=== PATIENT | male | born 1965 | race Hispanic/Latino ===

== ENCOUNTER → 2018-07-14 | Outpatient (CLI) | payer OTHER, MEDICARE ==
[~2018-07-14] MED LIST: AMIL5TAB8 PO; ASPI-555 PO; CEPH500T PO; FURO40TA5 PO; INSU100I26 SQ; MECL-111 PO; METF-446 PO; RIVA20TA PO; TYL3 PO; VALS320T16 PO
== END | disposition home or self-care (01) ==
LOC: SHCH 07:42
PROVIDERS: ATTEND Internal Medicine Cardiovascular Disease
DX: I10 Essential (primary) hypertension (principal); I48.1 Persistent atrial fibrillation; R06.00 Dyspnea, unspecified
CPT/HCPCS: 93306

== ENCOUNTER → 2018-08-02 | Outpatient (CLI) | payer MEDICARE, OTHER | END | disposition home or self-care (01) | LOC: RAH 14:08 | PROVIDERS: ATTEND Family Medicine | DX: S00.93XA Contusion of unspecified part of head, initial encounter (principal); X58.XXXA Exposure to other specified factors, initial encounter; Y93.89 Activity, other specified; Y92.89 Other specified places as the place of occurrence of the external cause; Y99.8 Other external cause status | CPT/HCPCS: 70450 ==

== ENCOUNTER 2019-05-23 17:32 | Emergency (ER) | payer MEDICARE ==
[2019-05-23] MEDS ORDERED: ACETAMINOPHEN 325 MG TAB ONE (18:49)
== END 2019-05-23 18:53 | disposition home or self-care (01) ==
LOC: EDH 17:32
DX: S70.11XA Contusion of right thigh, initial encounter (principal); I10 Essential (primary) hypertension; E11.9 Type 2 diabetes mellitus without complications; I48.91 Unspecified atrial fibrillation; Z98.890 Other specified postprocedural states; Z72.0 Tobacco use; W01.198A Fall on same level from slipping, tripping and stumbling with subsequent striking against other object, initial encounter; Y93.01 Activity, walking, marching and hiking; Y92.89 Other specified places as the place of occurrence of the external cause; Y99.8 Other external cause status
CPT/HCPCS: 73552; 76882

== ENCOUNTER 2019-07-12 14:24 | Inpatient (IN) | payer OTHER, MEDICARE ==
[~2019-07-12] VITALS: Ht 182.9 cm; Wt 120.2 kg
[2019-07-12] MEDS ORDERED: KETOROLAC TROMETHAMINE 30MG/ML ONE (15:38)
[2019-07-12 15:52] LABS: EOSINOPHILS % (AUTO) 1.9 % (0.0-8.0); HEMATOCRIT 45.5 % (42-54); LYMPHOCYTES % (AUTO) 22.7 % (21.0-51.0); MEAN CORPUSCULAR HEMOGLOBIN 29.4 pg (27.0-33.0); MEAN CORPUSCULAR HGB CONC 34.8 g/dL (32.0-36.0); MEAN CORPUSCULAR VOLUME 84.6 fL (79-99); MONOCYTES % (AUTO) 6.1 % (3.0-13.0); NEUTROPHILS % (AUTO) 68.3 % (40.0-77.0); PLATELET COUNT (AUTO) 149 K/uL (130-400); RED BLOOD CELL COUNT(AUTO) 5.38 MIL/uL (4.50-6.20); RED CELL DISTRIBUTION WIDTH 13.6 % (11.0-15.5); WHITE BLOOD COUNT (AUTO) 6.6 K/uL (4.8-10.8)
[2019-07-12 16:12] LABS: CREATININE 1.3 mg/dL (0.5-1.5); INR 0.95 (0.85-1.15); PARTIAL THROMBOPLASTIN TIME 28.3 SEC (26.3-35.5); POTASSIUM 4.2 mmol/L (3.5-5.1)
[2019-07-12] MEDS ORDERED: SODIUM CHLORIDE 0.9% 1000ML 1,000 ML IV ONE (16:15)
[2019-07-12 16:17] LABS: ALBUMIN 3.3 g/dL (3.5-5.0); BILIRUBIN,TOTAL 0.4 mg/dL (0.2-1.0)
[2019-07-12] MEDS ORDERED: INSULIN HUMULIN R 100 UNIT/ML 3ML ONE (16:53)
[2019-07-12] MEDS ORDERED: LEVOFLOXACIN 500 MG/D5W 100 ML 100 ML ONE (17:15)
[2019-07-12] MEDS ORDERED: ONDANSETRON HCL 4 MG/2 ML VIAL IV PRN (18:45)
[2019-07-12] MEDS ORDERED: ACETAMINOPHEN 325 MG TAB PO PRN ×2 (18:45)
[2019-07-12] MEDS ORDERED: CEFTRIAXONE SODIUM 2 GM VIAL IVP SCH (20:00)
[2019-07-12] MEDS: INSULIN HUMULIN R 100 UNIT/ML 3ML SQ SCH (21:00)
[2019-07-12 21:25] VITALS: BP 173/90
[2019-07-12] MEDS ORDERED: SODIUM CHLORIDE 0.9% 250 ML IV ONE (22:14)
[2019-07-12] MEDS: ACETAMINOPHEN-CODEINE 300/30MG TAB PO PRN (22:21)
[2019-07-13] VITALS: BP 145/90
[2019-07-13 04:00] VITALS: BP 143/93
[2019-07-13 04:14] LABS: BASOPHILS % (AUTO) 0.8 % (0.0-5.0); EOSINOPHILS % (AUTO) 2.8 % (0.0-8.0); HEMATOCRIT 41.3 % (42-54); LYMPHOCYTES % (AUTO) 34.7 % (21.0-51.0); MEAN CORPUSCULAR HEMOGLOBIN 29.4 pg (27.0-33.0); MEAN CORPUSCULAR HGB CONC 34.7 g/dL (32.0-36.0); MEAN CORPUSCULAR VOLUME 84.8 fL (79-99); MONOCYTES % (AUTO) 7.4 % (3.0-13.0); NEUTROPHILS % (AUTO) 54.3 % (40.0-77.0); NUCLEATED RED BLOOD CELLS 0.1 % (0.0-0.19); PLATELET COUNT (AUTO) 114 K/uL (130-400); RED BLOOD CELL COUNT(AUTO) 4.88 MIL/uL (4.50-6.20); RED CELL DISTRIBUTION WIDTH 13.5 % (11.0-15.5); WHITE BLOOD COUNT (AUTO) 5.5 K/uL (4.8-10.8)
[2019-07-13 04:30] LABS: CREATININE 1.2 mg/dL (0.5-1.5)
[2019-07-13] MEDS: ACETAMINOPHEN-CODEINE 300/30MG TAB PO PRN ×4 (06:22→20:18)
[2019-07-13] MEDS: INSULIN HUMULIN R 100 UNIT/ML 3ML SQ SCH ×2 (07:30→11:30)
[2019-07-13 08:00] VITALS: BP 147/94
[2019-07-13] MEDS: FAMOTIDINE 20MG TAB 20 MG TAB PO SCH (08:55)
[2019-07-13] MEDS ORDERED: CLINDAMYCIN 900 MG/D5% WATER 50 ML IV SCH (10:30)
[2019-07-13 10:51] LABS: HEMOGLOBIN A1C 10.7 % (4.0-6.0)
[2019-07-13] MEDS ORDERED: INSU100I35 SQ ×2 (11:30)
[2019-07-13] MEDS ORDERED: INSULIN LISPRO 100 UNIT/ML 3ML SQ SCH (11:45)
[2019-07-13] MEDS ORDERED: DEXTROSE 50%-WATER 50 ML DISP.SYRIN IV PRN (11:45)
[2019-07-13] MEDS ORDERED: GLUCAGON 1MG KIT 1 MG ML IM PRN (11:45)
[2019-07-13] MEDS ORDERED: PHARMACY COMMUNICATION MISC SCH (12:00)
[2019-07-13] MEDS: INSULIN LISPRO 100 UNIT/ML 3ML SQ SCH ×4 (12:33→22:25)
[2019-07-13] MEDS: LOSARTAN 100 MG TABLET PO SCH (12:34)
[2019-07-13 12:39] VITALS: BP 164/107
--- NOTE | 2019-07-13 13:00 | NUR ---
INITIAL SPOKE TO PT, ALONE, [place], MATT, EMPLOYED, NO DME, HER FOR MASTOIDITIS, REC IVABX, PENIDNG CULTURE, MITCHP IS HOME, NO DC NEEDS ANTICIPATED Addendum: 07/13/19 at 1850 by TIANNA SANON RN CM Amended: Links added.
[2019-07-13] MEDS ORDERED: VANCOMYCIN PROTOCOL PER PHARMACY IV SCH (15:30)
[2019-07-13] MEDS ORDERED: COMPOUND IV REFRIGERATED 1 EACH IVSOLN MISC PRN (15:45)
[2019-07-13] MEDS ORDERED: VANCOMYCIN 2 GM in SODIUM CHLORIDE 0.9% 500ML 500 ML IV ONE (16:00)
[2019-07-13] MEDS: CEFTAZIDIME PENTAHYDRATE 1 GM/VIAL IVP SCH (16:15)
[2019-07-13] MEDS ORDERED: AMILORIDE HCL 5 MG TABLET PO SCH (16:30)
[2019-07-13 17:07] VITALS: BP 158/100
[2019-07-13] MEDS: FUROSEMIDE 40 MG TABLET PO SCH (17:22)
[2019-07-13 20:49] VITALS: BP 149/84
[2019-07-13] MEDS ORDERED: INSULIN GLARGINE 100 UNITS/ML 10 ML VIAL SQ SCH (21:00)
[2019-07-14] MEDS: CEFTAZIDIME PENTAHYDRATE 1 GM/VIAL IVP SCH ×4 (00:01→23:43)
[2019-07-14] MEDS: ACETAMINOPHEN-CODEINE 300/30MG TAB PO PRN ×3 (00:14→16:42)
[2019-07-14 00:51] VITALS: BP 149/85
[2019-07-14 04:51] VITALS: BP 148/93
[2019-07-14 05:49] LABS: BASOPHILS % (AUTO) 0.9 % (0.0-5.0); HEMATOCRIT 42.8 % (42-54); LYMPHOCYTES % (AUTO) 34.2 % (21.0-51.0); MEAN CORPUSCULAR HEMOGLOBIN 29.3 pg (27.0-33.0); MEAN CORPUSCULAR HGB CONC 34.8 g/dL (32.0-36.0); MEAN CORPUSCULAR VOLUME 84.2 fL (79-99); MONOCYTES % (AUTO) 7.8 % (3.0-13.0); NEUTROPHILS % (AUTO) 54.1 % (40.0-77.0); PLATELET COUNT (AUTO) 140 K/uL (130-400); RED BLOOD CELL COUNT(AUTO) 5.08 MIL/uL (4.50-6.20); RED CELL DISTRIBUTION WIDTH 13.8 % (11.0-15.5); WHITE BLOOD COUNT (AUTO) 5.4 K/uL (4.8-10.8)
[2019-07-14] MEDS: VANCOMYCIN 1.5 GM in SODIUM CHLORIDE 0.9% 250 ML IV SCH ×2 (05:52→17:09)
[2019-07-14 06:14] LABS: CARBON DIOXIDE 30 mmol/L (21-32); CHLORIDE 101 mmol/L (101-111); CREATININE 1.1 mg/dL (0.5-1.5); GLOMERULAR FILTR. RATE CALC 74 mL/min (>60); GLUCOSE,RANDOM 217 mg/dL (70-105); POTASSIUM 3.6 mmol/L (3.5-5.1); SODIUM SERUM 136 mmol/L (136-145); UREA NITROGEN, BLOOD 13 mg/dL (7-18)
[2019-07-14] MEDS: INSULIN LISPRO 100 UNIT/ML 3ML SQ SCH ×7 (06:29→22:25)
[2019-07-14 07:00] LABS: ERYTHROCYTE SEDIMENTATION RATE 19 MM/HR (0-20)
[2019-07-14 07:30] VITALS: BP 144/88
[2019-07-14] MEDS ORDERED: AMILORIDE HCL 5 MG TABLET PO SCH (09:00)
[2019-07-14] MEDS ORDERED: FUROSEMIDE 40 MG TABLET PO SCH (09:00)
[2019-07-14] MEDS: RIVAROXABAN 20 MG TABLET PO SCH (09:06)
[2019-07-14] MEDS: LOSARTAN 100 MG TABLET PO SCH (09:06)
[2019-07-14] MEDS: FUROSEMIDE 40 MG TABLET PO SCH (09:07)
[2019-07-14] MEDS: AMILORIDE HCL 5 MG TABLET PO SCH (09:07)
[2019-07-14] MEDS: FAMOTIDINE 20MG TAB 20 MG TAB PO SCH (09:08)
[2019-07-14 11:00] VITALS: BP 158/75
[2019-07-14 16:00] VITALS: BP 175/84
[2019-07-14] MEDS ORDERED: SODIUM CHLORIDE 0.9% 250 ML IV ONE (17:35)
--- NOTE | 2019-07-14 18:21 | NUR ---
dr ellison paged thru answering service regarding consult..pending call back
--- NOTE | 2019-07-14 18:35 | NUR ---
call back from katlyn gonzalez vocational technical education director for dr ellison from [facility] .md stated a this time following [facility] [place] and only will see patient if urgent to need to transport patient to [facility] . per md to continue with current antibiotic regime and if patient condition does not get better recommend to call dr ellison on tuesday again for any further workup if needed. per md for now patient will need to be on antibiotics for several days before any intervention that might be needed and maybe a follow up ct scan after treatments . also recommend to follow up with an ent doctor if needed as outpt .
[2019-07-14 20:00] VITALS: BP 148/82
[2019-07-14] MEDS: INSULIN GLARGINE 100 UNITS/ML 10 ML VIAL SQ SCH (22:25)
[2019-07-15] VITALS: BP 170/83
[2019-07-15 04:00] VITALS: BP 130/71
[2019-07-15 05:12] LABS: BASOPHILS % (AUTO) 0.9 % (0.0-5.0); EOSINOPHILS % (AUTO) 2.5 % (0.0-8.0); HEMATOCRIT 41.7 % (42-54); LYMPHOCYTES % (AUTO) 25.8 % (21.0-51.0); MEAN CORPUSCULAR HEMOGLOBIN 29.6 pg (27.0-33.0); MEAN CORPUSCULAR HGB CONC 34.8 g/dL (32.0-36.0); MEAN CORPUSCULAR VOLUME 85.1 fL (79-99); MONOCYTES % (AUTO) 8.2 % (3.0-13.0); NEUTROPHILS % (AUTO) 62.6 % (40.0-77.0); PLATELET COUNT (AUTO) 129 K/uL (130-400); RED CELL DISTRIBUTION WIDTH 13.7 % (11.0-15.5)
[2019-07-15] MEDS: ACETAMINOPHEN-CODEINE 300/30MG TAB PO PRN ×2 (05:19→12:40)
[2019-07-15 05:25] LABS: CREATININE 1.2 mg/dL (0.5-1.5)
[2019-07-15] MEDS: VANCOMYCIN 1.5 GM in SODIUM CHLORIDE 0.9% 250 ML IV SCH (06:09)
[2019-07-15] MEDS: INSULIN LISPRO 100 UNIT/ML 3ML SQ SCH ×7 (07:29→20:32)
[2019-07-15 07:30] VITALS: BP 142/86
[2019-07-15] MEDS: RIVAROXABAN 20 MG TABLET PO SCH (08:55)
[2019-07-15] MEDS: AMILORIDE HCL 5 MG TABLET PO SCH (08:56)
[2019-07-15] MEDS: FAMOTIDINE 20MG TAB 20 MG TAB PO SCH (08:56)
[2019-07-15] MEDS: FUROSEMIDE 40 MG TABLET PO SCH (08:56)
[2019-07-15] MEDS: LOSARTAN 100 MG TABLET PO SCH (08:56)
[2019-07-15] MEDS: CEFAZOLIN SODIUM 1 GM VIAL IVP SCH ×2 (09:01→17:27)
[2019-07-15 11:00] VITALS: BP 139/74
[2019-07-15] MEDS ORDERED: VANCOMYCIN 1GM+NS 250ML 250 ML IV SCH (14:00)
[2019-07-15 16:00] VITALS: BP 143/90
[2019-07-15 19:15] VITALS: BP 151/81
[2019-07-15] MEDS: INSULIN GLARGINE 100 UNITS/ML 10 ML VIAL SQ SCH (20:34)
[2019-07-16 00:18] VITALS: BP 169/97
[2019-07-16] MEDS: CEFAZOLIN SODIUM 1 GM VIAL IVP SCH ×3 (01:25→17:08)
[2019-07-16 04:20] VITALS: BP 163/85
[2019-07-16 05:55] LABS: BASOPHILS % (AUTO) 0.7 % (0.0-5.0); HEMATOCRIT 42.7 % (42-54); MEAN CORPUSCULAR HEMOGLOBIN 29.3 pg (27.0-33.0); MEAN CORPUSCULAR HGB CONC 34.5 g/dL (32.0-36.0); MEAN CORPUSCULAR VOLUME 85.1 fL (79-99); MONOCYTES % (AUTO) 7.5 % (3.0-13.0); NEUTROPHILS % (AUTO) 60.8 % (40.0-77.0); PLATELET COUNT (AUTO) 139 K/uL (130-400); RED BLOOD CELL COUNT(AUTO) 5.02 MIL/uL (4.50-6.20); RED CELL DISTRIBUTION WIDTH 13.5 % (11.0-15.5); WHITE BLOOD COUNT (AUTO) 6.1 K/uL (4.8-10.8)
[2019-07-16 06:02] LABS: CREATININE 1.1 mg/dL (0.5-1.5); POTASSIUM 3.9 mmol/L (3.5-5.1)
[2019-07-16 06:04] LABS: INR 0.98 (0.85-1.15); PROTHROMBIN TIME 10.3 SEC (9.6-11.6)
[2019-07-16] MEDS: INSULIN LISPRO 100 UNIT/ML 3ML SQ SCH ×7 (07:29→22:21)
[2019-07-16 07:49] VITALS: BP 154/64
[2019-07-16] MEDS: LOSARTAN 100 MG TABLET PO SCH (08:28)
[2019-07-16] MEDS: AMILORIDE HCL 5 MG TABLET PO SCH (08:29)
[2019-07-16] MEDS: FAMOTIDINE 20MG TAB 20 MG TAB PO SCH (08:29)
[2019-07-16] MEDS: FUROSEMIDE 40 MG TABLET PO SCH (08:30)
[2019-07-16] MEDS: RIVAROXABAN 20 MG TABLET PO SCH (08:30)
[2019-07-16 11:00] VITALS: BP 161/87
[2019-07-16] MEDS ORDERED: ALPR-409 PO (11:45)
[2019-07-16 16:00] VITALS: BP 156/85
--- NOTE | 2019-07-16 16:25 | NUR ---
CM Note: VBAIU pending approval and chair time CM met with pt discussed MD recommendations for [facility], pt agreeable RACH signed for VBAIU. PICC placed, pending MD order OK to use. Faxed script and clinicals to [facility], confirmation received. Spoke to Lina diaz/GEORGEHemanth, will wait for clinicals, aware pt pending MD order OK to use PICC. Pt pending approval and chair time at this time. CM to cont to follow up.
[2019-07-16] MEDS ORDERED: HYDROXYZINE HCL 50 MG/ML VIAL IM PRN (18:30)
[2019-07-16] MEDS ORDERED: PHARMACY COMMUNICATION MISC SCH (18:45)
[2019-07-16 19:05] VITALS: BP 151/92
[2019-07-16] MEDS ORDERED: HYDROXYZINE HCL 25 MG TABLET PO PRN (22:00)
[2019-07-16] MEDS: INSULIN GLARGINE 100 UNITS/ML 10 ML VIAL SQ SCH (22:21)
[2019-07-17 00:20] VITALS: BP 158/91
[2019-07-17] MEDS: CEFAZOLIN SODIUM 1 GM VIAL IVP SCH ×2 (01:35→09:13)
[2019-07-17] MEDS: ACETAMINOPHEN-CODEINE 300/30MG TAB PO PRN (01:40)
[2019-07-17 04:25] VITALS: BP 127/84
[2019-07-17 04:36] LABS: BASOPHILS % (AUTO) 0.7 % (0.0-5.0); EOSINOPHILS % (AUTO) 2.7 % (0.0-8.0); HEMATOCRIT 42.4 % (42-54); LYMPHOCYTES % (AUTO) 27.3 % (21.0-51.0); MEAN CORPUSCULAR HEMOGLOBIN 29.3 pg (27.0-33.0); MEAN CORPUSCULAR HGB CONC 34.3 g/dL (32.0-36.0); MEAN CORPUSCULAR VOLUME 85.4 fL (79-99); NEUTROPHILS % (AUTO) 61.3 % (40.0-77.0); PLATELET COUNT (AUTO) 131 K/uL (130-400); RED BLOOD CELL COUNT(AUTO) 4.97 MIL/uL (4.50-6.20); RED CELL DISTRIBUTION WIDTH 13.5 % (11.0-15.5)
[2019-07-17 04:53] LABS: CREATININE 1.1 mg/dL (0.5-1.5)
[2019-07-17] MEDS: INSULIN LISPRO 100 UNIT/ML 3ML SQ SCH ×4 (06:55→12:45)
[2019-07-17 08:00] VITALS: BP 144/75
[2019-07-17] MEDS ORDERED: FLU VACC QS2019-20 36MOS UP/PF 60 MCG/0.5 ML ML IM SCH (09:00)
[2019-07-17] MEDS: FAMOTIDINE 20MG TAB 20 MG TAB PO SCH (09:13)
[2019-07-17] MEDS: AMILORIDE HCL 5 MG TABLET PO SCH (09:13)
[2019-07-17] MEDS: LOSARTAN 100 MG TABLET PO SCH (09:13)
[2019-07-17] MEDS: RIVAROXABAN 20 MG TABLET PO SCH (09:13)
[2019-07-17] MEDS: FUROSEMIDE 40 MG TABLET PO SCH (09:15)
[2019-07-17] MEDS ORDERED: INSLAN SQ (10:36)
[2019-07-17] MEDS ORDERED: INSU100V SQ (10:36)
[2019-07-17] MEDS ORDERED: HYDR-3421 PO (10:36)
[2019-07-17] MEDS ORDERED: FLU VACC QS2019-20 36MOS UP/PF 60 MCG/0.5 ML ML IM ONE (11:30)
[2019-07-17 12:09] VITALS: BP 150/83
--- NOTE | 2019-07-17 13:00 | NUR ---
CM Note: VBAIU approval and acceptance Spoke to Lina diaz/ROB, pt has approval and acceptance, family able to register this morning, chair time 07/18 @ 0900. Pt updated. Primary nurse aware. CM to cont to follow up.
--- NOTE | 2019-07-17 14:56 | NUR ---
DISCHARGE INSTRUCTIONS WERE GIVEN TO THE PATIENT ALONG WITH F/U APPOINTMENT WITH AIU APPOINTMENT AND HE VERBALIZE UNDERSTANDING. PATIENT LEFT THE UNIT IN STABLE CONDITION VIA W/C WITH THE ASSISTANCE OF FLOOR FREIGHT HUSTLER.
== END 2019-07-17 14:15 | disposition home or self-care (01) | DRG 153 ==
LOC: EDH 14:24 → EDHIP 18:44 → 3AH 21:09
PROVIDERS: ADMIT Internal Medicine; ATTEND Internal Medicine
PROC: 02HV33Z Insertion of Infusion Device into Superior Vena Cava, Percutaneous Approach (ICD-10-PCS; principal; 2019-07-16)
PROC: 3E02340 Introduction of Influenza Vaccine into Muscle, Percutaneous Approach (ICD-10-PCS; 2019-07-16)
DX: H66.41 Suppurative otitis media, unspecified, right ear (principal); H70.001 Acute mastoiditis without complications, right ear; E44.0 Moderate protein-calorie malnutrition; D68.59 Other primary thrombophilia; H60.501 Unspecified acute noninfective otitis externa, right ear; H72.91 Unspecified perforation of tympanic membrane, right ear; D69.6 Thrombocytopenia, unspecified; E11.9 Type 2 diabetes mellitus without complications; I10 Essential (primary) hypertension; E66.01 Morbid (severe) obesity due to excess calories; B95.61 Methicillin susceptible Staphylococcus aureus infection as the cause of diseases classified elsewhere; I48.91 Unspecified atrial fibrillation; Z68.35 Body mass index [BMI] 35.0-35.9, adult; Z79.01 Long term (current) use of anticoagulants; Z87.891 Personal history of nicotine dependence; Z23 Encounter for immunization; Z83.3 Family history of diabetes mellitus; Z80.1 Family history of malignant neoplasm of trachea, bronchus and lung; Z80.0 Family history of malignant neoplasm of digestive organs; Z82.49 Family history of ischemic heart disease and other diseases of the circulatory system
CPT/HCPCS: 36415; 70486; 71045; 80048; 80053; 80202; 82550; 82948; 83036; 84145; 84484; 85025; 85610; 85651; 85730; 86140; 87070; 87077; 87186; 93005; C1894; G0008; G0378; J0690; J0696; J0713; J1815; J1885; J1956; J2405; J3370; J3490; J7030; J7040; Q2035

== ENCOUNTER 2019-07-18 14:53 | Emergency (ER) | payer OTHER, MEDICARE ==
[~2019-07-18 14:53] MED LIST changes: +ALPR-409 PO; -ASPI-555 PO; -CEPH500T PO; +HYDR-3421 PO; +INSLAN SQ; -INSU100I26 SQ; +INSU100V SQ; -METF-446 PO
[2019-07-18 15:28] LABS: BASOPHILS % (AUTO) 1.1 % (0.0-5.0); EOSINOPHILS % (AUTO) 2.4 % (0.0-8.0); HEMATOCRIT 45.1 % (42-54); LYMPHOCYTES % (AUTO) 20.7 % (21.0-51.0); MEAN CORPUSCULAR HEMOGLOBIN 29.2 pg (27.0-33.0); MEAN CORPUSCULAR HGB CONC 34.6 g/dL (32.0-36.0); MEAN CORPUSCULAR VOLUME 84.3 fL (79-99); MONOCYTES % (AUTO) 8.7 % (3.0-13.0); NEUTROPHILS % (AUTO) 67.1 % (40.0-77.0); PLATELET COUNT (AUTO) 151 K/uL (130-400); RED BLOOD CELL COUNT(AUTO) 5.35 MIL/uL (4.50-6.20); RED CELL DISTRIBUTION WIDTH 13.7 % (11.0-15.5); WHITE BLOOD COUNT (AUTO) 5.9 K/uL (4.8-10.8)
[2019-07-18 16:40] LABS: AMPHET/METH SCREEN,URINE NEGATIVE (NEGATIVE); BARBITURATE SCREEN, URINE NEGATIVE (NEGATIVE); BENZODIAZEPINES SCREEN,URINE NEGATIVE (NEGATIVE); CANNABINOID SCREEN,URINE NEGATIVE (NEGATIVE); COCAINE SCREEN,URINE POSITIVE (NEGATIVE); OPIATE SCREEN,URINE POSITIVE (NEGATIVE); PHENCYCLIDINE SCREEN,URINE NEGATIVE (NEGATIVE)
== END 2019-07-18 18:39 | disposition home or self-care (01) ==
LOC: EDH 14:53
DX: R07.89 Other chest pain (principal); F14.10 Cocaine abuse, uncomplicated; R14.0 Abdominal distension (gaseous); R51 Headache; I48.91 Unspecified atrial fibrillation; E11.9 Type 2 diabetes mellitus without complications; I10 Essential (primary) hypertension; Z72.0 Tobacco use
CPT/HCPCS: 36415; 71045; 80305; 84484; 85025; 93005

== ENCOUNTER 2020-04-03 17:09 | Emergency (ER) | payer OTHER, MEDICARE ==
[2020-04-03] MEDS ORDERED: ACETAMINOPHEN EXTRA STRENGTH 500 MG TABLET ONE (18:26)
[2020-04-03] MEDS ORDERED: ONDANSETRON HCL 4 MG/2 ML VIAL ONE (18:26)
[2020-04-03] MEDS ORDERED: CEFTRIAXONE SODIUM 1 GM ONE (18:43)
[2020-04-03] MEDS ORDERED: SODIUM CHLORIDE 0.9% 50 ML IV ONE (18:43)
== END 2020-04-03 20:30 | disposition home or self-care (01) ==
LOC: EDH 17:09
DX: N39.0 Urinary tract infection, site not specified (principal); R19.7 Diarrhea, unspecified; E11.9 Type 2 diabetes mellitus without complications; I10 Essential (primary) hypertension; I48.91 Unspecified atrial fibrillation; Z72.0 Tobacco use
CPT/HCPCS: 36415; 80053; 81001; 83690; 85025; 87077; 87088; 87186; 96361; 96374; 96375; 99284; J0696; J2405

== ENCOUNTER 2020-05-06 07:35 | Emergency (ER) | payer OTHER, MEDICARE ==
[~2020-05-06 07:35] MED LIST changes: -MECL-111 PO; +MECL-160 PO
[2020-05-06] MEDS ORDERED: HYDROCODONE/ACETAMINOPHEN 5/325 MG TAB ONE (09:17)
[2020-05-06] MEDS ORDERED: ONDANSETRON ODT 4 MG TAB ONE (09:18)
[2020-05-06] MEDS ORDERED: CEFTRIAXONE SODIUM 1 GM ONE (09:40)
[2020-05-06] MEDS ORDERED: INSULIN HUMULIN R 100 UNIT/ML 3ML ONE ×2 (09:42→11:36)
[2020-05-06 09:46] LABS: BASOPHILS % (AUTO) 0.9 % (0.0-5.0); EOSINOPHILS % (AUTO) 2.4 % (0.0-8.0); HEMATOCRIT 46.7 % (42-54); LYMPHOCYTES % (AUTO) 26.3 % (21.0-51.0); MEAN CORPUSCULAR HEMOGLOBIN 28.8 pg (27.0-33.0); MEAN CORPUSCULAR HGB CONC 34.9 g/dL (32.0-36.0); MEAN CORPUSCULAR VOLUME 82.5 fL (79-99); MONOCYTES % (AUTO) 6.7 % (3.0-13.0); NEUTROPHILS % (AUTO) 63.6 % (40.0-77.0); PLATELET COUNT (AUTO) 212 K/uL (130-400); RED BLOOD CELL COUNT(AUTO) 5.66 MIL/uL (4.50-6.20); RED CELL DISTRIBUTION WIDTH 13.1 % (11.0-15.5); WHITE BLOOD COUNT (AUTO) 6.7 K/uL (4.8-10.8)
[2020-05-06 10:15] LABS: ALBUMIN 3.4 g/dL (3.5-5.0); BILIRUBIN,TOTAL 0.7 mg/dL (0.2-1.0); CREATININE 1.3 mg/dL (0.5-1.5); POTASSIUM 4.2 mmol/L (3.5-5.1); TOTAL PROTEIN, SERUM 7.4 g/dL (6.0-8.3)
[2020-05-06] MEDS ORDERED: SODIUM CHLORIDE 0.9% 1000ML 1,000 ML IV ONE (10:49)
[2020-05-06] MEDS ORDERED: KETOROLAC TROMETHAMINE 30MG/ML ONE (11:35)
== END 2020-05-06 12:10 | disposition home or self-care (01) ==
LOC: EDH 07:35
DX: K02.9 Dental caries, unspecified (principal); E11.65 Type 2 diabetes mellitus with hyperglycemia; I10 Essential (primary) hypertension; E11.9 Type 2 diabetes mellitus without complications; I48.91 Unspecified atrial fibrillation; Z98.890 Other specified postprocedural states
CPT/HCPCS: 36415; 80053; 82948 ×2; 83605; 85025; 87040 ×2; 96361; 96374; 96375; 96376; 99284; J0696; J1815 ×2; J1885; J7030

== ENCOUNTER 2020-05-07 04:48 | Emergency (ER) | payer OTHER, MEDICARE ==
[2020-05-07] MEDS ORDERED: CLINDAMYCIN 900 MG/D5% WATER 50 ML IV ONE (05:39)
[2020-05-07] MEDS ORDERED: KETOROLAC TROMETHAMINE 30MG/ML ONE (05:40)
== END 2020-05-07 06:30 | disposition home or self-care (01) ==
LOC: EDH 04:48
DX: K02.9 Dental caries, unspecified (principal); K08.89 Other specified disorders of teeth and supporting structures; I10 Essential (primary) hypertension; E11.9 Type 2 diabetes mellitus without complications; I48.91 Unspecified atrial fibrillation; Z98.890 Other specified postprocedural states; Z87.891 Personal history of nicotine dependence
CPT/HCPCS: 96365; 96375; 99284; J1885; J3490

== ENCOUNTER → 2021-06-02 | Outpatient (CLI) | payer BC, MEDICARE | END | disposition home or self-care (01) | LOC: SHCH 12:37 | PROVIDERS: ATTEND Internal Medicine Cardiovascular Disease | DX: I70.213 Atherosclerosis of native arteries of extremities with intermittent claudication, bilateral legs (principal); R60.9 Edema, unspecified | CPT/HCPCS: 93925; 93970 ==

== ENCOUNTER → 2022-03-04 | Outpatient (CLI) | payer BC, MEDICARE ==
[~2022-03-04] MED LIST changes: +LIDOCAINE HCL 4% LTA SOL 4 ML VIAL TP ONE
== END | disposition home or self-care (01) ==
LOC: WHH 08:48
PROVIDERS: ATTEND Family Medicine
DX: E11.622 Type 2 diabetes mellitus with other skin ulcer (principal); L97.822 Non-pressure chronic ulcer of other part of left lower leg with fat layer exposed; L97.222 Non-pressure chronic ulcer of left calf with fat layer exposed; S81.801D Unspecified open wound, right lower leg, subsequent encounter; S91.102D Unspecified open wound of left great toe without damage to nail, subsequent encounter; E11.628 Type 2 diabetes mellitus with other skin complications; I11.0 Hypertensive heart disease with heart failure; I50.22 Chronic systolic (congestive) heart failure; E11.51 Type 2 diabetes mellitus with diabetic peripheral angiopathy without gangrene; E78.5 Hyperlipidemia, unspecified; I48.91 Unspecified atrial fibrillation; M19.90 Unspecified osteoarthritis, unspecified site; Z79.01 Long term (current) use of anticoagulants; Z79.4 Long term (current) use of insulin; Z79.899 Other long term (current) drug therapy; X58.XXXD Exposure to other specified factors, subsequent encounter
CPT/HCPCS: 11042

== ENCOUNTER → 2022-03-18 | Outpatient (CLI) | payer BC, MEDICARE | END | disposition home or self-care (01) | LOC: WHH 08:44 | PROVIDERS: ATTEND Family Medicine | DX: E11.622 Type 2 diabetes mellitus with other skin ulcer (principal); L97.822 Non-pressure chronic ulcer of other part of left lower leg with fat layer exposed; S81.801D Unspecified open wound, right lower leg, subsequent encounter; L97.222 Non-pressure chronic ulcer of left calf with fat layer exposed; S91.102D Unspecified open wound of left great toe without damage to nail, subsequent encounter; E11.51 Type 2 diabetes mellitus with diabetic peripheral angiopathy without gangrene; E11.628 Type 2 diabetes mellitus with other skin complications; I11.0 Hypertensive heart disease with heart failure; I50.22 Chronic systolic (congestive) heart failure; E78.5 Hyperlipidemia, unspecified; I48.91 Unspecified atrial fibrillation; M19.90 Unspecified osteoarthritis, unspecified site; Z79.01 Long term (current) use of anticoagulants; Z79.4 Long term (current) use of insulin; Z79.899 Other long term (current) drug therapy; X58.XXXD Exposure to other specified factors, subsequent encounter | CPT/HCPCS: 11042 ==

== ENCOUNTER → 2022-04-08 | Outpatient (CLI) | payer BC, MEDICARE ==
[~2022-04-08] MED LIST changes: +LIDOCAINE HCL 4% LTA SOL 4 ML VIAL ONE; -LIDOCAINE HCL 4% LTA SOL 4 ML VIAL TP ONE
== END | disposition home or self-care (01) ==
LOC: WHH 08:48
PROVIDERS: ATTEND Family Medicine
DX: E11.622 Type 2 diabetes mellitus with other skin ulcer (principal); L97.822 Non-pressure chronic ulcer of other part of left lower leg with fat layer exposed; L97.222 Non-pressure chronic ulcer of left calf with fat layer exposed; E11.628 Type 2 diabetes mellitus with other skin complications; E11.51 Type 2 diabetes mellitus with diabetic peripheral angiopathy without gangrene; E11.40 Type 2 diabetes mellitus with diabetic neuropathy, unspecified; I11.0 Hypertensive heart disease with heart failure; I50.22 Chronic systolic (congestive) heart failure; E78.5 Hyperlipidemia, unspecified; I48.91 Unspecified atrial fibrillation; M19.90 Unspecified osteoarthritis, unspecified site; Z79.01 Long term (current) use of anticoagulants; Z79.4 Long term (current) use of insulin; Z79.899 Other long term (current) drug therapy
CPT/HCPCS: 11042

== ENCOUNTER → 2022-04-29 | Outpatient (CLI) | payer BC, MEDICARE ==
[~2022-04-29] MED LIST changes: -LIDOCAINE HCL 4% LTA SOL 4 ML VIAL ONE; +LIDOCAINE HCL 4% LTA SOL 4 ML VIAL TP ONE
== END | disposition home or self-care (01) ==
LOC: WHH 08:55
PROVIDERS: ATTEND Family Medicine
DX: E11.622 Type 2 diabetes mellitus with other skin ulcer (principal); L97.822 Non-pressure chronic ulcer of other part of left lower leg with fat layer exposed; L97.222 Non-pressure chronic ulcer of left calf with fat layer exposed; S91.104A Unspecified open wound of right lesser toe(s) without damage to nail, initial encounter; E11.628 Type 2 diabetes mellitus with other skin complications; E11.51 Type 2 diabetes mellitus with diabetic peripheral angiopathy without gangrene; E11.40 Type 2 diabetes mellitus with diabetic neuropathy, unspecified; I11.0 Hypertensive heart disease with heart failure; I50.22 Chronic systolic (congestive) heart failure; E78.5 Hyperlipidemia, unspecified; I48.91 Unspecified atrial fibrillation; M19.90 Unspecified osteoarthritis, unspecified site; Z79.01 Long term (current) use of anticoagulants; Z79.4 Long term (current) use of insulin; Z79.899 Other long term (current) drug therapy; X58.XXXA Exposure to other specified factors, initial encounter; Y93.89 Activity, other specified; Y92.89 Other specified places as the place of occurrence of the external cause; Y99.8 Other external cause status
CPT/HCPCS: 11042; A4450

== ENCOUNTER → 2022-06-17 | Outpatient (CLI) | payer BC, MEDICARE ==
[~2022-06-17] MED LIST changes: -LIDOCAINE HCL 4% LTA SOL 4 ML VIAL TP ONE
== END | disposition home or self-care (01) ==
LOC: WHH 08:46
PROVIDERS: ATTEND Family Medicine
DX: E11.622 Type 2 diabetes mellitus with other skin ulcer (principal); L97.822 Non-pressure chronic ulcer of other part of left lower leg with fat layer exposed; L97.222 Non-pressure chronic ulcer of left calf with fat layer exposed; S61.303D Unspecified open wound of left middle finger with damage to nail, subsequent encounter; E11.628 Type 2 diabetes mellitus with other skin complications; E11.51 Type 2 diabetes mellitus with diabetic peripheral angiopathy without gangrene; E11.40 Type 2 diabetes mellitus with diabetic neuropathy, unspecified; I11.0 Hypertensive heart disease with heart failure; I50.22 Chronic systolic (congestive) heart failure; E78.5 Hyperlipidemia, unspecified; I48.91 Unspecified atrial fibrillation; M19.90 Unspecified osteoarthritis, unspecified site; Z79.01 Long term (current) use of anticoagulants; Z79.4 Long term (current) use of insulin; Z79.899 Other long term (current) drug therapy; X58.XXXD Exposure to other specified factors, subsequent encounter
CPT/HCPCS: G0463

== ENCOUNTER 2022-08-15 16:41 | Emergency (ER) | payer BC, MEDICARE ==
[~2022-08-15] VITALS: Ht 182.9 cm; Wt 110.7 kg
[2022-08-15 17:26] LABS: EOSINOPHILS % (AUTO) 1.9 % (0.0-8.0); HEMATOCRIT 45.3 % (42-54); LYMPHOCYTES % (AUTO) 25.7 % (21.0-51.0); MEAN CORPUSCULAR HEMOGLOBIN 28.2 pg (27.0-33.0); MEAN CORPUSCULAR HGB CONC 34.2 g/dL (32.0-36.0); MEAN CORPUSCULAR VOLUME 82.4 fL (79-99); MONOCYTES % (AUTO) 7.1 % (3.0-13.0); PLATELET COUNT (AUTO) 148 K/uL (130-400); RED CELL DISTRIBUTION WIDTH 12.8 % (11.0-15.5); WHITE BLOOD COUNT (AUTO) 5.8 K/uL (4.8-10.8)
[2022-08-15 17:38] LABS: POTASSIUM 3.9 mmol/L (3.5-5.1)
[2022-08-15 17:43] LABS: ALBUMIN 2.9 g/dL (3.5-5.0); TOTAL PROTEIN, SERUM 6.6 g/dL (6.0-8.3)
[2022-08-15 18:54] LABS: APPEARANCE,URINE CLEAR (CLEAR); BILIRUBIN,URINE NEGATIVE (NEGATIVE); COLOR,URINE COLORLESS (YELLOW); GLUCOSE, URINE (UA) >=1000 mg/dL (NEGATIVE); KETONES,URINE 5 mg/dL (NEGATIVE); LEUKOCYTE ESTERASE ,URINE 25 Leu/uL (NEGATIVE); NITRATE,URINE NEGATIVE (NEGATIVE); PH,URINE 5.5 (5.0-8.0); PROTEIN,URINE 50 mg/dL (NEGATIVE); UROBILINOGEN,URINE 0.2 mg/dL (0.2-1.0)
[2022-08-15 19:01] LABS: BACTERIA,URINE RARE /HPF (None Seen); SQUAMOUS EPITHELIAL CELL,UR RARE /HPF (0-2)
[2022-08-15 20:38] VITALS: BP 148/90
== END 2022-08-15 20:45 | disposition home or self-care (01) ==
LOC: EDH 16:41
DX: R42 Dizziness and giddiness (principal); Z76.5 Malingerer [conscious simulation]; H93.19 Tinnitus, unspecified ear; G89.29 Other chronic pain; M54.9 Dorsalgia, unspecified; E11.9 Type 2 diabetes mellitus without complications; E78.00 Pure hypercholesterolemia, unspecified; I10 Essential (primary) hypertension; I48.91 Unspecified atrial fibrillation; Z86.73 Personal history of transient ischemic attack (TIA), and cerebral infarction without residual deficits
CPT/HCPCS: 36415; 80053; 81001; 85025; 93005

== ENCOUNTER → 2022-08-30 | Outpatient (CLI) | payer BC, MEDICARE | END | disposition home or self-care (01) | LOC: RAH 12:45 | PROVIDERS: ATTEND Nurse Practitioner Family | DX: J32.3 Chronic sphenoidal sinusitis (principal); R53.1 Weakness | CPT/HCPCS: 70551 ==

== ENCOUNTER → 2022-09-14 | Outpatient (CLI) | payer BC, MEDICARE ==
[2022-09-14 13:07] LABS: CREATININE 1.2 mg/dL (0.5-1.5); POTASSIUM 3.9 mmol/L (3.5-5.1)
== END | disposition home or self-care (01) ==
LOC: LAB 08:08
PROVIDERS: ATTEND Internal Medicine Cardiovascular Disease
DX: I50.32 Chronic diastolic (congestive) heart failure (principal); I48.0 Paroxysmal atrial fibrillation
CPT/HCPCS: 36415; 80048; 83735; 83880

== ENCOUNTER 2023-01-04 15:23 | Emergency (ER) | payer BC, MEDICARE ==
[~2023-01-04] VITALS: Ht 182.9 cm; Wt 110.7 kg
[2023-01-04] MEDS ORDERED: 0.9%NACL 1000ML 1,000 ML IV ONE (16:00)
[2023-01-04 16:40] LABS: BASOPHILS % (AUTO) 1.3 % (0.0-5.0); EOSINOPHILS % (AUTO) 2.7 % (0.0-8.0); HEMATOCRIT 43.9 % (42-54); LYMPHOCYTES % (AUTO) 28.2 % (21.0-51.0); MEAN CORPUSCULAR HEMOGLOBIN 28.1 pg (27.0-33.0); MEAN CORPUSCULAR HGB CONC 33.9 g/dL (32.0-36.0); MEAN CORPUSCULAR VOLUME 82.8 fL (79-99); MONOCYTES % (AUTO) 6.7 % (3.0-13.0); NEUTROPHILS % (AUTO) 60.9 % (40.0-77.0); PLATELET COUNT (AUTO) 137 K/uL (130-400); RED CELL DISTRIBUTION WIDTH 13.1 % (11.0-15.5); WHITE BLOOD COUNT (AUTO) 4.8 K/uL (4.8-10.8)
[2023-01-04 16:53] LABS: HEMOGLOBIN A1C 11.1 % (4.0-6.0)
[2023-01-04 17:05] LABS: POTASSIUM 4.4 mmol/L (3.5-5.1)
[2023-01-04 17:10] LABS: APPEARANCE,URINE CLEAR (CLEAR); BILIRUBIN,URINE NEGATIVE (NEGATIVE); COLOR,URINE LIGHT-YELLOW (YELLOW); GLUCOSE, URINE (UA) >=1000 mg/dL (NEGATIVE); KETONES,URINE NEGATIVE (NEGATIVE); LEUKOCYTE ESTERASE ,URINE 500 Leu/uL (NEGATIVE); NITRATE,URINE NEGATIVE (NEGATIVE); OCCULT BLOOD,URINE SMALL (NEGATIVE); PROTEIN,URINE 70 mg/dL (NEGATIVE); UROBILINOGEN,URINE 0.2 mg/dL (0.2-1.0)
[2023-01-04 17:20] LABS: BACTERIA,URINE RARE /HPF (None Seen); MUCUS,URINE RARE LPF (None Seen); SQUAMOUS EPITHELIAL CELL,UR FEW /HPF (0-2); YEAST,URINE BUDDING FEW /HPF (None Seen)
[2023-01-04 17:23] LABS: ALBUMIN 3.1 g/dL (3.5-5.0); CREATININE 1.5 mg/dL (0.5-1.5); MAGNESIUM 1.9 mg/dL (1.80-2.40); TOTAL PROTEIN, SERUM 6.7 g/dL (6.0-8.3)
[2023-01-04] MEDS ORDERED: INSULIN HUMULIN R 100 UNIT/ML 3ML IV ONE (17:30)
[2023-01-04] MEDS ORDERED: CEFTRIAXONE 1G VIAL IVP ONE (17:30)
[2023-01-04] MEDS ORDERED: CEFU500T67 PO (17:56)
[2023-01-04] MEDS ORDERED: KETOROLAC 15MG/ML VIAL (15MG/ML) IV ONE (18:00)
[2023-01-04 18:21] VITALS: BP 152/81
== END 2023-01-04 18:24 | disposition home or self-care (01) ==
LOC: EDH 15:23
DX: N39.0 Urinary tract infection, site not specified (principal); E11.65 Type 2 diabetes mellitus with hyperglycemia; E78.00 Pure hypercholesterolemia, unspecified; I11.0 Hypertensive heart disease with heart failure; I50.9 Heart failure, unspecified; I48.91 Unspecified atrial fibrillation; Z98.890 Other specified postprocedural states
CPT/HCPCS: 99284; 96374; 96375; 96361; 83036; 83735; 84484; 80053; 85025; 87088; 82948; 82010; 81001; 36415; 93005; J1815; J7030; J0696

== ENCOUNTER 2023-01-27 12:17 | Emergency (ER) | payer BC, MEDICARE ==
[~2023-01-27] VITALS: Ht 172.7 cm; Wt 90.7 kg
[~2023-01-27 12:17] MED LIST changes: -FURO40TA5 PO; -RIVA20TA PO; -TYL3 PO
[2023-01-27] MEDS ORDERED: 0.9%NACL 1000ML 1,000 ML IV ONE (13:00)
[2023-01-27 13:31] LABS: EOSINOPHILS % (AUTO) 2.4 % (0.0-8.0); HEMATOCRIT 46.6 % (42-54); LYMPHOCYTES % (AUTO) 25.2 % (21.0-51.0); MEAN CORPUSCULAR HEMOGLOBIN 27.9 pg (27.0-33.0); MEAN CORPUSCULAR HGB CONC 33.9 g/dL (32.0-36.0); MEAN CORPUSCULAR VOLUME 82.3 fL (79-99); MONOCYTES % (AUTO) 5.9 % (3.0-13.0); NEUTROPHILS % (AUTO) 65.2 % (40.0-77.0); PLATELET COUNT (AUTO) 138 K/uL (130-400); RED BLOOD CELL COUNT(AUTO) 5.66 MIL/uL (4.50-6.20); RED CELL DISTRIBUTION WIDTH 13.2 % (11.0-15.5); WHITE BLOOD COUNT (AUTO) 6.7 K/uL (4.8-10.8)
[2023-01-27 13:50] LABS: ALBUMIN 3.2 g/dL (3.5-5.0); CREATININE 1.6 mg/dL (0.5-1.5); POTASSIUM 3.6 mmol/L (3.5-5.1); TOTAL PROTEIN, SERUM 7.1 g/dL (6.0-8.3)
[2023-01-27 16:12] LABS: APPEARANCE,URINE CLEAR (CLEAR); BILIRUBIN,URINE NEGATIVE (NEGATIVE); COLOR,URINE COLORLESS (YELLOW); GLUCOSE, URINE (UA) >=1000 mg/dL (NEGATIVE); KETONES,URINE NEGATIVE (NEGATIVE); LEUKOCYTE ESTERASE ,URINE NEGATIVE Leu/uL (NEGATIVE); NITRATE,URINE NEGATIVE (NEGATIVE); OCCULT BLOOD,URINE NEGATIVE (NEGATIVE); PROTEIN,URINE 20 mg/dL (NEGATIVE); UROBILINOGEN,URINE 0.2 mg/dL (0.2-1.0)
[2023-01-27 16:14] LABS: MUCUS,URINE RARE LPF (None Seen); RBC,URINE 0-1 /HPF (0-1); SQUAMOUS EPITHELIAL CELL,UR RARE /HPF (0-2)
[2023-01-27 18:51] VITALS: BP 144/77
== END 2023-01-27 19:14 | disposition home or self-care (01) ==
LOC: EDH 12:17
DX: R53.1 Weakness (principal); T42.4X5A Adverse effect of benzodiazepines, initial encounter; I11.0 Hypertensive heart disease with heart failure; I50.9 Heart failure, unspecified; E11.9 Type 2 diabetes mellitus without complications; Z20.822 Contact with and (suspected) exposure to COVID-19; Z79.899 Other long term (current) drug therapy; Z98.890 Other specified postprocedural states; Y92.89 Other specified places as the place of occurrence of the external cause
CPT/HCPCS: 99284; 96360; 29515; 70450; 71045; 87635; 84484; 80053; 85025; 87804 ×2; 81001; 36415; 93005; 83605 ×3; C9803; J7030

== ENCOUNTER 2023-03-07 11:49 | Emergency (ER) | payer BC, MEDICARE ==
[~2023-03-07] VITALS: Ht 182.9 cm; Wt 113.4 kg
[2023-03-07 12:27] LABS: CREATININE 1.6 mg/dL (0.5-1.5); POTASSIUM 3.9 mmol/L (3.5-5.1)
[2023-03-07 12:30] LABS: BASOPHILS % (AUTO) 0.8 % (0.0-5.0); EOSINOPHILS % (AUTO) 3.3 % (0.0-8.0); MEAN CORPUSCULAR HEMOGLOBIN 27.7 pg (27.0-33.0); MEAN CORPUSCULAR HGB CONC 33.6 g/dL (32.0-36.0); MEAN CORPUSCULAR VOLUME 82.6 fL (79-99); MONOCYTES % (AUTO) 10.4 % (3.0-13.0); NEUTROPHILS % (AUTO) 46.5 % (40.0-77.0); PLATELET COUNT (AUTO) 167 K/uL (130-400); RED BLOOD CELL COUNT(AUTO) 6.42 MIL/uL (4.50-6.20); RED CELL DISTRIBUTION WIDTH 13.9 % (11.0-15.5); WHITE BLOOD COUNT (AUTO) 3.7 K/uL (4.8-10.8)
[2023-03-07 12:31] LABS: ALBUMIN 3.8 g/dL (3.5-5.0); TOTAL PROTEIN, SERUM 8.1 g/dL (6.0-8.3)
[2023-03-07] MEDS ORDERED: IPRATROPIUM/ALBUTEROL SULFATE 3 ML SOLUTION IH ONE ×2 (12:51→15:30)
[2023-03-07] MEDS ORDERED: 0.9%NACL 1000ML 1,000 ML IV SCH (13:00)
[2023-03-07] MEDS ORDERED: SOLU-MEDROL 125MG VIAL IVP SCH (13:00)
[2023-03-07] MEDS ORDERED: BENZONATATE 100 MG CAPSULE PO SCH (13:00)
[2023-03-07] MEDS ORDERED: INSULIN HUMULIN R 100 UNIT/ML 3ML IV SCH (13:00)
[2023-03-07] MEDS ORDERED: IPRATROPIUM/ALBUTEROL SULFATE 3 ML SOLUTION IH SCH (13:00)
[2023-03-07 13:04] LABS: B-TYPE NATRIURETIC PEPTIDE 124 pg/mL (0-100)
[2023-03-07] MEDS ORDERED: PRED20TA3 PO (15:52)
[2023-03-07] MEDS ORDERED: BENZ-39 PO (15:52)
[2023-03-07 16:28] VITALS: BP 134/80
[2023-03-12] MEDS ORDERED: METR-172 PO (13:57)
[2023-03-12] MEDS ORDERED: INSU100I35 SQ ×2 (13:57)
== END 2023-03-07 16:37 | disposition home or self-care (01) ==
LOC: EDH 11:49
DX: J20.8 Acute bronchitis due to other specified organisms (principal); E86.0 Dehydration; E11.22 Type 2 diabetes mellitus with diabetic chronic kidney disease; I12.9 Hypertensive chronic kidney disease with stage 1 through stage 4 chronic kidney disease, or unspecified chronic kidney disease; N18.9 Chronic kidney disease, unspecified; Z20.822 Contact with and (suspected) exposure to COVID-19
CPT/HCPCS: 99284; 96374; 71045; 87635; 84484; 80053; 83880; 85025; 87880; 87804 ×2; 82948 ×2; 83605; 36415; 93005; 94640 ×2; J1815; C9803; J7030; J2930

== ENCOUNTER → 2023-04-11 | Outpatient (CLI) | payer BC, MEDICARE ==
[~2023-04-11] MED LIST changes: +BENZ-39 PO; -INSLAN SQ; +INSU100I35 SQ; -INSU100V SQ; +LIDOCAINE HCL 4% LTA SOL 4 ML VIAL ONE; +METR-172 PO; +PRED20TA3 PO
== END | disposition home or self-care (01) ==
LOC: WHH 08:45
PROVIDERS: ATTEND Nurse Practitioner Family
DX: E11.621 Type 2 diabetes mellitus with foot ulcer (principal); L97.422 Non-pressure chronic ulcer of left heel and midfoot with fat layer exposed; L97.522 Non-pressure chronic ulcer of other part of left foot with fat layer exposed; E11.22 Type 2 diabetes mellitus with diabetic chronic kidney disease; I13.0 Hypertensive heart and chronic kidney disease with heart failure and stage 1 through stage 4 chronic kidney disease, or unspecified chronic kidney disease; N18.4 Chronic kidney disease, stage 4 (severe); I50.40 Unspecified combined systolic (congestive) and diastolic (congestive) heart failure; E11.43 Type 2 diabetes mellitus with diabetic autonomic (poly)neuropathy; E11.51 Type 2 diabetes mellitus with diabetic peripheral angiopathy without gangrene; I48.20 Chronic atrial fibrillation, unspecified; J44.9 Chronic obstructive pulmonary disease, unspecified; E78.5 Hyperlipidemia, unspecified; M19.09 Primary osteoarthritis, other specified site; E66.09 Other obesity due to excess calories; F41.9 Anxiety disorder, unspecified; Z68.26 Body mass index [BMI] 26.0-26.9, adult; Z79.01 Long term (current) use of anticoagulants; Z79.4 Long term (current) use of insulin; Z79.899 Other long term (current) drug therapy
CPT/HCPCS: 11042; A6248; A6209; A4450

== ENCOUNTER 2023-04-18 09:05 | Outpatient (CLI) | payer BC, MEDICARE ==
[~2023-04-18 09:05] MED LIST changes: -LIDOCAINE HCL 4% LTA SOL 4 ML VIAL ONE
[2023-07-02] MEDS ORDERED: TRAM50TA4 PO (11:29)
== END 2023-04-18 16:08 | disposition home or self-care (01) ==
LOC: WHH 09:05
PROVIDERS: ATTEND Nurse Practitioner Family
DX: E11.621 Type 2 diabetes mellitus with foot ulcer (principal); L97.522 Non-pressure chronic ulcer of other part of left foot with fat layer exposed; L97.421 Non-pressure chronic ulcer of left heel and midfoot limited to breakdown of skin; E11.43 Type 2 diabetes mellitus with diabetic autonomic (poly)neuropathy; E11.65 Type 2 diabetes mellitus with hyperglycemia; E11.51 Type 2 diabetes mellitus with diabetic peripheral angiopathy without gangrene; E11.22 Type 2 diabetes mellitus with diabetic chronic kidney disease; I13.0 Hypertensive heart and chronic kidney disease with heart failure and stage 1 through stage 4 chronic kidney disease, or unspecified chronic kidney disease; N18.4 Chronic kidney disease, stage 4 (severe); I50.40 Unspecified combined systolic (congestive) and diastolic (congestive) heart failure; E78.5 Hyperlipidemia, unspecified; I48.20 Chronic atrial fibrillation, unspecified; I25.10 Atherosclerotic heart disease of native coronary artery without angina pectoris; J44.9 Chronic obstructive pulmonary disease, unspecified; M19.09 Primary osteoarthritis, other specified site; E66.09 Other obesity due to excess calories; F41.9 Anxiety disorder, unspecified; Z68.26 Body mass index [BMI] 26.0-26.9, adult; Z79.01 Long term (current) use of anticoagulants; Z79.84 Long term (current) use of oral hypoglycemic drugs; Z79.4 Long term (current) use of insulin; Z79.899 Other long term (current) drug therapy
CPT/HCPCS: 99214

== ENCOUNTER 2023-04-22 10:44 | Emergency (ER) | payer BC, MEDICARE ==
[~2023-04-22] VITALS: Ht 182.9 cm; Wt 112.5 kg
[2023-04-22 11:54] LABS: BASOPHILS % (AUTO) 1.3 % (0.0-5.0); EOSINOPHILS % (AUTO) 2.7 % (0.0-8.0); HEMATOCRIT 48.1 % (42-54); LYMPHOCYTES % (AUTO) 24.2 % (21.0-51.0); MEAN CORPUSCULAR HGB CONC 33.1 g/dL (32.0-36.0); MEAN CORPUSCULAR VOLUME 84.8 fL (79-99); MONOCYTES % (AUTO) 7.1 % (3.0-13.0); NEUTROPHILS % (AUTO) 64.5 % (40.0-77.0); PLATELET COUNT (AUTO) 154 K/uL (130-400); RED BLOOD CELL COUNT(AUTO) 5.67 MIL/uL (4.50-6.20); RED CELL DISTRIBUTION WIDTH 14.3 % (11.0-15.5); WHITE BLOOD COUNT (AUTO) 4.8 K/uL (4.8-10.8)
[2023-04-22] MEDS ORDERED: LORAZEPAM 2 MG/ML 1 ML VIAL IVP ONE (12:00)
[2023-04-22 12:08] LABS: CREATININE 1.1 mg/dL (0.5-1.5); POTASSIUM 4.1 mmol/L (3.5-5.1)
[2023-04-22 12:13] LABS: ALBUMIN 3.1 g/dL (3.5-5.0); TOTAL PROTEIN, SERUM 6.4 g/dL (6.0-8.3)
[2023-04-22 12:57] LABS: INR 0.93 (0.85-1.15); PROTHROMBIN TIME 10.6 SEC (9.6-11.6)
[2023-04-22 12:59] LABS: PARTIAL THROMBOPLASTIN TIME 26.7 SEC (26.3-35.5)
[2023-04-22 13:09] LABS: APPEARANCE,URINE CLEAR (CLEAR); BILIRUBIN,URINE NEGATIVE (NEGATIVE); COLOR,URINE LIGHT-YELLOW (YELLOW); GLUCOSE, URINE (UA) >=1000 mg/dL (NEGATIVE); KETONES,URINE NEGATIVE (NEGATIVE); LEUKOCYTE ESTERASE ,URINE 75 Leu/uL (NEGATIVE); NITRATE,URINE NEGATIVE (NEGATIVE); OCCULT BLOOD,URINE SMALL (NEGATIVE); PROTEIN,URINE 300 mg/dL (NEGATIVE); UROBILINOGEN,URINE 0.2 mg/dL (0.2-1.0)
[2023-04-22 13:12] LABS: BACTERIA,URINE RARE /HPF (None Seen); MUCUS,URINE RARE LPF (None Seen); SQUAMOUS EPITHELIAL CELL,UR FEW /HPF (0-2); YEAST,URINE BUDDING RARE /HPF (None Seen)
[2023-04-22] MEDS ORDERED: IOHEXOL-350 75 ML VIAL IV ONE (14:41)
[2023-04-22] MEDS ORDERED: HYDRALAZINE 20MG/ML VIAL IV ONE (16:30)
[2023-04-22] MEDS ORDERED: HYDROXYZINE 25 MG TABLET PO ONE (18:00)
[2023-04-22] MEDS ORDERED: NIFEDIPINE ER 30 MG TAB PO SCH (18:30)
[2023-04-22 18:41] VITALS: BP 175/81
== END 2023-04-22 18:54 | disposition home or self-care (01) ==
LOC: EDH 10:44
DX: I10 Essential (primary) hypertension (principal); E11.9 Type 2 diabetes mellitus without complications; I48.91 Unspecified atrial fibrillation; Z79.899 Other long term (current) drug therapy; Z98.890 Other specified postprocedural states
CPT/HCPCS: 99285; 70496; 96374; 96375; 84484; 80053; 85025; 85610; 85730; 87088; 81001; 36415; 70498; 93005; 70450; J0360; J2060; Q9967

== ENCOUNTER 2023-06-10 13:48 | Emergency (ER) | payer BC, MEDICARE, OTHER ==
[~2023-06-10] VITALS: Ht 182.9 cm; Wt 112.5 kg
[2023-06-10 13:49] VITALS: BP 170/99; PULSE 61; RESP 18; O2SAT 100
[2023-06-10 14:28] LABS: HEMATOCRIT 50.2 % (42-54); MEAN CORPUSCULAR HEMOGLOBIN 27.7 pg (27.0-33.0); MEAN CORPUSCULAR HGB CONC 32.7 g/dL (32.0-36.0); MEAN CORPUSCULAR VOLUME 84.9 fL (79-99); RED BLOOD CELL COUNT(AUTO) 5.91 MIL/uL (4.50-6.20); RED CELL DISTRIBUTION WIDTH 13.9 % (11.0-15.5); WHITE BLOOD COUNT (AUTO) 6.3 K/uL (4.8-10.8)
[2023-06-10 15:06] LABS: CREATININE 1.2 mg/dL (0.5-1.5); POTASSIUM 4.5 mmol/L (3.5-5.1)
[2023-06-10 15:13] LABS: ALBUMIN 3.3 g/dL (3.5-5.0); BILIRUBIN,TOTAL 0.4 mg/dL (0.2-1.0)
[2023-06-10] MEDS ORDERED: HYDROCODONE/ACETAMINOPHEN 10/325 MG TAB PO ONE (15:30)
== END 2023-06-10 19:32 | disposition home or self-care (01) ==
LOC: EDH 13:48
DX: R07.89 Other chest pain (principal); S60.212A Contusion of left wrist, initial encounter; W18.39XA Other fall on same level, initial encounter; Y93.89 Activity, other specified; Y92.89 Other specified places as the place of occurrence of the external cause; Y99.8 Other external cause status; I10 Essential (primary) hypertension; E11.9 Type 2 diabetes mellitus without complications; I48.91 Unspecified atrial fibrillation; Z79.899 Other long term (current) drug therapy; Z98.890 Other specified postprocedural states
CPT/HCPCS: 36415; 71045; 73070; 73110; 80053; 84484; 85027; 93005

== ENCOUNTER 2023-07-13 10:32 | Emergency (ER) | payer BC, MEDICARE ==
[~2023-07-13] VITALS: Ht 182.9 cm; Wt 113.4 kg
[~2023-07-13 10:32] MED LIST changes: -MECL-160 PO; +MECL-302 PO; +TRAM50TA4 PO
[2023-07-13 11:07] VITALS: BP 115/65; PULSE 72; RESP 16; O2SAT 99
[2023-07-13 11:30] LABS: BASOPHILS # (AUTO) 0.05 K/uL (0.00-0.20); EOSINOPHILS # (AUTO) 0.08 K/uL (0.00-0.70); EOSINOPHILS % (AUTO) 1.5 % (0.0-8.0); HEMATOCRIT 45.3 % (42-54); IMMATURE GRANULOCYTE ABSOLUTE 0.01 K/uL (0-1); LYMPHOCYTES # (AUTO) 1.4 K/uL (1.0-4.8); LYMPHOCYTES % (AUTO) 25.7 % (21.0-51.0); MEAN CORPUSCULAR HEMOGLOBIN 27.8 pg (27.0-33.0); MEAN CORPUSCULAR HGB CONC 33.8 g/dL (32.0-36.0); MEAN CORPUSCULAR VOLUME 82.4 fL (79-99); MONOCYTES # (AUTO) 0.4 K/uL (0.1-1.0); MONOCYTES % (AUTO) 6.8 % (3.0-13.0); NEUTROPHILS # (AUTO) 3.4 K/uL (1.8-7.7); NEUTROPHILS % (AUTO) 64.8 % (40.0-77.0); PLATELET COUNT (AUTO) 171 K/uL (130-400); RED CELL DISTRIBUTION WIDTH 13.6 % (11.0-15.5); WHITE BLOOD COUNT (AUTO) 5.3 K/uL (4.8-10.8)
[2023-07-13 11:38] LABS: CREATININE 1.4 mg/dL (0.5-1.5); POTASSIUM 3.6 mmol/L (3.5-5.1)
[2023-07-13 11:44] LABS: ALBUMIN 3.3 g/dL (3.5-5.0); BILIRUBIN,TOTAL 0.5 mg/dL (0.2-1.0); TOTAL PROTEIN, SERUM 7.2 g/dL (6.0-8.3)
[2023-07-13 12:34] LABS: APPEARANCE,URINE CLOUDY (CLEAR); BILIRUBIN,URINE NEGATIVE (NEGATIVE); COLOR,URINE LIGHT-YELLOW (YELLOW); GLUCOSE, URINE (UA) >=1000 mg/dL (NEGATIVE); KETONES,URINE NEGATIVE (NEGATIVE); LEUKOCYTE ESTERASE ,URINE NEGATIVE Leu/uL (NEGATIVE); NITRATE,URINE NEGATIVE (NEGATIVE); PROTEIN,URINE 70 mg/dL (NEGATIVE); UROBILINOGEN,URINE 0.2 mg/dL (0.2-1.0)
[2023-07-13 12:36] LABS: ADD UA MICROSCOPIC YES
[2023-07-13 12:42] LABS: BACTERIA,URINE RARE /HPF (None Seen); MUCUS,URINE RARE LPF (None Seen); SQUAMOUS EPITHELIAL CELL,UR RARE /HPF (0-2)
[2023-07-13] MEDS ORDERED: MECLIZINE HCL 25 MG TABLET PO ONE (13:00)
[2023-07-13] MEDS ORDERED: MECL-302 PO (13:02)
[2023-07-13] MEDS ORDERED: LIDOP TP (13:21)
== END 2023-07-13 13:22 | disposition home or self-care (01) ==
LOC: EDH 10:32
DX: R42 Dizziness and giddiness (principal); M54.42 Lumbago with sciatica, left side; I10 Essential (primary) hypertension; E11.9 Type 2 diabetes mellitus without complications; I48.91 Unspecified atrial fibrillation; Z96.22 Myringotomy tube(s) status
CPT/HCPCS: 36415; 71045; 80053; 81001; 85025; 87798; 93005; 93971

== ENCOUNTER 2023-07-21 11:49 | Emergency (ER) | payer BC, MEDICARE ==
[~2023-07-21] VITALS: Ht 180.3 cm; Wt 90.7 kg
[~2023-07-21 11:49] MED LIST changes: +LIDOP TP
[2023-07-21 12:32] LABS: BASOPHILS # (AUTO) 0.03 K/uL (0.00-0.20); BASOPHILS % (AUTO) 0.7 % (0.0-5.0); EOSINOPHILS # (AUTO) 0.13 K/uL (0.00-0.70); EOSINOPHILS % (AUTO) 2.9 % (0.0-8.0); HEMATOCRIT 43.1 % (42-54); IMMATURE GRANULOCYTE ABSOLUTE 0.01 K/uL (0-1); LYMPHOCYTES % (AUTO) 21.3 % (21.0-51.0); MEAN CORPUSCULAR HEMOGLOBIN 27.5 pg (27.0-33.0); MEAN CORPUSCULAR HGB CONC 32.9 g/dL (32.0-36.0); MEAN CORPUSCULAR VOLUME 83.4 fL (79-99); MONOCYTES # (AUTO) 0.4 K/uL (0.1-1.0); MONOCYTES % (AUTO) 8.5 % (3.0-13.0); NEUTROPHILS % (AUTO) 66.4 % (40.0-77.0); PLATELET COUNT (AUTO) 145 K/uL (130-400); RED BLOOD CELL COUNT(AUTO) 5.17 MIL/uL (4.50-6.20); RED CELL DISTRIBUTION WIDTH 13.6 % (11.0-15.5); WHITE BLOOD COUNT (AUTO) 4.5 K/uL (4.8-10.8)
[2023-07-21 12:41] LABS: CREATININE 1.3 mg/dL (0.5-1.5)
[2023-07-21 12:55] LABS: ALBUMIN 3.1 g/dL (3.5-5.0); BILIRUBIN,TOTAL 0.4 mg/dL (0.2-1.0); TOTAL PROTEIN, SERUM 6.9 g/dL (6.0-8.3)
[2023-07-21] MEDS ORDERED: ONDANSETRON 4MG INJ IVP ONE (14:30)
[2023-07-21] MEDS ORDERED: MORPHINE 4 MG SYG IVP ONE (14:30)
[2023-07-21 15:55] VITALS: BP 174/86; PULSE 65; RESP 14; O2SAT 100
[2023-07-21] MEDS ORDERED: CLOT15CR23 TP (16:03)
== END 2023-07-21 16:17 | disposition home or self-care (01) ==
LOC: EDH 11:49
DX: G89.29 Other chronic pain (principal); M54.50 Low back pain, unspecified; R07.89 Other chest pain; B35.3 Tinea pedis; I10 Essential (primary) hypertension; E11.9 Type 2 diabetes mellitus without complications; E78.00 Pure hypercholesterolemia, unspecified; I48.91 Unspecified atrial fibrillation; Z79.899 Other long term (current) drug therapy; Z95.0 Presence of cardiac pacemaker; Z98.890 Other specified postprocedural states
CPT/HCPCS: 99284; 96374; 71045; 96375; 84484 ×2; 80053; 83880; 85025; 36415; 93005 ×2; J2405; J2270

== ENCOUNTER 2023-07-23 19:53 | Emergency (ER) | payer BC, MEDICARE ==
[~2023-07-23] VITALS: Ht 182.9 cm; Wt 114.3 kg
[~2023-07-23 19:53] MED LIST changes: +CLOT15CR23 TP
[2023-07-23] MEDS ORDERED: HYDROXYZINE 25 MG TABLET ONE (20:12)
[2023-07-23] MEDS ORDERED: HYDROXYZINE 25 MG TABLET PO ONE (20:30)
[2023-07-23 20:57] LABS: MEAN CORPUSCULAR HEMOGLOBIN 27.8 pg (27.0-33.0); MEAN CORPUSCULAR HGB CONC 32.9 g/dL (32.0-36.0); MEAN CORPUSCULAR VOLUME 84.4 fL (79-99); RED BLOOD CELL COUNT(AUTO) 4.86 MIL/uL (4.50-6.20); RED CELL DISTRIBUTION WIDTH 13.8 % (11.0-15.5); WHITE BLOOD COUNT (AUTO) 4.4 K/uL (4.8-10.8)
[2023-07-23 21:18] LABS: CREATININE 1.5 mg/dL (0.5-1.5)
[2023-07-23 22:15] VITALS: BP 160/90; PULSE 73; RESP 18; O2SAT 98
[2023-07-23] MEDS ORDERED: CALCIUM CARB 500MG CHEW TAB PO SCH (23:00)
== END 2023-07-23 22:54 | disposition home or self-care (01) ==
LOC: EDH 19:53
DX: F41.9 Anxiety disorder, unspecified (principal); E83.51 Hypocalcemia; E11.9 Type 2 diabetes mellitus without complications; G47.30 Sleep apnea, unspecified; I48.91 Unspecified atrial fibrillation; Z79.899 Other long term (current) drug therapy; Z98.890 Other specified postprocedural states
CPT/HCPCS: 36415; 70450; 71045; 72125; 72170; 73502; 80048; 82550; 84484; 85027; 93005

== ENCOUNTER 2023-08-18 14:57 | Emergency (ER) | payer BC, MEDICARE ==
[~2023-08-18] VITALS: Ht 167.6 cm; Wt 104.3 kg
[2023-08-18 15:44] LABS: BASOPHILS # (AUTO) 0.04 K/uL (0.00-0.20); BASOPHILS % (AUTO) 0.6 % (0.0-5.0); EOSINOPHILS # (AUTO) 0.05 K/uL (0.00-0.70); EOSINOPHILS % (AUTO) 0.8 % (0.0-8.0); HEMATOCRIT 44.7 % (42-54); IMMATURE GRANULOCYTE ABSOLUTE 0.02 K/uL (0-1); LYMPHOCYTES # (AUTO) 0.8 K/uL (1.0-4.8); LYMPHOCYTES % (AUTO) 12.4 % (21.0-51.0); MEAN CORPUSCULAR HEMOGLOBIN 27.2 pg (27.0-33.0); MEAN CORPUSCULAR HGB CONC 32.7 g/dL (32.0-36.0); MEAN CORPUSCULAR VOLUME 83.2 fL (79-99); MONOCYTES # (AUTO) 0.6 K/uL (0.1-1.0); MONOCYTES % (AUTO) 9.2 % (3.0-13.0); NEUTROPHILS # (AUTO) 4.7 K/uL (1.8-7.7); NEUTROPHILS % (AUTO) 76.7 % (40.0-77.0); PLATELET COUNT (AUTO) 140 K/uL (130-400); RED BLOOD CELL COUNT(AUTO) 5.37 MIL/uL (4.50-6.20); RED CELL DISTRIBUTION WIDTH 14.1 % (11.0-15.5); WHITE BLOOD COUNT (AUTO) 6.2 K/uL (4.8-10.8)
[2023-08-18 15:50] LABS: CREATININE 0.9 mg/dL (0.5-1.5); POTASSIUM 3.7 mmol/L (3.5-5.1)
[2023-08-18 16:14] LABS: ADD UA MICROSCOPIC YES; APPEARANCE,URINE CLEAR (CLEAR); BILIRUBIN,URINE NEGATIVE (NEGATIVE); COLOR,URINE LIGHT-YELLOW (YELLOW); GLUCOSE, URINE (UA) >=1000 mg/dL (NEGATIVE); KETONES,URINE NEGATIVE (NEGATIVE); LEUKOCYTE ESTERASE ,URINE 25 Leu/uL (NEGATIVE); NITRATE,URINE NEGATIVE (NEGATIVE); OCCULT BLOOD,URINE SMALL (NEGATIVE); PH,URINE 5.5 (5.0-8.0); PROTEIN,URINE 200 mg/dL (NEGATIVE); UROBILINOGEN,URINE 0.2 mg/dL (0.2-1.0)
[2023-08-18 16:15] LABS: BACTERIA,URINE FEW /HPF (None Seen); MUCUS,URINE RARE LPF (None Seen); SQUAMOUS EPITHELIAL CELL,UR FEW /HPF (0-2)
[2023-08-18 17:18] LABS: THYROID STIMULATING HORMONE 2.68 uIU/mL (0.36-3.74)
[2023-08-18 17:43] VITALS: BP 169/91; PULSE 70; RESP 16; O2SAT 95
[2023-08-18] MEDS ORDERED: CEPH500B PO (17:58)
== END 2023-08-18 18:48 | disposition home or self-care (01) ==
LOC: EDH 14:57
DX: N39.0 Urinary tract infection, site not specified (principal); E11.9 Type 2 diabetes mellitus without complications; I10 Essential (primary) hypertension; I48.91 Unspecified atrial fibrillation; Z79.899 Other long term (current) drug therapy
CPT/HCPCS: 36415; 80048; 81001; 82550; 82948; 83605; 83735; 84443; 85025

== ENCOUNTER → 2023-09-22 | Outpatient (CLI) | payer BC, MEDICARE ==
[~2023-09-22] MED LIST changes: +ACET-2079 PO; +ALPR0.5T8 PO; +AMLO-258 PO; +APIX5TAB PO; +ASPI-1197 PO; +CEPH500B PO; +CLOP-31 PO; +EMPA25TA PO; +LIDOCAINE HCL 4% LTA SOL 4 ML VIAL TP ONE; +PANT40TA PO; +TORS100T16 PO
== END | disposition home or self-care (01) ==
LOC: WHH 08:22
PROVIDERS: ATTEND Nurse Practitioner Family
DX: E11.621 Type 2 diabetes mellitus with foot ulcer (principal); L97.522 Non-pressure chronic ulcer of other part of left foot with fat layer exposed; L97.512 Non-pressure chronic ulcer of other part of right foot with fat layer exposed; I11.0 Hypertensive heart disease with heart failure; I50.32 Chronic diastolic (congestive) heart failure; E11.43 Type 2 diabetes mellitus with diabetic autonomic (poly)neuropathy; I48.20 Chronic atrial fibrillation, unspecified; G89.29 Other chronic pain; E03.9 Hypothyroidism, unspecified; G47.39 Other sleep apnea; E78.5 Hyperlipidemia, unspecified; M19.90 Unspecified osteoarthritis, unspecified site; F41.9 Anxiety disorder, unspecified; Z95.0 Presence of cardiac pacemaker; Z79.899 Other long term (current) drug therapy
CPT/HCPCS: 11042; 87070; 87077 ×6; 87186 ×6; A6248; A6196; A4450

== ENCOUNTER → 2023-10-04 | Outpatient (CLI) | payer BC, MEDICARE ==
[~2023-10-04] MED LIST changes: -BENZ-39 PO; -CEPH500B PO; -CLOT15CR23 TP; -HYDR-3421 PO; -LIDOP TP; -METR-172 PO; -PRED20TA3 PO; +SILVER NITRATE APPLICATOR 1 SWAB TP ONE
== END | disposition home or self-care (01) ==
LOC: WHH 08:31
PROVIDERS: ATTEND Nurse Practitioner Family
DX: E11.621 Type 2 diabetes mellitus with foot ulcer (principal); L97.512 Non-pressure chronic ulcer of other part of right foot with fat layer exposed; L97.522 Non-pressure chronic ulcer of other part of left foot with fat layer exposed; L97.422 Non-pressure chronic ulcer of left heel and midfoot with fat layer exposed; I11.0 Hypertensive heart disease with heart failure; I50.32 Chronic diastolic (congestive) heart failure; E11.43 Type 2 diabetes mellitus with diabetic autonomic (poly)neuropathy; I48.20 Chronic atrial fibrillation, unspecified; G89.29 Other chronic pain; E03.9 Hypothyroidism, unspecified; G47.39 Other sleep apnea; E78.5 Hyperlipidemia, unspecified; M19.90 Unspecified osteoarthritis, unspecified site; F41.9 Anxiety disorder, unspecified; Z95.0 Presence of cardiac pacemaker; Z79.899 Other long term (current) drug therapy
CPT/HCPCS: 11042; A6022

== ENCOUNTER → 2023-10-11 | Outpatient (CLI) | payer BC, MEDICARE ==
[~2023-10-11] MED LIST changes: -SILVER NITRATE APPLICATOR 1 SWAB TP ONE
== END | disposition home or self-care (01) ==
LOC: WHH 10:02
PROVIDERS: ATTEND Nurse Practitioner Family
DX: E11.621 Type 2 diabetes mellitus with foot ulcer (principal); L97.522 Non-pressure chronic ulcer of other part of left foot with fat layer exposed; L97.512 Non-pressure chronic ulcer of other part of right foot with fat layer exposed; I11.0 Hypertensive heart disease with heart failure; I50.32 Chronic diastolic (congestive) heart failure; E11.43 Type 2 diabetes mellitus with diabetic autonomic (poly)neuropathy; I48.20 Chronic atrial fibrillation, unspecified; G89.29 Other chronic pain; E03.9 Hypothyroidism, unspecified; G47.39 Other sleep apnea; E78.5 Hyperlipidemia, unspecified; M19.90 Unspecified osteoarthritis, unspecified site; F41.9 Anxiety disorder, unspecified; Z95.0 Presence of cardiac pacemaker; Z79.899 Other long term (current) drug therapy
CPT/HCPCS: 11042; A6250; A6022

== ENCOUNTER → 2023-10-18 | Outpatient (CLI) | payer BC, MEDICARE ==
[~2023-10-18] MED LIST changes: -LIDOCAINE HCL 4% LTA SOL 4 ML VIAL TP ONE
== END | disposition home or self-care (01) ==
LOC: LAB 08:36
PROVIDERS: ATTEND Internal Medicine Cardiovascular Disease
DX: I50.42 Chronic combined systolic (congestive) and diastolic (congestive) heart failure (principal)
CPT/HCPCS: 36415; 83880

== ENCOUNTER → 2023-10-18 | Outpatient (CLI) | payer BC, MEDICARE ==
[~2023-10-18] MED LIST changes: +LIDOCAINE HCL 4% LTA SOL 4 ML VIAL TP ONE; +SILVER NITRATE APPLICATOR 1 SWAB TP ONE
== END | disposition home or self-care (01) ==
LOC: WHH 09:27
PROVIDERS: ATTEND Nurse Practitioner Family
DX: E11.621 Type 2 diabetes mellitus with foot ulcer (principal); L97.512 Non-pressure chronic ulcer of other part of right foot with fat layer exposed; L97.422 Non-pressure chronic ulcer of left heel and midfoot with fat layer exposed; L97.522 Non-pressure chronic ulcer of other part of left foot with fat layer exposed; I11.0 Hypertensive heart disease with heart failure; I50.32 Chronic diastolic (congestive) heart failure; E11.43 Type 2 diabetes mellitus with diabetic autonomic (poly)neuropathy; I48.20 Chronic atrial fibrillation, unspecified; G89.29 Other chronic pain; E03.9 Hypothyroidism, unspecified; G47.39 Other sleep apnea; E78.5 Hyperlipidemia, unspecified; M19.90 Unspecified osteoarthritis, unspecified site; F41.9 Anxiety disorder, unspecified; Z95.0 Presence of cardiac pacemaker; Z79.899 Other long term (current) drug therapy
CPT/HCPCS: 11042; A6022; A4450

== ENCOUNTER → 2023-10-24 | Outpatient (CLI) | payer BC, MEDICARE ==
[~2023-10-24] MED LIST changes: -SILVER NITRATE APPLICATOR 1 SWAB TP ONE
== END | disposition home or self-care (01) ==
LOC: WHH 09:53
PROVIDERS: ATTEND Nurse Practitioner Family
DX: E11.621 Type 2 diabetes mellitus with foot ulcer (principal); L97.512 Non-pressure chronic ulcer of other part of right foot with fat layer exposed; L97.422 Non-pressure chronic ulcer of left heel and midfoot with fat layer exposed; L97.522 Non-pressure chronic ulcer of other part of left foot with fat layer exposed; I11.0 Hypertensive heart disease with heart failure; I50.32 Chronic diastolic (congestive) heart failure; E11.43 Type 2 diabetes mellitus with diabetic autonomic (poly)neuropathy; I48.20 Chronic atrial fibrillation, unspecified; G89.29 Other chronic pain; E03.9 Hypothyroidism, unspecified; G47.39 Other sleep apnea; E78.5 Hyperlipidemia, unspecified; M19.90 Unspecified osteoarthritis, unspecified site; M48.062 Spinal stenosis, lumbar region with neurogenic claudication; I49.5 Sick sinus syndrome; M47.898 Other spondylosis, sacral and sacrococcygeal region; F41.9 Anxiety disorder, unspecified; Z95.0 Presence of cardiac pacemaker; Z79.899 Other long term (current) drug therapy; Z79.01 Long term (current) use of anticoagulants; Z79.02 Long term (current) use of antithrombotics/antiplatelets; Z95.1 Presence of aortocoronary bypass graft
CPT/HCPCS: 11042; A6022

== ENCOUNTER 2023-10-31 14:13 | Emergency (ER) | payer BC, MEDICARE ==
[~2023-10-31] VITALS: Ht 182.9 cm; Wt 113.4 kg
[~2023-10-31 14:13] MED LIST changes: -LIDOCAINE HCL 4% LTA SOL 4 ML VIAL TP ONE
[2023-10-31] MEDS ORDERED: HYDROCODONE/ACETAMINOPHEN 5/325 MG TAB PO ONE (15:30)
[2023-10-31 16:31] VITALS: BP 149/90; PULSE 73; RESP 18; O2SAT 98
== END 2023-10-31 17:00 | disposition home or self-care (01) ==
LOC: EDH 14:13
DX: S30.0XXA Contusion of lower back and pelvis, initial encounter (principal); M47.898 Other spondylosis, sacral and sacrococcygeal region; E11.9 Type 2 diabetes mellitus without complications; I10 Essential (primary) hypertension; I48.91 Unspecified atrial fibrillation; Z79.01 Long term (current) use of anticoagulants; Z79.02 Long term (current) use of antithrombotics/antiplatelets; Z79.82 Long term (current) use of aspirin; Z79.84 Long term (current) use of oral hypoglycemic drugs; Z79.899 Other long term (current) drug therapy; W01.0XXA Fall on same level from slipping, tripping and stumbling without subsequent striking against object, initial encounter; Y93.89 Activity, other specified; Y92.89 Other specified places as the place of occurrence of the external cause; Y99.8 Other external cause status
CPT/HCPCS: 72220

== ENCOUNTER 2023-10-31 17:01 | Emergency (ER) | payer BC, MEDICARE ==
[2023-10-31 17:45] LABS: HEMATOCRIT 46.9 % (42-54); MEAN CORPUSCULAR HEMOGLOBIN 26.9 pg (27.0-33.0); MEAN CORPUSCULAR HGB CONC 33.3 g/dL (32.0-36.0); MEAN CORPUSCULAR VOLUME 80.9 fL (79-99); RED BLOOD CELL COUNT(AUTO) 5.8 MIL/uL (4.50-6.20); RED CELL DISTRIBUTION WIDTH 14.1 % (11.0-15.5)
[2023-10-31 18:07] LABS: CREATININE 1.2 mg/dL (0.5-1.5); POTASSIUM 3.2 mmol/L (3.5-5.1)
[2023-10-31 18:12] LABS: ALBUMIN 3.5 g/dL (3.5-5.0); BILIRUBIN,TOTAL 0.5 mg/dL (0.2-1.0); TOTAL PROTEIN, SERUM 7.8 g/dL (6.0-8.3)
[2023-10-31 18:54] VITALS: BP 163/90; PULSE 66; RESP 18; O2SAT 98
[2023-10-31] MEDS ORDERED: CYCLOBENZAPRINE HCL 10 MG TABLET PO ONE (19:00)
== END 2023-10-31 19:46 | disposition home or self-care (01) ==
LOC: EDH 17:01
DX: R07.89 Other chest pain (principal); I48.91 Unspecified atrial fibrillation; E11.9 Type 2 diabetes mellitus without complications; I10 Essential (primary) hypertension; Z79.01 Long term (current) use of anticoagulants; Z79.02 Long term (current) use of antithrombotics/antiplatelets; Z79.82 Long term (current) use of aspirin; Z79.84 Long term (current) use of oral hypoglycemic drugs; Z79.899 Other long term (current) drug therapy; Z95.0 Presence of cardiac pacemaker; Z95.1 Presence of aortocoronary bypass graft
CPT/HCPCS: 36415; 71045; 80053; 83735; 83880; 84484; 85027; 93005

== ENCOUNTER → 2023-10-31 | Outpatient (CLI) | payer BC, MEDICARE | END | disposition home or self-care (01) | LOC: WHH 09:34 | PROVIDERS: ATTEND Nurse Practitioner Family | DX: E11.621 Type 2 diabetes mellitus with foot ulcer (principal); L97.512 Non-pressure chronic ulcer of other part of right foot with fat layer exposed; L97.422 Non-pressure chronic ulcer of left heel and midfoot with fat layer exposed; L97.522 Non-pressure chronic ulcer of other part of left foot with fat layer exposed; I11.0 Hypertensive heart disease with heart failure; I50.42 Chronic combined systolic (congestive) and diastolic (congestive) heart failure; E11.43 Type 2 diabetes mellitus with diabetic autonomic (poly)neuropathy; I48.20 Chronic atrial fibrillation, unspecified; G89.29 Other chronic pain; E03.9 Hypothyroidism, unspecified; G47.39 Other sleep apnea; E78.5 Hyperlipidemia, unspecified; E11.51 Type 2 diabetes mellitus with diabetic peripheral angiopathy without gangrene; M48.062 Spinal stenosis, lumbar region with neurogenic claudication; I49.5 Sick sinus syndrome; I48.0 Paroxysmal atrial fibrillation; M19.90 Unspecified osteoarthritis, unspecified site; F41.9 Anxiety disorder, unspecified; E66.9 Obesity, unspecified; Z68.33 Body mass index [BMI] 33.0-33.9, adult; Z95.0 Presence of cardiac pacemaker; Z79.899 Other long term (current) drug therapy; Z79.01 Long term (current) use of anticoagulants; Z79.82 Long term (current) use of aspirin; Z86.73 Personal history of transient ischemic attack (TIA), and cerebral infarction without residual deficits | CPT/HCPCS: 11042; A6022 ==

== ENCOUNTER → 2023-11-07 | Outpatient (CLI) | payer BC, MEDICARE ==
[~2023-11-07] MED LIST changes: +LIDOCAINE HCL 4% LTA SOL 4 ML VIAL TP ONE
== END | disposition home or self-care (01) ==
LOC: WHH 09:25
PROVIDERS: ATTEND Nurse Practitioner Family
DX: E11.621 Type 2 diabetes mellitus with foot ulcer (principal); L97.512 Non-pressure chronic ulcer of other part of right foot with fat layer exposed; L97.422 Non-pressure chronic ulcer of left heel and midfoot with fat layer exposed; L97.522 Non-pressure chronic ulcer of other part of left foot with fat layer exposed; I11.0 Hypertensive heart disease with heart failure; I50.42 Chronic combined systolic (congestive) and diastolic (congestive) heart failure; E11.43 Type 2 diabetes mellitus with diabetic autonomic (poly)neuropathy; I48.20 Chronic atrial fibrillation, unspecified; G89.29 Other chronic pain; E03.9 Hypothyroidism, unspecified; G47.39 Other sleep apnea; E78.5 Hyperlipidemia, unspecified; E11.51 Type 2 diabetes mellitus with diabetic peripheral angiopathy without gangrene; M48.062 Spinal stenosis, lumbar region with neurogenic claudication; I49.5 Sick sinus syndrome; M19.90 Unspecified osteoarthritis, unspecified site; F41.9 Anxiety disorder, unspecified; E66.9 Obesity, unspecified; Z68.33 Body mass index [BMI] 33.0-33.9, adult; Z95.0 Presence of cardiac pacemaker; Z79.01 Long term (current) use of anticoagulants; Z79.82 Long term (current) use of aspirin; Z86.73 Personal history of transient ischemic attack (TIA), and cerebral infarction without residual deficits; Z79.899 Other long term (current) drug therapy
CPT/HCPCS: 11042; A6022

== ENCOUNTER → 2023-11-14 | Outpatient (CLI) | payer BC, MEDICARE ==
[~2023-11-14] MED LIST changes: +CILO100T3 PO; +FOLI0.8T22 PO; +LEVO25CA4 PO; +SILVER NITRATE APPLICATOR 1 SWAB TP ONE
== END | disposition home or self-care (01) ==
LOC: WHH 09:24
PROVIDERS: ATTEND Nurse Practitioner Family
DX: E11.621 Type 2 diabetes mellitus with foot ulcer (principal); L97.422 Non-pressure chronic ulcer of left heel and midfoot with fat layer exposed; L97.512 Non-pressure chronic ulcer of other part of right foot with fat layer exposed; L97.522 Non-pressure chronic ulcer of other part of left foot with fat layer exposed; S81.811A Laceration without foreign body, right lower leg, initial encounter; I48.20 Chronic atrial fibrillation, unspecified; E11.43 Type 2 diabetes mellitus with diabetic autonomic (poly)neuropathy; E11.51 Type 2 diabetes mellitus with diabetic peripheral angiopathy without gangrene; I11.0 Hypertensive heart disease with heart failure; I50.42 Chronic combined systolic (congestive) and diastolic (congestive) heart failure; G89.29 Other chronic pain; L84 Corns and callosities; E78.5 Hyperlipidemia, unspecified; I49.5 Sick sinus syndrome; M48.062 Spinal stenosis, lumbar region with neurogenic claudication; M19.90 Unspecified osteoarthritis, unspecified site; M47.898 Other spondylosis, sacral and sacrococcygeal region; G47.39 Other sleep apnea; E03.9 Hypothyroidism, unspecified; F41.9 Anxiety disorder, unspecified; E66.9 Obesity, unspecified; Z68.33 Body mass index [BMI] 33.0-33.9, adult; Z79.01 Long term (current) use of anticoagulants; Z79.82 Long term (current) use of aspirin; Z86.73 Personal history of transient ischemic attack (TIA), and cerebral infarction without residual deficits; Z95.0 Presence of cardiac pacemaker; X58.XXXA Exposure to other specified factors, initial encounter; Y93.89 Activity, other specified; Y92.89 Other specified places as the place of occurrence of the external cause; Y99.8 Other external cause status
CPT/HCPCS: 11042; 17250; A6197

== ENCOUNTER → 2023-11-21 | Outpatient (CLI) | payer BC, MEDICARE ==
[~2023-11-21] MED LIST changes: -CILO100T3 PO; -FOLI0.8T22 PO; -LEVO25CA4 PO; -SILVER NITRATE APPLICATOR 1 SWAB TP ONE
== END | disposition home or self-care (01) ==
LOC: WHH 08:32
PROVIDERS: ATTEND Nurse Practitioner Family
DX: E11.621 Type 2 diabetes mellitus with foot ulcer (principal); L97.522 Non-pressure chronic ulcer of other part of left foot with fat layer exposed; L97.512 Non-pressure chronic ulcer of other part of right foot with fat layer exposed; I48.20 Chronic atrial fibrillation, unspecified; G89.29 Other chronic pain; E11.43 Type 2 diabetes mellitus with diabetic autonomic (poly)neuropathy; E78.5 Hyperlipidemia, unspecified; E03.9 Hypothyroidism, unspecified; M19.90 Unspecified osteoarthritis, unspecified site; I11.0 Hypertensive heart disease with heart failure; I50.42 Chronic combined systolic (congestive) and diastolic (congestive) heart failure; L84 Corns and callosities; I49.5 Sick sinus syndrome; M48.062 Spinal stenosis, lumbar region with neurogenic claudication; M47.898 Other spondylosis, sacral and sacrococcygeal region; G47.39 Other sleep apnea; E66.9 Obesity, unspecified; F41.9 Anxiety disorder, unspecified; Z68.33 Body mass index [BMI] 33.0-33.9, adult; Z79.01 Long term (current) use of anticoagulants; Z95.0 Presence of cardiac pacemaker; Z79.82 Long term (current) use of aspirin; Z86.73 Personal history of transient ischemic attack (TIA), and cerebral infarction without residual deficits; Z79.899 Other long term (current) drug therapy; Y83.8 Other surgical procedures as the cause of abnormal reaction of the patient, or of later complication, without mention of misadventure at the time of the procedure
CPT/HCPCS: 11042; A6197; A4450

== ENCOUNTER 2023-11-25 13:26 | Emergency (ER) | payer BC, MEDICARE ==
[~2023-11-25] VITALS: Ht 182.9 cm; Wt 108.9 kg
[~2023-11-25 13:26] MED LIST changes: -LIDOCAINE HCL 4% LTA SOL 4 ML VIAL TP ONE
[2023-11-25 13:45] VITALS: BP 132/81; PULSE 82; RESP 16; O2SAT 97
[2023-11-25 14:15] LABS: BASOPHILS # (AUTO) 0.05 K/uL (0.00-0.20); BASOPHILS % (AUTO) 0.9 % (0.0-5.0); EOSINOPHILS # (AUTO) 0.17 K/uL (0.00-0.70); EOSINOPHILS % (AUTO) 3.1 % (0.0-8.0); HEMATOCRIT 42.8 % (42-54); IMMATURE GRANULOCYTE ABSOLUTE 0.01 K/uL (0-1); LYMPHOCYTES # (AUTO) 1.5 K/uL (1.0-4.8); MEAN CORPUSCULAR HEMOGLOBIN 27.1 pg (27.0-33.0); MEAN CORPUSCULAR HGB CONC 33.6 g/dL (32.0-36.0); MEAN CORPUSCULAR VOLUME 80.5 fL (79-99); MONOCYTES # (AUTO) 0.5 K/uL (0.1-1.0); NEUTROPHILS # (AUTO) 3.4 K/uL (1.8-7.7); NEUTROPHILS % (AUTO) 60.8 % (40.0-77.0); PLATELET COUNT (AUTO) 166 K/uL (130-400); RED BLOOD CELL COUNT(AUTO) 5.32 MIL/uL (4.50-6.20); RED CELL DISTRIBUTION WIDTH 14.8 % (11.0-15.5); WHITE BLOOD COUNT (AUTO) 5.6 K/uL (4.8-10.8)
[2023-11-25 14:22] LABS: CREATININE 1.7 mg/dL (0.5-1.5); POTASSIUM 3.6 mmol/L (3.5-5.1)
[2023-11-25 14:27] LABS: ALBUMIN 3.3 g/dL (3.5-5.0); BILIRUBIN,TOTAL 0.4 mg/dL (0.2-1.0); TOTAL PROTEIN, SERUM 7.2 g/dL (6.0-8.3)
[2023-11-28] MEDS ORDERED: IOHEXOL 350 MG/ML 100ML INFUS..BTL IV ONE (10:54)
== END 2023-11-25 15:31 | disposition left against medical advice (07) ==
LOC: EDH 13:26
DX: M79.89 Other specified soft tissue disorders (principal); Z53.21 Procedure and treatment not carried out due to patient leaving prior to being seen by health care provider
CPT/HCPCS: 36415; 80053; 85025

== ENCOUNTER → 2023-11-29 | Outpatient (CLI) | payer BC, MEDICARE ==
[~2023-11-29] MED LIST changes: +LIDOCAINE HCL 4% LTA SOL 4 ML VIAL TP ONE; +SILVER NITRATE APPLICATOR 1 SWAB TP ONE
== END | disposition home or self-care (01) ==
LOC: WHH 09:36
PROVIDERS: ATTEND Nurse Practitioner Family
DX: E11.621 Type 2 diabetes mellitus with foot ulcer (principal); L97.522 Non-pressure chronic ulcer of other part of left foot with fat layer exposed; L97.512 Non-pressure chronic ulcer of other part of right foot with fat layer exposed; I48.20 Chronic atrial fibrillation, unspecified; G89.29 Other chronic pain; E11.43 Type 2 diabetes mellitus with diabetic autonomic (poly)neuropathy; E78.5 Hyperlipidemia, unspecified; E03.9 Hypothyroidism, unspecified; M19.90 Unspecified osteoarthritis, unspecified site; I11.0 Hypertensive heart disease with heart failure; I50.42 Chronic combined systolic (congestive) and diastolic (congestive) heart failure; L84 Corns and callosities; I49.5 Sick sinus syndrome; M48.062 Spinal stenosis, lumbar region with neurogenic claudication; M47.898 Other spondylosis, sacral and sacrococcygeal region; G47.39 Other sleep apnea; E66.9 Obesity, unspecified; F41.9 Anxiety disorder, unspecified; Z68.33 Body mass index [BMI] 33.0-33.9, adult; Z95.0 Presence of cardiac pacemaker; Z86.73 Personal history of transient ischemic attack (TIA), and cerebral infarction without residual deficits; Z79.01 Long term (current) use of anticoagulants; Z79.82 Long term (current) use of aspirin; Z79.899 Other long term (current) drug therapy; Y83.8 Other surgical procedures as the cause of abnormal reaction of the patient, or of later complication, without mention of misadventure at the time of the procedure
CPT/HCPCS: 11042; A6196; A6197

== ENCOUNTER → 2023-12-12 | Outpatient (CLI) | payer BC, MEDICARE ==
[~2023-12-12] MED LIST changes: -LIDOCAINE HCL 4% LTA SOL 4 ML VIAL TP ONE; -SILVER NITRATE APPLICATOR 1 SWAB TP ONE
[2023-12-12 12:46] LABS: CREATININE 1.3 mg/dL (0.5-1.5); POTASSIUM 4.1 mmol/L (3.5-5.1)
== END | disposition home or self-care (01) ==
LOC: LAB 08:16
PROVIDERS: ATTEND Internal Medicine Cardiovascular Disease
DX: R06.09 Other forms of dyspnea (principal); R07.89 Other chest pain
CPT/HCPCS: 36415; 80048; 83880

== ENCOUNTER → 2023-12-12 | Outpatient (CLI) | payer BC, MEDICARE ==
[~2023-12-12] MED LIST changes: +LIDOCAINE HCL 4% LTA SOL 4 ML VIAL TP ONE; +MECL-160 PO; -MECL-302 PO
== END | disposition home or self-care (01) ==
LOC: WHH 08:45
PROVIDERS: ATTEND Nurse Practitioner Family
DX: E11.621 Type 2 diabetes mellitus with foot ulcer (principal); I70.245 Atherosclerosis of native arteries of left leg with ulceration of other part of foot; L97.522 Non-pressure chronic ulcer of other part of left foot with fat layer exposed; I70.235 Atherosclerosis of native arteries of right leg with ulceration of other part of foot; L97.512 Non-pressure chronic ulcer of other part of right foot with fat layer exposed; I70.234 Atherosclerosis of native arteries of right leg with ulceration of heel and midfoot; L97.412 Non-pressure chronic ulcer of right heel and midfoot with fat layer exposed; I70.244 Atherosclerosis of native arteries of left leg with ulceration of heel and midfoot; L97.422 Non-pressure chronic ulcer of left heel and midfoot with fat layer exposed; I48.20 Chronic atrial fibrillation, unspecified; G89.29 Other chronic pain; E11.51 Type 2 diabetes mellitus with diabetic peripheral angiopathy without gangrene; E11.43 Type 2 diabetes mellitus with diabetic autonomic (poly)neuropathy; I11.0 Hypertensive heart disease with heart failure; I50.42 Chronic combined systolic (congestive) and diastolic (congestive) heart failure; I25.2 Old myocardial infarction; E78.00 Pure hypercholesterolemia, unspecified; I48.0 Paroxysmal atrial fibrillation; I25.10 Atherosclerotic heart disease of native coronary artery without angina pectoris; E03.9 Hypothyroidism, unspecified; M19.90 Unspecified osteoarthritis, unspecified site; J44.9 Chronic obstructive pulmonary disease, unspecified; L84 Corns and callosities; I49.5 Sick sinus syndrome; M48.062 Spinal stenosis, lumbar region with neurogenic claudication; M47.898 Other spondylosis, sacral and sacrococcygeal region; G47.39 Other sleep apnea; E66.9 Obesity, unspecified; F41.9 Anxiety disorder, unspecified; Z68.33 Body mass index [BMI] 33.0-33.9, adult; Z79.01 Long term (current) use of anticoagulants; Z95.0 Presence of cardiac pacemaker; Z79.82 Long term (current) use of aspirin; Z86.73 Personal history of transient ischemic attack (TIA), and cerebral infarction without residual deficits; Z79.899 Other long term (current) drug therapy; Z95.1 Presence of aortocoronary bypass graft
CPT/HCPCS: 11042; A6196

== ENCOUNTER → 2023-12-19 | Outpatient (CLI) | payer BC, MEDICARE | END | disposition home or self-care (01) | LOC: WHH 09:50 | PROVIDERS: ATTEND Nurse Practitioner Family | DX: E11.621 Type 2 diabetes mellitus with foot ulcer (principal); I70.245 Atherosclerosis of native arteries of left leg with ulceration of other part of foot; L97.522 Non-pressure chronic ulcer of other part of left foot with fat layer exposed; I70.235 Atherosclerosis of native arteries of right leg with ulceration of other part of foot; L97.512 Non-pressure chronic ulcer of other part of right foot with fat layer exposed; I70.234 Atherosclerosis of native arteries of right leg with ulceration of heel and midfoot; L97.412 Non-pressure chronic ulcer of right heel and midfoot with fat layer exposed; I70.244 Atherosclerosis of native arteries of left leg with ulceration of heel and midfoot; L97.422 Non-pressure chronic ulcer of left heel and midfoot with fat layer exposed; I48.20 Chronic atrial fibrillation, unspecified; G89.29 Other chronic pain; E11.51 Type 2 diabetes mellitus with diabetic peripheral angiopathy without gangrene; E11.43 Type 2 diabetes mellitus with diabetic autonomic (poly)neuropathy; I11.0 Hypertensive heart disease with heart failure; I50.42 Chronic combined systolic (congestive) and diastolic (congestive) heart failure; I25.2 Old myocardial infarction; E78.00 Pure hypercholesterolemia, unspecified; I48.0 Paroxysmal atrial fibrillation; I25.10 Atherosclerotic heart disease of native coronary artery without angina pectoris; E03.9 Hypothyroidism, unspecified; M19.90 Unspecified osteoarthritis, unspecified site; J44.9 Chronic obstructive pulmonary disease, unspecified; L84 Corns and callosities; I49.5 Sick sinus syndrome; M48.062 Spinal stenosis, lumbar region with neurogenic claudication; M47.898 Other spondylosis, sacral and sacrococcygeal region; G47.39 Other sleep apnea; E66.9 Obesity, unspecified; F41.9 Anxiety disorder, unspecified; Z68.33 Body mass index [BMI] 33.0-33.9, adult; Z79.01 Long term (current) use of anticoagulants; Z95.0 Presence of cardiac pacemaker; Z79.82 Long term (current) use of aspirin; Z95.1 Presence of aortocoronary bypass graft; Z86.73 Personal history of transient ischemic attack (TIA), and cerebral infarction without residual deficits; Z79.899 Other long term (current) drug therapy | CPT/HCPCS: 11042; 87070 ×2; 87077 ×3; 87186 ×3; A6248; A6197; A6022; A4450 ==

== ENCOUNTER → 2023-12-26 | Outpatient (CLI) | payer BC, MEDICARE ==
[~2023-12-26] MED LIST changes: +CILO100T3 PO; +FAMO20TA8 PO; +FOLI0.8T22 PO; +LEVO25CA4 PO; -MECL-160 PO; +MECL-302 PO; +SILVER NITRATE APPLICATOR 1 SWAB TP ONE; +TIRZ2.5P SQ
== END | disposition home or self-care (01) ==
LOC: WHH 09:48
PROVIDERS: ATTEND Nurse Practitioner Family
DX: E11.621 Type 2 diabetes mellitus with foot ulcer (principal); L97.522 Non-pressure chronic ulcer of other part of left foot with fat layer exposed; L97.512 Non-pressure chronic ulcer of other part of right foot with fat layer exposed; E11.51 Type 2 diabetes mellitus with diabetic peripheral angiopathy without gangrene; E11.43 Type 2 diabetes mellitus with diabetic autonomic (poly)neuropathy; I11.0 Hypertensive heart disease with heart failure; I50.42 Chronic combined systolic (congestive) and diastolic (congestive) heart failure; J44.9 Chronic obstructive pulmonary disease, unspecified; I48.20 Chronic atrial fibrillation, unspecified; G89.29 Other chronic pain; I25.2 Old myocardial infarction; E78.00 Pure hypercholesterolemia, unspecified; I48.0 Paroxysmal atrial fibrillation; I25.10 Atherosclerotic heart disease of native coronary artery without angina pectoris; E03.9 Hypothyroidism, unspecified; L84 Corns and callosities; I49.5 Sick sinus syndrome; G47.39 Other sleep apnea; E66.9 Obesity, unspecified; M48.062 Spinal stenosis, lumbar region with neurogenic claudication; M47.898 Other spondylosis, sacral and sacrococcygeal region; M19.90 Unspecified osteoarthritis, unspecified site; F41.9 Anxiety disorder, unspecified; Z68.33 Body mass index [BMI] 33.0-33.9, adult; Z79.82 Long term (current) use of aspirin; Z79.01 Long term (current) use of anticoagulants; Z95.0 Presence of cardiac pacemaker; Z95.1 Presence of aortocoronary bypass graft; Z86.73 Personal history of transient ischemic attack (TIA), and cerebral infarction without residual deficits; Z79.899 Other long term (current) drug therapy
CPT/HCPCS: 11042; A6196

== ENCOUNTER → 2024-01-02 | Outpatient (CLI) | payer BC, MEDICARE ==
[~2024-01-02] MED LIST changes: -CILO100T3 PO; -FAMO20TA8 PO; -FOLI0.8T22 PO; -LEVO25CA4 PO; -LIDOCAINE HCL 4% LTA SOL 4 ML VIAL TP ONE; -SILVER NITRATE APPLICATOR 1 SWAB TP ONE; -TIRZ2.5P SQ
== END | disposition home or self-care (01) ==
LOC: WHH 09:39
PROVIDERS: ATTEND Nurse Practitioner Family
DX: E11.621 Type 2 diabetes mellitus with foot ulcer (principal); L97.522 Non-pressure chronic ulcer of other part of left foot with fat layer exposed; L97.512 Non-pressure chronic ulcer of other part of right foot with fat layer exposed; E11.51 Type 2 diabetes mellitus with diabetic peripheral angiopathy without gangrene; E11.43 Type 2 diabetes mellitus with diabetic autonomic (poly)neuropathy; I11.0 Hypertensive heart disease with heart failure; I50.42 Chronic combined systolic (congestive) and diastolic (congestive) heart failure; J44.9 Chronic obstructive pulmonary disease, unspecified; I48.20 Chronic atrial fibrillation, unspecified; G89.29 Other chronic pain; I25.2 Old myocardial infarction; E78.00 Pure hypercholesterolemia, unspecified; I48.0 Paroxysmal atrial fibrillation; I25.10 Atherosclerotic heart disease of native coronary artery without angina pectoris; E03.9 Hypothyroidism, unspecified; L84 Corns and callosities; I49.5 Sick sinus syndrome; G47.39 Other sleep apnea; E66.9 Obesity, unspecified; M48.062 Spinal stenosis, lumbar region with neurogenic claudication; M47.898 Other spondylosis, sacral and sacrococcygeal region; M19.90 Unspecified osteoarthritis, unspecified site; F41.9 Anxiety disorder, unspecified; Z68.33 Body mass index [BMI] 33.0-33.9, adult; Z79.82 Long term (current) use of aspirin; Z79.01 Long term (current) use of anticoagulants; Z95.0 Presence of cardiac pacemaker; Z95.1 Presence of aortocoronary bypass graft; Z86.73 Personal history of transient ischemic attack (TIA), and cerebral infarction without residual deficits; Z79.899 Other long term (current) drug therapy
CPT/HCPCS: 15275; A6197; Q4133; A6207

== ENCOUNTER → 2024-01-05 | Emergency (ER) | payer BC, MEDICARE ==
[~2024-01-05] VITALS: Ht 182.9 cm; Wt 113.4 kg
[~2024-01-05] MED LIST changes: +MECL-160 PO; -MECL-302 PO
[2024-01-05 14:38] VITALS: BP 147/85; PULSE 74; RESP 18
[2024-01-05 15:38] LABS: BASOPHILS # (AUTO) 0.04 K/uL (0.00-0.20); BASOPHILS % (AUTO) 0.8 % (0.0-5.0); EOSINOPHILS # (AUTO) 0.17 K/uL (0.00-0.70); EOSINOPHILS % (AUTO) 3.5 % (0.0-8.0); HEMATOCRIT 39.6 % (42-54); IMMATURE GRANULOCYTE ABSOLUTE 0.01 K/uL (0-1); LYMPHOCYTES # (AUTO) 1.4 K/uL (1.0-4.8); LYMPHOCYTES % (AUTO) 28.7 % (21.0-51.0); MEAN CORPUSCULAR HEMOGLOBIN 27.2 pg (27.0-33.0); MEAN CORPUSCULAR HGB CONC 33.1 g/dL (32.0-36.0); MEAN CORPUSCULAR VOLUME 82.2 fL (79-99); MONOCYTES # (AUTO) 0.4 K/uL (0.1-1.0); MONOCYTES % (AUTO) 7.7 % (3.0-13.0); NEUTROPHILS # (AUTO) 2.8 K/uL (1.8-7.7); NEUTROPHILS % (AUTO) 59.1 % (40.0-77.0); PLATELET COUNT (AUTO) 158 K/uL (130-400); RED BLOOD CELL COUNT(AUTO) 4.82 MIL/uL (4.50-6.20); RED CELL DISTRIBUTION WIDTH 14.5 % (11.0-15.5); WHITE BLOOD COUNT (AUTO) 4.8 K/uL (4.8-10.8)
[2024-01-05 15:50] LABS: CREATININE 1.2 mg/dL (0.5-1.3); POTASSIUM 3.4 mmol/L (3.5-5.1)
[2024-01-05 15:59] LABS: ALBUMIN 3.3 g/dL (3.5-5.0); BILIRUBIN,TOTAL 0.6 mg/dL (0.2-1.0); MAGNESIUM 2.2 mg/dL (1.80-2.40); TOTAL PROTEIN, SERUM 7.2 g/dL (6.0-8.3)
[2024-01-05 16:18] LABS: B-TYPE NATRIURETIC PEPTIDE 175 pg/mL (0-100)
== END ==
LOC: EDH 14:24
DX: R07.89 Other chest pain (principal); Z53.21 Procedure and treatment not carried out due to patient leaving prior to being seen by health care provider
CPT/HCPCS: 36415; 71045; 80053; 83735; 83880; 84484; 85025; 93005

== ENCOUNTER → 2024-01-09 | Outpatient (CLI) | payer BC, MEDICARE ==
[~2024-01-09] MED LIST changes: +LIDOCAINE HCL 4% LTA SOL 4 ML VIAL TP ONE
== END | disposition home or self-care (01) ==
LOC: WHH 10:13
PROVIDERS: ATTEND Nurse Practitioner Family
DX: E11.621 Type 2 diabetes mellitus with foot ulcer (principal); L97.522 Non-pressure chronic ulcer of other part of left foot with fat layer exposed; L97.512 Non-pressure chronic ulcer of other part of right foot with fat layer exposed; E11.51 Type 2 diabetes mellitus with diabetic peripheral angiopathy without gangrene; E11.43 Type 2 diabetes mellitus with diabetic autonomic (poly)neuropathy; I11.0 Hypertensive heart disease with heart failure; I50.42 Chronic combined systolic (congestive) and diastolic (congestive) heart failure; J44.9 Chronic obstructive pulmonary disease, unspecified; I48.20 Chronic atrial fibrillation, unspecified; G89.29 Other chronic pain; I25.2 Old myocardial infarction; E78.00 Pure hypercholesterolemia, unspecified; L84 Corns and callosities; I48.0 Paroxysmal atrial fibrillation; I25.10 Atherosclerotic heart disease of native coronary artery without angina pectoris; E03.9 Hypothyroidism, unspecified; I49.5 Sick sinus syndrome; G47.39 Other sleep apnea; E66.9 Obesity, unspecified; M48.062 Spinal stenosis, lumbar region with neurogenic claudication; M47.898 Other spondylosis, sacral and sacrococcygeal region; M19.90 Unspecified osteoarthritis, unspecified site; F41.9 Anxiety disorder, unspecified; Z68.33 Body mass index [BMI] 33.0-33.9, adult; Z79.82 Long term (current) use of aspirin; Z79.01 Long term (current) use of anticoagulants; Z95.0 Presence of cardiac pacemaker; Z95.1 Presence of aortocoronary bypass graft; Z86.73 Personal history of transient ischemic attack (TIA), and cerebral infarction without residual deficits; Z79.899 Other long term (current) drug therapy
CPT/HCPCS: 15275; A6196; Q4133

== ENCOUNTER → 2024-01-16 | Outpatient (CLI) | payer BC, MEDICARE ==
[~2024-01-16] MED LIST changes: -MECL-160 PO; +MECL-302 PO
== END | disposition home or self-care (01) ==
LOC: WHH 09:32
PROVIDERS: ATTEND Nurse Practitioner Family
DX: E11.621 Type 2 diabetes mellitus with foot ulcer (principal); L97.522 Non-pressure chronic ulcer of other part of left foot with fat layer exposed; L97.512 Non-pressure chronic ulcer of other part of right foot with fat layer exposed; E11.51 Type 2 diabetes mellitus with diabetic peripheral angiopathy without gangrene; E11.43 Type 2 diabetes mellitus with diabetic autonomic (poly)neuropathy; I11.0 Hypertensive heart disease with heart failure; I50.42 Chronic combined systolic (congestive) and diastolic (congestive) heart failure; J44.9 Chronic obstructive pulmonary disease, unspecified; I48.20 Chronic atrial fibrillation, unspecified; G89.29 Other chronic pain; I25.2 Old myocardial infarction; E78.00 Pure hypercholesterolemia, unspecified; L84 Corns and callosities; I48.0 Paroxysmal atrial fibrillation; I25.10 Atherosclerotic heart disease of native coronary artery without angina pectoris; E03.9 Hypothyroidism, unspecified; I49.5 Sick sinus syndrome; G47.39 Other sleep apnea; E66.9 Obesity, unspecified; M48.062 Spinal stenosis, lumbar region with neurogenic claudication; M47.898 Other spondylosis, sacral and sacrococcygeal region; M19.90 Unspecified osteoarthritis, unspecified site; F41.9 Anxiety disorder, unspecified; Z68.33 Body mass index [BMI] 33.0-33.9, adult; Z79.82 Long term (current) use of aspirin; Z79.01 Long term (current) use of anticoagulants; Z95.0 Presence of cardiac pacemaker; Z95.1 Presence of aortocoronary bypass graft; Z86.73 Personal history of transient ischemic attack (TIA), and cerebral infarction without residual deficits; Z79.899 Other long term (current) drug therapy
CPT/HCPCS: 11042; 87070; 87077; 87186; A6207; A4450

== ENCOUNTER → 2024-01-23 | Outpatient (CLI) | payer BC, MEDICARE ==
[~2024-01-23] MED LIST changes: -LIDOCAINE HCL 4% LTA SOL 4 ML VIAL TP ONE; +MECL-160 PO; -MECL-302 PO
== END | disposition home or self-care (01) ==
LOC: WHH 09:37
PROVIDERS: ATTEND Nurse Practitioner Family
DX: E11.621 Type 2 diabetes mellitus with foot ulcer (principal); L97.522 Non-pressure chronic ulcer of other part of left foot with fat layer exposed; L97.512 Non-pressure chronic ulcer of other part of right foot with fat layer exposed; E11.51 Type 2 diabetes mellitus with diabetic peripheral angiopathy without gangrene; E11.43 Type 2 diabetes mellitus with diabetic autonomic (poly)neuropathy; I11.0 Hypertensive heart disease with heart failure; I50.42 Chronic combined systolic (congestive) and diastolic (congestive) heart failure; J44.9 Chronic obstructive pulmonary disease, unspecified; I48.20 Chronic atrial fibrillation, unspecified; G89.29 Other chronic pain; I25.2 Old myocardial infarction; E78.00 Pure hypercholesterolemia, unspecified; L84 Corns and callosities; I48.0 Paroxysmal atrial fibrillation; I25.10 Atherosclerotic heart disease of native coronary artery without angina pectoris; E03.9 Hypothyroidism, unspecified; I49.5 Sick sinus syndrome; G47.39 Other sleep apnea; E66.9 Obesity, unspecified; M48.062 Spinal stenosis, lumbar region with neurogenic claudication; M47.898 Other spondylosis, sacral and sacrococcygeal region; M19.90 Unspecified osteoarthritis, unspecified site; F41.9 Anxiety disorder, unspecified; Z68.33 Body mass index [BMI] 33.0-33.9, adult; Z79.82 Long term (current) use of aspirin; Z79.01 Long term (current) use of anticoagulants; Z95.0 Presence of cardiac pacemaker; Z95.1 Presence of aortocoronary bypass graft; Z86.73 Personal history of transient ischemic attack (TIA), and cerebral infarction without residual deficits; Z79.899 Other long term (current) drug therapy
CPT/HCPCS: 99214; A6207

== ENCOUNTER → 2024-01-30 | Outpatient (CLI) | payer BC, MEDICARE ==
[~2024-01-30] MED LIST changes: +LIDOCAINE HCL 4% LTA SOL 4 ML VIAL TP ONE; -MECL-160 PO; +MECL-302 PO
== END | disposition home or self-care (01) ==
LOC: WHH 09:33
PROVIDERS: ATTEND Nurse Practitioner Family
DX: E11.621 Type 2 diabetes mellitus with foot ulcer (principal); L97.522 Non-pressure chronic ulcer of other part of left foot with fat layer exposed; L97.512 Non-pressure chronic ulcer of other part of right foot with fat layer exposed; E11.51 Type 2 diabetes mellitus with diabetic peripheral angiopathy without gangrene; E11.43 Type 2 diabetes mellitus with diabetic autonomic (poly)neuropathy; I11.0 Hypertensive heart disease with heart failure; I50.42 Chronic combined systolic (congestive) and diastolic (congestive) heart failure; J44.9 Chronic obstructive pulmonary disease, unspecified; I48.20 Chronic atrial fibrillation, unspecified; G89.29 Other chronic pain; I25.2 Old myocardial infarction; E78.00 Pure hypercholesterolemia, unspecified; L84 Corns and callosities; I48.0 Paroxysmal atrial fibrillation; I25.10 Atherosclerotic heart disease of native coronary artery without angina pectoris; E03.9 Hypothyroidism, unspecified; I49.5 Sick sinus syndrome; G47.39 Other sleep apnea; E66.9 Obesity, unspecified; M48.062 Spinal stenosis, lumbar region with neurogenic claudication; M47.898 Other spondylosis, sacral and sacrococcygeal region; M19.90 Unspecified osteoarthritis, unspecified site; F41.9 Anxiety disorder, unspecified; Z68.33 Body mass index [BMI] 33.0-33.9, adult; Z79.82 Long term (current) use of aspirin; Z79.01 Long term (current) use of anticoagulants; Z95.0 Presence of cardiac pacemaker; Z95.1 Presence of aortocoronary bypass graft; Z86.73 Personal history of transient ischemic attack (TIA), and cerebral infarction without residual deficits; Z79.899 Other long term (current) drug therapy
CPT/HCPCS: 11042; A6207

== ENCOUNTER → 2024-02-06 | Outpatient (CLI) | payer BC, MEDICARE ==
[~2024-02-06] MED LIST changes: +CILO100T3 PO; +FOLI0.8T22 PO; +LEVO25CA4 PO; -LIDOCAINE HCL 4% LTA SOL 4 ML VIAL TP ONE
== END | disposition home or self-care (01) ==
LOC: WHH 09:25
PROVIDERS: ATTEND Nurse Practitioner Family
DX: E11.621 Type 2 diabetes mellitus with foot ulcer (principal); I70.245 Atherosclerosis of native arteries of left leg with ulceration of other part of foot; L97.522 Non-pressure chronic ulcer of other part of left foot with fat layer exposed; E11.51 Type 2 diabetes mellitus with diabetic peripheral angiopathy without gangrene; E11.43 Type 2 diabetes mellitus with diabetic autonomic (poly)neuropathy; E11.22 Type 2 diabetes mellitus with diabetic chronic kidney disease; I13.0 Hypertensive heart and chronic kidney disease with heart failure and stage 1 through stage 4 chronic kidney disease, or unspecified chronic kidney disease; N18.30 Chronic kidney disease, stage 3 unspecified; I50.42 Chronic combined systolic (congestive) and diastolic (congestive) heart failure; J44.9 Chronic obstructive pulmonary disease, unspecified; I48.20 Chronic atrial fibrillation, unspecified; G89.29 Other chronic pain; I25.2 Old myocardial infarction; E78.00 Pure hypercholesterolemia, unspecified; G47.33 Obstructive sleep apnea (adult) (pediatric); L84 Corns and callosities; I48.0 Paroxysmal atrial fibrillation; I25.10 Atherosclerotic heart disease of native coronary artery without angina pectoris; E03.9 Hypothyroidism, unspecified; I49.5 Sick sinus syndrome; E66.9 Obesity, unspecified; M48.062 Spinal stenosis, lumbar region with neurogenic claudication; M47.898 Other spondylosis, sacral and sacrococcygeal region; M19.90 Unspecified osteoarthritis, unspecified site; F41.9 Anxiety disorder, unspecified; Z68.33 Body mass index [BMI] 33.0-33.9, adult; Z79.82 Long term (current) use of aspirin; Z79.01 Long term (current) use of anticoagulants; Z95.0 Presence of cardiac pacemaker; Z95.1 Presence of aortocoronary bypass graft; Z86.73 Personal history of transient ischemic attack (TIA), and cerebral infarction without residual deficits; Z79.899 Other long term (current) drug therapy
CPT/HCPCS: 99214; A6207

== ENCOUNTER 2024-02-20 10:47 | Emergency (ER) | payer BC, MEDICARE ==
[~2024-02-20] VITALS: Ht 182.9 cm; Wt 112.5 kg
[~2024-02-20 10:47] MED LIST changes: -ACET-2079 PO; -ALPR-409 PO; -AMIL5TAB8 PO; +FAMO20TA8 PO; -MECL-302 PO; -PANT40TA PO; +TIRZ2.5P SQ
[2024-02-20 12:12] LABS: BASOPHILS # (AUTO) 0.06 K/uL (0.00-0.20); BASOPHILS % (AUTO) 0.9 % (0.0-5.0); EOSINOPHILS # (AUTO) 0.14 K/uL (0.00-0.70); HEMATOCRIT 42.2 % (42-54); IMMATURE GRANULOCYTE ABSOLUTE 0.01 K/uL (0-1); LYMPHOCYTES # (AUTO) 1.1 K/uL (1.0-4.8); LYMPHOCYTES % (AUTO) 16.5 % (21.0-51.0); MEAN CORPUSCULAR HEMOGLOBIN 27.9 pg (27.0-33.0); MEAN CORPUSCULAR HGB CONC 34.4 g/dL (32.0-36.0); MEAN CORPUSCULAR VOLUME 81.2 fL (79-99); MONOCYTES # (AUTO) 0.6 K/uL (0.1-1.0); MONOCYTES % (AUTO) 9.1 % (3.0-13.0); NEUTROPHILS # (AUTO) 4.9 K/uL (1.8-7.7); NEUTROPHILS % (AUTO) 71.4 % (40.0-77.0); PLATELET COUNT (AUTO) 164 K/uL (130-400); RED CELL DISTRIBUTION WIDTH 13.7 % (11.0-15.5); WHITE BLOOD COUNT (AUTO) 6.9 K/uL (4.8-10.8)
[2024-02-20 12:22] LABS: CREATININE 1.7 mg/dL (0.5-1.3); POTASSIUM 3.7 mmol/L (3.5-5.1)
[2024-02-20 12:31] LABS: INR 0.96 (0.85-1.15); PROTHROMBIN TIME 11.4 SEC (9.6-11.6)
[2024-02-20 13:58] VITALS: BP 107/66; PULSE 80; RESP 18; O2SAT 97
== END 2024-02-20 14:11 | disposition home or self-care (01) ==
LOC: EDH 10:47
DX: E86.0 Dehydration (principal); F41.9 Anxiety disorder, unspecified; M19.90 Unspecified osteoarthritis, unspecified site; I48.91 Unspecified atrial fibrillation; I11.0 Hypertensive heart disease with heart failure; I50.9 Heart failure, unspecified; E11.9 Type 2 diabetes mellitus without complications
CPT/HCPCS: 36415; 71045; 80048; 82550; 84484; 85025; 85610

== ENCOUNTER → 2024-02-28 | Outpatient (CLI) | payer BC, MEDICARE ==
[~2024-02-28] MED LIST changes: +CEFTRIAXONE 1G VIAL IM ONE; +LIDOCAINE HCL 4% LTA SOL 4 ML VIAL TP ONE
== END | disposition home or self-care (01) ==
LOC: WHH 08:12
PROVIDERS: ATTEND Nurse Practitioner Family
DX: E11.621 Type 2 diabetes mellitus with foot ulcer (principal); L97.522 Non-pressure chronic ulcer of other part of left foot with fat layer exposed; I70.245 Atherosclerosis of native arteries of left leg with ulceration of other part of foot; E11.51 Type 2 diabetes mellitus with diabetic peripheral angiopathy without gangrene; E11.43 Type 2 diabetes mellitus with diabetic autonomic (poly)neuropathy; E11.22 Type 2 diabetes mellitus with diabetic chronic kidney disease; I13.0 Hypertensive heart and chronic kidney disease with heart failure and stage 1 through stage 4 chronic kidney disease, or unspecified chronic kidney disease; N18.30 Chronic kidney disease, stage 3 unspecified; I50.42 Chronic combined systolic (congestive) and diastolic (congestive) heart failure; J44.9 Chronic obstructive pulmonary disease, unspecified; I48.20 Chronic atrial fibrillation, unspecified; G89.29 Other chronic pain; I25.2 Old myocardial infarction; E78.00 Pure hypercholesterolemia, unspecified; G47.33 Obstructive sleep apnea (adult) (pediatric); L84 Corns and callosities; I48.0 Paroxysmal atrial fibrillation; I25.10 Atherosclerotic heart disease of native coronary artery without angina pectoris; E03.9 Hypothyroidism, unspecified; I49.5 Sick sinus syndrome; E66.9 Obesity, unspecified; M48.062 Spinal stenosis, lumbar region with neurogenic claudication; M47.898 Other spondylosis, sacral and sacrococcygeal region; M19.90 Unspecified osteoarthritis, unspecified site; F41.9 Anxiety disorder, unspecified; Z68.33 Body mass index [BMI] 33.0-33.9, adult; Z79.82 Long term (current) use of aspirin; Z79.01 Long term (current) use of anticoagulants; Z95.0 Presence of cardiac pacemaker; Z95.1 Presence of aortocoronary bypass graft; Z86.73 Personal history of transient ischemic attack (TIA), and cerebral infarction without residual deficits; Z79.899 Other long term (current) drug therapy
CPT/HCPCS: 11042; 87070 ×2; 87077 ×3; 87186 ×3; 96372; J0696; A6207; A4450

== ENCOUNTER → 2024-03-05 | Outpatient (CLI) | payer BC, MEDICARE ==
[~2024-03-05] MED LIST changes: -CEFTRIAXONE 1G VIAL IM ONE
== END | disposition home or self-care (01) ==
LOC: WHH 09:36
PROVIDERS: ATTEND Nurse Practitioner Family
DX: E11.621 Type 2 diabetes mellitus with foot ulcer (principal); L97.522 Non-pressure chronic ulcer of other part of left foot with fat layer exposed; E11.51 Type 2 diabetes mellitus with diabetic peripheral angiopathy without gangrene; E11.43 Type 2 diabetes mellitus with diabetic autonomic (poly)neuropathy; E11.22 Type 2 diabetes mellitus with diabetic chronic kidney disease; I13.0 Hypertensive heart and chronic kidney disease with heart failure and stage 1 through stage 4 chronic kidney disease, or unspecified chronic kidney disease; N18.30 Chronic kidney disease, stage 3 unspecified; I50.42 Chronic combined systolic (congestive) and diastolic (congestive) heart failure; J44.9 Chronic obstructive pulmonary disease, unspecified; I48.20 Chronic atrial fibrillation, unspecified; G89.29 Other chronic pain; I25.2 Old myocardial infarction; E78.00 Pure hypercholesterolemia, unspecified; G47.33 Obstructive sleep apnea (adult) (pediatric); L84 Corns and callosities; I48.0 Paroxysmal atrial fibrillation; I25.10 Atherosclerotic heart disease of native coronary artery without angina pectoris; E03.9 Hypothyroidism, unspecified; I49.5 Sick sinus syndrome; E66.9 Obesity, unspecified; M48.062 Spinal stenosis, lumbar region with neurogenic claudication; M47.898 Other spondylosis, sacral and sacrococcygeal region; M19.90 Unspecified osteoarthritis, unspecified site; F41.9 Anxiety disorder, unspecified; Z68.33 Body mass index [BMI] 33.0-33.9, adult; Z79.82 Long term (current) use of aspirin; Z79.01 Long term (current) use of anticoagulants; Z95.0 Presence of cardiac pacemaker; Z95.1 Presence of aortocoronary bypass graft; Z86.73 Personal history of transient ischemic attack (TIA), and cerebral infarction without residual deficits; Z79.899 Other long term (current) drug therapy
CPT/HCPCS: 11042; A6207

== ENCOUNTER → 2024-03-06 | Outpatient (CLI) | payer BC, MEDICARE ==
[~2024-03-06] MED LIST changes: -LIDOCAINE HCL 4% LTA SOL 4 ML VIAL TP ONE
[2024-03-06 12:19] LABS: BASOPHILS # (AUTO) 0.06 K/uL (0.00-0.20); BASOPHILS % (AUTO) 1.1 % (0.0-5.0); EOSINOPHILS # (AUTO) 0.21 K/uL (0.00-0.70); HEMATOCRIT 46.6 % (42-54); IMMATURE GRANULOCYTE ABSOLUTE 0.02 K/uL (0-1); LYMPHOCYTES # (AUTO) 1.2 K/uL (1.0-4.8); LYMPHOCYTES % (AUTO) 22.4 % (21.0-51.0); MEAN CORPUSCULAR HEMOGLOBIN 26.9 pg (27.0-33.0); MEAN CORPUSCULAR HGB CONC 32.8 g/dL (32.0-36.0); MONOCYTES # (AUTO) 0.4 K/uL (0.1-1.0); MONOCYTES % (AUTO) 6.6 % (3.0-13.0); NEUTROPHILS # (AUTO) 3.5 K/uL (1.8-7.7); NEUTROPHILS % (AUTO) 65.5 % (40.0-77.0); PLATELET COUNT (AUTO) 252 K/uL (130-400); RED BLOOD CELL COUNT(AUTO) 5.68 MIL/uL (4.50-6.20); RED CELL DISTRIBUTION WIDTH 14.1 % (11.0-15.5); WHITE BLOOD COUNT (AUTO) 5.3 K/uL (4.8-10.8)
[2024-03-06 12:32] LABS: INR <= 0.93 (0.85-1.15); PROTHROMBIN TIME 10.3 SEC (9.6-11.6)
[2024-03-06 12:34] LABS: PARTIAL THROMBOPLASTIN TIME 28.2 SEC (26.3-35.5)
[2024-03-06 12:37] LABS: ALBUMIN 3.8 g/dL (3.5-5.0); BILIRUBIN,TOTAL 0.5 mg/dL (0.2-1.0); CREATININE 1.4 mg/dL (0.5-1.3); POTASSIUM 4.6 mmol/L (3.5-5.1)
== END | disposition home or self-care (01) ==
LOC: LAB 08:39
PROVIDERS: ATTEND Internal Medicine Cardiovascular Disease
DX: I87.2 Venous insufficiency (chronic) (peripheral) (principal); R60.9 Edema, unspecified
CPT/HCPCS: 36415; 80053; 85025; 85610; 85730

== ENCOUNTER → 2024-03-13 | Outpatient (CLI) | payer BC, MEDICARE ==
[~2024-03-13] MED LIST changes: +LIDOCAINE HCL 4% LTA SOL 4 ML VIAL TP ONE
== END | disposition home or self-care (01) ==
LOC: WHH 10:43
PROVIDERS: ATTEND Nurse Practitioner Family
DX: E11.621 Type 2 diabetes mellitus with foot ulcer (principal); L97.522 Non-pressure chronic ulcer of other part of left foot with fat layer exposed; E11.51 Type 2 diabetes mellitus with diabetic peripheral angiopathy without gangrene; E11.43 Type 2 diabetes mellitus with diabetic autonomic (poly)neuropathy; E11.22 Type 2 diabetes mellitus with diabetic chronic kidney disease; I13.0 Hypertensive heart and chronic kidney disease with heart failure and stage 1 through stage 4 chronic kidney disease, or unspecified chronic kidney disease; N18.30 Chronic kidney disease, stage 3 unspecified; I50.42 Chronic combined systolic (congestive) and diastolic (congestive) heart failure; J44.9 Chronic obstructive pulmonary disease, unspecified; I48.20 Chronic atrial fibrillation, unspecified; G89.29 Other chronic pain; I25.2 Old myocardial infarction; E78.00 Pure hypercholesterolemia, unspecified; G47.33 Obstructive sleep apnea (adult) (pediatric); L84 Corns and callosities; I48.0 Paroxysmal atrial fibrillation; I25.10 Atherosclerotic heart disease of native coronary artery without angina pectoris; E03.9 Hypothyroidism, unspecified; I49.5 Sick sinus syndrome; E66.9 Obesity, unspecified; M48.062 Spinal stenosis, lumbar region with neurogenic claudication; M47.898 Other spondylosis, sacral and sacrococcygeal region; M19.90 Unspecified osteoarthritis, unspecified site; F41.9 Anxiety disorder, unspecified; Z68.33 Body mass index [BMI] 33.0-33.9, adult; Z79.82 Long term (current) use of aspirin; Z79.01 Long term (current) use of anticoagulants; Z95.0 Presence of cardiac pacemaker; Z95.1 Presence of aortocoronary bypass graft; Z86.73 Personal history of transient ischemic attack (TIA), and cerebral infarction without residual deficits; Z79.899 Other long term (current) drug therapy
CPT/HCPCS: 11042; A6207

== ENCOUNTER 2024-03-28 07:54 | Inpatient (IN) | payer BC, MEDICARE ==
[~2024-03-28] VITALS: Ht 180.3 cm; Wt 82.4 kg
[~2024-03-28 07:54] MED LIST changes: -LIDOCAINE HCL 4% LTA SOL 4 ML VIAL TP ONE
[2024-03-28 09:58] LABS: BASOPHILS # (AUTO) 0.03 K/uL (0.00-0.20); BASOPHILS % (AUTO) 0.3 % (0.0-5.0); EOSINOPHILS # (AUTO) 0.06 K/uL (0.00-0.70); EOSINOPHILS % (AUTO) 0.6 % (0.0-8.0); HEMATOCRIT 40.8 % (42-54); IMMATURE GRANULOCYTE ABSOLUTE 0.04 K/uL (0-1); LYMPHOCYTES # (AUTO) 1.3 K/uL (1.0-4.8); LYMPHOCYTES % (AUTO) 12.3 % (21.0-51.0); MEAN CORPUSCULAR HEMOGLOBIN 27.1 pg (27.0-33.0); MEAN CORPUSCULAR HGB CONC 34.3 g/dL (32.0-36.0); MEAN CORPUSCULAR VOLUME 78.9 fL (79-99); MONOCYTES # (AUTO) 0.8 K/uL (0.1-1.0); MONOCYTES % (AUTO) 8.3 % (3.0-13.0); NEUTROPHILS # (AUTO) 7.9 K/uL (1.8-7.7); NEUTROPHILS % (AUTO) 78.1 % (40.0-77.0); PLATELET COUNT (AUTO) 173 K/uL (130-400); RED BLOOD CELL COUNT(AUTO) 5.17 MIL/uL (4.50-6.20); WHITE BLOOD COUNT (AUTO) 10.2 K/uL (4.8-10.8)
[2024-03-28 10:05] LABS: CREATININE 1.4 mg/dL (0.5-1.3); POTASSIUM 3.8 mmol/L (3.5-5.1)
[2024-03-28] MEDS: TRAMADOL HCL 50 MG TABLET PO ONE (10:08)
[2024-03-28] MEDS: ONDANSETRON 4MG INJ IVP ONE (10:08)
[2024-03-28] MEDS: HYDROMORPHONE 0.5 MG SYG (0.5MG/0.5ML) IM ONE (10:10)
[2024-03-28] MEDS ORDERED: VANCOMYCIN KIT 1 GM/250 ML IV.KIT IV ONE (11:00)
[2024-03-28 11:07] LABS: APPEARANCE,URINE CLEAR (CLEAR); BACTERIA,URINE RARE /HPF (None Seen); BILIRUBIN,URINE NEGATIVE (NEGATIVE); COLOR,URINE YELLOW (YELLOW); GLUCOSE, URINE (UA) >=1000 mg/dL (NEGATIVE); KETONES,URINE 5 mg/dL (NEGATIVE); LEUKOCYTE ESTERASE ,URINE NEGATIVE Leu/uL (NEGATIVE); MUCUS,URINE RARE LPF (None Seen); NITRATE,URINE NEGATIVE (NEGATIVE); OCCULT BLOOD,URINE SMALL (NEGATIVE); PH,URINE 5.5 (5.0-8.0); PROTEIN,URINE 100 mg/dL (NEGATIVE); SQUAMOUS EPITHELIAL CELL,UR RARE /HPF (0-2); UROBILINOGEN,URINE 0.2 mg/dL (0.2-1.0)
[2024-03-28] MEDS ORDERED: VANCOMYCIN PROTOCOL PER PHARMACY IV SCH (11:30)
[2024-03-28 11:54] LABS: HEMOGLOBIN A1C 7.7 % (4.0-6.0)
[2024-03-28] MEDS: 0.9%NACL 1000ML 1,000 ML IV SCH (11:58)
[2024-03-28] MEDS: ZOSYN 3.375GM +NS 50ML IV STA (11:58)
[2024-03-28] MEDS ORDERED: VANCOMYCIN PROTOCOL PER PHARMACY IV ONE (12:00)
[2024-03-28 12:02] LABS: THYROID STIMULATING HORMONE 1.8 uIU/mL (0.36-3.74)
[2024-03-28] MEDS: VANCOMYCIN 2GM/500 ML BAG 500 ML IV ONE (12:08)
[2024-03-28 12:17] LABS: INR <= 0.93 (0.85-1.15)
[2024-03-28 12:19] LABS: PARTIAL THROMBOPLASTIN TIME 34.8 SEC (26.3-35.5)
[2024-03-28] MEDS ORDERED: EMPA25TA PO (12:26)
[2024-03-28 13:43] LABS: CREATININE,URINE RANDOM 100.32 mg/dL (30-135)
[2024-03-28] MEDS: METRONIDAZOLE 500MG/100ML BAG 100 ML IVPB SCH (14:24)
[2024-03-28] MEDS: MORPHINE 2 MG SYG IVP PRN (15:32)
[2024-03-28 17:09] LABS: BASOPHILS # (AUTO) 0.03 K/uL (0.00-0.20); BASOPHILS % (AUTO) 0.3 % (0.0-5.0); EOSINOPHILS # (AUTO) 0.07 K/uL (0.00-0.70); EOSINOPHILS % (AUTO) 0.8 % (0.0-8.0); IMMATURE GRANULOCYTE ABSOLUTE 0.04 K/uL (0-1); LYMPHOCYTES # (AUTO) 0.7 K/uL (1.0-4.8); LYMPHOCYTES % (AUTO) 7.5 % (21.0-51.0); MEAN CORPUSCULAR HEMOGLOBIN 26.8 pg (27.0-33.0); MEAN CORPUSCULAR HGB CONC 34.2 g/dL (32.0-36.0); MEAN CORPUSCULAR VOLUME 78.4 fL (79-99); MONOCYTES # (AUTO) 0.8 K/uL (0.1-1.0); MONOCYTES % (AUTO) 8.8 % (3.0-13.0); NEUTROPHILS # (AUTO) 7.1 K/uL (1.8-7.7); NEUTROPHILS % (AUTO) 82.1 % (40.0-77.0); PLATELET COUNT (AUTO) 174 K/uL (130-400); RED BLOOD CELL COUNT(AUTO) 4.85 MIL/uL (4.50-6.20); WHITE BLOOD COUNT (AUTO) 8.7 K/uL (4.8-10.8)
[2024-03-28 17:30] VITALS: BP 129/74; PULSE 83; RESP 18; O2SAT 98
[2024-03-28] MEDS: CEFEPIME HCL 1 GM VIAL IVPB SCH (17:45)
[2024-03-28] MEDS ORDERED: HEPARIN 5,000 UNIT VIAL IV PRN (18:00)
[2024-03-28] MEDS ORDERED: INSULIN HUMULIN R 100 UNIT/ML 3ML SQ SCH (18:00)
[2024-03-28] MEDS: HEPARIN 25,000 UNITS/250ML D5W 250 ML IV SCH (18:52)
[2024-03-28 20:00] VITALS: BP 132/72; PULSE 85; RESP 20
[2024-03-28] MEDS: ACETAMINOPHEN 500 MG TABLET PO PRN (20:47)
[2024-03-28 21:00] VITALS: O2SAT 97
[2024-03-28] MEDS: INSULIN HUMULIN R 100 UNIT/ML 3ML SQ SCH (22:21)
[2024-03-29] VITALS (30 sets, daily range): BP systolic 114–155; BP diastolic 64–91; PULSE 67–86; RESP 15–20; O2SAT 97
[2024-03-29 01:15] LABS: BASOPHILS # (AUTO) 0.05 K/uL (0.00-0.20); BASOPHILS % (AUTO) 0.6 % (0.0-5.0); EOSINOPHILS % (AUTO) 1.2 % (0.0-8.0); HEMATOCRIT 34.4 % (42-54); IMMATURE GRANULOCYTE ABSOLUTE 0.03 K/uL (0-1); LYMPHOCYTES # (AUTO) 0.8 K/uL (1.0-4.8); MEAN CORPUSCULAR HEMOGLOBIN 27.3 pg (27.0-33.0); MEAN CORPUSCULAR VOLUME 80.2 fL (79-99); MONOCYTES # (AUTO) 0.5 K/uL (0.1-1.0); MONOCYTES % (AUTO) 6.6 % (3.0-13.0); NEUTROPHILS # (AUTO) 6.6 K/uL (1.8-7.7); NEUTROPHILS % (AUTO) 81.2 % (40.0-77.0); PLATELET COUNT (AUTO) 152 K/uL (130-400); RED BLOOD CELL COUNT(AUTO) 4.29 MIL/uL (4.50-6.20); RED CELL DISTRIBUTION WIDTH 14.1 % (11.0-15.5); WHITE BLOOD COUNT (AUTO) 8.2 K/uL (4.8-10.8)
[2024-03-29 01:31] LABS: INR 0.98 (0.85-1.15); PROTHROMBIN TIME 11.6 SEC (9.6-11.6)
[2024-03-29 01:32] LABS: PARTIAL THROMBOPLASTIN TIME 75.6 SEC (26.3-35.5)
[2024-03-29 07:25] LABS: CREATININE 1.6 mg/dL (0.5-1.3); POTASSIUM 3.8 mmol/L (3.5-5.1)
[2024-03-29] MEDS: 0.9%NACL 1000ML 1,000 ML IV ONE (10:40)
[2024-03-29] MEDS ORDERED: FENTANYL CITRATE PF 50 MCG/1 ML 2ML VIAL ONE ×2 (11:37→12:42)
[2024-03-29] MEDS ORDERED: ONDANSETRON 4MG INJ ONE (11:37)
[2024-03-29] MEDS ORDERED: MIDAZOLAM HCL 1 MG/ML 2ML VIAL ONE (11:37)
[2024-03-29] MEDS ORDERED: PROPOFOL 10 MG/ML 20ML VIAL IV ONE (11:39)
[2024-03-29] MEDS ORDERED: ROCURONIUM BROMIDE 10MG/1ML 5ML VL ONE (11:41)
[2024-03-29] MEDS ORDERED: SUCCINYLCHOLINE CHLORIDE 20 MG/ML 10 ML VIAL ONE (11:41)
[2024-03-29] MEDS ORDERED: GLYCOPYRROLATE 0.2 MG/ML 5 ML VIAL ONE (12:41)
[2024-03-29] MEDS ORDERED: NEOSTIGMINE METHYLSULFATE 1MG/ML IV ONE (12:42)
[2024-03-29] MEDS ORDERED: MEPERIDINE-PF 25 MG/ML SYG ONE (12:49)
[2024-03-29] MEDS: ACETAMINOPHEN 1,000 MG/100 ML VIAL IV ONE (13:12)
[2024-03-29] MEDS: MEPERIDINE-PF 25 MG/ML SYG ONE ×2 (13:12→13:31)
[2024-03-29] MEDS: TORSEMIDE 20 MG TAB PO SCH (15:22)
[2024-03-29] MEDS: AMLODIPINE 5 MG TAB PO SCH (15:32)
[2024-03-29] MEDS: LOSARTAN 100 MG TABLET PO SCH (15:32)
[2024-03-29] MEDS: CLOPIDOGREL 75MG TAB PO SCH (15:32)
[2024-03-29] MEDS: VANCOMYCIN 2GM/500 ML BAG 500 ML IV SCH (15:42)
[2024-03-29 16:37] LABS: INR 0.99 (0.85-1.15); PROTHROMBIN TIME 11.7 SEC (9.6-11.6)
[2024-03-29] MEDS: METRONIDAZOLE 500MG/100ML BAG 100 ML IVPB SCH (20:14)
[2024-03-30] VITALS (7 sets, daily range): BP systolic 121–152; BP diastolic 66–85; PULSE 67–79; RESP 17–20; O2SAT 97–98
[2024-03-30 00:43] LABS: INR 0.95 (0.85-1.15); PROTHROMBIN TIME 11.3 SEC (9.6-11.6)
[2024-03-30 00:44] LABS: PARTIAL THROMBOPLASTIN TIME 58.7 SEC (26.3-35.5)
[2024-03-30 06:34] LABS: BASOPHILS # (AUTO) 0.02 K/uL (0.00-0.20); BASOPHILS % (AUTO) 0.3 % (0.0-5.0); EOSINOPHILS # (AUTO) 0.16 K/uL (0.00-0.70); EOSINOPHILS % (AUTO) 2.7 % (0.0-8.0); HEMATOCRIT 33.8 % (42-54); IMMATURE GRANULOCYTE ABSOLUTE 0.02 K/uL (0-1); LYMPHOCYTES # (AUTO) 0.8 K/uL (1.0-4.8); LYMPHOCYTES % (AUTO) 13.9 % (21.0-51.0); MEAN CORPUSCULAR HEMOGLOBIN 26.7 pg (27.0-33.0); MEAN CORPUSCULAR HGB CONC 32.8 g/dL (32.0-36.0); MEAN CORPUSCULAR VOLUME 81.4 fL (79-99); MONOCYTES # (AUTO) 0.4 K/uL (0.1-1.0); MONOCYTES % (AUTO) 7.3 % (3.0-13.0); NEUTROPHILS # (AUTO) 4.4 K/uL (1.8-7.7); NEUTROPHILS % (AUTO) 75.5 % (40.0-77.0); PLATELET COUNT (AUTO) 166 K/uL (130-400); RED BLOOD CELL COUNT(AUTO) 4.15 MIL/uL (4.50-6.20); RED CELL DISTRIBUTION WIDTH 14.2 % (11.0-15.5); WHITE BLOOD COUNT (AUTO) 5.9 K/uL (4.8-10.8)
[2024-03-30 06:50] LABS: ALBUMIN 2.4 g/dL (3.5-5.0); BILIRUBIN,TOTAL 0.6 mg/dL (0.2-1.0); CREATININE 1.4 mg/dL (0.5-1.3); POTASSIUM 3.5 mmol/L (3.5-5.1); TOTAL PROTEIN, SERUM 6.4 g/dL (6.0-8.3)
[2024-03-30] MEDS: TRAMADOL HCL 50 MG TABLET PO PRN (09:37)
[2024-03-30] MEDS ORDERED: VANCOMYCIN 1G/250ML KIT 250 ML IV SCH (14:00)
[2024-03-30] MEDS: VANCOMYCIN 2GM/500 ML BAG 500 ML IV SCH (16:33)
[2024-03-30] MEDS: CEFEPIME HCL 1 GM VIAL IVPB SCH (20:28)
[2024-03-30] MEDS: APIXABAN 5 MG TABLET PO SCH (21:27)
[2024-03-31] VITALS (7 sets, daily range): BP systolic 125–144; BP diastolic 73–87; PULSE 63–73; RESP 17–20; O2SAT 99–100
[2024-03-31 05:35] LABS: ALBUMIN 2.6 g/dL (3.5-5.0); BILIRUBIN,TOTAL 0.4 mg/dL (0.2-1.0); CREATININE 1.2 mg/dL (0.5-1.3); POTASSIUM 3.2 mmol/L (3.5-5.1); TOTAL PROTEIN, SERUM 6.7 g/dL (6.0-8.3)
[2024-03-31] MEDS ORDERED: POTASSIUM CHLORIDE 20MEQ/100ML 100 ML IV PRN ×2 (09:00→09:30)
[2024-03-31] MEDS ORDERED: POTASSIUM CHLORIDE 10% ELIXIR 20 MEQ/15 ML UDCUP PO PRN (09:30)
[2024-03-31 13:23] LABS: ALBUMIN 2.6 g/dL (3.5-5.0); BILIRUBIN,TOTAL 0.5 mg/dL (0.2-1.0); POTASSIUM 3.6 mmol/L (3.5-5.1); TOTAL PROTEIN, SERUM 6.9 g/dL (6.0-8.3)
[2024-03-31] MEDS: ALPRAZOLAM 0.5 MG TABLET PO PRN (14:15)
[2024-04-01] VITALS (9 sets, daily range): BP systolic 143–160; BP diastolic 79–93; PULSE 68–76; RESP 14–20; O2SAT 99
[2024-04-01 05:35] LABS: BASOPHILS # (AUTO) 0.05 K/uL (0.00-0.20); BASOPHILS % (AUTO) 1.1 % (0.0-5.0); EOSINOPHILS % (AUTO) 4.2 % (0.0-8.0); HEMATOCRIT 38.3 % (42-54); IMMATURE GRANULOCYTE ABSOLUTE 0.02 K/uL (0-1); LYMPHOCYTES # (AUTO) 1.1 K/uL (1.0-4.8); LYMPHOCYTES % (AUTO) 22.5 % (21.0-51.0); MEAN CORPUSCULAR HEMOGLOBIN 27.2 pg (27.0-33.0); MEAN CORPUSCULAR HGB CONC 33.2 g/dL (32.0-36.0); MONOCYTES # (AUTO) 0.4 K/uL (0.1-1.0); NEUTROPHILS % (AUTO) 62.8 % (40.0-77.0); PLATELET COUNT (AUTO) 191 K/uL (130-400); RED BLOOD CELL COUNT(AUTO) 4.67 MIL/uL (4.50-6.20); RED CELL DISTRIBUTION WIDTH 14.2 % (11.0-15.5); WHITE BLOOD COUNT (AUTO) 4.8 K/uL (4.8-10.8)
[2024-04-01 06:13] LABS: ALBUMIN 2.7 g/dL (3.5-5.0); BILIRUBIN,TOTAL 0.4 mg/dL (0.2-1.0); MAGNESIUM 1.4 mg/dL (1.80-2.40); POTASSIUM 3.2 mmol/L (3.5-5.1); TOTAL PROTEIN, SERUM 6.9 g/dL (6.0-8.3)
[2024-04-01] MEDS ORDERED: MAGNESIUM 4GM PREMIX 100ML IV SCH (09:00)
[2024-04-01] MEDS: KCL 20 MEQ ERTAB PO PRN (09:40)
[2024-04-01] MEDS: MAGNESIUM 2GM PREMIX 50ML 50 ML IV PRN (09:45)
[2024-04-01] MEDS: KCL 20 MEQ ERTAB PO ONE ×2 (12:16→20:28)
[2024-04-02 03:00] VITALS: BP 141/82; PULSE 69; RESP 14
[2024-04-02 04:05] LABS: BASOPHILS # (AUTO) 0.06 K/uL (0.00-0.20); BASOPHILS % (AUTO) 1.2 % (0.0-5.0); EOSINOPHILS # (AUTO) 0.18 K/uL (0.00-0.70); EOSINOPHILS % (AUTO) 3.7 % (0.0-8.0); HEMATOCRIT 36.2 % (42-54); IMMATURE GRANULOCYTE ABSOLUTE 0.02 K/uL (0-1); LYMPHOCYTES # (AUTO) 1.4 K/uL (1.0-4.8); LYMPHOCYTES % (AUTO) 27.8 % (21.0-51.0); MEAN CORPUSCULAR HEMOGLOBIN 26.7 pg (27.0-33.0); MEAN CORPUSCULAR HGB CONC 33.1 g/dL (32.0-36.0); MEAN CORPUSCULAR VOLUME 80.6 fL (79-99); MONOCYTES # (AUTO) 0.4 K/uL (0.1-1.0); NEUTROPHILS # (AUTO) 2.9 K/uL (1.8-7.7); NEUTROPHILS % (AUTO) 58.9 % (40.0-77.0); PLATELET COUNT (AUTO) 216 K/uL (130-400); RED BLOOD CELL COUNT(AUTO) 4.49 MIL/uL (4.50-6.20); WHITE BLOOD COUNT (AUTO) 4.9 K/uL (4.8-10.8)
[2024-04-02 04:25] LABS: ALBUMIN 2.6 g/dL (3.5-5.0); BILIRUBIN,TOTAL 0.5 mg/dL (0.2-1.0); MAGNESIUM 1.5 mg/dL (1.80-2.40); POTASSIUM 3.4 mmol/L (3.5-5.1); TOTAL PROTEIN, SERUM 6.8 g/dL (6.0-8.3)
[2024-04-02 07:59] VITALS: BP 146/82; PULSE 72; RESP 20
[2024-04-02 08:00] VITALS: O2SAT 98
[2024-04-02] MEDS: KCL 20 MEQ ERTAB PO ONE (10:45)
[2024-04-02 11:15] VITALS: BP 147/80; PULSE 68; RESP 20
[2024-04-02] MEDS ORDERED: KCL 20 MEQ ERTAB PO ONE (21:00)
== END 2024-04-02 18:25 | DRG 602 ==
LOC: EDH 07:54 → EDHIP 11:06 → 3AH 17:06
PROVIDERS: ADMIT Internal Medicine; ATTEND Internal Medicine
PROC: 0W9M0ZZ Drainage of Male Perineum, Open Approach (ICD-10-PCS; principal; 2024-03-29 11:59)
DX: L02.215 Cutaneous abscess of perineum (principal); J18.9 Pneumonia, unspecified organism; E87.1 Hypo-osmolality and hyponatremia; E87.20 Acidosis, unspecified; N17.9 Acute kidney failure, unspecified; I50.32 Chronic diastolic (congestive) heart failure; I13.0 Hypertensive heart and chronic kidney disease with heart failure and stage 1 through stage 4 chronic kidney disease, or unspecified chronic kidney disease; N45.4 Abscess of epididymis or testis; E66.01 Morbid (severe) obesity due to excess calories; E11.621 Type 2 diabetes mellitus with foot ulcer; L97.509 Non-pressure chronic ulcer of other part of unspecified foot with unspecified severity; E78.00 Pure hypercholesterolemia, unspecified; I25.10 Atherosclerotic heart disease of native coronary artery without angina pectoris; F41.9 Anxiety disorder, unspecified; R16.0 Hepatomegaly, not elsewhere classified; N18.9 Chronic kidney disease, unspecified; Z79.01 Long term (current) use of anticoagulants; Z79.02 Long term (current) use of antithrombotics/antiplatelets; Z80.0 Family history of malignant neoplasm of digestive organs; Z82.49 Family history of ischemic heart disease and other diseases of the circulatory system; Z83.3 Family history of diabetes mellitus; Z86.73 Personal history of transient ischemic attack (TIA), and cerebral infarction without residual deficits; Z95.0 Presence of cardiac pacemaker; Z95.1 Presence of aortocoronary bypass graft; Z68.25 Body mass index [BMI] 25.0-25.9, adult
CPT/HCPCS: 36415; 71045; 76870; 80048; 80053; 80202; 81001; 82570; 82948; 83036; 83605; 83735; 83880; 84145; 84300; 84443; 85025; 85610; 85730; 86140; 87070; 87076; 87205; 87491; 87591; 93005; 96372; 96375; 99291; A6266; G0378; J0330; J0692; J1170; J1644; J1815; J2175; J2250; J2270; J2405; J2543; J2704; J2710; J3010; J3475; J3490; J7030; A4216; A4222; A4223; A4649; J3370

== ENCOUNTER → 2024-04-10 | Outpatient (CLI) | payer BC, MEDICARE ==
[~2024-04-10] MED LIST changes: -ALPR0.5T8 PO; -AMLO-258 PO; -APIX5TAB PO; -ASPI-1197 PO; -FAMO20TA8 PO; +LIDOCAINE HCL 4% LTA SOL 4 ML VIAL TP ONE; -TIRZ2.5P SQ; -TORS100T16 PO; -TRAM50TA4 PO; -VALS320T16 PO
== END | disposition home or self-care (01) ==
LOC: WHH 11:13
PROVIDERS: ATTEND Nurse Practitioner Family
DX: E11.621 Type 2 diabetes mellitus with foot ulcer (principal); L97.522 Non-pressure chronic ulcer of other part of left foot with fat layer exposed; E11.51 Type 2 diabetes mellitus with diabetic peripheral angiopathy without gangrene; E11.43 Type 2 diabetes mellitus with diabetic autonomic (poly)neuropathy; E11.22 Type 2 diabetes mellitus with diabetic chronic kidney disease; I13.0 Hypertensive heart and chronic kidney disease with heart failure and stage 1 through stage 4 chronic kidney disease, or unspecified chronic kidney disease; N18.30 Chronic kidney disease, stage 3 unspecified; I50.42 Chronic combined systolic (congestive) and diastolic (congestive) heart failure; J44.9 Chronic obstructive pulmonary disease, unspecified; I48.20 Chronic atrial fibrillation, unspecified; G89.29 Other chronic pain; I25.2 Old myocardial infarction; E78.00 Pure hypercholesterolemia, unspecified; N49.2 Inflammatory disorders of scrotum; G47.33 Obstructive sleep apnea (adult) (pediatric); L84 Corns and callosities; I48.0 Paroxysmal atrial fibrillation; I25.10 Atherosclerotic heart disease of native coronary artery without angina pectoris; E03.9 Hypothyroidism, unspecified; I49.5 Sick sinus syndrome; E66.9 Obesity, unspecified; M48.062 Spinal stenosis, lumbar region with neurogenic claudication; M47.898 Other spondylosis, sacral and sacrococcygeal region; M19.90 Unspecified osteoarthritis, unspecified site; F41.9 Anxiety disorder, unspecified; Z68.33 Body mass index [BMI] 33.0-33.9, adult; Z79.82 Long term (current) use of aspirin; Z79.01 Long term (current) use of anticoagulants; Z95.0 Presence of cardiac pacemaker; Z95.1 Presence of aortocoronary bypass graft; Z95.818 Presence of other cardiac implants and grafts; Z86.73 Personal history of transient ischemic attack (TIA), and cerebral infarction without residual deficits; Z79.899 Other long term (current) drug therapy
CPT/HCPCS: 99214; A6022

== ENCOUNTER → 2024-04-17 | Outpatient (CLI) | payer BC, MEDICARE ==
[~2024-04-17] MED LIST changes: -LIDOCAINE HCL 4% LTA SOL 4 ML VIAL TP ONE
== END | disposition home or self-care (01) ==
LOC: WHH 10:40
PROVIDERS: ATTEND Nurse Practitioner Family
DX: E11.621 Type 2 diabetes mellitus with foot ulcer (principal); L97.522 Non-pressure chronic ulcer of other part of left foot with fat layer exposed; S31.30XD Unspecified open wound of scrotum and testes, subsequent encounter; E11.51 Type 2 diabetes mellitus with diabetic peripheral angiopathy without gangrene; E11.43 Type 2 diabetes mellitus with diabetic autonomic (poly)neuropathy; E11.22 Type 2 diabetes mellitus with diabetic chronic kidney disease; I13.0 Hypertensive heart and chronic kidney disease with heart failure and stage 1 through stage 4 chronic kidney disease, or unspecified chronic kidney disease; N18.30 Chronic kidney disease, stage 3 unspecified; I50.42 Chronic combined systolic (congestive) and diastolic (congestive) heart failure; J44.9 Chronic obstructive pulmonary disease, unspecified; I48.20 Chronic atrial fibrillation, unspecified; G89.29 Other chronic pain; I25.2 Old myocardial infarction; E78.00 Pure hypercholesterolemia, unspecified; N49.2 Inflammatory disorders of scrotum; G47.33 Obstructive sleep apnea (adult) (pediatric); L84 Corns and callosities; I48.0 Paroxysmal atrial fibrillation; I25.10 Atherosclerotic heart disease of native coronary artery without angina pectoris; E03.9 Hypothyroidism, unspecified; I49.5 Sick sinus syndrome; E66.9 Obesity, unspecified; M48.062 Spinal stenosis, lumbar region with neurogenic claudication; M47.898 Other spondylosis, sacral and sacrococcygeal region; M19.90 Unspecified osteoarthritis, unspecified site; F41.9 Anxiety disorder, unspecified; Z68.33 Body mass index [BMI] 33.0-33.9, adult; Z79.82 Long term (current) use of aspirin; Z79.01 Long term (current) use of anticoagulants; Z95.0 Presence of cardiac pacemaker; Z95.1 Presence of aortocoronary bypass graft; Z95.818 Presence of other cardiac implants and grafts; Z86.73 Personal history of transient ischemic attack (TIA), and cerebral infarction without residual deficits; Z79.899 Other long term (current) drug therapy; X58.XXXD Exposure to other specified factors, subsequent encounter
CPT/HCPCS: 99214; A4450

== ENCOUNTER → 2024-04-20 | Outpatient (CLI) | payer BC, MEDICARE | END | disposition home or self-care (01) | LOC: SHCH 11:57 | PROVIDERS: ATTEND Internal Medicine Cardiovascular Disease | DX: I87.1 Compression of vein (principal) | CPT/HCPCS: 93970 ==

== ENCOUNTER → 2024-04-24 | Outpatient (CLI) | payer BC, MEDICARE | END | disposition home or self-care (01) | LOC: WHH 09:23 | PROVIDERS: ATTEND Nurse Practitioner Family | DX: S31.30XD Unspecified open wound of scrotum and testes, subsequent encounter (principal); N49.2 Inflammatory disorders of scrotum; E11.621 Type 2 diabetes mellitus with foot ulcer; L97.522 Non-pressure chronic ulcer of other part of left foot with fat layer exposed; E11.51 Type 2 diabetes mellitus with diabetic peripheral angiopathy without gangrene; E11.43 Type 2 diabetes mellitus with diabetic autonomic (poly)neuropathy; E11.22 Type 2 diabetes mellitus with diabetic chronic kidney disease; I13.0 Hypertensive heart and chronic kidney disease with heart failure and stage 1 through stage 4 chronic kidney disease, or unspecified chronic kidney disease; N18.30 Chronic kidney disease, stage 3 unspecified; I50.42 Chronic combined systolic (congestive) and diastolic (congestive) heart failure; J44.9 Chronic obstructive pulmonary disease, unspecified; I48.0 Paroxysmal atrial fibrillation; I25.10 Atherosclerotic heart disease of native coronary artery without angina pectoris; E03.9 Hypothyroidism, unspecified; E78.5 Hyperlipidemia, unspecified; G47.30 Sleep apnea, unspecified; I49.5 Sick sinus syndrome; G89.4 Chronic pain syndrome; E66.9 Obesity, unspecified; M48.062 Spinal stenosis, lumbar region with neurogenic claudication; M47.898 Other spondylosis, sacral and sacrococcygeal region; M19.90 Unspecified osteoarthritis, unspecified site; F41.9 Anxiety disorder, unspecified; Z68.33 Body mass index [BMI] 33.0-33.9, adult; Z79.82 Long term (current) use of aspirin; Z79.01 Long term (current) use of anticoagulants; Z95.0 Presence of cardiac pacemaker; Z95.1 Presence of aortocoronary bypass graft; Z95.818 Presence of other cardiac implants and grafts; Z86.73 Personal history of transient ischemic attack (TIA), and cerebral infarction without residual deficits; Z79.899 Other long term (current) drug therapy; X58.XXXD Exposure to other specified factors, subsequent encounter | CPT/HCPCS: 99214 ==

== ENCOUNTER → 2024-05-01 | Outpatient (CLI) | payer BC, MEDICARE | END | disposition home or self-care (01) | LOC: WHH 08:27 | PROVIDERS: ATTEND Nurse Practitioner Family | DX: S31.30XD Unspecified open wound of scrotum and testes, subsequent encounter (principal); N49.2 Inflammatory disorders of scrotum; E11.621 Type 2 diabetes mellitus with foot ulcer; L97.522 Non-pressure chronic ulcer of other part of left foot with fat layer exposed; E11.51 Type 2 diabetes mellitus with diabetic peripheral angiopathy without gangrene; E11.43 Type 2 diabetes mellitus with diabetic autonomic (poly)neuropathy; E11.22 Type 2 diabetes mellitus with diabetic chronic kidney disease; I13.0 Hypertensive heart and chronic kidney disease with heart failure and stage 1 through stage 4 chronic kidney disease, or unspecified chronic kidney disease; N18.30 Chronic kidney disease, stage 3 unspecified; I50.42 Chronic combined systolic (congestive) and diastolic (congestive) heart failure; J44.9 Chronic obstructive pulmonary disease, unspecified; I48.0 Paroxysmal atrial fibrillation; I25.10 Atherosclerotic heart disease of native coronary artery without angina pectoris; E03.9 Hypothyroidism, unspecified; E78.5 Hyperlipidemia, unspecified; G47.30 Sleep apnea, unspecified; I49.5 Sick sinus syndrome; G89.4 Chronic pain syndrome; E66.9 Obesity, unspecified; M48.062 Spinal stenosis, lumbar region with neurogenic claudication; M47.898 Other spondylosis, sacral and sacrococcygeal region; M19.90 Unspecified osteoarthritis, unspecified site; F41.9 Anxiety disorder, unspecified; Z68.33 Body mass index [BMI] 33.0-33.9, adult; Z86.73 Personal history of transient ischemic attack (TIA), and cerebral infarction without residual deficits; Z79.82 Long term (current) use of aspirin; Z79.01 Long term (current) use of anticoagulants; Z95.0 Presence of cardiac pacemaker; Z95.1 Presence of aortocoronary bypass graft; Z95.818 Presence of other cardiac implants and grafts; Z79.899 Other long term (current) drug therapy; X58.XXXD Exposure to other specified factors, subsequent encounter | CPT/HCPCS: 99214 ==

== ENCOUNTER → 2024-05-22 | Outpatient (CLI) | payer BC, MEDICARE | END | disposition home or self-care (01) | LOC: WHH 07:56 | PROVIDERS: ATTEND Family Medicine | DX: S31.30XA Unspecified open wound of scrotum and testes, initial encounter (principal); L84 Corns and callosities; E11.22 Type 2 diabetes mellitus with diabetic chronic kidney disease; I13.0 Hypertensive heart and chronic kidney disease with heart failure and stage 1 through stage 4 chronic kidney disease, or unspecified chronic kidney disease; N18.30 Chronic kidney disease, stage 3 unspecified; I50.9 Heart failure, unspecified; E11.40 Type 2 diabetes mellitus with diabetic neuropathy, unspecified; E78.5 Hyperlipidemia, unspecified; I48.91 Unspecified atrial fibrillation; E03.9 Hypothyroidism, unspecified; G47.30 Sleep apnea, unspecified; E11.51 Type 2 diabetes mellitus with diabetic peripheral angiopathy without gangrene; M19.90 Unspecified osteoarthritis, unspecified site; Z95.0 Presence of cardiac pacemaker; Z79.82 Long term (current) use of aspirin; Z79.01 Long term (current) use of anticoagulants; Z79.899 Other long term (current) drug therapy; X58.XXXA Exposure to other specified factors, initial encounter; Y93.89 Activity, other specified; Y92.89 Other specified places as the place of occurrence of the external cause; Y99.8 Other external cause status | CPT/HCPCS: 99215; A6248; A4450 ==

== ENCOUNTER → 2024-05-29 | Outpatient (CLI) | payer BC, MEDICARE | END | disposition home or self-care (01) | LOC: WHH 09:33 | PROVIDERS: ATTEND Family Medicine | DX: S31.30XD Unspecified open wound of scrotum and testes, subsequent encounter (principal); L84 Corns and callosities; E11.22 Type 2 diabetes mellitus with diabetic chronic kidney disease; I13.0 Hypertensive heart and chronic kidney disease with heart failure and stage 1 through stage 4 chronic kidney disease, or unspecified chronic kidney disease; N18.30 Chronic kidney disease, stage 3 unspecified; I50.9 Heart failure, unspecified; E11.51 Type 2 diabetes mellitus with diabetic peripheral angiopathy without gangrene; E11.40 Type 2 diabetes mellitus with diabetic neuropathy, unspecified; E78.5 Hyperlipidemia, unspecified; I48.91 Unspecified atrial fibrillation; E03.9 Hypothyroidism, unspecified; I25.2 Old myocardial infarction; G89.4 Chronic pain syndrome; G47.30 Sleep apnea, unspecified; M19.90 Unspecified osteoarthritis, unspecified site; M48.061 Spinal stenosis, lumbar region without neurogenic claudication; F41.9 Anxiety disorder, unspecified; Z95.0 Presence of cardiac pacemaker; Z79.82 Long term (current) use of aspirin; Z79.01 Long term (current) use of anticoagulants; Z79.899 Other long term (current) drug therapy; Z86.73 Personal history of transient ischemic attack (TIA), and cerebral infarction without residual deficits; X58.XXXD Exposure to other specified factors, subsequent encounter | CPT/HCPCS: 99214 ==

== ENCOUNTER 2024-06-13 11:16 | Emergency (ER) | payer BC, MEDICARE ==
[~2024-06-13] VITALS: Ht 182.9 cm; Wt 116.6 kg
[2024-06-13 11:54] LABS: HEMATOCRIT 35.5 % (42-54); MEAN CORPUSCULAR HEMOGLOBIN 27.7 pg (27.0-33.0); MEAN CORPUSCULAR HGB CONC 33.5 g/dL (32.0-36.0); MEAN CORPUSCULAR VOLUME 82.8 fL (79-99); PLATELET COUNT (AUTO) 173 K/uL (130-400); RED BLOOD CELL COUNT(AUTO) 4.29 MIL/uL (4.50-6.20); RED CELL DISTRIBUTION WIDTH 15.1 % (11.0-15.5); WHITE BLOOD COUNT (AUTO) 4.4 K/uL (4.8-10.8)
[2024-06-13 12:01] LABS: BASOPHILS # (AUTO) 0.03 K/uL (0.00-0.20); BASOPHILS % (AUTO) 0.7 % (0.0-5.0); EOSINOPHILS # (AUTO) 0.09 K/uL (0.00-0.70); EOSINOPHILS % (AUTO) 2.1 % (0.0-8.0); IMMATURE GRANULOCYTE ABSOLUTE 0.01 K/uL (0-1); LYMPHOCYTES # (AUTO) 0.9 K/uL (1.0-4.8); LYMPHOCYTES % (AUTO) 21.3 % (21.0-51.0); MONOCYTES # (AUTO) 0.2 K/uL (0.1-1.0); NEUTROPHILS # (AUTO) 3.1 K/uL (1.8-7.7); NEUTROPHILS % (AUTO) 70.7 % (40.0-77.0)
[2024-06-13 12:03] LABS: CREATININE 1.2 mg/dL (0.5-1.3); POTASSIUM 3.7 mmol/L (3.5-5.1)
[2024-06-13 12:36] LABS: ADD UA MICROSCOPIC YES; APPEARANCE,URINE CLEAR (CLEAR); BILIRUBIN,URINE NEGATIVE (NEGATIVE); COLOR,URINE COLORLESS (YELLOW); GLUCOSE, URINE (UA) >=1000 mg/dL (NEGATIVE); KETONES,URINE NEGATIVE (NEGATIVE); LEUKOCYTE ESTERASE ,URINE NEGATIVE Leu/uL (NEGATIVE); MUCUS,URINE RARE LPF (None Seen); NITRATE,URINE NEGATIVE (NEGATIVE); OCCULT BLOOD,URINE NEGATIVE (NEGATIVE); PROTEIN,URINE NEGATIVE (NEGATIVE); RBC,URINE 0-1 /HPF (0-1); SQUAMOUS EPITHELIAL CELL,UR RARE /HPF (0-2); UROBILINOGEN,URINE 0.2 mg/dL (0.2-1.0)
[2024-06-13 12:37] LABS: SARS-CoV-2, RNA, NAAT NEGATIVE SARS CoV-2 (NEGATIVE)
[2024-06-13 12:42] LABS: INFLUENZA TYPE A Negative For Type A (NEGATIVE); INFLUENZA TYPE B Negative For Type B (NEGATIVE)
[2024-06-13 14:27] VITALS: BP 141/69; PULSE 74; RESP 18; O2SAT 99
== END 2024-06-13 14:31 | disposition home or self-care (01) ==
LOC: EDH 11:16
DX: R42 Dizziness and giddiness (principal); E11.9 Type 2 diabetes mellitus without complications; E78.00 Pure hypercholesterolemia, unspecified; I10 Essential (primary) hypertension; Z20.822 Contact with and (suspected) exposure to COVID-19; Z79.84 Long term (current) use of oral hypoglycemic drugs; Z79.02 Long term (current) use of antithrombotics/antiplatelets; Z85.05 Personal history of malignant neoplasm of liver; Z86.73 Personal history of transient ischemic attack (TIA), and cerebral infarction without residual deficits; Z95.810 Presence of automatic (implantable) cardiac defibrillator; Z98.890 Other specified postprocedural states
CPT/HCPCS: 36415; 80048; 81001; 85025; 87635; 87804; 93005

== ENCOUNTER 2024-06-15 00:54 | Emergency (ER) | payer BC, MEDICARE ==
[~2024-06-15] VITALS: Ht 182.9 cm; Wt 115.7 kg
[2024-06-15 01:27] LABS: BASOPHILS # (AUTO) 0.03 K/uL (0.00-0.20); BASOPHILS % (AUTO) 1.1 % (0.0-5.0); EOSINOPHILS # (AUTO) 0.07 K/uL (0.00-0.70); EOSINOPHILS % (AUTO) 2.5 % (0.0-8.0); HEMATOCRIT 35.4 % (42-54); IMMATURE GRANULOCYTE ABSOLUTE 0.01 K/uL (0-1); LYMPHOCYTES # (AUTO) 0.6 K/uL (1.0-4.8); LYMPHOCYTES % (AUTO) 21.6 % (21.0-51.0); MEAN CORPUSCULAR HEMOGLOBIN 28.1 pg (27.0-33.0); MEAN CORPUSCULAR HGB CONC 34.2 g/dL (32.0-36.0); MEAN CORPUSCULAR VOLUME 82.3 fL (79-99); MONOCYTES % (AUTO) 1.1 % (3.0-13.0); NEUTROPHILS # (AUTO) 2.1 K/uL (1.8-7.7); NEUTROPHILS % (AUTO) 73.3 % (40.0-77.0); PLATELET COUNT (AUTO) 196 K/uL (130-400); RED CELL DISTRIBUTION WIDTH 14.7 % (11.0-15.5); WHITE BLOOD COUNT (AUTO) 2.8 K/uL (4.8-10.8)
[2024-06-15] MEDS: ASPIRIN 81MG CHEW TAB PO ONE (01:28)
[2024-06-15] MEDS: LACTATED RINGERS 1000ML 1,000 ML IV ONE (01:28)
[2024-06-15] MEDS: ONDANSETRON 4MG INJ IVP ONE (01:28)
[2024-06-15] MEDS: MORPHINE 4 MG SYG IVP ONE (01:29)
[2024-06-15 01:44] LABS: CREATININE 1.3 mg/dL (0.5-1.3); POTASSIUM 4.6 mmol/L (3.5-5.1)
[2024-06-15 01:50] LABS: MAGNESIUM 2.1 mg/dL (1.80-2.40)
[2024-06-15 02:27] LABS: APPEARANCE,URINE CLEAR (CLEAR); BILIRUBIN,URINE NEGATIVE (NEGATIVE); COLOR,URINE LIGHT-YELLOW (YELLOW); GLUCOSE, URINE (UA) >=1000 mg/dL (NEGATIVE); KETONES,URINE NEGATIVE (NEGATIVE); LEUKOCYTE ESTERASE ,URINE NEGATIVE Leu/uL (NEGATIVE); NITRATE,URINE NEGATIVE (NEGATIVE); OCCULT BLOOD,URINE SMALL (NEGATIVE); PH,URINE 5.5 (5.0-8.0); PROTEIN,URINE 100 mg/dL (NEGATIVE); UROBILINOGEN,URINE 0.2 mg/dL (0.2-1.0)
[2024-06-15 02:31] VITALS: BP 143/80; PULSE 78; RESP 20; O2SAT 99
[2024-06-15 02:50] LABS: ADD UA MICROSCOPIC YES
[2024-06-15 02:53] LABS: BACTERIA,URINE None Seen /HPF (None Seen); SQUAMOUS EPITHELIAL CELL,UR Rare /HPF (0-2)
[2024-06-15] MEDS ORDERED: FUROSEMIDE 40MG VIAL IV ONE (03:00)
[2024-06-15 03:02] LABS: EOSINOPHILS % (MANUAL) 3 % (1-6); LYMPHOCYTES % (MANUAL) 26 % (22-44); MONOCYTES % (MANUAL) 1 % (2-9); SEGMENTED NEUTROPHILS % 70 % (40-70); TOTAL CELLS COUNTED 100
[2024-06-15 03:03] LABS: MAN.DIFF COMMENT-IMPRESSION MANUAL DIFFERENTIAL; PLATELET MORPHOLOGY COMMENT ADEQUATE; WBC MORPHOLOGY NORMAL
== END 2024-06-15 02:55 | disposition home or self-care (01) ==
LOC: EDH 00:54
DX: R07.89 Other chest pain (principal); E03.9 Hypothyroidism, unspecified; E11.9 Type 2 diabetes mellitus without complications; E66.01 Morbid (severe) obesity due to excess calories; E78.5 Hyperlipidemia, unspecified; I10 Essential (primary) hypertension; I48.91 Unspecified atrial fibrillation; Z79.84 Long term (current) use of oral hypoglycemic drugs; Z79.899 Other long term (current) drug therapy; Z85.05 Personal history of malignant neoplasm of liver; Z86.73 Personal history of transient ischemic attack (TIA), and cerebral infarction without residual deficits; Z98.890 Other specified postprocedural states
CPT/HCPCS: 99284; 96374; 71045; 96375; 82550; 83735; 84484 ×2; 80048; 85025; 81001; 36415; J7120; J2405; J2270

== ENCOUNTER 2024-06-18 09:38 | Emergency (ER) | payer BC, MEDICARE ==
[~2024-06-18] VITALS: Ht 182.9 cm; Wt 117.5 kg
[2024-06-18 10:03] LABS: BASOPHILS # (AUTO) 0.04 K/uL (0.00-0.20); BASOPHILS % (AUTO) 1.5 % (0.0-5.0); EOSINOPHILS # (AUTO) 0.02 K/uL (0.00-0.70); EOSINOPHILS % (AUTO) 0.8 % (0.0-8.0); HEMATOCRIT 38.5 % (42-54); IMMATURE GRANULOCYTE ABSOLUTE 0.03 K/uL (0-1); LYMPHOCYTES # (AUTO) 1.2 K/uL (1.0-4.8); LYMPHOCYTES % (AUTO) 43.2 % (21.0-51.0); MEAN CORPUSCULAR HEMOGLOBIN 27.3 pg (27.0-33.0); MEAN CORPUSCULAR VOLUME 80.4 fL (79-99); MONOCYTES # (AUTO) 0.2 K/uL (0.1-1.0); NEUTROPHILS # (AUTO) 1.3 K/uL (1.8-7.7); NEUTROPHILS % (AUTO) 47.4 % (40.0-77.0); PLATELET COUNT (AUTO) 234 K/uL (130-400); RED BLOOD CELL COUNT(AUTO) 4.79 MIL/uL (4.50-6.20); RED CELL DISTRIBUTION WIDTH 14.2 % (11.0-15.5); WHITE BLOOD COUNT (AUTO) 2.7 K/uL (4.8-10.8)
[2024-06-18 10:09] LABS: CREATININE 1.4 mg/dL (0.5-1.3); POTASSIUM 3.8 mmol/L (3.5-5.1)
[2024-06-18 10:14] LABS: MAGNESIUM 1.6 mg/dL (1.80-2.40)
[2024-06-18 10:16] LABS: INR 0.98 (0.85-1.15); PROTHROMBIN TIME 10.6 SEC (9.6-11.6)
[2024-06-18 10:16] LABS: APPEARANCE,URINE CLEAR (CLEAR); BILIRUBIN,URINE NEGATIVE (NEGATIVE); COLOR,URINE COLORLESS (YELLOW); GLUCOSE, URINE (UA) >=1000 mg/dL (NEGATIVE); KETONES,URINE NEGATIVE (NEGATIVE); LEUKOCYTE ESTERASE ,URINE 25 Leu/uL (NEGATIVE); NITRATE,URINE NEGATIVE (NEGATIVE); PH,URINE 5.5 (5.0-8.0); PROTEIN,URINE 30 mg/dL (NEGATIVE); UROBILINOGEN,URINE 0.2 mg/dL (0.2-1.0)
[2024-06-18 10:17] LABS: PARTIAL THROMBOPLASTIN TIME 26.4 SEC (26.3-35.5)
[2024-06-18 10:22] LABS: ADD UA MICROSCOPIC YES
[2024-06-18 10:24] LABS: B-TYPE NATRIURETIC PEPTIDE 131 pg/mL (0-100)
[2024-06-18] MEDS: LACTATED RINGERS 1000ML 1,000 ML IV ONE (10:24)
[2024-06-18] MEDS: LORazepam 2 MG/ML 1 ML VIAL IVP ONE (10:24)
[2024-06-18 10:33] LABS: SQUAMOUS EPITHELIAL CELL,UR RARE /HPF (0-2); WBC,URINE 0-1 /HPF (0-1)
[2024-06-18 10:42] VITALS: BP 127/62; PULSE 77; RESP 17; TEMP 98.6; O2SAT 98
[2024-06-18 11:20] LABS: LYMPHOCYTES % (MANUAL) 45 % (22-44); MAN.DIFF COMMENT-IMPRESSION MANUAL DIFFERENTIAL; PLATELET MORPHOLOGY COMMENT ADEQUATE; REACTIVE LYMPHOCYTES 1 % (0-0); SEGMENTED NEUTROPHILS % 54 % (40-70); TOTAL CELLS COUNTED 100
== END 2024-06-18 11:10 | disposition home or self-care (01) ==
LOC: EDH 09:38
DX: N39.0 Urinary tract infection, site not specified (principal); F41.9 Anxiety disorder, unspecified; I10 Essential (primary) hypertension; I48.91 Unspecified atrial fibrillation; Z79.899 Other long term (current) drug therapy; Z79.4 Long term (current) use of insulin; Z79.84 Long term (current) use of oral hypoglycemic drugs; Z79.02 Long term (current) use of antithrombotics/antiplatelets; Z86.73 Personal history of transient ischemic attack (TIA), and cerebral infarction without residual deficits; Z98.890 Other specified postprocedural states
CPT/HCPCS: 99284; 96374; 71045; 82550; 83735; 84484; 80048; 83880; 85025; 85610; 85730; 81001; 36415; 93005; J7120; J2060

== ENCOUNTER 2024-07-11 09:03 | Emergency (ER) | payer BC, MEDICARE ==
[~2024-07-11] VITALS: Ht 182.9 cm; Wt 121.6 kg
[2024-07-11] MEDS: cefTRIAXone 1G VIAL IM ONE (10:07)
[2024-07-11 10:22] VITALS: BP 130/82; PULSE 82; RESP 17; TEMP 98.1; O2SAT 98
== END 2024-07-11 10:23 | disposition home or self-care (01) ==
LOC: EDH 09:03
DX: Z48.00 Encounter for change or removal of nonsurgical wound dressing (principal); E11.9 Type 2 diabetes mellitus without complications; I10 Essential (primary) hypertension; Z79.84 Long term (current) use of oral hypoglycemic drugs; Z79.899 Other long term (current) drug therapy; Z85.05 Personal history of malignant neoplasm of liver; Z95.810 Presence of automatic (implantable) cardiac defibrillator; Z98.890 Other specified postprocedural states
CPT/HCPCS: 99284; 96372; J0696

== ENCOUNTER → 2024-07-19 | Outpatient (CLI) | payer BC, MEDICARE ==
[~2024-07-19] MED LIST changes: +AUD NEB; +AZIT250T9 PO; +DOXY100C5 PO; +METH4TAB3 PO; +NEBU-305 MC
== END | disposition home or self-care (01) ==
LOC: WHH 08:45
PROVIDERS: ATTEND Family Medicine
DX: E11.621 Type 2 diabetes mellitus with foot ulcer (principal); L97.522 Non-pressure chronic ulcer of other part of left foot with fat layer exposed; E11.51 Type 2 diabetes mellitus with diabetic peripheral angiopathy without gangrene; E11.40 Type 2 diabetes mellitus with diabetic neuropathy, unspecified; I11.0 Hypertensive heart disease with heart failure; I50.22 Chronic systolic (congestive) heart failure; E78.5 Hyperlipidemia, unspecified; E03.9 Hypothyroidism, unspecified; I48.91 Unspecified atrial fibrillation; G47.30 Sleep apnea, unspecified; G89.4 Chronic pain syndrome; M19.90 Unspecified osteoarthritis, unspecified site; F41.9 Anxiety disorder, unspecified; Z79.899 Other long term (current) drug therapy
CPT/HCPCS: 11042; 87070; 87086; 87186

== ENCOUNTER 2024-07-20 08:44 | Emergency (ER) | payer BC, MEDICARE ==
[~2024-07-20] VITALS: Ht 182.9 cm; Wt 121.6 kg
[2024-07-20 08:57] LABS: BASOPHILS # (AUTO) 0.04 K/uL (0.00-0.20); BASOPHILS % (AUTO) 1.4 % (0.0-5.0); EOSINOPHILS # (AUTO) 0.06 K/uL (0.00-0.70); EOSINOPHILS % (AUTO) 2.2 % (0.0-8.0); HEMATOCRIT 37.6 % (42-54); IMMATURE GRANULOCYTE ABSOLUTE 0.07 K/uL (0-1); LYMPHOCYTES # (AUTO) 1.1 K/uL (1.0-4.8); MEAN CORPUSCULAR HGB CONC 34.3 g/dL (32.0-36.0); MEAN CORPUSCULAR VOLUME 81.6 fL (79-99); MONOCYTES # (AUTO) 0.4 K/uL (0.1-1.0); MONOCYTES % (AUTO) 13.3 % (3.0-13.0); NEUTROPHILS # (AUTO) 1.2 K/uL (1.8-7.7); NEUTROPHILS % (AUTO) 42.6 % (40.0-77.0); PLATELET COUNT (AUTO) 151 K/uL (130-400); RED BLOOD CELL COUNT(AUTO) 4.61 MIL/uL (4.50-6.20); RED CELL DISTRIBUTION WIDTH 15.8 % (11.0-15.5); WHITE BLOOD COUNT (AUTO) 2.8 K/uL (4.8-10.8)
[2024-07-20 09:07] LABS: CREATININE 1.2 mg/dL (0.5-1.3); POTASSIUM 3.9 mmol/L (3.5-5.1)
[2024-07-20] MEDS: LIDOCAINE HCL 2% VISCOUS 15 ML UDCUP PO ONE (09:23)
[2024-07-20] MEDS: 0.9%NACL 1000ML 1,000 ML IV ONE (09:23)
[2024-07-20] MEDS: MAG/ALUM/SIMETH 30 ML UDCUP PO ONE (09:23)
[2024-07-20] MEDS: DICYCLOMINE HCL 10 MG/5 ML ML PO ONE (09:23)
[2024-07-20 09:56] LABS: BAND NEUTROPHILS % (MANUAL) 1 % (0-2); EOSINOPHILS % (MANUAL) 1 % (1-6); LYMPHOCYTES % (MANUAL) 46 % (22-44); MAN.DIFF COMMENT-IMPRESSION MANUAL DIFFERENTIAL; MONOCYTES % (MANUAL) 13 % (2-9); PLATELET MORPHOLOGY COMMENT ADEQUATE; SEGMENTED NEUTROPHILS % 39 % (40-70); TOTAL CELLS COUNTED 100
[2024-07-20 09:57] LABS: B-TYPE NATRIURETIC PEPTIDE 239 pg/mL (0-100)
[2024-07-20 10:06] LABS: ALBUMIN 3.5 g/dL (3.5-5.0); BILIRUBIN,TOTAL 0.5 mg/dL (0.2-1.0); TOTAL PROTEIN, SERUM 7.5 g/dL (6.0-8.3)
[2024-07-20] MEDS: cloNIDine HCL 0.1 MG TABLET PO SCH (10:10)
[2024-07-20 10:35] LABS: APPEARANCE,URINE CLEAR (CLEAR); BILIRUBIN,URINE NEGATIVE (NEGATIVE); COLOR,URINE LIGHT-YELLOW (YELLOW); GLUCOSE, URINE (UA) >=1000 mg/dL (NEGATIVE); KETONES,URINE NEGATIVE (NEGATIVE); LEUKOCYTE ESTERASE ,URINE NEGATIVE Leu/uL (NEGATIVE); NITRATE,URINE NEGATIVE (NEGATIVE); OCCULT BLOOD,URINE SMALL (NEGATIVE); PH,URINE 5.5 (5.0-8.0); PROTEIN,URINE 100 mg/dL (NEGATIVE); UROBILINOGEN,URINE 0.2 mg/dL (0.2-1.0)
[2024-07-20 10:48] LABS: ADD UA MICROSCOPIC YES
[2024-07-20 10:59] LABS: MUCUS,URINE RARE LPF (None Seen); SQUAMOUS EPITHELIAL CELL,UR RARE /HPF (0-2); WBC,URINE 0-1 /HPF (0-1)
[2024-07-20] MEDS: acetaMINOPHEN 500 MG TABLET PO ONE (11:00)
[2024-07-20 12:19] VITALS: TEMP 98.8
[2024-07-20 12:26] VITALS: BP 143/86; PULSE 74; RESP 18; TEMP 98.8; O2SAT 96
[2024-07-20] MEDS ORDERED: cloNIDine HCL 0.1 MG TABLET PO SCH (21:00)
== END 2024-07-20 12:47 | disposition home or self-care (01) ==
LOC: EDH 08:44
DX: K80.10 Calculus of gallbladder with chronic cholecystitis without obstruction (principal); I10 Essential (primary) hypertension; E03.9 Hypothyroidism, unspecified; E11.9 Type 2 diabetes mellitus without complications; I48.91 Unspecified atrial fibrillation; Z79.02 Long term (current) use of antithrombotics/antiplatelets; Z79.84 Long term (current) use of oral hypoglycemic drugs; Z79.890 Hormone replacement therapy; Z95.810 Presence of automatic (implantable) cardiac defibrillator
CPT/HCPCS: 99284; 96360; 76705; 96361; 71045; 82550; 84484; 80053; 83880; 83690; 85025; 81001; 36415; 93005; J7030

== ENCOUNTER → 2024-07-20 | Outpatient (CLI) | payer BC, MEDICARE ==
[~2024-07-20] MED LIST changes: -AUD NEB; -AZIT250T9 PO; -DOXY100C5 PO; -METH4TAB3 PO; -NEBU-305 MC
== END | disposition home or self-care (01) ==
LOC: RAH 15:00
PROVIDERS: ATTEND Family Medicine
DX: E11.621 Type 2 diabetes mellitus with foot ulcer (principal)
CPT/HCPCS: 78315; A9503

== ENCOUNTER → 2024-07-24 | Outpatient (CLI) | payer BC, MEDICARE | END | disposition home or self-care (01) | LOC: WHH 09:46 | PROVIDERS: ATTEND Family Medicine | DX: E11.621 Type 2 diabetes mellitus with foot ulcer (principal); L97.521 Non-pressure chronic ulcer of other part of left foot limited to breakdown of skin; L84 Corns and callosities; E11.22 Type 2 diabetes mellitus with diabetic chronic kidney disease; I13.0 Hypertensive heart and chronic kidney disease with heart failure and stage 1 through stage 4 chronic kidney disease, or unspecified chronic kidney disease; N18.30 Chronic kidney disease, stage 3 unspecified; I50.9 Heart failure, unspecified; E11.51 Type 2 diabetes mellitus with diabetic peripheral angiopathy without gangrene; E11.40 Type 2 diabetes mellitus with diabetic neuropathy, unspecified; E78.5 Hyperlipidemia, unspecified; I48.91 Unspecified atrial fibrillation; E03.9 Hypothyroidism, unspecified; I25.2 Old myocardial infarction; G89.4 Chronic pain syndrome; G47.30 Sleep apnea, unspecified; M19.90 Unspecified osteoarthritis, unspecified site; M48.061 Spinal stenosis, lumbar region without neurogenic claudication; F41.9 Anxiety disorder, unspecified; Z95.0 Presence of cardiac pacemaker; Z79.82 Long term (current) use of aspirin; Z79.01 Long term (current) use of anticoagulants; Z79.899 Other long term (current) drug therapy; Z86.73 Personal history of transient ischemic attack (TIA), and cerebral infarction without residual deficits | CPT/HCPCS: 93922 ==

== ENCOUNTER → 2024-07-31 | Outpatient (CLI) | payer BC, MEDICARE ==
[~2024-07-31] MED LIST changes: +AUD NEB; +AZIT250T9 PO; +DOXY100C5 PO; +LIDOCAINE HCL 4% LTA SOL 4 ML VIAL TP ONE; +METH4TAB3 PO; +NEBU-305 MC
== END | disposition home or self-care (01) ==
LOC: WHH 08:01
PROVIDERS: ATTEND Family Medicine
DX: E11.621 Type 2 diabetes mellitus with foot ulcer (principal); L97.522 Non-pressure chronic ulcer of other part of left foot with fat layer exposed; E11.51 Type 2 diabetes mellitus with diabetic peripheral angiopathy without gangrene; E11.40 Type 2 diabetes mellitus with diabetic neuropathy, unspecified; I11.0 Hypertensive heart disease with heart failure; I50.22 Chronic systolic (congestive) heart failure; E78.5 Hyperlipidemia, unspecified; E03.9 Hypothyroidism, unspecified; I48.91 Unspecified atrial fibrillation; G47.30 Sleep apnea, unspecified; G89.4 Chronic pain syndrome; M19.90 Unspecified osteoarthritis, unspecified site; F41.9 Anxiety disorder, unspecified; Z95.0 Presence of cardiac pacemaker; Z79.899 Other long term (current) drug therapy
CPT/HCPCS: 11042; A4450

== ENCOUNTER → 2024-08-06 | Outpatient (CLI) | payer BC, MEDICARE ==
[~2024-08-06] MED LIST changes: -AUD NEB; -AZIT250T9 PO; -DOXY100C5 PO; -METH4TAB3 PO; -NEBU-305 MC
== END | disposition home or self-care (01) ==
LOC: WHH 08:49
PROVIDERS: ATTEND Family Medicine
DX: E11.621 Type 2 diabetes mellitus with foot ulcer (principal); L97.522 Non-pressure chronic ulcer of other part of left foot with fat layer exposed; E11.51 Type 2 diabetes mellitus with diabetic peripheral angiopathy without gangrene; E11.40 Type 2 diabetes mellitus with diabetic neuropathy, unspecified; I11.0 Hypertensive heart disease with heart failure; I50.22 Chronic systolic (congestive) heart failure; E78.5 Hyperlipidemia, unspecified; E03.9 Hypothyroidism, unspecified; I48.91 Unspecified atrial fibrillation; G47.30 Sleep apnea, unspecified; G89.4 Chronic pain syndrome; M19.90 Unspecified osteoarthritis, unspecified site; F41.9 Anxiety disorder, unspecified; Z95.0 Presence of cardiac pacemaker; Z79.899 Other long term (current) drug therapy
CPT/HCPCS: 99214

== ENCOUNTER → 2024-08-13 | Outpatient (CLI) | payer BC, MEDICARE ==
[~2024-08-13] MED LIST changes: -LIDOCAINE HCL 4% LTA SOL 4 ML VIAL TP ONE
== END | disposition home or self-care (01) ==
LOC: WHH 08:07
PROVIDERS: ATTEND Family Medicine
DX: E11.621 Type 2 diabetes mellitus with foot ulcer (principal); L97.525 Non-pressure chronic ulcer of other part of left foot with muscle involvement without evidence of necrosis; E11.51 Type 2 diabetes mellitus with diabetic peripheral angiopathy without gangrene; E11.40 Type 2 diabetes mellitus with diabetic neuropathy, unspecified; I11.0 Hypertensive heart disease with heart failure; I50.22 Chronic systolic (congestive) heart failure; E78.5 Hyperlipidemia, unspecified; E03.9 Hypothyroidism, unspecified; I48.91 Unspecified atrial fibrillation; G47.30 Sleep apnea, unspecified; G89.4 Chronic pain syndrome; M19.90 Unspecified osteoarthritis, unspecified site; F41.9 Anxiety disorder, unspecified; Z95.0 Presence of cardiac pacemaker; Z79.82 Long term (current) use of aspirin; Z79.01 Long term (current) use of anticoagulants; Z79.84 Long term (current) use of oral hypoglycemic drugs; Z79.899 Other long term (current) drug therapy
CPT/HCPCS: 99214

== ENCOUNTER → 2024-08-27 | Outpatient (CLI) | payer BC, MEDICARE | END | disposition home or self-care (01) | LOC: WHH 08:06 | PROVIDERS: ATTEND Family Medicine | DX: E11.621 Type 2 diabetes mellitus with foot ulcer (principal); L97.525 Non-pressure chronic ulcer of other part of left foot with muscle involvement without evidence of necrosis; E11.51 Type 2 diabetes mellitus with diabetic peripheral angiopathy without gangrene; E11.40 Type 2 diabetes mellitus with diabetic neuropathy, unspecified; I11.0 Hypertensive heart disease with heart failure; I50.22 Chronic systolic (congestive) heart failure; E78.5 Hyperlipidemia, unspecified; E03.9 Hypothyroidism, unspecified; I48.91 Unspecified atrial fibrillation; G47.30 Sleep apnea, unspecified; G89.4 Chronic pain syndrome; M19.90 Unspecified osteoarthritis, unspecified site; F41.9 Anxiety disorder, unspecified; Z95.0 Presence of cardiac pacemaker; Z79.82 Long term (current) use of aspirin; Z79.01 Long term (current) use of anticoagulants; Z79.84 Long term (current) use of oral hypoglycemic drugs; Z79.899 Other long term (current) drug therapy | CPT/HCPCS: 99214; A4450 ==

== ENCOUNTER → 2024-09-03 | Outpatient (CLI) | payer BC, MEDICARE ==
[~2024-09-03] MED LIST changes: +LIDOCAINE HCL 4% LTA SOL 4 ML VIAL TP ONE
== END | disposition home or self-care (01) ==
LOC: WHH 08:03
PROVIDERS: ATTEND Family Medicine
DX: E11.621 Type 2 diabetes mellitus with foot ulcer (principal); L97.525 Non-pressure chronic ulcer of other part of left foot with muscle involvement without evidence of necrosis; E11.51 Type 2 diabetes mellitus with diabetic peripheral angiopathy without gangrene; E11.40 Type 2 diabetes mellitus with diabetic neuropathy, unspecified; I11.0 Hypertensive heart disease with heart failure; I50.22 Chronic systolic (congestive) heart failure; E78.5 Hyperlipidemia, unspecified; E03.9 Hypothyroidism, unspecified; I48.91 Unspecified atrial fibrillation; G47.30 Sleep apnea, unspecified; G89.4 Chronic pain syndrome; M19.90 Unspecified osteoarthritis, unspecified site; F41.9 Anxiety disorder, unspecified; Z95.0 Presence of cardiac pacemaker; Z79.82 Long term (current) use of aspirin; Z79.01 Long term (current) use of anticoagulants; Z79.84 Long term (current) use of oral hypoglycemic drugs; Z79.899 Other long term (current) drug therapy
CPT/HCPCS: 99214

== ENCOUNTER → 2024-09-18 | Outpatient (CLI) | payer BC, MEDICARE ==
[~2024-09-18] MED LIST changes: +AZIT250T9 PO; -LIDOCAINE HCL 4% LTA SOL 4 ML VIAL TP ONE
--- NOTE | 2024-09-22 10:29 | HMCSR ---
APPROVED REPORT EXAM: Two-dimensional and M-mode echocardiogram with Doppler and color Doppler. INDICATION ICD: I50.33 Acute or chronic diastolic CHF Atrial Fibrillation 2D Dimensions RVDd5.3 cmLVEF(%)59.6 (>50%)LVED Vol(simp.)166.0 mL IVSd1.0 (0.7-1.1cm)FS(%)32 %LVES Vol(simp.)80.0 mL LVDd6.0 (3.8-5.6cm)Ao Root(2D)3.6 (2.0-3.7cm)LVEF(%, simp.)52 % PWd1.0 (0.7-1.1cm)LVOT diam2.6 (1.8-2.4cm)LA ESV INDEX (BP)47.19 mL/m2 LVDs4.0 (2.5-4.0cm)IVC diam2.8 cm Aortic Valve AoV Vmax1.3 m/Marian Peak GR6.7 mmHgLVOT Vmax0.7 m/s AoV VTI0.2 mAo Mean GR4.1 mmHgLVOT VTI0.15 m LUIS ANTONIO (VMAX)3.5 cm2AVA (VTI) 3.5 cm2 Mitral Valve MV E Vmax96.3 cm/sDECEL Rgph660 ms P 1/2 T71 ms MVA (PHT)3.1 cm2 Pulmonary Valve PV Vmax1.1 m/sPV VTI0.20 mPV Mean GR2 mmHg PV Peak GR4.5 mmHg Tricuspid Valve TR Vmax2.8 m/sRAP (EST) 8 ijUzWEIQ06.0 mmHg TR Peak GR31.0 mmHg Left Ventricle The left ventricle is mildly dilated. Mild global hypokinesia There is normal left ventricular wall t hickness. LVEF is 40-45%. The LV diastolic function was unable to be assessed due to atrial arrhythmi a. Right Ventricle The right ventricle is severely dilated. The right ventricular systolic function is normal. Atria The left atrium is moderately to severely dilated. The right atrium is moderately dilated. Aortic Valve Aortic valve is trileaflet. Aortic valve leaflets are sclerotic but open well. No aortic regurgitatio n is present. There is no aortic valvular stenosis. Mitral Valve Mitral valve leaflets are mildly sclerotic but open well. Mitral regurgitation is trace. There is no mitral valve stenosis. Tricuspid Valve The tricuspid valve leaflets appear normal. There is mild to moderate tricuspid regurgitation. Right ventricular systolic pressure is estimated at 30-40 mmHg. Pulmonic Valve The pulmonic valve leaflets are thin and pliable; valve motion is normal. Great Vessels The aortic root is normal in size. IVC is dilated and collapses >50% with inspiration. Pericardium No pericardial effusion. Conclusion LVEF is 40-45%. The left atrium is moderately to severely dilated.
== END | disposition home or self-care (01) ==
LOC: SHCH 13:05
PROVIDERS: ATTEND Internal Medicine Cardiovascular Disease
DX: I08.3 Combined rheumatic disorders of mitral, aortic and tricuspid valves (principal); I48.91 Unspecified atrial fibrillation; I11.0 Hypertensive heart disease with heart failure; I50.33 Acute on chronic diastolic (congestive) heart failure
CPT/HCPCS: 93306

== ENCOUNTER → 2024-09-24 | Outpatient (CLI) | payer BC, MEDICARE ==
[~2024-09-24] MED LIST changes: +AUD NEB; +DOXY100C5 PO; +LIDOCAINE HCL 4% LTA SOL 4 ML VIAL TP ONE; +METH4TAB3 PO; +NEBU-305 MC
== END | disposition home or self-care (01) ==
LOC: WHH 08:20
PROVIDERS: ATTEND Family Medicine
DX: E11.621 Type 2 diabetes mellitus with foot ulcer (principal); L97.525 Non-pressure chronic ulcer of other part of left foot with muscle involvement without evidence of necrosis; E11.51 Type 2 diabetes mellitus with diabetic peripheral angiopathy without gangrene; E11.40 Type 2 diabetes mellitus with diabetic neuropathy, unspecified; I11.0 Hypertensive heart disease with heart failure; I50.22 Chronic systolic (congestive) heart failure; E78.5 Hyperlipidemia, unspecified; E03.9 Hypothyroidism, unspecified; I48.91 Unspecified atrial fibrillation; G47.30 Sleep apnea, unspecified; G89.4 Chronic pain syndrome; M19.90 Unspecified osteoarthritis, unspecified site; F41.9 Anxiety disorder, unspecified; Z95.0 Presence of cardiac pacemaker; Z79.82 Long term (current) use of aspirin; Z79.01 Long term (current) use of anticoagulants; Z79.84 Long term (current) use of oral hypoglycemic drugs; Z79.899 Other long term (current) drug therapy
CPT/HCPCS: 99214; A4450

== ENCOUNTER 2024-09-28 07:02 | Emergency (ER) | payer BC, MEDICARE ==
[~2024-09-28] VITALS: Ht 182.9 cm; Wt 121.6 kg
[~2024-09-28 07:02] MED LIST changes: -AUD NEB; -DOXY100C5 PO; -LIDOCAINE HCL 4% LTA SOL 4 ML VIAL TP ONE; -METH4TAB3 PO; -NEBU-305 MC
--- NOTE | 2024-09-28 07:25 | ERN ---
General Chief Complaint: Shortness of Breath Stated Complaint: SOB Time Seen by MD: 07:13 History of Present Illness Initial Comments 59-year-old male who presents for cough congestion and pleuritic type chest pain for a week. Patient reports that for about seven days patient has had a dry aching cough, and he reports some chest tightness with coughing. Pain is pleuritic. He denies fever. He denies swelling. He was evaluated here, diagnosed with a pneumonia. He completed a course of Z-Shaan and he has been taking albuterol treatments at home. He reports that he continues with the cough and the pain is unbearable. He reports that he is unable to walk from his car to his work without becoming very dyspneic. He denies any sputum production. Medical history: Diabetes, hypertension, atrial fibrillation anticoagulated on Eliquis, KEN, liver cancer on chemotherapy with a right chest wall port, PVD with stents placed, spinal stenosis PCP: Jordi Oncologist: Jay [facility] Maid in: [place] Allergies: Coded Allergies: No Known Drug Allergies (Verified Allergy, Unknown, 03/28/24) Home Meds Active Scripts Azithromycin (Azithromycin) 250 Mg Tablet, 250 MG PO AD for cough for 5 Days, #6 TAB Prov:KACY WHITESIDE MD 09/19/24 Clopidogrel Bisulfate (Plavix) 75 Mg Tablet, 75 MG PO DAILY, #30 TAB 0 Refills Prov:[facility] 09/30/23 Reported Medications Empagliflozin (Jardiance) 25 Mg Tablet, 25 MG PO DAILY, TAB 03/28/24 Cilostazol (Cilostazol) 100 Mg Tablet, 100 MG PO BID, TAB 02/07/24 Levothyroxine Sodium (Levothyroxine) 25 Mcg Capsule, 25 MCG PO DAILY, CAP 02/07/24 Insulin NPH Hum/Reg Insulin Hm (Novolin 70-30 Flexpen) 100 Unit/Ml (70-30) Insuln.pen, 30 UNIT SQ AM, SYRINGE 02/07/24 Folic Acid/Vitamin B Comp W-C (Carrie-Yani Tablet) 0.8 Mg Tablet, 0.8 MG PO DAILY, TAB 02/07/24 Past Medical History Past Medical History: A-Fib, Diabetes-Type II, High Cholesterol, Pneumonia Medical History Other: LIVER CA Past Surgical History: Pacer/AICD Surgical History Other: RIGHT KNEE, LEFT LEG STENTS Family History Family History: CAD, DM, HTN Social History Social History: Lives with family ROS Dictation CONSTITUTIONAL: No chills, no fever, no weakness, no diaphoresis, no malaise. HEAD/FACE: No signs of trauma. EENT: No eye pain, no blurred vision, no tearing, no double vision, no ear pain, no ear discharge, no nose pain, no nasal congestion, no throat pain, no throat swelling, no mouth pain. RESPIRATORY: Cough and dyspnea CARDIOVASCULAR: Pleuritic chest pain GASTROINTESTINAL/ABDOMINAL: No abdominal pain, no constipation, no diarrhea, no nausea, no vomiting. GENITOURINARY: No abnormal discharge, no dysuria, no frequent urination, no hematuria. No complaints of pain in the genitals. MUSCULOSKELETAL: No back pain, no gout, no joint pain, no joint swelling, no muscle pain, no muscle stiffness, no neck pain. INTEGUMENTARY: No change in color, no change in hair/nails, no dryness, no lesion, no lumps, no rash. NEUROLOGICAL/PSYCH: No anxiety, not depressed, no emotional problem, no headache, no numbness, no pre-existing deficit, no history of seizures, no tremors, no weakness. HEMATOLOGIC/LYMPHATIC: Not anemic, no history of blood clots, no apparent b leeding, no bruising, glands not swollen. All Systems Negative, Except as Noted. Physical Exam Physical Exam Dictation VITAL SIGNS: Reviewed. GENERAL APPEARANCE: Alert, oriented x3, no acute distress, obese. HEAD AND FACE: Non-traumatic. EYES: PERRL, pink conjunctivas, eyelid no trauma, anterior chamber clear. EARS: Pinnas intact and no signs of trauma or erythema. Ear canals clear and no discharge. TMs no erythema. NOSE: No discharge, no bleeding. OROPHARYNX: Mouth normal, teeth no caries, tongue pink. Pharynx clear, no erythema. Tonsils no exudates, no abscesses noted. Mucous membrane moist. NECK: Supple, non-tender, no thyromegaly, no masses, no JVD, no bruits. BREAST: Deferred. CHEST: No tenderness, no crepitus, no paradoxical movement, no retractions. LUNGS: Clear, well-ventilated, symmetric, no rales, no wheezing, no rhonchi, no stridor, good breath sounds bilaterally. HEART: Regular rate, regular rhythm, no murmur, no gallops. VASCULAR: No peripheral edema. ABDOMEN: Soft, positive bowel sounds, nondistended, no guarding, nontender, no rebound, no masses no hepatomegaly, no splenomegaly, no Brice's sign, no hernias. RECTAL: Deferred. GENITAL: Deferred. NEUROLOGICAL: Normal speech, gross motor function intact, gross sensory function intact. MUSCULOSKELETAL: Neck nontender, full range of motion, back nontender, full ra nge of motion. EXTREMITIES: Nontender, full range of motion. SKIN: Color pink, dry, no turgor, no rash, no lacerations, no abrasions, no contusions. LYMPHATICS: Deferred. Results Laboratory and Microbiology Lab and Micro Result Laboratory Tests Test 09/28/24 07:24 09/28/24 07:53 White Blood Count 1.5 K/uL (4.8-10.8) L Red Blood Count 3.95 MIL/uL (4.50-6.20) L Hemoglobin 11.3 g/dL (14.0-18.0) L Hematocrit 35.1 % (42-54) L Mean Corpuscular Volume 88.9 fL (79-99) Mean Corpuscular Hemoglobin 28.6 pg (27.0-33.0) Mean Corpuscular Hemoglobin Concent 32.2 g/dL (32.0-36.0) Red Cell Distribution Width 16.6 % (11.0-15.5) H Platelet Count 118 K/uL (130-400) L Mean Platelet Volume 9.8 fL (7.5-10.5) Immature Granulocyte % (Auto) 3.3 % (0-1) H Neutrophils (%) (Auto) 35.1 % (40.0-77.0) L Lymphocytes (%) (Auto) 41.1 % (21.0-51.0) Monocytes (%) (Auto) 18.5 % (3.0-13.0) H Eosinophils (%) (Auto) 0.7 % (0.0-8.0) Basophils (%) (Auto) 1.3 % (0.0-5.0) Neutrophils # (Auto) 0.5 K/uL (1.8-7.7) L Lymphocytes # (Auto) 0.6 K/uL (1.0-4.8) L Monocytes # (Auto) 0.3 K/uL (0.1-1.0) Eosinophils # (Auto) 0.01 K/uL (0.00-0.70) Basophils # (Auto) 0.02 K/uL (0.00-0.20) Absolute Immature Granulocyte (auto 0.05 K/uL (0-1) Nucleated Red Blood Cells 3.3 % (0.0-0.19) H White Cell Morphology Comment See comments Sodium Level 144 mmol/L (136-145) Potassium Level 3.9 mmol/L (3.5-5.1) Chloride Level 105 mmol/L (101-111) Carbon Dioxide Level 33 mmol/L (21-32) H Blood Urea Nitrogen 14 mg/dL (7-18) Creatinine 1.1 mg/dL (0.5-1.3) Glomerular Filtration Rate Calc 77 mL/min (>90) Random Glucose 218 mg/dL (70-105) H Total Calcium 8.6 mg/dL (8.5-10.1) Total Creatine Kinase 197 U/L (21-232) Troponin I High Sensitivity 22.2 ng/L (4-75) B-Type Natriuretic Peptide 215 pg/mL (0-100) H Procalcitonin 0.15 ng/mL (0.05-0.5) Influenza Type A Antigen Negative For Type A Influenza Type B Antigen Negative For Type B SARS-CoV-2 Antigen (Rapid) PRESUMPTIVE NEGATIVE MDM CC: Cough chest discomfort Historian: Patient Comorbidities: Diabetes, hypertension, AFib, KEN, liver cancer on chemotherapy, PVD, spinal stenosis Limitations by social determinants of health: None Differential diagnosis: Bronchitis, PE, pneumonia, other. Labs ( independently ordered and independently interpreted by me): Leukopenia WBCs 1.5. Hemoglobin 11.3. Otherwise stable CBC. Chemistry shows normal metabolic panel, normal CK, normal troponin BNP is 215 and the procalcitonin is normal. Flu a and SARS are negative. Imaging: Chest x-ray per my independent interpretation shows no cardiomegaly no pleural infiltrates no pleural effusions and no abnormalities. Patient was very high-risk for pulmonary embolism based on the presentation. We will get a CTA of the chest. The CT scan of the chest (Per my independent interpretation) shows no acute abnormalities. There is a small right pleural effusion otherwise no acute abnormalities. Lung banerjee are otherwise clear. No signs of PE. patient received a dose of IV steroids, albuterol and ipratropium, 1 L normal saline, and Toradol. REASON: dyspnea, cough, hx CA ORDERING PHYSICIAN: BRITNEY TREVINO DO PROCEDURE: CHES PE - CT CHEST PE PROTOCOL WWO CONT CT CHEST PE PROTOCOL WWO CONT REASON: dyspnea, cough, hx CA TECHNIQUE: Thin axial images through the chest were obtained during bolus intravenous administration of 100 ml of Omnipaque 350. Sagittal and coronal reconstruction images were performed. FINDINGS: Lungs are clear. There are no focal masses or infiltrates. There is a small right pleural effusion. Contrast outlines normal appearing central pulmonary arteries. There is no CT evidence of PE or aortic aneurysm. There is no aortic dissection. Hilar and mediastinal structures appear normal. Chest wall appears normal. There is cholelithiasis without evidence of acute cholecystitis, the upper abdominal structures appear otherwise normal. IMPRESSION: 1. Negative PE protocol CT chest, no evidence of pulmonary embolism or aortic dissection. 2. Cholelithiasis without evidence of acute cholecystitis. ED Course Orders Procedure Category Date Status Time Cardiac Panel LAB 09/28/24 Complete 07:14 Cbc With Differential LAB 09/28/24 In Process 07:14 Basic Metabolic Panel LAB 09/28/24 Complete 07:14 B-Type Natriuretic LAB 09/28/24 In Process Peptide 07:14 Procalcitonin LAB 09/28/24 Complete 07:14 Chest 1vw RAD 09/28/24 Resulted 07:14 Covid19 (Sars Antigen LAB 09/28/24 Complete Rapid) 07:14 Influenza Type A & B, LAB 09/28/24 Complete Rapid 07:14 Ct Chest Pe Protocol CT 09/28/24 Resulted Wwo Cont 07:20 Ketorolac PHA 09/28/24 Complete Tromethamine 15mg/Ml 07:30 0.9%Nacl 1000ml (Ns PHA 09/28/24 Complete 1000ml) 07:30 Ipratropium/Albuterol PHA 09/28/24 Complete Neb (Duoneb) 07:30 Methylprednisolone PHA 09/28/24 Complete Succ 40mg (Solu-Medro 07:30 Iohexol (Omnipaque) PHA 09/28/24 Complete 07:56 Current Medications Medications (Trade) Dose Ordered Sig/Efrem Route PRN Reason Start Time Stop Time Status Last Admin Dose Admin Albuterol (DUOneb) 1 UDVIAL ONCE ONCE IH 09/28/24 07:30 09/28/24 07:31 DC 09/28/24 07:52 Iohexol (Omnipaque) 35,000 mg STK-MED ONCE IV 09/28/24 07:56 09/28/24 07:56 DC Ketorolac Tromethamine (toRADol) 15 mg ONCE ONCE IV 09/28/24 07:30 09/28/24 07:31 DC 09/28/24 07:46 Methylprednisolone Sodium Succinate (Solu-medROL 40MG) 40 mg ONCE ONCE IVP 09/28/24 07:30 09/28/24 07:31 DC 09/28/24 07:45 Sodium Chloride 1,000 ml @ 0 mls/hr ONCE ONCE IV 09/28/24 07:30 09/28/24 07:31 DC 09/28/24 07:45 Vital Signs Date Time Temp Pulse Resp B/P (MAP) Pulse Ox O2 Delivery O2 Flow Rate FiO2 09/28/24 07:52 78 19 09/28/24 07:26 97.7 78 18 166/91 98 Room Air* 0 21 09/28/24 07:05 97.7 75 20 196/104 100 Room Air DX & DISP Disposition: Discharge Departure Impression: Primary Impression: Acute bronchitis Condition: Stable Scripts Doxycycline Hyclate (Doxycycline Hyclate) 100 Mg Capsule 1 CAP PO BID for 7 Days, #14 CAP 0 Refills Prov: BRITNEY TREVINO DO 09/28/24 Methylprednisolone (Medrol) 4 Mg Tab.ds.pk 1 TAB PO AD for 6 Days, #21 TAB 0 Refills 6 on day 1 then reduce by one tablet daily until gone Prov: BRITNEY TREVINO DO 09/28/24 Albuterol Sulfate (Albuterol Sulfate) 2.5 Mg/0.5 Ml Vial.neb 1 VIAL NEB Q4H for shortness of breath for 10 Days, #30 ML 0 Refills Prov: BRITNEY TREVINO DO 09/28/24 Nebulizer (Nebulizer) 1 Each Each EACH MC, #1 Prov: BRITNEY TREVINO DO 09/28/24 Additional Instructions: Your symptoms are consistent with bronchitis. Your lab work (CBC, BMP, procalcitonin, troponin, CK) show low white blood cells consistent with chemotherapy, but it was otherwise unremarkable. Your vital signs have been stable here in the ER. Your oxygen level is normal. Your chest x-ray is clear. The CT scan of your chest with contrast shows no abnormalities to your lungs and no signs of blood clots. There was a very small amount of liquid in the right chest. This is likely unrelated to her symptoms. You received IV Solu-Medrol, Toradol, and a nebulizer treatment here in the ER. I recommend that you take albuterol (either by nebulizer or inhaler) every 4 hours for the next 48-72 hours. I have given you a prescription for a nebulizer with albuterol packets. I have also prescribed a Solu-Medrol Dosepak. These are anti-inflammatory steroids. Take as prescribed. I have prescribed doxycycline, which is an antibiotic. Take twice per day for the next seven days. You can also take [id number] cough and congestion and cold medications. Drink plenty of liquids. An electrolyte solution such as Gatorade as good choice. I recommend that you rest for the next few days to let your body heal. Please return to the emergency department if you have any concerning symptoms. Referrals: LEONARDA SMILEY (PCP) BRITNEY TREVINO DO Sep 28, 2024 07:25
[2024-09-28 07:37] LABS: BASOPHILS # (AUTO) 0.02 K/uL (0.00-0.20); BASOPHILS % (AUTO) 1.3 % (0.0-5.0); EOSINOPHILS # (AUTO) 0.01 K/uL (0.00-0.70); EOSINOPHILS % (AUTO) 0.7 % (0.0-8.0); HEMATOCRIT 35.1 % (42-54); IMMATURE GRANULOCYTE ABSOLUTE 0.05 K/uL (0-1); LYMPHOCYTES # (AUTO) 0.6 K/uL (1.0-4.8); LYMPHOCYTES % (AUTO) 41.1 % (21.0-51.0); MEAN CORPUSCULAR HEMOGLOBIN 28.6 pg (27.0-33.0); MEAN CORPUSCULAR HGB CONC 32.2 g/dL (32.0-36.0); MEAN CORPUSCULAR VOLUME 88.9 fL (79-99); MONOCYTES # (AUTO) 0.3 K/uL (0.1-1.0); MONOCYTES % (AUTO) 18.5 % (3.0-13.0); NEUTROPHILS # (AUTO) 0.5 K/uL (1.8-7.7); NEUTROPHILS % (AUTO) 35.1 % (40.0-77.0); NUCLEATED RED BLOOD CELLS 3.3 % (0.0-0.19); PLATELET COUNT (AUTO) 118 K/uL (130-400); RED BLOOD CELL COUNT(AUTO) 3.95 MIL/uL (4.50-6.20); RED CELL DISTRIBUTION WIDTH 16.6 % (11.0-15.5); WHITE BLOOD COUNT (AUTO) 1.5 K/uL (4.8-10.8)
[2024-09-28] MEDS: 0.9%NACL 1000ML 1,000 ML IV ONE (07:45)
[2024-09-28] MEDS: Solu-medROL 40MG VIAL IVP ONE (07:45)
[2024-09-28] MEDS: ketOROlac 15MG/ML VIAL (15MG/ML) IV ONE (07:46)
[2024-09-28 07:52] VITALS: PULSE 78; RESP 19
[2024-09-28] MEDS: IpraTROPium/alBUTERol SULFATE 3 ML SOLUTION IH ONE (07:52)
[2024-09-28] MEDS ORDERED: IOHEXOL 350 MG/ML 100ML INFUS..BTL IV ONE (07:56)
[2024-09-28 08:01] LABS: CREATININE 1.1 mg/dL (0.5-1.3); POTASSIUM 3.9 mmol/L (3.5-5.1)
[2024-09-28 08:13] LABS: B-TYPE NATRIURETIC PEPTIDE 215 pg/mL (0-100)
[2024-09-28 08:26] LABS: COVID19 (SARS ANTIGEN RAPID) PRESUMPTIVE NEGATIVE (NEGATIVE); INFLUENZA TYPE A Negative For Type A (NEGATIVE); INFLUENZA TYPE B Negative For Type B (NEGATIVE)
--- NOTE | 2024-09-28 08:42 | HMCIMG ---
CT CHEST PE PROTOCOL O CONT REASON: dyspnea, cough, hx CA TECHNIQUE: Thin axial images through the chest were obtained during bolus intravenous administration of 100 ml of Omnipaque 350. Sagittal and coronal reconstruction images were performed. FINDINGS: Lungs are clear. There are no focal masses or infiltrates. There is a small right pleural effusion. Contrast outlines normal appearing central pulmonary arteries. There is no CT evidence of PE or aortic aneurysm. There is no aortic dissection. Hilar and mediastinal structures appear normal. Chest wall appears normal. There is cholelithiasis without evidence of acute cholecystitis, the upper abdominal structures appear otherwise normal. IMPRESSION: 1. Negative PE protocol CT chest, no evidence of pulmonary embolism or aortic dissection. 2. Cholelithiasis without evidence of acute cholecystitis. CT was performed with one or more following dose reduction techniques: automated exposure control, adjustment of the mA and kv according to patient's size, or use of a iterative reconstruction technique.
--- NOTE | 2024-09-28 09:59 | HMCIMG ---
CHEST 1VW REASON: pneumonia COMPARISON: 09/19/2024 FINDINGS: Heart size is normal. There are perihilar and lower lobe infiltrates which could be pneumonia or edema, edema favored. There is a pacemaker present. There is a right-sided chest port. IMPRESSION: 1. Bibasilar infiltrates which could be edema or
[2024-09-28] MEDS ORDERED: METH4TAB3 PO (10:12)
[2024-09-28] MEDS ORDERED: AUD NEB (10:12)
[2024-09-28] MEDS ORDERED: DOXY100C5 PO (10:12)
[2024-09-28] MEDS ORDERED: NEBU-305 MC (10:12)
[2024-09-28 10:34] VITALS: BP 143/76; PULSE 74; RESP 19; TEMP 97.7; O2SAT 98
== END 2024-09-28 10:46 | disposition home or self-care (01) ==
LOC: EDH 07:02
DX: J20.9 Acute bronchitis, unspecified (principal); E11.9 Type 2 diabetes mellitus without complications; E78.00 Pure hypercholesterolemia, unspecified; I10 Essential (primary) hypertension; I48.91 Unspecified atrial fibrillation; Z20.822 Contact with and (suspected) exposure to COVID-19; Z79.01 Long term (current) use of anticoagulants; Z79.02 Long term (current) use of antithrombotics/antiplatelets; Z79.84 Long term (current) use of oral hypoglycemic drugs; Z79.890 Hormone replacement therapy; Z85.05 Personal history of malignant neoplasm of liver; Z95.810 Presence of automatic (implantable) cardiac defibrillator; Z95.820 Peripheral vascular angioplasty status with implants and grafts; Z98.890 Other specified postprocedural states
CPT/HCPCS: 99284; 96374; 71270; 96361; 71045; 96375; 87426; 82550; 84484; 80048; 83880; 85025; 87804 ×2; 36415; 94640; 84145; J7030; J2919; J1885; Q9967

== ENCOUNTER → 2024-10-08 | Outpatient (CLI) | payer BC, MEDICARE ==
[~2024-10-08] MED LIST changes: +AUD NEB; +DOXY100C5 PO; +LIDOCAINE HCL 4% LTA SOL 4 ML VIAL TP ONE; +METH4TAB3 PO; +NEBU-305 MC
== END | disposition home or self-care (01) ==
LOC: WHH 08:17
PROVIDERS: ATTEND Family Medicine
DX: E11.621 Type 2 diabetes mellitus with foot ulcer (principal); L97.525 Non-pressure chronic ulcer of other part of left foot with muscle involvement without evidence of necrosis; E11.51 Type 2 diabetes mellitus with diabetic peripheral angiopathy without gangrene; E11.40 Type 2 diabetes mellitus with diabetic neuropathy, unspecified; I11.0 Hypertensive heart disease with heart failure; I50.22 Chronic systolic (congestive) heart failure; E78.5 Hyperlipidemia, unspecified; E03.9 Hypothyroidism, unspecified; I48.91 Unspecified atrial fibrillation; G47.30 Sleep apnea, unspecified; G89.4 Chronic pain syndrome; M19.90 Unspecified osteoarthritis, unspecified site; F41.9 Anxiety disorder, unspecified; Z95.0 Presence of cardiac pacemaker; Z79.82 Long term (current) use of aspirin; Z79.01 Long term (current) use of anticoagulants; Z79.84 Long term (current) use of oral hypoglycemic drugs; Z79.899 Other long term (current) drug therapy
CPT/HCPCS: 11055

== ENCOUNTER → 2024-10-15 | Outpatient (CLI) | payer BC, MEDICARE | END | disposition home or self-care (01) | LOC: WHH 08:20 | PROVIDERS: ATTEND Family Medicine | DX: E11.621 Type 2 diabetes mellitus with foot ulcer (principal); L97.525 Non-pressure chronic ulcer of other part of left foot with muscle involvement without evidence of necrosis; S80.822A Blister (nonthermal), left lower leg, initial encounter; S81.802A Unspecified open wound, left lower leg, initial encounter; E11.51 Type 2 diabetes mellitus with diabetic peripheral angiopathy without gangrene; E11.40 Type 2 diabetes mellitus with diabetic neuropathy, unspecified; I11.0 Hypertensive heart disease with heart failure; I50.22 Chronic systolic (congestive) heart failure; E78.5 Hyperlipidemia, unspecified; E03.9 Hypothyroidism, unspecified; I48.91 Unspecified atrial fibrillation; G47.30 Sleep apnea, unspecified; G89.4 Chronic pain syndrome; M19.90 Unspecified osteoarthritis, unspecified site; F41.9 Anxiety disorder, unspecified; Z95.0 Presence of cardiac pacemaker; Z79.82 Long term (current) use of aspirin; Z79.01 Long term (current) use of anticoagulants; Z79.84 Long term (current) use of oral hypoglycemic drugs; Z79.899 Other long term (current) drug therapy; X58.XXXA Exposure to other specified factors, initial encounter; Y93.89 Activity, other specified; Y92.89 Other specified places as the place of occurrence of the external cause; Y99.8 Other external cause status | CPT/HCPCS: 99214 ==

== ENCOUNTER 2024-10-22 07:43 | Emergency (ER) | payer BC, MEDICARE ==
[~2024-10-22] VITALS: Ht 182.9 cm; Wt 121.6 kg
[~2024-10-22 07:43] MED LIST changes: -LIDOCAINE HCL 4% LTA SOL 4 ML VIAL TP ONE
[2024-10-22 07:44] VITALS: BP 153/89; TEMP 97.8
[2024-10-22 08:24] LABS: BASOPHILS # (AUTO) 0.03 K/uL (0.00-0.20); BASOPHILS % (AUTO) 0.9 % (0.0-5.0); EOSINOPHILS % (AUTO) 2.9 % (0.0-8.0); HEMATOCRIT 35.3 % (42-54); IMMATURE GRANULOCYTE ABSOLUTE 0.02 K/uL (0-1); LYMPHOCYTES # (AUTO) 0.6 K/uL (1.0-4.8); LYMPHOCYTES % (AUTO) 17.7 % (21.0-51.0); MEAN CORPUSCULAR HEMOGLOBIN 29.2 pg (27.0-33.0); MEAN CORPUSCULAR HGB CONC 32.3 g/dL (32.0-36.0); MEAN CORPUSCULAR VOLUME 90.3 fL (79-99); MONOCYTES # (AUTO) 0.6 K/uL (0.1-1.0); MONOCYTES % (AUTO) 16.8 % (3.0-13.0); NEUTROPHILS # (AUTO) 2.1 K/uL (1.8-7.7); NEUTROPHILS % (AUTO) 61.1 % (40.0-77.0); PLATELET COUNT (AUTO) 141 K/uL (130-400); RED BLOOD CELL COUNT(AUTO) 3.91 MIL/uL (4.50-6.20); RED CELL DISTRIBUTION WIDTH 17.2 % (11.0-15.5); WHITE BLOOD COUNT (AUTO) 3.4 K/uL (4.8-10.8)
--- NOTE | 2024-10-22 08:38 | HMCIMG ---
CHEST 1VW HISTORY: Shortness of breath COMPARISON: None FINDINGS: A frontal projection of the chest was obtained. Mild bilateral pulmonary infiltrates are seen may be related to mild pulmonary vascular congestion with possible superimposed pneumonitis. The heart is borderline enlarged. All the lines and tubes are again seen in place. No evidence of aortic calcification is seen. IMPRESSION: 1. Mild bilateral pulmonary infiltrates are seen may be related to mild pulmonary vascular congestion with possible superimposed pneumonitis.
[2024-10-22 08:40] LABS: B-TYPE NATRIURETIC PEPTIDE 214 pg/mL (0-100)
[2024-10-22 08:48] LABS: ALBUMIN 2.8 g/dL (3.5-5.0); BILIRUBIN,DIRECT 0.1 mg/dL (0.0-0.3); BILIRUBIN,TOTAL 0.5 mg/dL (0.2-1.0); CREATININE 1.1 mg/dL (0.5-1.3); POTASSIUM 3.4 mmol/L (3.5-5.1); TOTAL PROTEIN, SERUM 6.4 g/dL (6.0-8.3)
[2024-10-22 08:58] LABS: INFLUENZA TYPE A Negative For Type A (NEGATIVE); INFLUENZA TYPE B Negative For Type B (NEGATIVE)
[2024-10-22 08:59] LABS: COVID19 (SARS ANTIGEN RAPID) PRESUMPTIVE NEGATIVE (NEGATIVE)
[2024-10-22] MEDS: Solu-medROL 125MG VIAL IVP ONE (09:13)
--- NOTE | 2024-10-22 09:14 | EKG ---
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
[2024-10-22] MEDS: IpraTROPium/alBUTERol SULFATE 3 ML SOLUTION IH ONE (09:19)
[2024-10-22 09:22] VITALS: PULSE 97; RESP 20
--- NOTE | 2024-10-22 10:17 | ERN ---
ED Note History of Present Illness Stated Complaint: SOB, CHEST PRESSURE Chief Complaint: Shortness of Breath Time Seen by MD: 07:46 Dictation: 59-year-old male with a history of pacemaker presents to the ED for evaluation of shortness a breath onset last night. Patient reports cough, nasal congestion, chest pressure, but denies any other associated symptoms at this time. Allergies: Coded Allergies: No Known Drug Allergies (Verified Allergy, Unknown, 03/28/24) Home Meds Active Scripts Albuterol Sulfate (Ventolin Hfa/Proventil Hfa/Proair Hfa) 90 Mcg Puff, 2 PUFF IH Q4HPRN PRN for wheezing for 10 Days, #18 GM 0 Refills Prov:KACY WHITESIDE MD 10/22/24 Azithromycin (Azithromycin) 250 Mg Tablet, 250 MG PO AD for cough for 5 Days, #6 TAB Prov:KACY WHITESIDE MD 10/22/24 Doxycycline Hyclate (Doxycycline Hyclate) 100 Mg Capsule, 1 CAP PO BID for 7 Days, #14 CAP 0 Refills Prov:BRITNEY TREVINO DO 09/28/24 Methylprednisolone (Medrol) 4 Mg Tab.ds.pk, 1 TAB PO AD for 6 Days, #21 TAB 0 Refills 6 on day 1 then reduce by one tablet daily until gone Prov:BRITNEY TREVINO DO 09/28/24 Albuterol Sulfate (Albuterol Sulfate) 2.5 Mg/0.5 Ml Vial.neb, 1 VIAL NEB Q4H for shortness of breath for 10 Days, #30 ML 0 Refills Prov:BRITNEY TREVINO DO 09/28/24 Nebulizer (Nebulizer) 1 Each Each, EACH , #1 Prov:BRITNEY TREVINO DO 09/28/24 Azithromycin (Azithromycin) 250 Mg Tablet, 250 MG PO AD for cough for 5 Days, #6 TAB Prov:KACY WHITESIDE MD 09/19/24 Clopidogrel Bisulfate (Plavix) 75 Mg Tablet, 75 MG PO DAILY, #30 TAB 0 Refills Prov:ANAHY JOSEPHTUCKER 09/30/23 Reported Medications Empagliflozin (Jardiance) 25 Mg Tablet, 25 MG PO DAILY, TAB 03/28/24 Cilostazol (Cilostazol) 100 Mg Tablet, 100 MG PO BID, TAB 02/07/24 Levothyroxine Sodium (Levothyroxine) 25 Mcg Capsule, 25 MCG PO DAILY, CAP 02/07/24 Insulin NPH Hum/Reg Insulin Hm (Novolin 70-30 Flexpen) 100 Unit/Ml (70-30) Insuln.pen, 30 UNIT SQ AM, SYRINGE 02/07/24 Folic Acid/Vitamin B Comp W-C (Carrie-Yani Tablet) 0.8 Mg Tablet, 0.8 MG PO DAILY, TAB 02/07/24 Past Medical History Past Medical History: A-Fib, Diabetes-Type II, High Cholesterol, Pneumonia Additional Past Medical Hx: LIVER CA Surgical History: Pacer/AICD Surgical History Other: RIGHT KNEE, LEFT LEG STENTS Family History: CAD, DM, HTN Social History: Lives with family Review of System Dictation Constitutional: Negative for fever,chills, and weight loss Eyes: Negative for injury, pain,redness, and discharge ENT: Positive for nasal congestion Negative for injury,pain or swelling Cardiovascular: Negative for chest pain, palpitations, and edema Respiratory: Positive for cough, shortness of breath,Negative for wheezing, Abdomen/GI: Negative for abdominal pain, nausea, vomiting, diarrhea, and constipation Back: Negative for injury and pain : Negative for injury, bleeding and discharge MS/Extremity: Negative for injury and deformity Skin: Negative for rash, and discoloration Neuro: Negative for headache, weakness, numbness, tingling, and seizure Psych: Negative for suicide ideation, homicidal ideation, and hallucinations Initial Vital Sign VS Vital Signs Date Time Temp Pulse Resp B/P (MAP) Pulse Ox O2 Delivery O2 Flow Rate FiO2 10/22/24 07:44 97.9 71 16 153/89 99 Room Air 0 Physical Exam Dictation General: awake, alert, NAD Head/Face: Normocephalic, atraumatic Eyes: PERRL, EOMI, vision at baseline ENT: oral cavity clear, TMs clear, no signs of infection Neck: Trachea midline, supple, no nuchal rigidity Cardiovascular: RRR, normal S1/S2, No MRGs, no JVD Respiratory: CTAB, no respiratory distress, No rales or wheezes Abdomen: Soft, non-tender, non-distended, normal bowel sounds, no guarding or rebound. Skin: Warm, dry, normal turgor, no rash MS/Extremity: Pulses equal, no cyanosis, neurovascular intact, FROM Neuro: COAx4, GCS 15, strength 5/5, CN 2-12 intact, normal cerebellar exam, normal gait, Psych: Normal behavior, mood, and affect normal Results (Laboratory/Radiology) Laboratory/Radiology Laboratory Tests Test 10/22/24 08:00 White Blood Count 3.4 K/uL (4.8-10.8) L Red Blood Count 3.91 MIL/uL (4.50-6.20) L Hemoglobin 11.4 g/dL (14.0-18.0) L Hematocrit 35.3 % (42-54) L Mean Corpuscular Volume 90.3 fL (79-99) Mean Corpuscular Hemoglobin 29.2 pg (27.0-33.0) Mean Corpuscular Hemoglobin Concent 32.3 g/dL (32.0-36.0) Red Cell Distribution Width 17.2 % (11.0-15.5) H Platelet Count 141 K/uL (130-400) Mean Platelet Volume 11.3 fL (7.5-10.5) H Immature Granulocyte % (Auto) 0.6 % (0-1) Neutrophils (%) (Auto) 61.1 % (40.0-77.0) Lymphocytes (%) (Auto) 17.7 % (21.0-51.0) L Monocytes (%) (Auto) 16.8 % (3.0-13.0) H Eosinophils (%) (Auto) 2.9 % (0.0-8.0) Basophils (%) (Auto) 0.9 % (0.0-5.0) Neutrophils # (Auto) 2.1 K/uL (1.8-7.7) Lymphocytes # (Auto) 0.6 K/uL (1.0-4.8) L Monocytes # (Auto) 0.6 K/uL (0.1-1.0) Eosinophils # (Auto) 0.10 K/uL (0.00-0.70) Basophils # (Auto) 0.03 K/uL (0.00-0.20) Absolute Immature Granulocyte (auto 0.02 K/uL (0-1) Nucleated Red Blood Cells 0.0 % (0.0-0.19) White Cell Morphology Comment See comments Sodium Level 143 mmol/L (136-145) Potassium Level 3.4 mmol/L (3.5-5.1) L Chloride Level 105 mmol/L (101-111) Carbon Dioxide Level 32 mmol/L (21-32) Blood Urea Nitrogen 16 mg/dL (7-18) Creatinine 1.1 mg/dL (0.5-1.3) Glomerular Filtration Rate Calc 77 mL/min (>90) Random Glucose 197 mg/dL (70-105) H Total Calcium 8.2 mg/dL (8.5-10.1) L Total Bilirubin 0.5 mg/dL (0.2-1.0) Direct Bilirubin 0.1 mg/dL (0.0-0.3) Aspartate Amino Transf (AST/SGOT) 37 U/L (10-37) Alanine Aminotransferase (ALT/SGPT) 28 U/L (12-78) Alkaline Phosphatase 102 U/L (50-136) Total Creatine Kinase 258 U/L (21-232) #H Troponin I High Sensitivity 31 ng/L (4-75) B-Type Natriuretic Peptide 214 pg/mL (0-100) H Total Protein 6.4 g/dL (6.0-8.3) Albumin 2.8 g/dL (3.5-5.0) L Influenza Type A Antigen Negative For Type A Influenza Type B Antigen Negative For Type B SARS-CoV-2 Antigen (Rapid) PRESUMPTIVE NEGATIVE Labs Reviewed?: Yes X-RAY Comment: REASON: sob ORDERING PHYSICIAN: KACY WHITESIDE MD PROCEDURE: CXR1VW - CHEST 1VW CHEST 1VW HISTORY: Shortness of breath COMPARISON: None FINDINGS: A frontal projection of the chest was obtained. Mild bilateral pulmonary infiltrates are seen may be related to mild pulmonary vascular congestion with possible superimposed pneumonitis. The heart is borderline enlarged. All the lines and tubes are again seen in place. No evidence of aortic calcification is seen. IMPRESSION: 1. Mild bilateral pulmonary infiltrates are seen may be related to mild pulmonary vascular congestion with possible superimposed pneumonitis. DICTATED BY: VERNON SNIDER MD DATE: 10/22/24 0833 ED Course ED Course Orders Procedure Category Date Status Time 12 Lead Ekg Tracing- EKG 10/22/24 Complete Technical 07:46 Hepatic Function Panel LAB 10/22/24 Complete 07:46 Creatine Kinase, Total LAB 10/22/24 Complete 07:46 Cbc With Differential LAB 10/22/24 Complete 07:46 Basic Metabolic Panel LAB 10/22/24 Complete 07:46 B-Type Natriuretic LAB 10/22/24 Complete Peptide 07:46 Troponin I High LAB 10/22/24 Complete Sensitivity 07:46 Chest 1vw RAD 10/22/24 Resulted 07:46 Influenza Type A & B, LAB 10/22/24 Complete Rapid 07:46 Covid19 (Sars Antigen LAB 10/22/24 Complete Rapid) 07:46 Ipratropium/Albuterol PHA 10/22/24 Complete Neb (Duoneb) 08:30 Methylprednisolone PHA 10/22/24 Complete Succ 125mg (Solu-Medr 08:30 Current Medications Medications (Trade) Dose Ordered Sig/Efrem Route PRN Reason Start Time Stop Time Status Last Admin Dose Admin Albuterol (DUOneb) 1 udvial ONCE ONCE IH 10/22/24 08:30 10/22/24 08:31 DC 10/22/24 09:19 Methylprednisolone Sodium Succinate (Solu-medROL 125MG) 60 mg ONCE ONCE IVP 10/22/24 08:30 10/22/24 08:31 DC 10/22/24 09:13 Vital Signs Date Time Temp Pulse Resp B/P (MAP) Pulse Ox O2 Delivery O2 Flow Rate FiO2 10/22/24 09:22 97 20 10/22/24 07:44 97.9 71 16 153/89 99 Room Air 0 Medical Decision Making MDM MDM: Differential diagnosis: Acute bronchitis, viral syndrome Rationale: Tests considered and ordered secondary to shared decision making include: labs, ECG and radiology Previous outside records reviewed: Old ER visits. Risk of complication and/or morbidity or mortality of patient management: None Medications-Per medication reconciliation Need for hospitalization: Patient does meet criteria for hospitalization. Need for emergency major/minor surgery: No Patient's prior external medical records from other ER visits were reviewed by me as indicated. Prior testing and results from previous visits were reviewed. Prior tests were taken into account with medical decision making and resource utilization, independent historian/historians were used to obtain complete medical history. I independently interpreted the test that were performed, results were reviewed by me and considered findings on radiology if ordered. Medical management and examination interpretation discussions were had by me with other qualified healthcare professionals as indicated for the patient's care. DX & DISP Disposition: Discharge Departure Impression: Primary Impression: Acute bronchitis Condition: Stable Scripts Albuterol Sulfate (Ventolin Hfa/Proventil Hfa/Proair Hfa) 90 Mcg Puff 2 PUFF IH Q4HPRN PRN for wheezing for 10 Days, #18 GM 0 Refills Prov: KACY WHITESIDE MD 10/22/24 Azithromycin (Azithromycin) 250 Mg Tablet 250 MG PO AD for cough for 5 Days, #6 TAB Prov: KACY WHITESIDE MD 10/22/24 Referrals: LEONARDA SMILEY (PCP) KACY WHITESIDE MD Oct 22, 2024 10:17
[2024-10-22] MEDS ORDERED: ALBUHFA IH (10:38)
== END 2024-10-22 11:40 | disposition home or self-care (01) ==
LOC: EDH 07:43
DX: J20.9 Acute bronchitis, unspecified (principal); I48.91 Unspecified atrial fibrillation; E11.9 Type 2 diabetes mellitus without complications; E78.00 Pure hypercholesterolemia, unspecified; I48.92 Unspecified atrial flutter; Z79.02 Long term (current) use of antithrombotics/antiplatelets; Z79.84 Long term (current) use of oral hypoglycemic drugs; Z79.890 Hormone replacement therapy; Z95.810 Presence of automatic (implantable) cardiac defibrillator; Z20.822 Contact with and (suspected) exposure to COVID-19
CPT/HCPCS: 99284; 96374; 71045; 87426; 82550; 80076; 84484; 80048; 83880; 85025; 87804 ×2; 36415; 93005; 94640; J2919

== ENCOUNTER → 2024-10-25 | Outpatient (CLI) | payer BC, MEDICARE ==
[~2024-10-25] MED LIST changes: +ALBUHFA IH; +LIDOCAINE HCL 4% LTA SOL 4 ML VIAL TP ONE
== END | disposition home or self-care (01) ==
LOC: WHH 08:03
PROVIDERS: ATTEND Family Medicine
DX: E11.621 Type 2 diabetes mellitus with foot ulcer (principal); L97.525 Non-pressure chronic ulcer of other part of left foot with muscle involvement without evidence of necrosis; S81.802D Unspecified open wound, left lower leg, subsequent encounter; E11.51 Type 2 diabetes mellitus with diabetic peripheral angiopathy without gangrene; E11.40 Type 2 diabetes mellitus with diabetic neuropathy, unspecified; I11.0 Hypertensive heart disease with heart failure; I50.22 Chronic systolic (congestive) heart failure; E78.5 Hyperlipidemia, unspecified; E03.9 Hypothyroidism, unspecified; I48.91 Unspecified atrial fibrillation; G47.30 Sleep apnea, unspecified; G89.4 Chronic pain syndrome; M19.90 Unspecified osteoarthritis, unspecified site; F41.9 Anxiety disorder, unspecified; Z95.0 Presence of cardiac pacemaker; Z79.82 Long term (current) use of aspirin; Z79.01 Long term (current) use of anticoagulants; Z79.84 Long term (current) use of oral hypoglycemic drugs; Z79.899 Other long term (current) drug therapy; X58.XXXD Exposure to other specified factors, subsequent encounter
CPT/HCPCS: 99214; A4450

== ENCOUNTER → 2024-10-29 | Outpatient (CLI) | payer BC, MEDICARE | END | disposition home or self-care (01) | LOC: WHH 08:23 | PROVIDERS: ATTEND Family Medicine | DX: E11.621 Type 2 diabetes mellitus with foot ulcer (principal); L97.525 Non-pressure chronic ulcer of other part of left foot with muscle involvement without evidence of necrosis; L84 Corns and callosities; S81.802D Unspecified open wound, left lower leg, subsequent encounter; E11.51 Type 2 diabetes mellitus with diabetic peripheral angiopathy without gangrene; E11.40 Type 2 diabetes mellitus with diabetic neuropathy, unspecified; I11.0 Hypertensive heart disease with heart failure; I50.22 Chronic systolic (congestive) heart failure; E78.5 Hyperlipidemia, unspecified; E03.9 Hypothyroidism, unspecified; I48.91 Unspecified atrial fibrillation; G47.30 Sleep apnea, unspecified; G89.4 Chronic pain syndrome; M19.90 Unspecified osteoarthritis, unspecified site; F41.9 Anxiety disorder, unspecified; Z95.0 Presence of cardiac pacemaker; Z79.82 Long term (current) use of aspirin; Z79.01 Long term (current) use of anticoagulants; Z79.84 Long term (current) use of oral hypoglycemic drugs; Z79.899 Other long term (current) drug therapy; X58.XXXD Exposure to other specified factors, subsequent encounter | CPT/HCPCS: 11055; A6248 ==

== ENCOUNTER → 2024-11-05 | Outpatient (CLI) | payer BC, MEDICARE | END | disposition home or self-care (01) | LOC: WHH 08:15 | PROVIDERS: ATTEND Family Medicine | DX: E11.621 Type 2 diabetes mellitus with foot ulcer (principal); L97.525 Non-pressure chronic ulcer of other part of left foot with muscle involvement without evidence of necrosis; L84 Corns and callosities; S81.802D Unspecified open wound, left lower leg, subsequent encounter; E11.51 Type 2 diabetes mellitus with diabetic peripheral angiopathy without gangrene; E11.40 Type 2 diabetes mellitus with diabetic neuropathy, unspecified; I11.0 Hypertensive heart disease with heart failure; I50.22 Chronic systolic (congestive) heart failure; E78.5 Hyperlipidemia, unspecified; E03.9 Hypothyroidism, unspecified; I48.91 Unspecified atrial fibrillation; G47.30 Sleep apnea, unspecified; G89.4 Chronic pain syndrome; M19.90 Unspecified osteoarthritis, unspecified site; F41.9 Anxiety disorder, unspecified; Z95.0 Presence of cardiac pacemaker; Z79.82 Long term (current) use of aspirin; Z79.01 Long term (current) use of anticoagulants; Z79.84 Long term (current) use of oral hypoglycemic drugs; Z79.899 Other long term (current) drug therapy; X58.XXXD Exposure to other specified factors, subsequent encounter | CPT/HCPCS: 99214 ==

== ENCOUNTER → 2024-11-05 | Outpatient (CLI) | payer BC, MEDICARE ==
[~2024-11-05] MED LIST changes: -LIDOCAINE HCL 4% LTA SOL 4 ML VIAL TP ONE
[2024-11-05 17:02] LABS: ALBUMIN 2.9 g/dL (3.5-5.0); BILIRUBIN,TOTAL 0.4 mg/dL (0.2-1.0); CREATININE 1.1 mg/dL (0.5-1.3); POTASSIUM 4.2 mmol/L (3.5-5.1); TOTAL PROTEIN, SERUM 6.7 g/dL (6.0-8.3)
== END | disposition home or self-care (01) ==
LOC: LAB 12:03
PROVIDERS: ATTEND Internal Medicine Cardiovascular Disease
DX: E11.59 Type 2 diabetes mellitus with other circulatory complications (principal); I11.0 Hypertensive heart disease with heart failure; I50.33 Acute on chronic diastolic (congestive) heart failure
CPT/HCPCS: 36415; 80053; 83880

== ENCOUNTER → 2024-11-26 | Outpatient (CLI) | payer BC, MEDICARE ==
[2024-11-26 13:18] LABS: CREATININE 1.2 mg/dL (0.5-1.3); POTASSIUM 4.4 mmol/L (3.5-5.1)
== END | disposition home or self-care (01) ==
LOC: LAB 10:08
PROVIDERS: ATTEND Internal Medicine Cardiovascular Disease
DX: I50.22 Chronic systolic (congestive) heart failure (principal)
CPT/HCPCS: 36415; 80048; 83880

== ENCOUNTER → 2024-11-26 | Outpatient (CLI) | payer BC, MEDICARE ==
[~2024-11-26] MED LIST changes: +LIDOCAINE HCL 4% LTA SOL 4 ML VIAL TP ONE
== END | disposition home or self-care (01) ==
LOC: WHH 08:17
PROVIDERS: ATTEND Family Medicine
DX: E11.621 Type 2 diabetes mellitus with foot ulcer (principal); L97.525 Non-pressure chronic ulcer of other part of left foot with muscle involvement without evidence of necrosis; L84 Corns and callosities; S81.802D Unspecified open wound, left lower leg, subsequent encounter; E11.51 Type 2 diabetes mellitus with diabetic peripheral angiopathy without gangrene; E11.40 Type 2 diabetes mellitus with diabetic neuropathy, unspecified; I11.0 Hypertensive heart disease with heart failure; I50.22 Chronic systolic (congestive) heart failure; E78.5 Hyperlipidemia, unspecified; E03.9 Hypothyroidism, unspecified; I48.91 Unspecified atrial fibrillation; G47.30 Sleep apnea, unspecified; G89.4 Chronic pain syndrome; M19.90 Unspecified osteoarthritis, unspecified site; F41.9 Anxiety disorder, unspecified; Z95.0 Presence of cardiac pacemaker; Z79.82 Long term (current) use of aspirin; Z79.01 Long term (current) use of anticoagulants; Z79.84 Long term (current) use of oral hypoglycemic drugs; Z79.899 Other long term (current) drug therapy; X58.XXXD Exposure to other specified factors, subsequent encounter
CPT/HCPCS: 80048; 83880; 36415; 99214; A4450

== ENCOUNTER 2024-11-29 16:00 | Emergency (ER) | payer BC, MEDICARE ==
[~2024-11-29] VITALS: Ht 182.9 cm; Wt 122.5 kg
[~2024-11-29 16:00] MED LIST changes: -LIDOCAINE HCL 4% LTA SOL 4 ML VIAL TP ONE
[2024-11-29 16:04] VITALS: TEMP 98.1
[2024-11-29 16:25] LABS: BASOPHILS # (AUTO) 0.05 K/uL (0.00-0.20); HEMATOCRIT 44.7 % (42-54); IMMATURE GRANULOCYTE ABSOLUTE 0.02 K/uL (0-1); LYMPHOCYTES % (AUTO) 20.5 % (21.0-51.0); MEAN CORPUSCULAR HEMOGLOBIN 28.9 pg (27.0-33.0); MEAN CORPUSCULAR HGB CONC 32.4 g/dL (32.0-36.0); MONOCYTES # (AUTO) 0.7 K/uL (0.1-1.0); MONOCYTES % (AUTO) 14.6 % (3.0-13.0); NEUTROPHILS % (AUTO) 61.5 % (40.0-77.0); PLATELET COUNT (AUTO) 113 K/uL (130-400); RED BLOOD CELL COUNT(AUTO) 5.02 MIL/uL (4.50-6.20); RED CELL DISTRIBUTION WIDTH 15.8 % (11.0-15.5); WHITE BLOOD COUNT (AUTO) 4.9 K/uL (4.8-10.8)
[2024-11-29 16:34] LABS: CREATININE 1.4 mg/dL (0.5-1.3); POTASSIUM 4.2 mmol/L (3.5-5.1)
[2024-11-29 16:46] LABS: CREATINE KINASE, TOTAL 228 U/L (21-232)
[2024-11-29 16:47] LABS: B-TYPE NATRIURETIC PEPTIDE 151 pg/mL (0-100)
[2024-11-29] MEDS: ASPIRIN 81MG CHEW TAB PO STA (16:54)
[2024-11-29] MEDS: NITROGLYCERIN 0.4 MG SL TAB SL PRN (16:55)
[2024-11-29] MEDS: 0.9%NACL 1000ML 1,000 ML IV STA (17:25)
[2024-11-29] MEDS: PANTOPrazole 40 MG/VIAL IVP STA (17:27)
--- NOTE | 2024-11-29 18:19 | ERN ---
ED Note History of Present Illness Stated Complaint: CHEST TIGHTEN, PALPITATIONS, LEFT HAND NUMB, DIZZY Chief Complaint: Chest Pain Time Seen by MD: 16:04 Time Seen by Midlevel: 16:10 Dictation: 59-year-old male coming in complaining of intermittent low blood pressure, palpitations. Patient states they stopped his losartan and started him on Entresto, carvedilol, and spironolactone three weeks ago. Denies any shortness a breath, chest pain or chest discomfort. Allergies: Coded Allergies: No Known Drug Allergies (Verified Allergy, Unknown, 03/28/24) Home Meds Active Scripts Albuterol Sulfate (Ventolin Hfa/Proventil Hfa/Proair Hfa) 90 Mcg Puff, 2 PUFF IH Q4HPRN PRN for wheezing for 10 Days, #18 GM 0 Refills Prov:KACY WHITESIDE MD 10/22/24 Azithromycin (Azithromycin) 250 Mg Tablet, 250 MG PO AD for cough for 5 Days, #6 TAB Prov:KACY WHITESIDE MD 10/22/24 Doxycycline Hyclate (Doxycycline Hyclate) 100 Mg Capsule, 1 CAP PO BID for 7 Days, #14 CAP 0 Refills Prov:BRITNEY TREVINO DO 09/28/24 Methylprednisolone (Medrol) 4 Mg Tab.ds.pk, 1 TAB PO AD for 6 Days, #21 TAB 0 Refills 6 on day 1 then reduce by one tablet daily until gone Prov:BRITNEY TREVINO DO 09/28/24 Albuterol Sulfate (Albuterol Sulfate) 2.5 Mg/0.5 Ml Vial.neb, 1 VIAL NEB Q4H for shortness of breath for 10 Days, #30 ML 0 Refills Prov:BRITNEY TREVINO DO 09/28/24 Nebulizer (Nebulizer) 1 Each Each, EACH MC, #1 Prov:BRITNEY TREVINO DO 09/28/24 Azithromycin (Azithromycin) 250 Mg Tablet, 250 MG PO AD for cough for 5 Days, #6 TAB Prov:KACY WHITESIDE MD 09/19/24 Clopidogrel Bisulfate (Plavix) 75 Mg Tablet, 75 MG PO DAILY, #30 TAB 0 Refills Prov:ANAHY JOSEPH AGPCTUCKER 09/30/23 Reported Medications Empagliflozin (Jardiance) 25 Mg Tablet, 25 MG PO DAILY, TAB 03/28/24 Cilostazol (Cilostazol) 100 Mg Tablet, 100 MG PO BID, TAB 02/07/24 Levothyroxine Sodium (Levothyroxine) 25 Mcg Capsule, 25 MCG PO DAILY, CAP 02/07/24 Insulin NPH Hum/Reg Insulin Hm (Novolin 70-30 Flexpen) 100 Unit/Ml (70-30) Insuln.pen, 30 UNIT SQ AM, SYRINGE 02/07/24 Folic Acid/Vitamin B Comp W-C (Carrie-Yani Tablet) 0.8 Mg Tablet, 0.8 MG PO DAILY, TAB 02/07/24 Past Medical History Past Medical History: Diabetes-Type II, Heart Disease, Hypertension Additional Past Medical Hx: LIVER CANCER Surgical History: Pacer/AICD Surgical History Other: RIGHT KNEE, STENTS TO LEFT LEG AND LEFT HIP Family History: CAD, DM, HTN Social History: Lives with family Review of System Dictation Constitutional: Negative for fever,chills, and weight loss Eyes: Negative for injury, pain,redness, and discharge ENT: Negative for injury,pain or swelling Cardiovascular: Negative for chest pain, positive for palpitations Respiratory: Negative for shortness of breath, cough, and wheezing, Abdomen/GI: Negative for abdominal pain, nausea, vomiting, diarrhea, and constipation Back: Negative for injury and pain : Negative for injury, bleeding and discharge MS/Extremity: Negative for injury and deformity Skin: Negative for rash, and discoloration Neuro: Negative for headache, weakness, numbness, tingling, and seizure Psych: Negative for suicide ideation, homicidal ideation, and hallucinations Review of Systems: was completed Initial Vital Sign VS Vital Signs Date Time Temp Pulse Resp B/P (MAP) Pulse Ox O2 Delivery O2 Flow Rate FiO2 11/29/24 16:04 98.1 77 18 169/102 97 Room Air Physical Exam Dictation General: awake, alert, NAD Head/Face: Normocephalic, atraumatic Eyes: PERRL, EOMI, vision at baseline ENT: oral cavity clear, TMs clear, no signs of infection Neck: Trachea midline, supple, no nuchal rigidity Cardiovascular: RRR, normal S1/S2, No MRGs, no JVD no lower extremity edema Respiratory: CTAB, no respiratory distress, No rales or wheezes Abdomen: Soft, non-tender, non-distended, normal bowel sounds, no guarding or rebound. Skin: Warm, dry, normal turgor, no rash MS/Extremity: Pulses equal, no cyanosis, neurovascular intact, FROM Neuro: COAx4, GCS 15, strength 5/5, CN 2-12 intact, normal cerebellar exam, normal gait, Psych: Normal behavior, mood, and affect normal Results (Laboratory/Radiology) Laboratory/Radiology Laboratory Tests Test 11/29/24 16:18 11/29/24 17:14 White Blood Count 4.9 K/uL (4.8-10.8) Red Blood Count 5.02 MIL/uL (4.50-6.20) Hemoglobin 14.5 g/dL (14.0-18.0) Hematocrit 44.7 % (42-54) Mean Corpuscular Volume 89.0 fL (79-99) Mean Corpuscular Hemoglobin 28.9 pg (27.0-33.0) Mean Corpuscular Hemoglobin Concent 32.4 g/dL (32.0-36.0) Red Cell Distribution Width 15.8 % (11.0-15.5) H Platelet Count 113 K/uL (130-400) L Mean Platelet Volume 11.9 fL (7.5-10.5) H Immature Granulocyte % (Auto) 0.4 % (0-1) Neutrophils (%) (Auto) 61.5 % (40.0-77.0) Lymphocytes (%) (Auto) 20.5 % (21.0-51.0) L Monocytes (%) (Auto) 14.6 % (3.0-13.0) H Eosinophils (%) (Auto) 2.0 % (0.0-8.0) Basophils (%) (Auto) 1.0 % (0.0-5.0) Neutrophils # (Auto) 3.0 K/uL (1.8-7.7) Lymphocytes # (Auto) 1.0 K/uL (1.0-4.8) Monocytes # (Auto) 0.7 K/uL (0.1-1.0) Eosinophils # (Auto) 0.10 K/uL (0.00-0.70) Basophils # (Auto) 0.05 K/uL (0.00-0.20) Absolute Immature Granulocyte (auto 0.02 K/uL (0-1) Nucleated Red Blood Cells 0.0 % (0.0-0.19) Sodium Level 138 mmol/L (136-145) Potassium Level 4.2 mmol/L (3.5-5.1) Chloride Level 101 mmol/L (101-111) Carbon Dioxide Level 32 mmol/L (21-32) Blood Urea Nitrogen 31 mg/dL (7-18) H Creatinine 1.4 mg/dL (0.5-1.3) H Glomerular Filtration Rate Calc 58 mL/min (>90) Random Glucose 176 mg/dL (70-105) H Total Calcium 8.1 mg/dL (8.5-10.1) L Total Creatine Kinase 228 U/L (21-232) Troponin I High Sensitivity 21 ng/L (4-75) 19 ng/L (4-75) B-Type Natriuretic Peptide 151 pg/mL (0-100) H Labs Reviewed?: Yes EKG Comment: Date:11/29/24 Time:1557 Ventricular rate:80 NH interval: QRS duration:240 QT/QTc:432/498 EKG interpretation: A fib/flutter and ventricular paced rhythm Reviewed by ED Attending no STEMI interpreted by ER MD ED Course ED Course Orders Procedure Category Date Status Time Initiate Chest Pain ALECIA 11/29/24 In Process Procotol 16:02 12 Lead Ekg Tracing- EKG 11/29/24 Logged Technical 16:02 Cardiac Panel LAB 11/29/24 Complete 16:02 Cbc With Differential LAB 11/29/24 Complete 16:11 Basic Metabolic Panel LAB 11/29/24 Complete 16:11 B-Type Natriuretic LAB 11/29/24 Complete Peptide 16:11 Aspirin 81mg Chew Tab PHA 11/29/24 Complete (Aspirin 81mg Chew 16:11 Nitroglycerin 0.4mg PHA 11/29/24 In Process Sl Tab (Nitrostat) 16:30 Chest 1vw RAD 11/29/24 Taken 16:44 Troponin I High LAB 11/29/24 Complete Sensitivity 17:06 0.9%Nacl 1000ml (Ns PHA 11/29/24 In Process 1000ml) 17:08 Pantoprazole 40mg Inj PHA 11/29/24 Complete (Protonix 40mg Inj 17:08 Current Medications Medications (Trade) Dose Ordered Sig/Efrem Route PRN Reason Start Time Stop Time Status Last Admin Dose Admin Aspirin (Aspirin 81mg Chew Tab) 324 mg ONCE STAT PO 11/29/24 16:11 11/29/24 16:13 DC 11/29/24 16:54 Nitroglycerin (Nitrostat) 0.4 mg AD PRN SL CHEST PAIN 11/29/24 16:30 12/29/24 16:29 11/29/24 16:55 Pantoprazole Sodium (PROTonix 40MG INJ) 40 mg ONCE STAT IVP 11/29/24 17:08 11/29/24 17:12 DC 11/29/24 17:27 Sodium Chloride 1,000 ml @ 500 mls/hr Q2H STAT IV 11/29/24 17:08 11/29/24 19:07 11/29/24 17:25 Vital Signs Date Time Temp Pulse Resp B/P (MAP) Pulse Ox O2 Delivery O2 Flow Rate FiO2 11/29/24 16:04 98.1 77 18 169/102 97 Room Air HEART Score Response (Comments) Value History: Low suspicion (0) 0 EKG: Normal 0 Age: 45-65yrs (+1) 1 Risk Factors: 3+ risk factors (+2) 2 Initial Troponin: Normal limit (0) 0 Total 3 Medical Decision Making MDM MDM: 59-year-old male coming in complaining of intermittent low blood pressure, palpitations. Patient states they stopped his losartan and started him on Entresto, carvedilol, and spironolactone three weeks ago. Denies any shortness a breath, chest pain or chest discomfort. Blood work is unremarkable. Troponin is negative x2. EKGs shows AFib/flutter, no ST elevations. Heart score three, low risk. Patient states after fluids patient states he feels better. 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 Discussed with the he would like to be admitted or go follow up outpatient patient states he would rather follow up outpatient tomorrow. Discussed on red flag symptoms and when to return to the emergency room. Patient verbalized understanding, answered all questions. Differential diagnosis: ACS, dehydration, medication reaction, anxiety Rationale: Tests considered and ordered secondary to shared decision making include: Previous outside records reviewed: Old ER visits. Risk of complication and/or morbidity or mortality of patient management: None Medications-Per medication reconciliation Need for hospitalization: Patient does not meet criteria for hospitalization. Need for emergency major/minor surgery: No There are no social concerns with this patient. Prescription drug management Prescriptions will include symptomatic care Patient's prior external medical records from other ER visits were reviewed by me as indicated. Prior testing and results from previous visits were reviewed. Prior tests were taken into account with medical decision making and resource utilization, independent historian/historians were used to obtain complete medical history. I independently interpreted the test that were performed, results were reviewed by me and considered findings on radiology if ordered. Medical management and examination interpretation discussions were had by me with other qualified healthcare professionals as indicated for the patient's care. DX & DISP Disposition: Discharge Departure Impression: Primary Impression: Anxiety Additional Impression: Medication side effect Condition: Stable Additional Instructions: Keep your appointment with the ammunition specialist tomorrow morning. Return to the emergency room if you start with any chest pain, nausea and vomiting or any worsening symptoms. Referrals: LEONARDA SMILEY (PCP) Time of Disposition: 18:19 I have reviewed the case, and I agree with, Diagnosis and Plan JIHAN MONTANA NP Nov 29, 2024 18:19
[2024-11-29 18:23] VITALS: BP 130/87; PULSE 64; RESP 20; O2SAT 98
--- NOTE | 2024-11-29 18:28 | HMCIMG ---
PORTABLE CHEST RADIOGRAPH INDICATION: palpitations COMPARISON: 10/22/2024 FINDINGS: Left sided dual chamber pacer and continuous leads remain in customary position. Stable right-sided Port-A-Cath. Heart size is normal. The pulmonary vascularity and kavin appear normal. No abnormal pulmonary parenchymal opacity or consolidation identified. No significant pleural effusion noted. No pneumothorax detected. IMPRESSION: No radiographic evidence for any acute cardiopulmonary process.
--- NOTE | 2024-11-30 06:09 | EKG ---
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
== END 2024-11-29 18:31 | disposition home or self-care (01) ==
LOC: EDH 16:00
DX: F41.9 Anxiety disorder, unspecified (principal); T50.905A Adverse effect of unspecified drugs, medicaments and biological substances, initial encounter; Y92.89 Other specified places as the place of occurrence of the external cause; E11.9 Type 2 diabetes mellitus without complications; I11.9 Hypertensive heart disease without heart failure; Z79.02 Long term (current) use of antithrombotics/antiplatelets; Z79.84 Long term (current) use of oral hypoglycemic drugs; Z79.890 Hormone replacement therapy; Z95.810 Presence of automatic (implantable) cardiac defibrillator
CPT/HCPCS: 99284; 96374; 71045; 96361; 82550; 84484 ×2; 80048; 83880; 85025; 36415; 93005; J7030; J2470

== ENCOUNTER → 2024-12-03 | Outpatient (CLI) | payer BC, MEDICARE ==
[~2024-12-03] MED LIST changes: +LIDOCAINE HCL 4% LTA SOL 4 ML VIAL TP ONE
== END | disposition home or self-care (01) ==
LOC: WHH 07:54
PROVIDERS: ATTEND Family Medicine
DX: E11.621 Type 2 diabetes mellitus with foot ulcer (principal); L97.525 Non-pressure chronic ulcer of other part of left foot with muscle involvement without evidence of necrosis; L84 Corns and callosities; S81.802D Unspecified open wound, left lower leg, subsequent encounter; E11.51 Type 2 diabetes mellitus with diabetic peripheral angiopathy without gangrene; E11.40 Type 2 diabetes mellitus with diabetic neuropathy, unspecified; I11.0 Hypertensive heart disease with heart failure; I50.22 Chronic systolic (congestive) heart failure; E78.5 Hyperlipidemia, unspecified; E03.9 Hypothyroidism, unspecified; I48.91 Unspecified atrial fibrillation; G47.30 Sleep apnea, unspecified; G89.4 Chronic pain syndrome; M19.90 Unspecified osteoarthritis, unspecified site; F41.9 Anxiety disorder, unspecified; Z95.0 Presence of cardiac pacemaker; Z79.82 Long term (current) use of aspirin; Z79.01 Long term (current) use of anticoagulants; Z79.84 Long term (current) use of oral hypoglycemic drugs; Z79.899 Other long term (current) drug therapy; X58.XXXD Exposure to other specified factors, subsequent encounter
CPT/HCPCS: 99214

== ENCOUNTER → 2024-12-10 | Outpatient (CLI) | payer BC, MEDICARE | END | disposition home or self-care (01) | LOC: WHH 08:02 | PROVIDERS: ATTEND Family Medicine | DX: E11.621 Type 2 diabetes mellitus with foot ulcer (principal); L97.525 Non-pressure chronic ulcer of other part of left foot with muscle involvement without evidence of necrosis; L84 Corns and callosities; S81.802D Unspecified open wound, left lower leg, subsequent encounter; E11.51 Type 2 diabetes mellitus with diabetic peripheral angiopathy without gangrene; E11.40 Type 2 diabetes mellitus with diabetic neuropathy, unspecified; I11.0 Hypertensive heart disease with heart failure; I50.22 Chronic systolic (congestive) heart failure; E78.5 Hyperlipidemia, unspecified; E03.9 Hypothyroidism, unspecified; I48.91 Unspecified atrial fibrillation; G47.30 Sleep apnea, unspecified; G89.4 Chronic pain syndrome; M19.90 Unspecified osteoarthritis, unspecified site; F41.9 Anxiety disorder, unspecified; Z95.0 Presence of cardiac pacemaker; Z79.82 Long term (current) use of aspirin; Z79.01 Long term (current) use of anticoagulants; Z79.84 Long term (current) use of oral hypoglycemic drugs; Z79.899 Other long term (current) drug therapy; X58.XXXD Exposure to other specified factors, subsequent encounter | CPT/HCPCS: 11042 ==

== ENCOUNTER → 2024-12-12 | Outpatient (CLI) | payer BC, MEDICARE ==
[~2024-12-12] MED LIST changes: -LIDOCAINE HCL 4% LTA SOL 4 ML VIAL TP ONE
[2024-12-12 12:43] LABS: CREATININE 1.5 mg/dL (0.5-1.3); POTASSIUM 4.7 mmol/L (3.5-5.1)
== END | disposition home or self-care (01) ==
LOC: LAB 08:42
PROVIDERS: ATTEND Internal Medicine Cardiovascular Disease
DX: I11.0 Hypertensive heart disease with heart failure (principal); I50.22 Chronic systolic (congestive) heart failure
CPT/HCPCS: 36415; 80048; 83880

== ENCOUNTER → 2024-12-13 | Outpatient (CLI) | payer BC, MEDICARE | END | disposition home or self-care (01) | LOC: WHH 09:15 | PROVIDERS: ATTEND Family Medicine | DX: E11.621 Type 2 diabetes mellitus with foot ulcer (principal); L97.525 Non-pressure chronic ulcer of other part of left foot with muscle involvement without evidence of necrosis; L84 Corns and callosities; S81.802D Unspecified open wound, left lower leg, subsequent encounter; E11.51 Type 2 diabetes mellitus with diabetic peripheral angiopathy without gangrene; E11.40 Type 2 diabetes mellitus with diabetic neuropathy, unspecified; I11.0 Hypertensive heart disease with heart failure; I50.22 Chronic systolic (congestive) heart failure; E78.5 Hyperlipidemia, unspecified; E03.9 Hypothyroidism, unspecified; I48.91 Unspecified atrial fibrillation; G47.30 Sleep apnea, unspecified; G89.4 Chronic pain syndrome; M19.90 Unspecified osteoarthritis, unspecified site; F41.9 Anxiety disorder, unspecified; Z95.0 Presence of cardiac pacemaker; Z79.82 Long term (current) use of aspirin; Z79.01 Long term (current) use of anticoagulants; Z79.84 Long term (current) use of oral hypoglycemic drugs; Z79.899 Other long term (current) drug therapy; X58.XXXD Exposure to other specified factors, subsequent encounter | CPT/HCPCS: 99214 ==

== ENCOUNTER → 2024-12-18 | Outpatient (CLI) | payer BC, MEDICARE ==
--- NOTE | 2024-12-18 15:28 | HMCIMG ---
ULTRASOUND OF THE TESTICLES ULTRASOUND ABD VASCULAR LIMITED INDICATION: Scrotal pain COMPARISON: None FINDINGS: The right testicle measures 3.7 x 1.9 x 2.6 cm. It is normal in echogenicity without mass. No hydrocele or varicocele demonstrated. Right epididymal head measures 0.7 cm. 0.4 cm simple right epididymal head cyst. The left testicle measures 3.6 x 2.1 x 2.5 cm. It is normal in echogenicity without mass. No hydrocele or varicocele demonstrated. Left epididymal head measures 0.7 cm. 0.7 cm extratesticular round lesion with peripheral calcification suggesting normal variant testicular appendix. Color-flow was not applied to this area. Color Doppler flow is normal throughout the both testicles. Spectral Doppler analysis demonstrates a normal waveform pattern in regards to both testicles. 3.4 x 0.9 x 4.6 cm nonvascular complex fluid collection demonstrated along the perineum at area of interest. IMPRESSION: 1. 3.4 x 0.9 x 4.6 cm perineal abscess. 2. Additional minor findings and pertinent negatives as reported.
== END | disposition home or self-care (01) ==
LOC: RAH 14:25
PROVIDERS: ATTEND Family Medicine
DX: S31.30XD Unspecified open wound of scrotum and testes, subsequent encounter (principal); L02.215 Cutaneous abscess of perineum; X58.XXXD Exposure to other specified factors, subsequent encounter
CPT/HCPCS: 76870

== ENCOUNTER → 2024-12-24 | Outpatient (CLI) | payer BC, MEDICARE | END | disposition home or self-care (01) | LOC: WHH 08:29 | PROVIDERS: ATTEND Family Medicine | DX: E11.621 Type 2 diabetes mellitus with foot ulcer (principal); L97.525 Non-pressure chronic ulcer of other part of left foot with muscle involvement without evidence of necrosis; L84 Corns and callosities; S81.802D Unspecified open wound, left lower leg, subsequent encounter; E11.51 Type 2 diabetes mellitus with diabetic peripheral angiopathy without gangrene; E11.40 Type 2 diabetes mellitus with diabetic neuropathy, unspecified; I11.0 Hypertensive heart disease with heart failure; I50.22 Chronic systolic (congestive) heart failure; E78.5 Hyperlipidemia, unspecified; E03.9 Hypothyroidism, unspecified; I48.91 Unspecified atrial fibrillation; G47.30 Sleep apnea, unspecified; G89.4 Chronic pain syndrome; M19.90 Unspecified osteoarthritis, unspecified site; F41.9 Anxiety disorder, unspecified; Z95.0 Presence of cardiac pacemaker; Z79.82 Long term (current) use of aspirin; Z79.01 Long term (current) use of anticoagulants; Z79.84 Long term (current) use of oral hypoglycemic drugs; Z79.899 Other long term (current) drug therapy; X58.XXXD Exposure to other specified factors, subsequent encounter | CPT/HCPCS: 99214 ==

== ENCOUNTER → 2024-12-25 | Outpatient (CLI) | payer BC, MEDICARE ==
[2024-12-25 09:30] LABS: BILIRUBIN,TOTAL 0.6 mg/dL (0.2-1.0); CREATININE 1.1 mg/dL (0.5-1.3); POTASSIUM 4.5 mmol/L (3.5-5.1)
== END | disposition home or self-care (01) ==
LOC: LAB 08:43
PROVIDERS: ATTEND Family Medicine
DX: L02.215 Cutaneous abscess of perineum (principal)
CPT/HCPCS: 36415; 80053

== ENCOUNTER → 2025-01-01 | Outpatient (CLI) | payer BC, MEDICARE ==
[~2025-01-01] MED LIST changes: +LIDOCAINE HCL 4% LTA SOL 4 ML VIAL TP ONE
== END | disposition home or self-care (01) ==
LOC: WHH 08:01
PROVIDERS: ATTEND Family Medicine
DX: E11.621 Type 2 diabetes mellitus with foot ulcer (principal); L97.525 Non-pressure chronic ulcer of other part of left foot with muscle involvement without evidence of necrosis; S31.30XA Unspecified open wound of scrotum and testes, initial encounter; N49.2 Inflammatory disorders of scrotum; E11.51 Type 2 diabetes mellitus with diabetic peripheral angiopathy without gangrene; E11.40 Type 2 diabetes mellitus with diabetic neuropathy, unspecified; I11.0 Hypertensive heart disease with heart failure; I50.22 Chronic systolic (congestive) heart failure; L84 Corns and callosities; E03.9 Hypothyroidism, unspecified; I48.91 Unspecified atrial fibrillation; G47.30 Sleep apnea, unspecified; E78.5 Hyperlipidemia, unspecified; G89.4 Chronic pain syndrome; M19.90 Unspecified osteoarthritis, unspecified site; F41.9 Anxiety disorder, unspecified; Z79.899 Other long term (current) drug therapy; X58.XXXA Exposure to other specified factors, initial encounter; Y93.89 Activity, other specified; Y99.8 Other external cause status; Y92.89 Other specified places as the place of occurrence of the external cause
CPT/HCPCS: 11042; 82948; 11055; A4450

== ENCOUNTER → 2025-01-08 | Outpatient (CLI) | payer BC, MEDICARE ==
[~2025-01-08] MED LIST changes: +GENTAmicin 15 GM CREAM TP ONE; -LIDOCAINE HCL 4% LTA SOL 4 ML VIAL TP ONE
== END | disposition home or self-care (01) ==
LOC: WHH 08:11
PROVIDERS: ATTEND Family Medicine
DX: E11.621 Type 2 diabetes mellitus with foot ulcer (principal); L97.525 Non-pressure chronic ulcer of other part of left foot with muscle involvement without evidence of necrosis; N49.2 Inflammatory disorders of scrotum; S31.30XD Unspecified open wound of scrotum and testes, subsequent encounter; S81.811A Laceration without foreign body, right lower leg, initial encounter; L84 Corns and callosities; E11.51 Type 2 diabetes mellitus with diabetic peripheral angiopathy without gangrene; E11.40 Type 2 diabetes mellitus with diabetic neuropathy, unspecified; I11.0 Hypertensive heart disease with heart failure; I50.22 Chronic systolic (congestive) heart failure; E03.9 Hypothyroidism, unspecified; I48.91 Unspecified atrial fibrillation; G47.30 Sleep apnea, unspecified; E78.5 Hyperlipidemia, unspecified; G89.4 Chronic pain syndrome; M19.90 Unspecified osteoarthritis, unspecified site; F41.9 Anxiety disorder, unspecified; Z79.899 Other long term (current) drug therapy; X58.XXXD Exposure to other specified factors, subsequent encounter; X58.XXXA Exposure to other specified factors, initial encounter; Y93.89 Activity, other specified; Y92.89 Other specified places as the place of occurrence of the external cause; Y99.8 Other external cause status
CPT/HCPCS: 99214; A4450

== ENCOUNTER → 2025-01-22 | Outpatient (CLI) | payer BC, MEDICARE ==
[~2025-01-22] MED LIST changes: -LEVO25CA4 PO; +LEVO25CA5 PO
== END | disposition home or self-care (01) ==
LOC: WHH 07:37
PROVIDERS: ATTEND Family Medicine
DX: E11.621 Type 2 diabetes mellitus with foot ulcer (principal); L97.525 Non-pressure chronic ulcer of other part of left foot with muscle involvement without evidence of necrosis; N49.2 Inflammatory disorders of scrotum; S31.30XD Unspecified open wound of scrotum and testes, subsequent encounter; S81.811D Laceration without foreign body, right lower leg, subsequent encounter; L84 Corns and callosities; E11.51 Type 2 diabetes mellitus with diabetic peripheral angiopathy without gangrene; E11.40 Type 2 diabetes mellitus with diabetic neuropathy, unspecified; I11.0 Hypertensive heart disease with heart failure; I50.22 Chronic systolic (congestive) heart failure; E03.9 Hypothyroidism, unspecified; I48.91 Unspecified atrial fibrillation; G47.30 Sleep apnea, unspecified; E78.5 Hyperlipidemia, unspecified; G89.4 Chronic pain syndrome; M19.90 Unspecified osteoarthritis, unspecified site; F41.9 Anxiety disorder, unspecified; Z79.899 Other long term (current) drug therapy; X58.XXXD Exposure to other specified factors, subsequent encounter
CPT/HCPCS: 11042; A6250; A4450

== ENCOUNTER → 2025-02-05 | Outpatient (CLI) | payer BC, MEDICARE ==
[~2025-02-05] MED LIST changes: -ALBUHFA IH; +ALPR0.5T8 PO; +APIX5TAB PO; +ASPI-1197 PO; -AUD NEB; -AZIT250T9 PO; +BACL5TAB PO; +CARV3.12 PO; -CLOP-31 PO; +CLOP75TA32 PO; -DOXY100C5 PO; +FLUC200T96 PO; -FOLI0.8T22 PO; +GABA300C PO; -GENTAmicin 15 GM CREAM TP ONE; +INS7030 SQ; -INSU100I35 SQ; -LEVO25CA5 PO; +LEVO25TA54 PO; -METH4TAB3 PO; -NEBU-305 MC; +PRED20TA3 PO; +SACU1TAB7 PO; +SPIR25TA6 PO; +TORS10TA18 PO; +TRAM50TA4 PO
== END | disposition home or self-care (01) ==
LOC: WHH 08:01
PROVIDERS: ATTEND Family Medicine
DX: E11.621 Type 2 diabetes mellitus with foot ulcer (principal); L97.525 Non-pressure chronic ulcer of other part of left foot with muscle involvement without evidence of necrosis; N49.2 Inflammatory disorders of scrotum; S31.30XD Unspecified open wound of scrotum and testes, subsequent encounter; L84 Corns and callosities; E11.51 Type 2 diabetes mellitus with diabetic peripheral angiopathy without gangrene; E11.40 Type 2 diabetes mellitus with diabetic neuropathy, unspecified; E11.22 Type 2 diabetes mellitus with diabetic chronic kidney disease; I13.0 Hypertensive heart and chronic kidney disease with heart failure and stage 1 through stage 4 chronic kidney disease, or unspecified chronic kidney disease; I50.22 Chronic systolic (congestive) heart failure; N18.9 Chronic kidney disease, unspecified; E03.9 Hypothyroidism, unspecified; I48.91 Unspecified atrial fibrillation; G47.30 Sleep apnea, unspecified; E78.5 Hyperlipidemia, unspecified; G89.4 Chronic pain syndrome; M19.90 Unspecified osteoarthritis, unspecified site; F41.9 Anxiety disorder, unspecified; Z79.899 Other long term (current) drug therapy; Z85.05 Personal history of malignant neoplasm of liver; X58.XXXD Exposure to other specified factors, subsequent encounter
CPT/HCPCS: 99214; A4248

== ENCOUNTER → 2025-02-11 | Outpatient (CLI) | payer BC, MEDICARE ==
[~2025-02-11] MED LIST changes: +KETO10 PO
== END | disposition home or self-care (01) ==
LOC: WHH 08:14
PROVIDERS: ATTEND Family Medicine
DX: E11.621 Type 2 diabetes mellitus with foot ulcer (principal); L97.525 Non-pressure chronic ulcer of other part of left foot with muscle involvement without evidence of necrosis; S31.30XD Unspecified open wound of scrotum and testes, subsequent encounter; L84 Corns and callosities; E11.51 Type 2 diabetes mellitus with diabetic peripheral angiopathy without gangrene; E11.40 Type 2 diabetes mellitus with diabetic neuropathy, unspecified; E11.22 Type 2 diabetes mellitus with diabetic chronic kidney disease; I13.0 Hypertensive heart and chronic kidney disease with heart failure and stage 1 through stage 4 chronic kidney disease, or unspecified chronic kidney disease; I50.22 Chronic systolic (congestive) heart failure; N18.9 Chronic kidney disease, unspecified; E03.9 Hypothyroidism, unspecified; I48.91 Unspecified atrial fibrillation; G47.30 Sleep apnea, unspecified; E78.5 Hyperlipidemia, unspecified; G89.4 Chronic pain syndrome; M19.90 Unspecified osteoarthritis, unspecified site; F41.9 Anxiety disorder, unspecified; Z79.899 Other long term (current) drug therapy; Z85.05 Personal history of malignant neoplasm of liver; X58.XXXD Exposure to other specified factors, subsequent encounter
CPT/HCPCS: 87070; 87086 ×3; 87186 ×3; 99214; A6010

== ENCOUNTER 2025-02-14 21:36 | Emergency (ER) | payer BC, MEDICARE ==
[~2025-02-14] VITALS: Ht 182.9 cm; Wt 117.9 kg
[~2025-02-14 21:36] MED LIST changes: -KETO10 PO
[2025-02-14] MEDS ORDERED: IOHEXOL 350 MG/ML 100ML INFUS..BTL IV ONE (21:52)
--- NOTE | 2025-02-14 21:52 | NUR ---
PATIENT TAKEN TO CT AT THIS TIME
[2025-02-14 21:55] LABS: BASOPHILS # (AUTO) 0.03 K/uL (0.00-0.20); BASOPHILS % (AUTO) 0.5 % (0.0-5.0); EOSINOPHILS # (AUTO) 0.06 K/uL (0.00-0.70); HEMATOCRIT 47.1 % (42-54); IMMATURE GRANULOCYTE ABSOLUTE 0.03 K/uL (0-1); LYMPHOCYTES # (AUTO) 0.8 K/uL (1.0-4.8); LYMPHOCYTES % (AUTO) 13.1 % (21.0-51.0); MEAN CORPUSCULAR HEMOGLOBIN 28.5 pg (27.0-33.0); MEAN CORPUSCULAR HGB CONC 32.7 g/dL (32.0-36.0); MEAN CORPUSCULAR VOLUME 87.2 fL (79-99); MONOCYTES # (AUTO) 0.4 K/uL (0.1-1.0); MONOCYTES % (AUTO) 7.5 % (3.0-13.0); NEUTROPHILS # (AUTO) 4.6 K/uL (1.8-7.7); NEUTROPHILS % (AUTO) 77.4 % (40.0-77.0); PLATELET COUNT (AUTO) 109 K/uL (130-400); RED CELL DISTRIBUTION WIDTH 14.2 % (11.0-15.5); WHITE BLOOD COUNT (AUTO) 5.9 K/uL (4.8-10.8)
[2025-02-14 22:02] LABS: CREATININE 1.5 mg/dL (0.5-1.3); POTASSIUM 4.9 mmol/L (3.5-5.1)
--- NOTE | 2025-02-14 22:16 | NUR ---
PATIENT BACK FROM CT
--- NOTE | 2025-02-14 22:28 | NUR ---
DR BURCH AT BEDSIDE AT THIS TIME
--- NOTE | 2025-02-14 22:30 | HMCIMG ---
CT HEAD/BRAIN W/O CONTRAST HISTORY: Status post fall COMPARISON: None TECHNIQUE: Multiple sequential axial images of the head were obtained from the base of the skull through vertex. Patient was not given contrast through intravenous route. FINDINGS: The ventricles and extraventricular CSF spaces are dilated consistent with cerebral atrophy. Nonspecific white matter changes seen. There is no midline shift, mass effect or herniation. No acute intracranial bleed is seen. Visualized portion of the paranasal sinuses are grossly within normal limits. IMPRESSION: 1. No acute intracranial bleed is seen. 2. Atrophy with white matter changes. CT was performed with one or more following dose reduction techniques: automated exposure control, adjustment of the mA and kv according to patient's size, or use of a iterative reconstruction technique.
--- NOTE | 2025-02-14 22:31 | HMCIMG ---
CT CERVICAL SPINE W/O CONTRAST HISTORY: No additional history given. COMPARISON: None TECHNIQUE: Multiple sequential axial images of the cervical spine were obtained including post processing sagittal and coronal reconstruction images. Patient was not given contrast through intravenous route. FINDINGS: There is straightening of normal lordotic cervical curvature which may be related to muscle spasm or positioning. There is no loss of vertebral height. Evaluation for disc and cord pathology is limited with CT study. Erosive changes are seen of the odontoid process. This space narrowings are present at C5-6 and C6-7 levels. IMPRESSION: 1. No fracture is seen. DJD. CT was performed with one or more following dose reduction techniques: automated exposure control, adjustment of the mA and kv according to patient's size, or use of a iterative reconstruction technique.
--- NOTE | 2025-02-14 22:34 | HMCIMG ---
CT CHEST/ABD/PELV W/CONRAST HISTORY: Trauma COMPARISON: None TECHNIQUE: Multiple sequential axial images of the chest were obtained from the thoracic inlet through upper abdomen. Patient was given 100 cc of Omnipaque through intravenous route. FINDINGS: There is no evidence of pulmonary nodule or parenchymal disease. No pleural effusion or pericardial effusion is seen. There is no evidence of pneumothorax. There are normal size mediastinal and hilar lymph nodes. The heart is not enlarged. Degenerative changes of the thoracolumbar spine are present. There is no evidence of adrenal nodule. IMPRESSION: 1. No evidence of pulmonary nodule or effusion is seen. CT CHEST/ABD/PELV W/CONRAST HISTORY: Trauma COMPARISON: None TECHNIQUE: Multiple sequential axial images of the abdomen and pelvis were obtained from the dome of the diaphragm through symphysis pubis. Patient was not given contrast through intravenous route. Oral contrast was not given. FINDINGS: There is a liver lesion in the medial segment of the left hepatic lobe measuring 3.9 x 5 cm related to cavernous hemangioma. Follow-up examination is recommended. There are cirrhotic changes+. Spleen is unremarkable measuring 14 cm. Spleen, adrenal glands and pancreas are unremarkable. There is no evidence of hydronephrosis bilaterally. No evidence of renal stone is seen. Fecal material is seen in the colon. There are normal size retroperitoneal and mesenteric lymph nodes. No ascites is seen. Atherosclerotic changes are present. Vascular calcifications are seen. Pelvic sidewalls are symmetric bilaterally. Bladder is well distended without wall thickening. IMPRESSION: 1. Possible hepatomegaly hemangioma. CT was performed with one or more following dose reduction techniques: automated exposure control, adjustment of the mA and kv according to patient's size, or use of a iterative reconstruction technique.
--- NOTE | 2025-02-14 22:39 | ERN ---
General Chief Complaint: Trauma Activation Stated Complaint: SYNCOPE, FALL Time Seen by MD: 21:40 Source: patient History of Present Illness Initial Comments Patient is a 59-year-old male with a history of liver cancer atrial fibrillation hypertension diabetes. He said he has had vertigo, with the room spinning, for the last two weeks. Today patient had a ground level fall with loss of consciousness. He does not know what happened. He attributes it to his vertigo. In addition the patient is on Eliquis for his atrial fibrillation and was brought in as a level two trauma. He comes in complaining of left knee pain left shoulder pain left flank pain and right wrist pain. He is alert and oriented x4. Allergies: Coded Allergies: No Known Drug Allergies (Verified Allergy, Unknown, 03/28/24) Home Meds Active Scripts Fluconazole (Fluconazole) 200 Mg Tablet, 1 TAB PO DAILY for 10 Days, #10 TAB 0 Refills Prov:JENNIFER NUNEZ MD 02/02/25 Prednisone (Prednisone) 20 Mg Tablet, 40 MG PO DAILY for 7 Days, #14 TAB Prov:JENNIFER NUNEZ MD 02/02/25 Reported Medications Aspirin (Aspirin) 81 Mg Tab.chew, 1 TAB PO DAILY for 30 Days, #30 TAB 0 Refills 01/30/25 Tramadol Hcl (Tramadol HCl) 50 Mg Tablet, 1 TAB PO Q6HPRN PRN for PAIN LEVEL 5 TO 10 01/30/25 Hum Insulin NPH/Reg Insulin Hm (Humulin 70/30) 100 Unit/Ml (70-30) Inj, 50 UNITS SQ DAILYDINNER, ML 01/30/25 Hum Insulin NPH/Reg Insulin Hm (Humulin 70/30) 100 Unit/Ml (70-30) Inj, 40 UNITS SQ AM 01/30/25 Alprazolam (Alprazolam) 0.5 Mg Tablet, 1 TAB PO BID PRN for ANXIETY/AGITATION 01/30/25 Empagliflozin (Jardiance) 25 Mg Tablet, 1 TAB PO DAILY 01/30/25 Torsemide (Torsemide) 10 Mg Tablet, 1 TAB PO DAILY 01/30/25 Clopidogrel Bisulfate (Clopidogrel) 75 Mg Tablet, 1 TAB PO DAILY 01/30/25 Gabapentin (Neurontin) 300 Mg Capsule, 1 CAP PO TID 01/30/25 Baclofen (Baclofen) 5 Mg Tablet, 1 TAB PO TID 01/30/25 Cilostazol (Cilostazol) 100 Mg Tablet, 1 TAB PO BID 01/30/25 Apixaban (Eliquis) 5 Mg Tablet, 1 TAB PO BID 01/30/25 Carvedilol (Carvedilol) 3.125 Mg Tablet, 1 TAB PO BID 01/30/25 Sacubitril/Valsartan (Entresto 49 mg-51 mg Tablet) 49 Mg-51 Mg Tablet, 1 TAB PO BID 01/30/25 Spironolactone (Spironolactone) 25 Mg Tablet, 1 TAB PO DAILY 01/30/25 Levothyroxine Sodium (Levothyroxine Sodium) 25 Mcg Tablet, 1 TAB PO DAILY 01/30/25 Past Medical History Past Medical History: A-Fib, Cancer, Diabetes-Type II, Heart Disease, Hypertension, Hypothyroid Medical History Other: LIVER CANCER, patient has a drug reaction to his chemotherapy. Past Surgical History: Pacer/AICD Surgical History Other: RIGHT KNEE, STENTS TO LEFT LEG AND LEFT HIP Family History Family History: CAD, DM, HTN Social History Social History: Lives with family Constitutional: (-) chills, (-) diaphoresis, (-) fever, (-) malaise, (-) weakness, (-) other documentation EENTM: (-) eye pain, (-) blurred vision, (-) tearing, (-) double vision, (-) ear pain, (-) ear discharge, (-) nose pain, (-) nose congestion, (-) throat pain, (-) Throat swelling, (-) mouth pain, (-) tooth pain, (-) mouth swelling, (-) other documentation Respiratory: (-) cough, (-) orthopnea, (-) short of breath, (-) stridor, (-) wheezing, (-) other documentation Cardiovascular: (-) chest pain, (-) edema, (-) palpitations, (-) syncope, (-) dyspnea on exertion, (-) other documentation Gastrointestinal/Abdominal: (-) nausea, (-) vomiting, (-) diarrhea, (-) abdominal pain, (-) abdominal distention, (-) constipation, (-) rectal bleeding, (-) dark stool/melena, (-) other documentation Musculoskeletal: (+) Neck pain, (+) Flank Pain Neuro: (+) syncope, (+) dizziness Physical Exam General Appearance: (+) mild distress Orientation: (+) alert, (+) oriented x 3 Head/Face Trauma: No Eye: bilateral eye normal inspection, bilateral eye PERRL, bilateral eye EOMI Ear, Nose, Throat: (+) hearing grossly normal, (+) normal ENT inspection, (+) moist mucous membraine, (+) normal pharynx Neck: (+) normal inspection, (+) supple, (+) full range of motion, (+) no JVD, (+) non-tender Respiratory: (+) lungs clear, (+) well ventilated Respiratory Comment Patient does have left sided chest wall tenderness. Heart: (+) no gallop, (+) irregular Vascular: (+) no edema Gastrointestinal: (+) soft, (+) non-tender, (+) bowel sound present Extremities Comment Patient's all four extremities show healing lesions from a rash from his chemotherapy. There was nice pink fernando dermis no signs of infection no open draining wounds. Results Laboratory and Microbiology Lab and Micro Result Laboratory Tests Test 02/14/25 21:46 White Blood Count 5.9 K/uL (4.8-10.8) Red Blood Count 5.40 MIL/uL (4.50-6.20) Hemoglobin 15.4 g/dL (14.0-18.0) Hematocrit 47.1 % (42-54) Mean Corpuscular Volume 87.2 fL (79-99) Mean Corpuscular Hemoglobin 28.5 pg (27.0-33.0) Mean Corpuscular Hemoglobin Concent 32.7 g/dL (32.0-36.0) Red Cell Distribution Width 14.2 % (11.0-15.5) Platelet Count 109 K/uL (130-400) L Mean Platelet Volume 10.2 fL (7.5-10.5) Immature Granulocyte % (Auto) 0.5 % (0-1) Neutrophils (%) (Auto) 77.4 % (40.0-77.0) H Lymphocytes (%) (Auto) 13.1 % (21.0-51.0) L Monocytes (%) (Auto) 7.5 % (3.0-13.0) Eosinophils (%) (Auto) 1.0 % (0.0-8.0) Basophils (%) (Auto) 0.5 % (0.0-5.0) Neutrophils # (Auto) 4.6 K/uL (1.8-7.7) Lymphocytes # (Auto) 0.8 K/uL (1.0-4.8) L Monocytes # (Auto) 0.4 K/uL (0.1-1.0) Eosinophils # (Auto) 0.06 K/uL (0.00-0.70) Basophils # (Auto) 0.03 K/uL (0.00-0.20) Absolute Immature Granulocyte (auto 0.03 K/uL (0-1) Nucleated Red Blood Cells 0.0 % (0.0-0.19) Sodium Level 137 mmol/L (136-145) Potassium Level 4.9 mmol/L (3.5-5.1) Chloride Level 103 mmol/L (101-111) Carbon Dioxide Level 28 mmol/L (21-32) Blood Urea Nitrogen 31 mg/dL (7-18) H Creatinine 1.5 mg/dL (0.5-1.3) H Glomerular Filtration Rate Calc 53 mL/min (>90) Random Glucose 260 mg/dL (70-105) H Total Calcium 8.3 mg/dL (8.5-10.1) L Labs Reviewed?: Yes MDM We have ordered full set of labs on the patient and also done a CT scan of his head neck chest abdomen pelvis and then plain films of his left knee left shoulder. I will need to order plain films of his right wrist. CT scan of the patient's head neck chest abdomen and pelvis are all negative. Chemistry panel shows a creatinine of 1.5 and an elevated glucose greater than 200. Patient has had creatinines high like this before and they have resolved. I will give the patient a L of fluid. I will also give the patient 10 units of regular insulin. Patient's CBC is normal. Plain films of patient's right wrist left knee left shoulder are all negative for fractures as well. ED Course Orders Procedure Category Date Status Time Cbc With Differential LAB 02/14/25 Complete 21:49 Basic Metabolic Panel LAB 02/14/25 Complete 21:49 Ct Head/Brain W/O CT 02/14/25 Resulted Contrast 21:49 Ct Cervical Spine W/O CT 02/14/25 Resulted Contrast 21:49 Iohexol (Omnipaque) PHA 02/14/25 Complete 21:52 Ct Chest/Abd/Pelv CT 02/14/25 Resulted W/Conrast 21:49 12 Lead Ekg Tracing- EKG 02/14/25 Logged Technical 22:26 Cyclobenzaprine Hcl PHA 02/14/25 Complete (Cyclobenzaprine Hcl 23:00 Ketorolac PHA 02/14/25 Complete Tromethamine 30mg/Ml 23:00 Lactated Ringers PHA 02/14/25 Complete 1000ml (Lactated 22:40 Bedside Glucose CPOE 02/14/25 Transmitted Fingerstick 22:40 Wrist Comp 3+Vws Rt RAD 02/14/25 Taken 22:40 Knee 3vws Lt RAD 02/14/25 Taken 23:11 Shoulder Comp 2+Vws Lt RAD 02/14/25 Taken 23:11 Insulin Regular, PHA 02/14/25 Complete Human 3ml (Humulin R 23:30 Current Medications Medications (Trade) Dose Ordered Sig/Efrem Route PRN Reason Start Time Stop Time Status Last Admin Dose Admin Cyclobenzaprine HCl (Cyclobenzaprine HCl) 10 mg ONCE ONCE PO 02/14/25 23:00 02/14/25 23:01 DC 02/14/25 23:54 Insulin Human Regular (humuLIN R 100 UNIT/ML 3ML) 10 unit ONCE ONCE SQ 02/14/25 23:30 02/14/25 23:31 DC Iohexol (Omnipaque) 35,000 mg STK-MED ONCE IV 02/14/25 21:52 02/14/25 21:52 DC Ketorolac Tromethamine (toRADol) 30 mg ONCE ONCE IVP 02/14/25 23:00 02/14/25 23:01 DC 02/14/25 23:54 Lactated Ringer's (Lactated Ringers 1000ml) 1,000 ml BOLUS STAT IV 02/14/25 22:40 02/14/25 22:44 DC 02/14/25 23:55 Vital Signs Date Time Temp Pulse Resp B/P (MAP) Pulse Ox O2 Delivery O2 Flow Rate FiO2 02/14/25 21:38 98.2 78 20 177/109 98 Room Air Procedure Dictation Patient's C-spine films were negative. Patient has no central midline tenderness. I removed the C-collar. Patient could flex extend and rotate his neck left and right with no pain and no new numbness or tingling in his hands fingers feet or toes. I DC the C-collar. DX & DISP Disposition: Discharge Departure Impression: Primary Impression: Fall Condition: Stable Scripts Ketorolac Tromethamine (Toradol) 10 Mg Tab 1 TAB PO Q6HPRN PRN for pain for 5 Days, #20 TAB 0 Refills Prov: HERSON BURCH MD 02/15/25 Additional Instructions: You will experience increased muscular and skeletal pain over the next few days. These are best treated with ibuprofen and Tylenol. Referrals: LEONARDA SMILEY (PCP) HERSON BURCH MD February 14, 2025 22:38
[2025-02-14] MEDS: CYCLOBENZAPRINE HCL 10 MG TABLET PO ONE (23:54)
[2025-02-14] MEDS: ketOROlac 30MG VIAL (30MG/ML) IVP ONE (23:54)
[2025-02-14] MEDS: LACTATED RINGERS 1000ML IV STA (23:55)
[2025-02-15] MEDS ORDERED: KETO10 PO (00:47)
[2025-02-15] MEDS: INSULIN humuLIN R 100 UNIT/ML 3ML SQ ONE (01:28)
[2025-02-15 01:40] VITALS: BP 135/74; PULSE 64; RESP 16; TEMP 98.3; O2SAT 97
--- NOTE | 2025-02-15 01:46 | NUR ---
REFER TO MICHAEL KATHEET
--- NOTE | 2025-02-15 07:54 | EKG ---
[facility] Test Date: 2025-02-14 Test Time: 22:29:58 Pat Name: CHEMO WILHELM Department: ED Room: Gender: M Last Chalker: [id number] : 1965 Requested By: HERSON BURCH Order Number: [id number] Reading MD: Merritt Walton Measurements Intervals [place] Rate: 71 P: 0 VA: 0 QRS: 241 QRSD: 130 T: 43 QT: 465 QTc: 507 Interpretive Statements Afib/flutter and ventricular-paced rhythm Compared to ECG 01/30/2025 17:02:05 No significant changes Electronically Signed On 02-15-2025 15:51:59 CDT by Merritt Walton Please click the below link to view image of tracing.
--- NOTE | 2025-02-15 09:35 | HMCIMG ---
KNEE 3VWS LT HISTORY: Status post fall COMPARISON: None TECHNIQUE: 3 images of left knee were obtained. FINDINGS: There is no acute displaced fracture or dislocation. Degenerative changes are seen. IMPRESSION: 1. Findings as described above.
--- NOTE | 2025-02-15 09:35 | HMCIMG ---
SHOULDER COMP 2+VWS LT HISTORY: Status post fall COMPARISON: None TECHNIQUE: 2 images of left shoulder were obtained. 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 There is no acute displaced fracture or dislocation. Degenerative changes are seen. IMPRESSION: 1. Findings as described above.
--- NOTE | 2025-02-15 09:36 | HMCIMG ---
WRIST COMP 3+VWS RT HISTORY: Trauma COMPARISON: None TECHNIQUE: 3 images of right wrist were obtained. FINDINGS: There is no acute displaced fracture or dislocation. Degenerative changes are seen. IMPRESSION: 1. Findings as described above.
== END 2025-02-15 01:40 | disposition home or self-care (01) ==
LOC: EDH 21:36
DX: M25.562 Pain in left knee (principal); M25.531 Pain in right wrist; M25.512 Pain in left shoulder; R42 Dizziness and giddiness; R07.89 Other chest pain; E03.9 Hypothyroidism, unspecified; E11.9 Type 2 diabetes mellitus without complications; I11.9 Hypertensive heart disease without heart failure; Z79.01 Long term (current) use of anticoagulants; Z79.02 Long term (current) use of antithrombotics/antiplatelets; Z79.52 Long term (current) use of systemic steroids; Z79.82 Long term (current) use of aspirin; Z79.84 Long term (current) use of oral hypoglycemic drugs; Z79.890 Hormone replacement therapy; Z79.899 Other long term (current) drug therapy; Z95.810 Presence of automatic (implantable) cardiac defibrillator; W18.39XA Other fall on same level, initial encounter; Y93.89 Activity, other specified; Y92.89 Other specified places as the place of occurrence of the external cause; Y99.8 Other external cause status
CPT/HCPCS: 99285; 70450; 96374; 96361; 80048; 85025; 82948; 36415; 73562; 73030; 73110; 72125; 71260; 74177; 93005; J1885; J7120; Q9967

== ENCOUNTER → 2025-02-19 | Outpatient (CLI) | payer BC, MEDICARE ==
[~2025-02-19] MED LIST changes: +AZIT250T9 PO; +KETO10 PO; +METH4TAB15 PO; +OXYC-30 PO; +TRAZ-185 PO
== END | disposition home or self-care (01) ==
LOC: WHH 07:51
PROVIDERS: ATTEND Family Medicine
DX: E11.621 Type 2 diabetes mellitus with foot ulcer (principal); L97.525 Non-pressure chronic ulcer of other part of left foot with muscle involvement without evidence of necrosis; L84 Corns and callosities; E11.51 Type 2 diabetes mellitus with diabetic peripheral angiopathy without gangrene; E11.40 Type 2 diabetes mellitus with diabetic neuropathy, unspecified; E11.22 Type 2 diabetes mellitus with diabetic chronic kidney disease; I13.0 Hypertensive heart and chronic kidney disease with heart failure and stage 1 through stage 4 chronic kidney disease, or unspecified chronic kidney disease; I50.22 Chronic systolic (congestive) heart failure; N18.9 Chronic kidney disease, unspecified; E03.9 Hypothyroidism, unspecified; I48.91 Unspecified atrial fibrillation; G47.30 Sleep apnea, unspecified; E78.5 Hyperlipidemia, unspecified; G89.4 Chronic pain syndrome; M19.90 Unspecified osteoarthritis, unspecified site; F41.9 Anxiety disorder, unspecified; Z79.899 Other long term (current) drug therapy; Z85.05 Personal history of malignant neoplasm of liver
CPT/HCPCS: 99214; A4450

== ENCOUNTER 2025-02-22 19:28 | Emergency (ER) | payer BC, MEDICARE ==
[~2025-02-22] VITALS: Ht 182.9 cm; Wt 117.9 kg
[~2025-02-22 19:28] MED LIST changes: -AZIT250T9 PO; -METH4TAB15 PO; -OXYC-30 PO; -TRAZ-185 PO
--- NOTE | 2025-02-22 19:41 | EKG ---
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
[2025-02-22 19:43] LABS: BASOPHILS # (AUTO) 0.01 K/uL (0.00-0.20); BASOPHILS % (AUTO) 0.3 % (0.0-5.0); EOSINOPHILS # (AUTO) 0.01 K/uL (0.00-0.70); EOSINOPHILS % (AUTO) 0.3 % (0.0-8.0); HEMATOCRIT 43.3 % (42-54); IMMATURE GRANULOCYTE ABSOLUTE 0.01 K/uL (0-1); LYMPHOCYTES # (AUTO) 0.4 K/uL (1.0-4.8); LYMPHOCYTES % (AUTO) 10.6 % (21.0-51.0); MEAN CORPUSCULAR HEMOGLOBIN 28.8 pg (27.0-33.0); MEAN CORPUSCULAR HGB CONC 33.5 g/dL (32.0-36.0); MEAN CORPUSCULAR VOLUME 85.9 fL (79-99); MONOCYTES # (AUTO) 0.2 K/uL (0.1-1.0); NEUTROPHILS % (AUTO) 83.5 % (40.0-77.0); NUCLEATED RED BLOOD CELLS 0.6 % (0.0-0.19); PLATELET COUNT (AUTO) 73 K/uL (130-400); RED BLOOD CELL COUNT(AUTO) 5.04 MIL/uL (4.50-6.20); RED CELL DISTRIBUTION WIDTH 13.6 % (11.0-15.5); WHITE BLOOD COUNT (AUTO) 3.6 K/uL (4.8-10.8)
[2025-02-22] MEDS: acetaMINOPHEN 325 MG TAB ONE (19:44)
[2025-02-22] MEDS: acetaMINOPHEN 325 MG TAB PO ONE (19:45)
[2025-02-22 19:59] LABS: CREATININE 1.2 mg/dL (0.5-1.3); POTASSIUM 4.5 mmol/L (3.5-5.1)
[2025-02-22] MEDS: ketOROlac 15MG/ML VIAL (15MG/ML) IV ONE (20:00)
[2025-02-22 20:06] LABS: APPEARANCE,URINE CLEAR (CLEAR); BILIRUBIN,URINE NEGATIVE (NEGATIVE); COLOR,URINE LIGHT-YELLOW (YELLOW); GLUCOSE, URINE (UA) >=1000 mg/dL (NEGATIVE); KETONES,URINE NEGATIVE (NEGATIVE); LEUKOCYTE ESTERASE ,URINE NEGATIVE Leu/uL (NEGATIVE); NITRATE,URINE NEGATIVE (NEGATIVE); OCCULT BLOOD,URINE SMALL (NEGATIVE); PH,URINE 5.5 (5.0-8.0); PROTEIN,URINE 30 mg/dL (NEGATIVE); UROBILINOGEN,URINE 0.2 mg/dL (0.2-1.0)
[2025-02-22 20:07] LABS: B-TYPE NATRIURETIC PEPTIDE 212 pg/mL (0-100)
[2025-02-22 20:09] LABS: BACTERIA,URINE RARE /HPF (None Seen); MUCUS,URINE RARE LPF (None Seen); SQUAMOUS EPITHELIAL CELL,UR RARE /HPF (0-2); YEAST,URINE BUDDING FEW /HPF (None Seen)
[2025-02-22 20:13] LABS: RAPID GROUP A STREP negative (NEGATIVE)
[2025-02-22 20:20] LABS: COVID19 (SARS ANTIGEN RAPID) PRESUMPTIVE NEGATIVE (NEGATIVE); INFLUENZA TYPE A Negative For Type A (NEGATIVE); INFLUENZA TYPE B Negative For Type B (NEGATIVE)
--- NOTE | 2025-02-22 21:08 | HMCIMG ---
INDICATION: chest pain TECHNIQUE: CHEST 1VW COMPARISON: 02/14/2025 FINDINGS AND IMPRESSION: Prominent bilateral interstitial markings which may represent bronchitis or vascular congestion in the proper clinical setting. Right chest port and left-sided pacemaker are noted. Cardiac silhouette is within normal limits. Mild degenerative changes of the spine. The visualized upper abdomen appears unremarkable.
[2025-02-22 21:49] VITALS: BP 145/62; TEMP 99.5; O2SAT 98
[2025-02-22 21:57] VITALS: PULSE 86; RESP 20
[2025-02-22] MEDS: IpraTROPium/alBUTERol SULFATE 3 ML SOLUTION IH ONE (21:57)
--- NOTE | 2025-02-22 22:09 | ERN ---
General Chief Complaint: Chest Pain Stated Complaint: FEVER, BACK PAIN, CHEST DISCOMFORT Time Seen by MD: 19:30 Time Seen by Midlevel: 19:30 Source: patient, EMS History of Present Illness Initial Comments 59-year-old male who presents to the emergency department by EMS due to chest pain. Patient reports mid chest pressure, cough and high blood pressure onset 1600. Per EMS patient had a fever. He also states to be having hip pain since his fall one week ago, patient was previously evaluated in the ED after his fall. Patient denies any abdominal pain, nausea, vomiting, headache, difficulty breathing or further associated symptoms. He was administered 324 mg of aspirin and nitroglycerin by EMS, verbalized pain has now resolved. PMHx liver cancer, DM, HTN, sleep apnea. Patient receives chemo treatment weekly. Allergies: Coded Allergies: No Known Drug Allergies (Verified Allergy, Unknown, 03/28/24) Home Meds Active Scripts Azithromycin (Azithromycin) 250 Mg Tablet, 1 TAB PO AD for 5 Days, #6 TAB 0 Refills 2 the first day followed by 1 for days 2-5 Prov:SHAI DAUGHERTY 02/22/25 Methylprednisolone (Methylprednisolone) 4 Mg Tab.ds.pk, 0 PO AD, #21 TAB 0 Refi lls take 6 Pills Day 1, 5 Pills Day 2, 4 Pills Day 3, 3 Pills Day 4, 2 Pills Day 5 and 1 pill Day 6 Prov:SHAI DAUGHERTY 02/22/25 Ketorolac Tromethamine (Toradol) 10 Mg Tab, 1 TAB PO Q6HPRN PRN for pain for 5 Days, #20 TAB 0 Refills Prov:HERSON BURCH MD 02/15/25 Fluconazole (Fluconazole) 200 Mg Tablet, 1 TAB PO DAILY for 10 Days, #10 TAB 0 Refills Prov:JENNIFER NUNEZ MD 02/02/25 Prednisone (Prednisone) 20 Mg Tablet, 40 MG PO DAILY for 7 Days, #14 TAB Prov:JENNIFER NUNEZ MD 02/02/25 Reported Medications Aspirin (Aspirin) 81 Mg Tab.chew, 1 TAB PO DAILY for 30 Days, #30 TAB 0 Refills 01/30/25 Tramadol Hcl (Tramadol HCl) 50 Mg Tablet, 1 TAB PO Q6HPRN PRN for PAIN LEVEL 5 TO 10 01/30/25 Hum Insulin NPH/Reg Insulin Hm (Humulin 70/30) 100 Unit/Ml (70-30) Inj, 50 UNITS SQ DAILYDINNER, ML 01/30/25 Hum Insulin NPH/Reg Insulin Hm (Humulin 70/30) 100 Unit/Ml (70-30) Inj, 40 UNITS SQ AM 01/30/25 Alprazolam (Alprazolam) 0.5 Mg Tablet, 1 TAB PO BID PRN for ANXIETY/AGITATION 01/30/25 Empagliflozin (Jardiance) 25 Mg Tablet, 1 TAB PO DAILY 01/30/25 Torsemide (Torsemide) 10 Mg Tablet, 1 TAB PO DAILY 01/30/25 Clopidogrel Bisulfate (Clopidogrel) 75 Mg Tablet, 1 TAB PO DAILY 01/30/25 Gabapentin (Neurontin) 300 Mg Capsule, 1 CAP PO TID 01/30/25 Baclofen (Baclofen) 5 Mg Tablet, 1 TAB PO TID 01/30/25 Cilostazol (Cilostazol) 100 Mg Tablet, 1 TAB PO BID 01/30/25 Apixaban (Eliquis) 5 Mg Tablet, 1 TAB PO BID 01/30/25 Carvedilol (Carvedilol) 3.125 Mg Tablet, 1 TAB PO BID 01/30/25 Sacubitril/Valsartan (Entresto 49 mg-51 mg Tablet) 49 Mg-51 Mg Tablet, 1 TAB PO BID 01/30/25 Spironolactone (Spironolactone) 25 Mg Tablet, 1 TAB PO DAILY 01/30/25 Levothyroxine Sodium (Levothyroxine Sodium) 25 Mcg Tablet, 1 TAB PO DAILY 01/30/25 Past Medical History Past Medical History: Cancer, Diabetes-Type II, Heart Disease, Hypertension, Other Medical History Other: SLEEP APNEA Past Surgical History: Unknown Surgical History Other: RIGHT KNEE, STENTS TO LEFT LEG AND LEFT HIP Family History Family History: CAD, DM, HTN Social History Social History: Lives with family ROS Dictation Constitutional: Positive fever Negative for chills, and weight loss Eyes: Negative for injury, pain,redness, and discharge ENT: Negative for injury,pain or swelling Cardiovascular: Positive chest pain Negative for palpitations, and edema Respiratory: Positive cough Negative for shortness of breath, and wheezing, Abdomen/GI: Negative for abdominal pain, nausea, vomiting, diarrhea, and const ipation Back: Negative for injury and pain : Negative for painful urination, bleeding or discharge MS/Extremity: Positive hip pain Negative for injury and deformity Skin: Negative for rash, and discoloration Neuro: Negative for headache, weakness, numbness, tingling, and seizure Psych: Negative for suicide ideation, homicidal ideation, and hallucinations Physical Exam Physical Exam Dictation General: awake, alert, no acute distress Head/Face: Normocephalic, atraumatic Eyes: PERRL, EOMI, normal conjunctiva ENT: oral cavity clear, oral mucosa moist Neck: Supple, normal range of motion Cardiovascular: RRR, normal S1/S2 Respiratory: CTAB, no respiratory distress, no rales or wheezes Abdomen: Soft, non-tender, non-distended, normal bowel sounds, no guarding or rebound. Skin: Warm, dry, normal turgor, no rash MS/Extremity: Pulses equal, no cyanosis, neurovascular intact, FROM Neuro: COAx4, GCS 15, strength 5/5, CN 2-12 intact, normal cerebellar exam, normal gait, Psych: Normal behavior, mood, and affect normal Results Laboratory and Microbiology Lab and Micro Result Laboratory Tests Test 02/22/25 19:37 02/22/25 19:40 02/22/25 19:55 02/22/25 20:42 White Blood Count 3.6 K/uL (4.8-10.8) L Red Blood Count 5.04 MIL/uL (4.50-6.20) Hemoglobin 14.5 g/dL (14.0-18.0) Hematocrit 43.3 % (42-54) Mean Corpuscular Volume 85.9 fL (79-99) Mean Corpuscular Hemoglobin 28.8 pg (27.0-33.0) Mean Corpuscular Hemoglobin Concent 33.5 g/dL (32.0-36.0) Red Cell Distribution Width 13.6 % (11.0-15.5) Platelet Count 73 K/uL (130-400) L Mean Platelet Volume 9.1 fL (7.5-10.5) Immature Granulocyte % (Auto) 0.3 % (0-1) Neutrophils (%) (Auto) 83.5 % (40.0-77.0) H Lymphocytes (%) (Auto) 10.6 % (21.0-51.0) L Monocytes (%) (Auto) 5.0 % (3.0-13.0) Eosinophils (%) (Auto) 0.3 % (0.0-8.0) Basophils (%) (Auto) 0.3 % (0.0-5.0) Neutrophils # (Auto) 3.0 K/uL (1.8-7.7) Lymphocytes # (Auto) 0.4 K/uL (1.0-4.8) L Monocytes # (Auto) 0.2 K/uL (0.1-1.0) Eosinophils # (Auto) 0.01 K/uL (0.00-0.70) Basophils # (Auto) 0.01 K/uL (0.00-0.20) Absolute Immature Granulocyte (auto 0.01 K/uL (0-1) Nucleated Red Blood Cells 0.6 % (0.0-0.19) H Sodium Level 137 mmol/L (136-145) Potassium Level 4.5 mmol/L (3.5-5.1) Chloride Level 102 mmol/L (101-111) Carbon Dioxide Level 31 mmol/L (21-32) Blood Urea Nitrogen 22 mg/dL (7-18) H Creatinine 1.2 mg/dL (0.5-1.3) Glomerular Filtration Rate Calc 70 mL/min (>90) Random Glucose 213 mg/dL (70-105) H Lactic Acid Level 1.3 mmol/L (0.8-2.5) Total Calcium 8.4 mg/dL (8.5-10.1) L Troponin I High Sensitivity 12 ng/L (4-75) 14 ng/L (4-75) B-Type Natriuretic Peptide 212 pg/mL (0-100) H Influenza Type A Antigen Negative For Type A Influenza Type B Antigen Negative For Type B SARS-CoV-2 Antigen (Rapid) PRESUMPTIVE NEGATIVE Group A Streptococcus Rapid negative (NEGATIVE) Urine Color LIGHT-YELLOW (YELLOW) Urine Appearance CLEAR (CLEAR) Urine pH 5.5 (5.0-8.0) Urine Specific [place] 1.022 (1.001-1.031) Urine Protein 30 mg/dL (NEGATIVE) H Urine Glucose (UA) >=1000 mg/dL (NEGATIVE) H Urine Ketones NEGATIVE mg/dL (NEGATIVE) Urine Occult Blood SMALL (NEGATIVE) H Urine Nitrate NEGATIVE (NEGATIVE) Urine Bilirubin NEGATIVE mg/dL (NEGATIVE) Urine Urobilinogen 0.2 mg/dL (0.2-1.0) Urine Leukocyte Esterase NEGATIVE Criss/uL Urine RBC 2-5 /HPF (0-1) H Urine WBC 2-5 /HPF (0-1) H Urine Squamous Epithelial Cells RARE /HPF (0-2) Urine Bacteria RARE /HPF (None Seen) Urine Yeast FEW /HPF (None Seen) Labs Reviewed?: Yes EKG/XRAY/US/CT/MRI EKG Comment Date: 02/22/2025 Time: 1937 Rate: 74 EKG interpretation: AFib/flutter and ventricular paced rhythm, rate controlled, no STEMI Reviewed by ED Attending X-RAY Comment REASON: chest pain ORDERING PHYSICIAN: SHAI DAUGHERTY PROCEDURE: CXR1VW - CHEST 1VW INDICATION: chest pain TECHNIQUE: CHEST 1VW COMPARISON: 02/14/2025 FINDINGS AND IMPRESSION: Prominent bilateral interstitial markings which may represent bronchitis or vascular congestion in the proper clinical setting. Right chest port and left-sided pacemaker are noted. Cardiac silhouette is within normal limits. Mild degenerative changes of the spine. The visualized upper abdomen appears unremarkable. DICTATED BY: CANDELARIA SHI MD DATE: 02/22/252103 MDM MDM: Differential diagnosis: Viral illness, SARs, influenza, [place], arrhythmia, ACS Rationale:59-year-old male who presents to the emergency department by EMS due to chest pain. Patient reports mid chest pressure, cough and high blood pressure onset 1600. Per EMS patient had a fever. He also states to be having hip pain since his fall one week ago, patient was previously evaluated in the ED after his fall. Patient denies any abdominal pain, nausea, vomiting, headache, difficulty breathing or further associated symptoms. He was administered 324 mg of aspirin and nitroglycerin by EMS, verbalized pain has now resolved. PMHx liver cancer, DM, HTN, sleep apnea. Patient receives chemo treatment weekly. Labs obtained indicate leukopenia 3.6, BNP 212, UA negative for urinary tract infection, influenza, SARs, strep negative. Chest x-ray obtained indicating prominent bilateral interstitial markings representing bronchitis, right chest port, and pacemaker, mild degenerative changes of the spine. Patient was administered DuoNeb treatment, ketorolac in the ED. On re-examination patient is in no acute distress, denies any shortness of breath, or chest pain. Patient's vitals within normal limits. Patient was educated on findings and diagnosis. Advised to follow up with PCP. Return to the emergency department if any worsening symptoms. Patient verbalized understanding. Patient stable for discharge. There are no social concerns with this patient. I independently interpreted the test that were performed, results were reviewed by me and considered findings on radiology if ordered. Medical management and examination interpretation discussions were had by me with other qualified healthcare professionals as indicated for the patient's care. ED Course Orders Procedure Category Date Status Time Cbc With Differential LAB 02/22/25 Complete 19:30 Basic Metabolic Panel LAB 02/22/25 Complete 19:30 Urinalysis LAB 02/22/25 Complete W/Microscopic 19:30 Troponin I High LAB 02/22/25 Complete Sensitivity 19:30 12 Lead Ekg Tracing- EKG 02/22/25 Complete Technical 19:30 B-Type Natriuretic LAB 02/22/25 Complete Peptide 19:30 Chest 1vw RAD 02/22/25 Resulted 19:30 Covid19 (Sars Antigen LAB 02/22/25 Complete Rapid) 19:37 Influenza Type A & B, LAB 02/22/25 Complete Rapid 19:37 Rapid (Group A Strep) LAB 02/22/25 Complete 19:37 Lactic Acid LAB 02/22/25 Complete 19:37 Acetaminophen 325 Tab PHA 02/22/25 Complete (Tylenol 325mg Tab 20:00 Acetaminophen 325 Tab PHA 02/22/25 Complete (Tylenol 325mg Tab 19:41 Ketorolac PHA 02/22/25 Complete Tromethamine 15mg/Ml 20:00 Troponin I High LAB 02/22/25 Complete Sensitivity 20:34 Hip Bilat 3-4vw RAD 02/22/25 Taken 21:27 Ipratropium/Albuterol PHA 02/22/25 Complete Neb (Duoneb) 21:30 Current Medications Medications (Trade) Dose Ordered Sig/Efrem Route PRN Reason Start Time Stop Time Status Last Admin Dose Admin Acetaminophen (TYLenol 325MG TAB) 325 mg STK-MED ONCE .ROUTE 02/22/25 19:41 02/22/25 19:42 DC Acetaminophen (TYLenol 325MG TAB) 650 mg ONCE ONCE PO 02/22/25 20:00 02/22/25 20:01 DC Albuterol (DUOneb) 1 udvial ONCE ONCE IH 02/22/25 21:30 02/22/25 21:31 DC 02/22/25 21:57 Ketorolac Tromethamine (toRADol) 15 mg ONCE ONCE IV 02/22/25 20:00 02/22/25 20:01 DC 02/22/25 20:00 Vital Signs Date Time Temp Pulse Resp B/P (MAP) Pulse Ox O2 Delivery O2 Flow Rate FiO2 02/22/25 21:57 86 20 02/22/25 21:49 99.5 82 18 145/62 98 Room Air* 0 21 02/22/25 19:48 100.0 78 18 143/62 98 Room Air* 0 21 02/22/25 19:30 100.8 73 18 169/81 95 Room Air 0 DX & DISP Disposition: Discharge Departure Impression: Primary Impression: Acute bronchitis Condition: Stable Scripts Azithromycin (Azithromycin) 250 Mg Tablet 1 TAB PO AD for 5 Days, #6 TAB 0 Refills 2 the first day followed by 1 for days 2-5 Prov: SHAI DAUGHERTY 02/22/25 Methylprednisolone (Methylprednisolone) 4 Mg Tab.ds.pk 0 PO AD, #21 TAB 0 Refills take 6 Pills Day 1, 5 Pills Day 2, 4 Pills Day 3, 3 Pills Day 4, 2 Pills Day 5 and 1 pill Day 6 Prov: SHAI DAUGHERTY 02/22/25 Additional Instructions: Discharge home. Rest. Follow up with primary care DrRadha in 24 hours. Return to the ER for any acute changes or worsening symptoms. If any medications were prescribed take as directed. Okay to continue home medications unless otherwise discussed during your visit in the emergency room today. Patient was also advised to follow-up with primary care physician in 1 to 2 days for continued monitoring. Referrals: LEONARDA SMILEY (PCP) I performed the substantive portion of the visit. I have reviewed and personal ly made and approve the management plan that is documented in the notes by myself or the HO[facility]. I acknowledge full responsibility for the patient's management plan. SHAI DAUGHERTY February 22, 2025 22:09
[2025-02-22] MEDS ORDERED: AZIT250T9 PO (22:32)
[2025-02-22] MEDS ORDERED: METH4TAB15 PO (22:32)
--- NOTE | 2025-02-23 09:39 | HMCIMG ---
Exam Type: HIP BILAT 3-4VW Clinical Information: pain Comparison: None Findings: The bone examination is unremarkable. No fractures or dislocations are seen. No radiopaque foreign bodies are noted. Left iliac vascular stent seen. IMPRESSION: Normal bone examination.
== END 2025-02-22 22:39 ==
LOC: EDH 19:28
DX: J20.9 Acute bronchitis, unspecified (principal); E11.9 Type 2 diabetes mellitus without complications; I10 Essential (primary) hypertension; Z79.01 Long term (current) use of anticoagulants; Z79.02 Long term (current) use of antithrombotics/antiplatelets; Z79.52 Long term (current) use of systemic steroids; Z79.82 Long term (current) use of aspirin; Z79.84 Long term (current) use of oral hypoglycemic drugs; Z79.890 Hormone replacement therapy; Z79.899 Other long term (current) drug therapy; Z85.05 Personal history of malignant neoplasm of liver; Z95.0 Presence of cardiac pacemaker; Z20.822 Contact with and (suspected) exposure to COVID-19
CPT/HCPCS: 99284; 96374; 71045; 87426; 84484 ×2; 80048; 83880; 85025; 87880; 87804 ×2; 83605; 81001; 36415; 73522; 93005; 94640; J1885

== ENCOUNTER 2025-02-26 00:09 | Observation (INO) | payer BC, MEDICARE ==
[~2025-02-26] VITALS: Ht 182.9 cm; Wt 118.4 kg
[~2025-02-26 00:09] MED LIST changes: +AZIT250T9 PO; +METH4TAB15 PO
[2025-02-26 01:16] LABS: BASOPHILS # (AUTO) 0.02 K/uL (0.00-0.20); BASOPHILS % (AUTO) 0.3 % (0.0-5.0); HEMATOCRIT 35.4 % (42-54); IMMATURE GRANULOCYTE ABSOLUTE 0.04 K/uL (0-1); LYMPHOCYTES # (AUTO) 0.2 K/uL (1.0-4.8); LYMPHOCYTES % (AUTO) 3.3 % (21.0-51.0); MEAN CORPUSCULAR HEMOGLOBIN 28.5 pg (27.0-33.0); MEAN CORPUSCULAR HGB CONC 33.6 g/dL (32.0-36.0); MEAN CORPUSCULAR VOLUME 84.7 fL (79-99); MONOCYTES % (AUTO) 0.3 % (3.0-13.0); NEUTROPHILS # (AUTO) 6.4 K/uL (1.8-7.7); NEUTROPHILS % (AUTO) 95.5 % (40.0-77.0); PLATELET COUNT (AUTO) 90 K/uL (130-400); RED BLOOD CELL COUNT(AUTO) 4.18 MIL/uL (4.50-6.20); RED CELL DISTRIBUTION WIDTH 13.7 % (11.0-15.5); WHITE BLOOD COUNT (AUTO) 6.7 K/uL (4.8-10.8)
[2025-02-26 01:31] LABS: ALANINE AMINOTRANSFERASE 41 U/L (12-78); ALBUMIN 2.6 g/dL (3.5-5.0); ALCOHOL, BLOOD < 3 mg/dL (0-10); AMMONIA 11 umol/L (11-32); ASPARTATE AMINOTRANSFERASE 29 U/L (10-37); BILIRUBIN,TOTAL 0.6 mg/dL (0.2-1.0); CARBON DIOXIDE 23 mmol/L (21-32); CHLORIDE 104 mmol/L (101-111); CREATINE KINASE, TOTAL 39 U/L (21-232); CREATININE 1.4 mg/dL (0.5-1.3); GLOMERULAR FILTR. RATE CALC 58 mL/min (>90); POTASSIUM 4.7 mmol/L (3.5-5.1); SODIUM SERUM 135 mmol/L (136-145); TOTAL PROTEIN, SERUM 6.3 g/dL (6.0-8.3); UREA NITROGEN, BLOOD 43 mg/dL (7-18)
--- NOTE | 2025-02-26 01:54 | ERN ---
ED Note History of Present Illness Stated Complaint: C/O PAIN TO LEG,KNEES, LEFT ELBOW, CHEST WALL PAIN Chief Complaint: Mechanical Fall Time Seen by MD: 00:26 Dictation: This is a 59-year-old male who presented to the emergency room with a history of fall and pain to the knees elbows and basically states everything hurts. He was recently seen on 02/22. And in review of records he is in the emergency room at least 3-4 times in a month. He has been undergoing chemotherapy for liver cancer. He stated that he has had severe chronic back pain as well as cancer- related pain and he has only been given tramadol which he says does not do anything. Works daily and even on days after getting chemotherapy usually goes back to work. Stated that he lives in pain everyday and he was extremely uncomfortable during my evaluation due to pain mostly on the left side of the body no loss of consciousness. His support system at home is very limited. 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 His son who is 19 years old helps him. He also stated that he has been feeling discouraged due to the side effects of chemotherapy, full-time job and responsibilities at home and living in constant pain he denied being suicidal or feeling hopeless. In addition he reported that he has been having difficulty with oral ulcerations and he is unable to swallow or eat. Temperature 98.2� pulse 69 respirations 20 blood pressure 141/84 with a pulse oximetry of 95% on room air. BMI 35 His chronic medical problems include diabetes mellitus, hypertension, obstructive sleep apnea, morbid obesity, liver cancer on chemotherapy. Scheduled to go to [facility] in May for a month of re-evaluation and new chemotherapy. Patient is also on Eliquis for atrial fibrillation Allergies: Coded Allergies: No Known Drug Allergies (Verified Allergy, Unknown, 03/28/24) Home Meds Active Scripts Trazodone HCl (Trazodone HCl) 50 Mg Tablet, 1 TAB PO HS for 30 Days, #30 TAB 0 Refills Prov:REJI IRENE MD 02/26/25 Oxycodone HCl/Acetaminophen (Endocet 7.5-325 mg Tablet) 7.5 Mg-325 Mg Tablet, 1 TAB PO TIDP PRN for severe pain for 5 Days, #15 TAB 0 Refills Prov:REJI IRENE MD 02/26/25 Azithromycin (Azithromycin) 250 Mg Tablet, 1 TAB PO AD for 5 Days, #6 TAB 0 Refills 2 the first day followed by 1 for days 2-5 Prov:SHAI DAUGHERTY 02/22/25 Methylprednisolone (Methylprednisolone) 4 Mg Tab.ds.pk, 0 PO AD, #21 TAB 0 Refills take 6 Pills Day 1, 5 Pills Day 2, 4 Pills Day 3, 3 Pills Day 4, 2 Pills Day 5 and 1 pill Day 6 Prov:SHAI DAUGHERTY 02/22/25 Ketorolac Tromethamine (Toradol) 10 Mg Tab, 1 TAB PO Q6HPRN PRN for pain for 5 Days, #20 TAB 0 Refills Prov:HERSON BURCH MD 02/15/25 Fluconazole (Fluconazole) 200 Mg Tablet, 1 TAB PO DAILY for 10 Days, #10 TAB 0 Refills Prov:JENNIFER NUNEZ MD 02/02/25 Prednisone (Prednisone) 20 Mg Tablet, 40 MG PO DAILY for 7 Days, #14 TAB Prov:JENNIFER NUNEZ MD 02/02/25 Reported Medications Aspirin (Aspirin) 81 Mg Tab.chew, 1 TAB PO DAILY for 30 Days, #30 TAB 0 Refills 01/30/25 Tramadol Hcl (Tramadol HCl) 50 Mg Tablet, 1 TAB PO Q6HPRN PRN for PAIN LEVEL 5 TO 10 01/30/25 Hum Insulin NPH/Reg Insulin Hm (Humulin 70/30) 100 Unit/Ml (70-30) Inj, 50 UNITS SQ DAILYDINNER, ML 01/30/25 Hum Insulin NPH/Reg Insulin Hm (Humulin 70/30) 100 Unit/Ml (70-30) Inj, 40 UNITS SQ AM 01/30/25 Alprazolam (Alprazolam) 0.5 Mg Tablet, 1 TAB PO BID PRN for ANXIETY/AGITATION 01/30/25 Empagliflozin (Jardiance) 25 Mg Tablet, 1 TAB PO DAILY 01/30/25 Torsemide (Torsemide) 10 Mg Tablet, 1 TAB PO DAILY 01/30/25 Clopidogrel Bisulfate (Clopidogrel) 75 Mg Tablet, 1 TAB PO DAILY 01/30/25 Gabapentin (Neurontin) 300 Mg Capsule, 1 CAP PO TID 01/30/25 Baclofen (Baclofen) 5 Mg Tablet, 1 TAB PO TID 01/30/25 Cilostazol (Cilostazol) 100 Mg Tablet, 1 TAB PO BID 01/30/25 Apixaban (Eliquis) 5 Mg Tablet, 1 TAB PO BID 01/30/25 Carvedilol (Carvedilol) 3.125 Mg Tablet, 1 TAB PO BID 01/30/25 Sacubitril/Valsartan (Entresto 49 mg-51 mg Tablet) 49 Mg-51 Mg Tablet, 1 TAB PO BID 01/30/25 Spironolactone (Spironolactone) 25 Mg Tablet, 1 TAB PO DAILY 01/30/25 Levothyroxine Sodium (Levothyroxine Sodium) 25 Mcg Tablet, 1 TAB PO DAILY 01/30/25 Past Medical History Past Medical History: A-Fib, Diabetes-Type II, Other Additional Past Medical Hx: HX LIVER CA (CHEMO) Surgical History: Pacer/AICD, Other Surgical History Other: HEART CATH (1995); PORTACATH Family History: CAD, DM, HTN Social History: Lives with family RN Note Reviewed/Agreed w/PFSH: Yes Review of System Dictation Constitutional: Negative for fever,chills, and weight loss Eyes: Negative for injury, pain,redness, and discharge ENT: Negative for injury,pain or swelling Cardiovascular: Negative for chest pain, palpitations, and edema Respiratory: Negative for shortness of breath, cough, and wheezing, Abdomen/GI: Negative for abdominal pain, nausea, vomiting, diarrhea, and constipation Back: Negative for injury and pain : Negative for injury, bleeding and discharge MS/Extremity: Negative for injury and deformity reports pain in the left arm, elbow, knee, pelvis, hips Skin: Negative for rash, and discoloration Neuro: Negative for headache, weakness, numbness, tingling, and seizure Psych: Negative for suicide ideation, homicidal ideation, and hallucinations Initial Vital Sign VS Vital Signs Date Time Temp Pulse Resp B/P (MAP) Pulse Ox O2 Delivery O2 Flow Rate FiO2 02/26/25 00:12 98.2 69 20 141/84 95 Room Air 02/26/25 03:34 0 21 Physical Exam Dictation General: awake, alert, NAD morbidly obese extremely pleasant male Head/Face: Normocephalic, atraumatic Eyes: PERRL, EOMI, vision at baseline ENT: oral cavity clear, TMs clear, no signs of infection, mucosal ulcerations of the oral cavity. No obvious thrush Neck: Trachea midline, supple, no nuchal rigidity Cardiovascular: RRR, normal S1/S2, No MRGs, no JVD Respiratory: CTAB, no respiratory distress, No rales or wheezes Abdomen: Soft, non-tender, non-distended, normal bowel sounds, no guarding or rebound. Skin: Warm, dry, normal turgor, no rash MS/Extremity: Pulses equal, no cyanosis, neurovascular intact, FROM Neuro: COAx4, GCS 15, strength 5/5, CN 2-12 intact, normal cerebellar exam, normal gait, Psych: Normal behavior, mood, and affect normal Extremities-t 1+ edema without any palpable cords, Homans sign is negative chronic venous insufficiency Results (Laboratory/Radiology) Laboratory/Radiology Laboratory Tests Test 02/26/25 00:55 White Blood Count 6.7 K/uL (4.8-10.8) Red Blood Count 4.18 MIL/uL (4.50-6.20) L Hemoglobin 11.9 g/dL (14.0-18.0) L Hematocrit 35.4 % (42-54) L Mean Corpuscular Volume 84.7 fL (79-99) Mean Corpuscular Hemoglobin 28.5 pg (27.0-33.0) Mean Corpuscular Hemoglobin Concent 33.6 g/dL (32.0-36.0) Red Cell Distribution Width 13.7 % (11.0-15.5) Platelet Count 90 K/uL (130-400) L Mean Platelet Volume 10.0 fL (7.5-10.5) Immature Granulocyte % (Auto) 0.6 % (0-1) Neutrophils (%) (Auto) 95.5 % (40.0-77.0) H Lymphocytes (%) (Auto) 3.3 % (21.0-51.0) L Monocytes (%) (Auto) 0.3 % (3.0-13.0) L Eosinophils (%) (Auto) 0.0 % (0.0-8.0) Basophils (%) (Auto) 0.3 % (0.0-5.0) Neutrophils # (Auto) 6.4 K/uL (1.8-7.7) Lymphocytes # (Auto) 0.2 K/uL (1.0-4.8) L Monocytes # (Auto) 0.0 K/uL (0.1-1.0) L Eosinophils # (Auto) 0.00 K/uL (0.00-0.70) Basophils # (Auto) 0.02 K/uL (0.00-0.20) Absolute Immature Granulocyte (auto 0.04 K/uL (0-1) Nucleated Red Blood Cells 0.0 % (0.0-0.19) White Cell Morphology Comment See comments Sodium Level 135 mmol/L (136-145) L Potassium Level 4.7 mmol/L (3.5-5.1) Chloride Level 104 mmol/L (101-111) Carbon Dioxide Level 23 mmol/L (21-32) Blood Urea Nitrogen 43 mg/dL (7-18) H Creatinine 1.4 mg/dL (0.5-1.3) H Glomerular Filtration Rate Calc 58 mL/min (>90) Random Glucose 166 mg/dL (70-105) H Total Calcium 8.2 mg/dL (8.5-10.1) L Total Bilirubin 0.6 mg/dL (0.2-1.0) Aspartate Amino Transf (AST/SGOT) 29 U/L (10-37) Alanine Aminotransferase (ALT/SGPT) 41 U/L (12-78) Alkaline Phosphatase 81 U/L (50-136) Ammonia 11 umol/L (11-32) Total Creatine Kinase 39 U/L (21-232) # Troponin I High Sensitivity 9.8 ng/L (4-75) Total Protein 6.3 g/dL (6.0-8.3) Albumin 2.6 g/dL (3.5-5.0) L Serum Alcohol < 3 mg/dL (0-10) Labs Reviewed?: Yes ED Course ED Course Orders Procedure Category Date Status Time Alcohol, Blood LAB 02/26/25 Complete 00: Ammonia LAB 02/26/25 Complete 00: Cardiac Panel LAB 02/26/25 Complete 00:27 Cbc With Differential LAB 02/26/25 Complete 00: Comprehensive LAB 02/26/25 Complete Metabolic Panel 00:27 Chest 1vw RAD 02/26/25 Taken 00: 12 Lead Ekg Tracing- EKG 02/26/25 Complete Technical 00:27 Ct Head/Brain W/O CT 02/26/25 Taken Contrast 00:51 Pelvis 1-2vws RAD 02/26/25 Taken 00:51 Knee 3vws Lt RAD 02/26/25 Taken 00:51 Knee 3vws Rt RAD 02/26/25 Taken 00:51 Ankle Comp 3vws Rt RAD 02/26/25 Taken 00:51 Shoulder Comp 2+Vws Lt RAD 02/26/25 Taken 00:51 Femur 1vw Right RAD 02/26/25 Taken 00:51 Hydromorphone 1 Mg PHA 02/26/25 Complete Inj (Dilaudid 1mg Inj 03:00 Hydromorphone 1 Mg PHA 02/26/25 Complete Inj (Dilaudid 1mg Inj 03:00 Trazodone Hcl PHA 02/26/25 Complete (Desyrel/Oleptro) 03:00 Mag/Alum/Simeth 30ml PHA 02/26/25 Complete (Maalox Plus 30ml) 06:30 Lidocaine Hcl 2% PHA 02/26/25 Complete Viscous (Lidocaine Hcl 06:30 Mag/Alum/Simeth 30ml PHA 02/26/25 Complete (Maalox Plus 30ml) 06:09 Lidocaine Hcl 2% PHA 02/26/25 Complete Viscous (Lidocaine Hcl 06:09 0.9%Nacl 1000ml (Ns PHA 02/26/25 Complete 1000ml) 07:30 Current Medications Medications (Trade) Dose Ordered Sig/Efrem Route PRN Reason Start Time Stop Time Status Last Admin Dose Admin Al Hydroxide/Mg Hydroxide (MAALox PLUS 30ML) 30 ml ONCE ONCE PO 02/26/25 06:30 02/26/25 06:31 DC 02/26/25 06:12 Al Hydroxide/Mg Hydroxide (MAALox PLUS 30ML) 30 ml STK-MED ONCE .ROUTE 02/26/25 06:09 02/26/25 06:10 DC Hydromorphone HCl (DiLAUDid 1MG INJ) 1 mg ONCE ONCE IVP 02/26/25 03:00 02/26/25 02:48 DC Hydromorphone HCl (DiLAUDid 1MG INJ) 1 mg ONCE ONCE IVP 02/26/25 03:00 02/26/25 03:01 DC 02/26/25 03:07 Lidocaine HCl (Lidocaine HCl 2% Viscous) 10 ml ONCE ONCE PO 02/26/25 06:30 02/26/25 06:31 DC 02/26/25 06:12 Lidocaine HCl (Lidocaine HCl 2% Viscous) 15 ml STK-MED ONCE .ROUTE 02/26/25 06:09 02/26/25 06:10 DC Sodium Chloride 1,000 ml @ 0 mls/hr ONCE ONCE IV 02/26/25 07:30 02/26/25 07:31 DC Trazodone HCl (DesyREL/OlepTRO) 50 mg ONCE ONCE PO 02/26/25 03:00 02/26/25 03:01 DC 02/26/25 03:07 Vital Signs Date Time Temp Pulse Resp B/P (MAP) Pulse Ox O2 Delivery O2 Flow Rate FiO2 02/26/25 07:29 96.4 64 18 153/90 99 Room Air* 0 21 02/26/25 05:44 98.2 68 20 142/64 99 Room Air* 0 21 02/26/25 03:34 98.4 64 18 152/84 98 Room Air* 0 21 02/26/25 00:12 98.2 69 20 141/84 95 Room Air We will perform diagnostic labs, advanced imaging and administer medications according to the patient's complaint. Once the results are available, will review and personally interpreted the labs to rule out any acute life- threatening emergency the trach require immediate intervention and treatment. I will then re-evaluate the patient after treatment and diagnostic exams have return to determine whether the patient requires any further testing, can safely be discharged home or need further admission to hospital for additional treatment and evaluation. In view of patient being on Eliquis, multiple radiology films have been obtained Patient needs adequate pain control which is not only chronic from perhaps lumbar radiculopathies however with cancer related pain, patient is currently very under treated. He also has situational depression and would benefit from a low-dose antidepressant to improve his mood. I had a long discussion with the patient about recurrent ER visits and needs to consider long-term his ability to keep working, physical and emotional demands and lack of appropriate support system at home. Patient stated that he enjoys his work and had a great day today until he fell and started experiencing severe pain. He would like to continue to work and does not want to get admitted to the hospital. I recommended that I would observe him in the emergency room and review his imaging studies and if there is no obvious fracture, then I would discharge him to follow up with his oncologist He feels that if he has better pain control, he would function better. He needs referral to for pain management as outpatient 7:00 a.m. as I reassessed him and discussed discharge with him, patient still has severe mucositis due to his antineoplastic therapy and continues to have right ankle pain although the rest of the pain was slightly better since admission. Patient decided to stay in the hospital for pain control as well as severe mucositis management. Medical Decision Making MDM MDM: Differential diagnosis: Recurrent falls, severe mucositis, acute on chronic pain, debility Rationale: Tests considered and ordered secondary to shared decision making include: labs, ECG and radiology Previous outside records reviewed: Old ER visits. Risk of complication and/or morbidity or mortality of patient management: None Medications-Per medication reconciliation Need for hospitalization: Patient does meet criteria for hospitalization. Need for emergency major/minor surgery: No There are no social concerns with this patient. Prescription drug management Prescriptions will include symptomatic care Patient's prior external medical records from other ER visits were reviewed by me as indicated. Prior testing and results from previous visits were reviewed. Prior tests were taken into account with medical decision making and resource utilization, independent historian/historians were used to obtain complete medical history. I independently interpreted the test that were performed, results were reviewed by me and considered findings on radiology if ordered. Medical management and examination interpretation discussions were had by me wit h other qualified healthcare professionals as indicated for the patient's care. Patient is a 59-year-old male coming in due to recurrent falls. Multiple images were taken no acute findings were present. Initially patient did not want to stay at 7:00 a.m. in the morning patient changes mind states he would rather stay as he feels he is not while after go home +there is nobody at home to take care of him. Patient will be admitted under the care of for ongoing management. Problem List Problem List: (1) Recurrent falls while walking (2) Chronic pain syndrome (3) Cancer related pain (4) Hepatocellular carcinoma (5) Diabetes mellitus (6) Lumbar degenerative disc disease (7) Mucositis (ulcerative) due to antineoplastic therapy DX & DISP Disposition: Inpatient Decision to Admit Time: 07:56 Departure Impression: Primary Impression: Recurrent falls while walking Additional Impressions: Chronic pain syndrome, Cancer related pain, Hepatocellular carcinoma, Diabetes mellitus, Mucositis (ulcerative) due to antineoplastic therapy, Failure to thrive Condition: Stable Scripts Trazodone HCl (Trazodone HCl) 50 Mg Tablet 1 TAB PO HS for 30 Days, #30 TAB 0 Refills Prov: REJI IRENE MD 02/26/25 Oxycodone HCl/Acetaminophen (Endocet 7.5-325 mg Tablet) 7.5 Mg-325 Mg Tablet 1 TAB PO TIDP PRN for severe pain for 5 Days, #15 TAB 0 Refills Prov: REJI RIENE MD 02/26/25 Additional Instructions: Patient and the caregiver have been informed of all the diagnostic tests and the imaging conducted during the today's visit to the emergency room and has verbalized understanding of the results I have personally reviewed and interpr eted all diagnostic exams performed here in the ER today as well as the vital signs documented by the nursing staff. The patient is now being discharged to home and should follow up with the primary care physician or the specialist as directed by the ER staff. Follow-up with primary care provider in 1 to 2 days. Take medications as directed here in the emergency room. Okay to continue home medications unless otherwise discussed during your visit in the emergency room today. Return to your nearest emergency room if symptoms worsen or if there is no improvement. Call 911 if you need immediate assistance. Take Tylenol or Motrin [id number] as needed and if no contraindications are present. Increase oral hydration. A wound culture or urine culture was ordered here in the emergency room department please follow-up with primary care provider and advise them to get repeat ports from our facility. If you had any Rohit wrap/splints that were applied here, please do not remove them until you see your primary care or specialty. Referrals: LEONARDA SMILEY (PCP) REJI IRENE MD February 26, 2025 01:53 MO CORDON MD February 26, 2025 07:56
[2025-02-26 01:55] LABS: GLUCOSE,RANDOM 166 mg/dL (70-105)
[2025-02-26] MEDS ORDERED: hydroMORPHone 1 MG INJ IVP ONE (03:00)
[2025-02-26] MEDS: hydroMORPHone 1 MG INJ IVP ONE (03:07)
[2025-02-26] MEDS: trAZOdone HCL 50 MG TAB PO ONE (03:07)
[2025-02-26] MEDS ORDERED: OXYC-30 PO (05:21)
[2025-02-26] MEDS ORDERED: TRAZ-185 PO (05:21)
[2025-02-26] MEDS: MAG/ALUM/SIMETH 30 ML UDCUP ONE (06:11)
[2025-02-26] MEDS: LIDOCAINE HCL 2% VISCOUS 15 ML UDCUP ONE (06:11)
[2025-02-26] MEDS: MAG/ALUM/SIMETH 30 ML UDCUP PO ONE (06:12)
[2025-02-26] MEDS: LIDOCAINE HCL 2% VISCOUS 15 ML UDCUP PO ONE (06:12)
--- NOTE | 2025-02-26 06:31 | EKG ---
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
[2025-02-26] MEDS ORDERED: ondanSETRON 4MG INJ IVP PRN (08:00)
[2025-02-26] MEDS ORDERED: PoTASSium chl 10% ELIXIR 20MEQ 20 MEQ/15 ML UDCUP PO PRN (08:00)
[2025-02-26] MEDS ORDERED: MAGNESIUM 2GM PREMIX 50ML 50 ML IV PRN (08:00)
[2025-02-26] MEDS ORDERED: acetaMINOPHEN 325 MG TAB PO PRN (08:00)
[2025-02-26] MEDS ORDERED: PoTASSium chloRIDE 20MEQ/100ML 100 ML IV PRN (08:00)
[2025-02-26] MEDS ORDERED: PoTASSium chloRIDE 20MEQ ER 20 MEQ ERTAB PO PRN (08:00)
--- NOTE | 2025-02-26 08:20 | HMCIMG ---
Exam Type: CT HEAD/BRAIN W/O CONTRAST Clinical Information: S/P FALL Comparison: None CT Dose Index (CTDI): 57.33 mGy Dose Length Product (DLP): 956.79 total mGy-cm Findings: The examination is unremarkable. Richter-white matter junction is preserved. No intra or extra axial lesions or fluid collections are seen. Specifically, richter and white matter are normal in signal characteristics with normal caliber of ventricles and periventricular cisterns with no evidence of intra or or extra-axial hemorrhage, lacunar infarct, or major territorial infarct, mass, or other abnormality. There are no infarcts. There are no hemorrhages. Periventricular white matter locations are preserved. The orbital contents and structures of the posterior fossa are intact. Impression: Normal CT of the head. This study was performed using dose reduction techniques to include automated exposure control and/or adjustment of the mA and/or kV according to patient size.
--- NOTE | 2025-02-26 08:35 | HMCIMG ---
Exam Type: KNEE 3VWS LT Clinical Information: S/P FALL Comparison: None Findings: The bone examination is unremarkable. No fractures or dislocations are seen. No radiopaque foreign bodies are noted. Soft tissues are preserved. IMPRESSION: Normal examination.
--- NOTE | 2025-02-26 09:09 | HMCIMG ---
Exam Type: KNEE 3VWS RT Clinical Information: S/P FALL Comparison: None Findings: There are degenerative changes with narrowing of the medial femorotibial joint space, with subchondral sclerosis. No acute fractures are seen. The soft tissues appear normal. Impression: Degenerative changes medial compartment.
--- NOTE | 2025-02-26 09:09 | HMCIMG ---
Exam Type: ANKLE COMP 3VWS RT Clinical Information: S/P FALL Comparison: None Findings: No fractures are seen. There is soft tissue swelling over the medial lateral malleolus consistent with ankle sprain. IMPRESSION: Ankle sprain.
--- NOTE | 2025-02-26 09:11 | HMCIMG ---
Exam Type: PELVIS 1-2VWS Clinical Information: S/P FALL Comparison: None Findings: The bone examination is unremarkable. No fractures or dislocations are seen. No radiopaque foreign bodies are noted. Left pelvic vascular stent seen. IMPRESSION: Normal examination.
--- NOTE | 2025-02-26 09:11 | HMCIMG ---
Exam Type: FEMUR 1VW RIGHT Clinical Information: S/P FALL Comparison: None Findings: The bone examination is unremarkable. No fractures or dislocations are seen. No radiopaque foreign bodies are noted. Soft tissues are preserved. IMPRESSION: Normal examination.
--- NOTE | 2025-02-26 09:11 | HMCIMG ---
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 Specifically, the glenohumeral and acromioclavicular joints are preserved. Visualized portions of the humerus, the scapula, and the clavicle as well as the upper ribcage are unremarkable. No pulmonary pathology is noted in the visualized portions of the upper lobe. The soft tissues are preserved. There are no other gross abnormalities. Left cardiac pacemaker is noted with leads in place. IMPRESSION: No acute pathology.
--- NOTE | 2025-02-26 09:12 | HMCIMG ---
Exam Type: CHEST 1VW Clinical Information: dizziness Comparison: None Findings: Right MediPort catheter is seen in place. There is no pneumothorax. The lungs are clear of infiltrates. The heart is enlarged in size. The bony and soft tissue structures of the chest are unremarkable. Left cardiac pacemaker is noted with leads in place. Impression: Clear lungs.
[2025-02-26] MEDS: 0.9%NACL 1000ML 1,000 ML IV ONE (09:18)
[2025-02-26] MEDS: PANTOPrazole 40 MG TAB DR PO SCH (09:18)
--- NOTE | 2025-02-26 09:34 | NUR ---
PT'S TEMPERATURE IS 94.8F TYMPANIC, ORAL/AXILLARY TEMP DID NOT PICKUP.HE'S C/O CHILLS AND SHIVERING WHILE HE HAS 3 BLANKETS AND SOCKS ON. OFFERED TO CHECK RECTAL TEMPERATURE BUT PT DECLINED.CONTINUE MONITORING IT.
--- NOTE | 2025-02-26 09:45 | NUR ---
DCP: HOME Pt currently lives with his son Jose M Nova [phone]. Pt denied any insecurities with food, chcf, and/or utilities. Pt uses a cane to help him move around. 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 Pt reports going to chemo therapy every Tuesday at [facility]. Pt reports that on June 03 he will begin radiation treatments at [facility] for [address] Roldan Bacon and uses [facility] for any RX needs. At [place] pt will return home and family can assist with transportation. Addendum: 02/26/25 at 0950 by JULI MARTINEZ SS Amended: Links added.
--- NOTE | 2025-02-26 11:34 | HP ---
[facility] Date of Service: February 26, 2025 Time of Service: 11:27 HISTORY OF PRESENT ILLNESS: [ ] Admission date 02/26/2025 PCP Jordi Montilla chief complaint: recurrent falls. This is a 59-year-old that presents in ED with complaints of knee pain apparently patient had a fall earlier this morning reports was taking a shower and lost his balance patient reports hitting his knees and elbow. Denies any loss of consciousness. Patient last fall was in Feb 14 2025 while he was in the kitchen and also lost his balance. Patient is currently on chemo therapy received chemo every Tuesday for liver cancer. ER workup shoulder x-ray pelvis x-ray knee bilateral x-ray head CT, femur x-ray ankle x-ray were all negative. Patient does report some soreness behind his neck. Patient denies dizziness double vision blurred vision he is fully alert oriented x3. Labs reviewed WBCs 6.7 Hemoglobin 11.9 hematocrit 35.4 Platelets 90 [id number] creatinine 1.4 Glucose 166 calcium 8.2 Albumin 2.6 1657 charge nurse from ER patient noncompliance patient is left AMA 1730 patient decided to stay: REVIEW OF SYSTEMS A 14 point ROS was obtained all relevant positive documented otherwise ROS negative PAST MEDICAL HISTORY: [ ] Diabetes hypertension hyperlipidemia Liver cancer currently on chemotherapy has received 20 cycles of chemo PAST SURGICAL HISTORY: [ ] Pacemaker, liver biopsy, stent left hip x2 stents left leg PAST SOCIAL HISTORY: [ ] Denies smoking tobacco products and alcohol use. FAMILY HISTORY: [ ] Noncontributory Coded Allergies: No Known Drug Allergies (Verified Allergy, Unknown, 03/28/24) PHYSICAL EXAM GENERAL APPEARANCE: The patient is awake, alert, and oriented, in no acute cardiopulmonary distress. NEUROLOGICAL: Cranial nerves II-XII grossly intact. Motor is 5/5 in bilateral upper and lower extremities proximal to distal. No sensory deficits. HEENT: Face is symmetric. Pupils are equal and reactive. Extraocular movements are intact. NECK: Supple. No JVD. No thyromegaly. No submental, submandibular, pre- /postauricular, occipital or supraclavicular lymphadenopathy. CHEST: Normal chest expansion. No Telemetry. LUNGS: Absence of any rales, rhonchi or any wheezing. CARDIOVASCULAR: Regular. S1 and S2 normal. No appreciable rubs, murmurs or gallops. ABDOMEN: Soft, nontender, and nondistended. There is no rebound, voluntary guarding, or rigidity. : Deferred. No Butt. EXTREMITIES: Non-edematous and not cyanotic. No clubbing. Good capillary refill. SKIN: No skin breakdown. Vital Sign (Last 24 Hours) 02/26/25 09:32 Temp 94.8 Pulse 65 Resp 18 B/P (MAP) 144/68 Pulse Ox 96 O2 Delivery Room Air* O2 Flow Rate 0 FiO2 21 LABS: Laboratory: Test 02/26/25 00:55 Range/Units White Blood Count 6.7 4.8-10.8 K/uL Red Blood Count 4.18 L 4.50-6.20 MIL/uL Hemoglobin 11.9 L 14.0-18.0 g/dL Hematocrit 35.4 L 42-54 % Mean Corpuscular Volume 84.7 79-99 fL Mean Corpuscular Hemoglobin 28.5 27.0-33.0 pg Mean Corpuscular Hemoglobin Concent 33.6 32.0-36.0 g/dL Red Cell Distribution Width 13.7 11.0-15.5 % Platelet Count 90 L 130-400 K/uL Mean Platelet Volume 10.0 7.5-10.5 fL Immature Granulocyte % (Auto) 0.6 0-1 % Neutrophils (%) (Auto) 95.5 H 40.0-77.0 % Lymphocytes (%) (Auto) 3.3 L 21.0-51.0 % Monocytes (%) (Auto) 0.3 L 3.0-13.0 % Eosinophils (%) (Auto) 0.0 0.0-8.0 % Basophils (%) (Auto) 0.3 0.0-5.0 % Neutrophils # (Auto) 6.4 1.8-7.7 K/uL Lymphocytes # (Auto) 0.2 L 1.0-4.8 K/uL Monocytes # (Auto) 0.0 L 0.1-1.0 K/uL Eosinophils # (Auto) 0.00 0.00-0.70 K/uL Basophils # (Auto) 0.02 0.00-0.20 K/uL Absolute Immature Granulocyte (auto 0.04 0-1 K/uL Nucleated Red Blood Cells 0.0 0.0-0.19 % White Cell Morphology Comment See comments Sodium Level 135 L 136-145 mmol/L Potassium Level 4.7 3.5-5.1 mmol/L Chloride Level 104 101-111 mmol/L Carbon Dioxide Level 23 21-32 mmol/L Blood Urea Nitrogen 43 H 7-18 mg/dL Creatinine 1.4 H 0.5-1.3 mg/dL Glomerular Filtration Rate Calc 58 >90 mL/min Random Glucose 166 H 70-105 mg/dL Total Calcium 8.2 L 8.5-10.1 mg/dL Total Bilirubin 0.6 0.2-1.0 mg/dL Aspartate Amino Transf (AST/SGOT) 29 10-37 U/L Alanine Aminotransferase (ALT/SGPT) 41 12-78 U/L Alkaline Phosphatase 81 50-136 U/L Ammonia 11 11-32 umol/L Total Creatine Kinase 39 # 21-232 U/L Troponin I High Sensitivity 9.8 4-75 ng/L Total Protein 6.3 6.0-8.3 g/dL Albumin 2.6 L 3.5-5.0 g/dL Serum Alcohol < 3 0-10 mg/dL Current Medications Medications (Trade) Dose Ordered Sig/Efrem Route PRN Reason Start Time Stop Time Status Last Admin Dose Admin Acetaminophen (TYLenol 325MG TAB) 650 mg Q4H PRN PO TEMPERATURE GREATER THAN 101.5 02/26/25 08:00 03/28/25 07:59 Hydralazine HCl (APRESOLine 20MG INJ) 5 mg Q6H PRN IV ADMINISTER FOR SBP > 160 02/26/25 08:00 03/28/25 07:59 Magnesium Sulfate 50 ml @ 0 mls/hr PROTOCOL PRN IV low mag level 02/26/25 08:00 03/28/25 07:59 Ondansetron HCl (zoFRAN 4MG INJ) 4 mg Q6H PRN IVP NAUSEA/VOMITING 02/26/25 08:00 03/28/25 07:59 Pantoprazole Sodium (PROTonix 40MG TAB) 40 mg DAILY PO 02/26/25 09:00 03/28/25 08:59 02/26/25 09:18 40 MG Potassium Chloride 100 ml @ 100 mls/hr AD PRN IV POTASSIUM PROTOCOL 02/26/25 08:00 03/28/25 07:59 Potassium Chloride (K-Dur/Klor-Con 20meq) 20 meq AD PRN PO POTASSIUM PROTOCOL 02/26/25 08:00 03/28/25 07:59 Potassium Chloride (KCl 10% Elixir 20meq/15ml) 20 meq AD PRN PO POTASSIUM PROTOCOL 02/26/25 08:00 03/28/25 07:59 DIAGNOSTICS / RADIOLOGY: [ ] REASON: S/P FALL ORDERING PHYSICIAN: REJI IRENE MD PROCEDURE: SHOL 2V LT - SHOULDER COMP 2+VWS LT 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 Specifically, the glenohumeral and acromioclavicular joints are preserved. Visualized portions of the humerus, the scapula, and the clavicle as well as the upper ribcage are unremarkable. No pulmonary pathology is noted in the visualized portions of the upper lobe. The soft tissues are preserved. There are no other gross abnormalities. Left cardiac pacemaker is noted with leads in place. IMPRESSION: No acute pathology. REASON: S/P FALL ORDERING PHYSICIAN: REJI IRENE MD PROCEDURE: PELVIS - PELVIS 1-2VWS Exam Type: PELVIS 1-2VWS Clinical Information: S/P FALL Comparison: None Findings: The bone examination is unremarkable. No fractures or dislocations are seen. No radiopaque foreign bodies are noted. Left pelvic vascular stent seen. IMPRESSION: Normal examination. REASON: S/P FALL ORDERING PHYSICIAN: REJI IRENE MD PROCEDURE: KNEE 3V LT - KNEE 3VWS LT Exam Type: KNEE 3VWS LT Clinical Information: S/P FALL Comparison: None Findings: The bone examination is unremarkable. No fractures or dislocations are seen. No radiopaque foreign bodies are noted. Soft tissues are preserved. IMPRESSION: Normal examination. REASON: S/P FALL ORDERING PHYSICIAN: REJI IRENE MD PROCEDURE: HEAD WO - CT HEAD/BRAIN W/O CONTRAST Exam Type: CT HEAD/BRAIN W/O CONTRAST Clinical Information: S/P FALL Comparison: None CT Dose Index (CTDI): 57.33 mGy Dose Length Product (DLP): 956.79 total mGy-cm Findings: The examination is unremarkable. Richter-white matter junction is preserved. No intra or extra axial lesions or fluid collections are seen. Specifically, richter and white matter are normal in signal characteristics with normal caliber of ventricles and periventricular cisterns with no evidence of intra or or extra-axial hemorrhage, lacunar infarct, or major territorial infarct, mass, or other abnormality. There are no infarcts. There are no hemorrhages. Periventricular white matter locations are preserved. The orbital contents and structures of the posterior fossa are intact. Impression: Normal CT of the head. This study was performed using dose reduction techniques to include automated exposure control and/or adjustment of the mA and/or kV according to patient size. REASON: S/P FALL ORDERING PHYSICIAN: REJI IRENE MD PROCEDURE: FEM RT 1 - FEMUR 1VW RIGHT Exam Type: FEMUR 1VW RIGHT Clinical Information: S/P FALL Comparison: None Findings: The bone examination is unremarkable. No fractures or dislocations are seen. No radiopaque foreign bodies are noted. Soft tissues are preserved. IMPRESSION: Normal examination. REASON: S/P FALL ORDERING PHYSICIAN: REJI IRENE MD PROCEDURE: [id number] - ANKLE COMP 3VWS RT Exam Type: ANKLE COMP 3VWS RT Clinical Information: S/P FALL Comparison: None Findings: No fractures are seen. There is soft tissue swelling over the medial lateral malleolus consistent with ankle sprain. IMPRESSION: Ankle sprain. ASSESSMENT: Mechanical fall ground level POA Bilateral knee pain POA GLENYS ATN POA Diabetes type with hyperglycemia Failure to thrive POA Immunosuppressant secondary to liver cancer on chemo POA right ankle sprain POA functional decline: secondary to weakness to lower ext: recurrent falls. POA plan: Admit: Medical-surgical floor, observation condition: Fair Status: Full code IVF: NS at 75 mL/hour Consultants none Antibiotics: None Test: None Labs cbc, cmp, mag+ Replace electrolytes as needed as per protocol to keep potassium above 4.0 magnesium 2.0. Home medications pending to be reviewed by RN nurse. PRN: MEDICATIONS Tylenol 650 mg po every 4 hrs for fever Zofran 4 mg IV every 6 hrs for n/v Hydralazine 5 mg IV every 4 hrs systolic pressure > 160 bowel regiment: lactulose 20 gm PO BID PRN constipation Pain management: Tylenol 3 as directed for pain : lidocaine patch Supportive measures: DVT ppx, GI ppx PT services and treat ; fall precaution. all questions answered time spent: > 35 min Supervising MD: Dr. susana Darling c/d This document was generated in part using voice recognition software, occasional wrong word or sound alike substitutions may have occurred due to the inherent limitations of voice recognition software. Read the chart carefully and recognize using context, where the substitutions have occurred. Although every effort was made to edit the content, certified flight instructor and typing errors may occur PLAN: [ ]ADVANCED CARE PLANNING 1. Which of the following were discussed? Hospice Care - Yes / No Therapeutic options - Yes / No Advance Directives - Yes / No Other discussions - 2. Discussed with who? 3. Voluntary nature of this service was explained to the patient? Yes / No 4. Amount of time spent - 5. Reviewed by Physician? (if this service was performed by NPP) Yes / No ATTESTATION BY PHYSICIAN I have seen and examined the patient. I reviewed the documentation, medical decision making, and treatment plan as noted by the mid-level provider above. I agree with the findings and plan of care. Greta Luciano MD, ELIZABETH NP February 26, 2025 11:34
[2025-02-26] MEDS: hydrALAZine 20MG/ML VIAL IV PRN (11:44)
--- NOTE | 2025-02-26 12:00 | NUR ---
ASSUMED PATIENTS CARE. TEMPERATURE 93.7, BLOOD PRESURE 154/88 MMHG, PULSE 75 P/MIN, O2 SATURATION 98% AT ROOM AIR, RESPIRATIONS 12 P/MIN. PLACED ON A JOYCELYN HUGGER. PATIENT IS ALERT, ORIENTED IN PERSON, TIME, PLACE AND SITUATION. ABLE TO VOIVE NEEDS, VERBALIZED FEELING NO PAIN AT THIS MOMENT. NO SHORTNESS OF BREATH NOTED, PATIENT IS AT ROOM AIR. PIV PATENT. ABDOMINAL SOUNDS PRESENT IN ALL FOUR ABDOMINAL QUADRANTS. DORSALIS PEDIS PULSE PRESENT ON BOTH FEET. PATIENT STATED HE DOES NOT HAVE A LIST OF HIS HOME MEDICATIONS WITH HIM AT THIS MOMENT.
--- NOTE | 2025-02-26 13:47 | NUR ---
CALLED NATASHA CREDIT REPRESENTATIVE FOR HOSPITALIST TO NOTIFY HER THAT PATIENT WAS IN MODERATE PAIN TO HIS LOWER BACK. ( VIEW ORDERS) CALLED PHYSICAL THERAPY TO NOTIFY THEM OF PT VICTORIA, SPOKE WITH TRAVIS; HE VERBALIZED UNDERSTANDING.
--- NOTE | 2025-02-26 13:47 | NUR ---
TEMPERATURE 97.8
[2025-02-26] MEDS: acetaMINOPHEN WITH coDEINE 1 TAB TAB PO PRN (13:52)
--- NOTE | 2025-02-26 14:02 | NUR ---
PATIENT REFUSED TYLENOL/CODEINE BY SLAPPING MY HAND. STATED : "I DONT WANT THAT". WASTED MEDICATION WITH CHARGE NURSE MR. MAITE NIELSEN. CALLED PHARMACY, SPOKE TO MR. TAYLOR, AND NOTIFY HIM OF EVENT.
[2025-02-26] MEDS: LIDOCAINE 4% ADH..PATCH TP ONE (15:23)
[2025-02-26] MEDS ORDERED: PHARMACY COMMUNICATION 1 EACH EACH MISC SCH (15:30)
[2025-02-26] MEDS: traMADol HCL 50 MG TABLET PO PRN (15:50)
[2025-02-26] MEDS: INSULIN humuLIN R 100 UNIT/ML 3ML SQ SCH (15:51)
--- NOTE | 2025-02-26 15:52 | NUR ---
BLOOD GLUCOSE 113. NO INSULIN COVERAGE NEEDED AT THIS TIME.
--- NOTE | 2025-02-26 15:52 | NUR ---
PATIENT TOLERATED JELLO.
[2025-02-26] MEDS ORDERED: COMPOUND PO MISCELLANEOUS 1 EACH MISC MISC PRN (16:00)
--- NOTE | 2025-02-26 16:00 | NUR ---
PATIENT COMPLAINT: OLEKSANDR THE PRIVATE [employer]AN[employer] EXCHANGE INSTALLER HAD CALLED STATING THAT THE PT "CHEMO WILHELM" CALLED STATING THAT HE WAS UNHAPPY THAT HE WAS "NOT BEING CARED FOR" AND IS IN PAIN AND WANTS TO LEAVE. I INTRODUCED MYSELF TO PT AND SAT WHILE LISTENING TO THE PTS CONCERNS AND ISSUES. WE CAME UP W/ A PLAN TO TRY AND RESOLVE AND OR IMPROVE SOME OF THE ISSUES/CONCERNS. ALEX NIELSEN ED DIRECTOR WAS INFORMED. I SPOKE TO KALEB STEELE FORGING PRESS SETTER UP AND SHE AUTHORIZED ADDITIONAL ORDERS FOR PAIN MANAGEMENT, DIET UPGRADE AND ORAL MOUTHWASH ANALGESIA FOR JUST PRIOR TO WHEN HE EATS DUE TO HIS ORAL BLISTERS. PT STATED HE WOULD TRY AND HOLD OFF ON LEAVING AMA UNTIL THE MD SPEAKS W/HIM. SHOULD HE BECOME A LITTLE MORE IMPATIENT AND GO AHEAD AND DECIDE TO LEAVE AMA, HE HAS BEEN INSTRUCTED AND HE AGREED THAT HE WOULD FOLLOW UP W/HIS PRIMARY CARE PHYSICIAN.
[2025-02-26] MEDS: MAG/AL/SIMETH 30 ML+LIDO2% VISC+DIPHEN 75MG 30ML PO SCH (16:29)
--- NOTE | 2025-02-26 16:48 | NUR ---
CALLED MRS. AURELIA LAGUNA TO GIVE HER REPORT. PATIENT WILL BE GOING TO ROOM 308. VITAL SIGNS BEFORE PATIENT GOT TRANSFERED: BLOOD PRESSURE 153/95 MMHG PULSE 76 P/MIN RESPIRATIONS 17 O2 SATURATION 98% TEMPERATURE 97.7
[2025-02-26 17:30] VITALS: BP 127/71; PULSE 77; RESP 17; TEMP 98.2; O2SAT 98
[2025-02-26] MEDS: morPHINE 2 MG SYG IVP ONE (17:44)
[2025-02-26 20:00] VITALS: BP 126/70; PULSE 73; RESP 17; TEMP 98
[2025-02-26] MEDS: morPHINE 4 MG SYG IVP PRN (21:21)
[2025-02-26 23:39] VITALS: BP 125/67; PULSE 67; RESP 18; TEMP 97.7
[2025-02-27 03:33] VITALS: BP 125/81; PULSE 77; RESP 18; TEMP 98
[2025-02-27] MEDS ORDERED: CLOP75TA32 PO (04:13)
[2025-02-27] MEDS ORDERED: SACU1TAB7 PO (04:13)
[2025-02-27] MEDS ORDERED: LEVO25TA54 PO (04:13)
[2025-02-27] MEDS ORDERED: INS7030 SQ ×2 (04:13)
[2025-02-27] MEDS ORDERED: CYCL30DR OU (04:13)
[2025-02-27] MEDS ORDERED: CARV3.12 PO (04:13)
[2025-02-27] MEDS ORDERED: SPIR25TA6 PO (04:13)
[2025-02-27] MEDS ORDERED: METH4TAB15 PO (04:13)
[2025-02-27] MEDS ORDERED: CILO100T3 PO (04:13)
[2025-02-27] MEDS ORDERED: TRAM50TA4 PO (04:13)
[2025-02-27] MEDS ORDERED: AZIT250T9 PO (04:13)
[2025-02-27] MEDS ORDERED: ASPI-1197 PO (04:13)
[2025-02-27] MEDS ORDERED: BACL5TAB PO (04:13)
[2025-02-27] MEDS ORDERED: ALPR0.5T8 PO (04:13)
[2025-02-27] MEDS ORDERED: EMPA25TA PO (04:13)
[2025-02-27] MEDS ORDERED: APIX5TAB PO (04:13)
[2025-02-27] MEDS ORDERED: TORS10TA18 PO (04:13)
[2025-02-27] MEDS ORDERED: TRAZ-185 PO (04:13)
[2025-02-27] MEDS ORDERED: GABA300C PO (04:13)
[2025-02-27 05:36] LABS: BASOPHILS # (AUTO) 0.01 K/uL (0.00-0.20); BASOPHILS % (AUTO) 0.4 % (0.0-5.0); EOSINOPHILS # (AUTO) 0.04 K/uL (0.00-0.70); EOSINOPHILS % (AUTO) 1.6 % (0.0-8.0); HEMATOCRIT 35.3 % (42-54); IMMATURE GRANULOCYTE ABSOLUTE 0.03 K/uL (0-1); LYMPHOCYTES # (AUTO) 0.7 K/uL (1.0-4.8); LYMPHOCYTES % (AUTO) 25.9 % (21.0-51.0); MEAN CORPUSCULAR HEMOGLOBIN 28.3 pg (27.0-33.0); MEAN CORPUSCULAR HGB CONC 32.6 g/dL (32.0-36.0); MEAN CORPUSCULAR VOLUME 86.9 fL (79-99); MONOCYTES % (AUTO) 1.2 % (3.0-13.0); NEUTROPHILS # (AUTO) 1.8 K/uL (1.8-7.7); NEUTROPHILS % (AUTO) 69.7 % (40.0-77.0); PLATELET COUNT (AUTO) 70 K/uL (130-400); RED BLOOD CELL COUNT(AUTO) 4.06 MIL/uL (4.50-6.20); WHITE BLOOD COUNT (AUTO) 2.5 K/uL (4.8-10.8)
[2025-02-27 05:55] LABS: ALBUMIN 2.4 g/dL (3.5-5.0); BILIRUBIN,TOTAL 0.6 mg/dL (0.2-1.0); MAGNESIUM 2.2 mg/dL (1.80-2.40); POTASSIUM 4.8 mmol/L (3.5-5.1); TOTAL PROTEIN, SERUM 5.9 g/dL (6.0-8.3)
[2025-02-27 06:06] LABS: BAND NEUTROPHILS % (MANUAL) 5 % (0-2); BASOPHILS % (MANUAL) 1 % (0-2); EOSINOPHILS % (MANUAL) 1 % (1-6); LYMPHOCYTES % (MANUAL) 25 % (22-44); MAN.DIFF COMMENT-IMPRESSION MANUAL DIFFERENTIAL; PLATELET MORPHOLOGY COMMENT DECREASED; REACTIVE LYMPHOCYTES 1 % (0-0); SEGMENTED NEUTROPHILS % 67 % (40-70); TOTAL CELLS COUNTED 100; WBC MORPHOLOGY REACTIVE LYMPHS 1+
[2025-02-27 08:14] VITALS: BP 145/84; PULSE 79; RESP 16; TEMP 97.9
[2025-02-27 08:20] VITALS: O2SAT 97
[2025-02-27] MEDS: LIDOCAINE 4% ADH..PATCH TP SCH (08:44)
--- NOTE | 2025-02-27 11:41 | NUR ---
[facility] Consult: Patient assessed by wound healing team. See wound assessment. Assessment and recommendations provided to primary nurse. Education provided. Addendum: 02/27/25 at 1318 by ANSLEY TUBBS RN RN/ Amended: Links added.
[2025-02-27 12:00] VITALS: BP 145/86; PULSE 72; RESP 16; TEMP 97.9
--- NOTE | 2025-02-27 12:15 | NUR ---
Nutrition consult per failure to thrive Reviewed labs, notes, and medications. Pt's last admin 01/30/25, on chemotherapy every Tuesday, w/ liver CA, patient has left AMA prior, Pt with complaints in ED, on GI soft/bland + 75 gm cho, sedated, elevated BUN 29, Cr WNL, Ca 8(L) per chart review. Wt via standing scale, last BM 02/26/25, mild pitting, well nourished, w/ great toe ulcer per nursing. Pt denied issues to chew or swallow, has gained wt, no issues with decreased PO intake, NKFA, agreeable to ensure HP QD w/ am tray, did not eat breakfast per food was thickened. Recommendations: -Provide GI soft/bland diet + regular texture, + ensure HP QD w/ am tray -Monitor PO intake -Monitor BM -If no BM >3 days consider stool softener -Monitor electrolytes -Replenish electrolytes per protocol -Monitor wts -Reweigh as able -Order Vit D, vit b-12 labs to rule out deficiencies -Provide b-complex QD if feasible -Recommend Pt to follow up with PCP -Monitor goals of care RD to follow + available for consult per protocol Addendum: 02/27/25 at [address] Amended: Links added.
--- NOTE | 2025-02-27 13:09 | DS ---
Discharge Summary Hospital Course Summary: HPI : 59-year-old that presents in ED with complaints of knee pain apparently patient had a fall earlier this morning reports was taking a shower and lost his balance patient reports hitting his knees and elbow. Denies any loss of consciousness. Patient last fall was in Feb 14 2025 while he was in the kitchen and also lost his balance. Patient is currently on chemo therapy received chemo every Tuesday for liver cancer. ER workup shoulder x-ray pelvis x-ray knee bilateral x-ray head CT, femur x-ray ankle x-ray were all negative. Patient does report some soreness behind his neck. Patient denies dizziness double vision blurred vision he is fully alert oriented x3. Labs reviewed WBCs 6.7 Hemoglobin 11.9 hematocrit 35.4 Platelets 90 [id number] creatinine 1.4 Glucose 166 calcium 8.2 Albumin 2.6 02/27/2025. Patient was seen and examined along with RN. Patient was seen by Physical therapy who worked with the patient patient requiring keen on walking. All the imaging including CT of the head x-rays of the femur were negative. Patient has history of falling in the past and he attributes it to slipping or tripping over never have lost consciousness.. He will follow with Cardiology outpatient for adjustment of his blood pressure medications. Patient was also seen by damage adjuster and recommended GI soft/bland diet + regular texture, + ensure HP QD , Home Administrator(s): None Procedure(s): Vital Signs Date Time Temp Pulse Resp B/P (MAP) Pulse Ox O2 Delivery O2 Flow Rate FiO2 02/27/25 08:14 97.9 79 16 145/84 97 02/27/25 03:33 Room Air 02/26/25 20:00 0 21 Laboratory Tests Test 02/26/25 00:55 02/26/25 15:25 02/26/25 20:59 02/27/25 04:28 White Blood Count 6.7 K/uL (4.8-10.8) 2.5 K/uL (4.8-10.8) L Red Blood Count 4.18 MIL/uL (4.50-6.20) L 4.06 MIL/uL (4.50-6.20) L Hemoglobin 11.9 g/dL (14.0-18.0) L 11.5 g/dL (14.0-18.0) L Hematocrit 35.4 % (42-54) L 35.3 % (42-54) L Mean Corpuscular Volume 84.7 fL (79-99) 86.9 fL (79-99) Mean Corpuscular Hemoglobin 28.5 pg (27.0-33.0) 28.3 pg (27.0-33.0) Mean Corpuscular Hemoglobin Concent 33.6 g/dL (32.0-36.0) 32.6 g/dL (32.0-36.0) Red Cell Distribution Width 13.7 % (11.0-15.5) 14.0 % (11.0-15.5) Platelet Count 90 K/uL (130-400) L 70 K/uL (130-400) L Mean Platelet Volume 10.0 fL (7.5-10.5) 10.4 fL (7.5-10.5) Immature Granulocyte % (Auto) 0.6 % (0-1) 1.2 % (0-1) H Neutrophils (%) (Auto) 95.5 % (40.0-77.0) H 69.7 % (40.0-77.0) Lymphocytes (%) (Auto) 3.3 % (21.0-51.0) L 25.9 % (21.0-51.0) Monocytes (%) (Auto) 0.3 % (3.0-13.0) L 1.2 % (3.0-13.0) L Eosinophils (%) (Auto) 0.0 % (0.0-8.0) 1.6 % (0.0-8.0) Basophils (%) (Auto) 0.3 % (0.0-5.0) 0.4 % (0.0-5.0) Neutrophils # (Auto) 6.4 K/uL (1.8-7.7) 1.8 K/uL (1.8-7.7) Lymphocytes # (Auto) 0.2 K/uL (1.0-4.8) L 0.7 K/uL (1.0-4.8) L Monocytes # (Auto) 0.0 K/uL (0.1-1.0) L 0.0 K/uL (0.1-1.0) L Eosinophils # (Auto) 0.00 K/uL (0.00-0.70) 0.04 K/uL (0.00-0.70) Basophils # (Auto) 0.02 K/uL (0.00-0.20) 0.01 K/uL (0.00-0.20) Absolute Immature Granulocyte (auto 0.04 K/uL (0-1) 0.03 K/uL (0-1) Nucleated Red Blood Cells 0.0 % (0.0-0.19) 0.0 % (0.0-0.19) White Cell Morphology Comment See comments REACTIVE LYMPHS 1+ Sodium Level 135 mmol/L (136-145) L 138 mmol/L (136-145) Potassium Level 4.7 mmol/L (3.5-5.1) 4.8 mmol/L (3.5-5.1) Chloride Level 104 mmol/L (101-111) 105 mmol/L (101-111) Carbon Dioxide Level 23 mmol/L (21-32) 26 mmol/L (21-32) Blood Urea Nitrogen 43 mg/dL (7-18) H 29 mg/dL (7-18) H Creatinine 1.4 mg/dL (0.5-1.3) H 1.0 mg/dL (0.5-1.3) Glomerular Filtration Rate Calc 58 mL/min (>90) 87 mL/min (>90) Random Glucose 166 mg/dL (70-105) H 117 mg/dL (70-105) H Total Calcium 8.2 mg/dL (8.5-10.1) L 8.0 mg/dL (8.5-10.1) L Total Bilirubin 0.6 mg/dL (0.2-1.0) 0.6 mg/dL (0.2-1.0) Aspartate Amino Transferase (AST) 29 U/L (10-37) 22 U/L (10-37) Alanine Aminotransferase (ALT) 41 U/L (12-78) 23 U/L (12-78) Alkaline Phosphatase 81 U/L (50-136) 57 U/L (50-136) Ammonia 11 umol/L (11-32) Total Creatine Kinase 39 U/L (21-232) # Troponin I High Sensitivity 9.8 ng/L (4-75) Total Protein 6.3 g/dL (6.0-8.3) 5.9 g/dL (6.0-8.3) L Albumin 2.6 g/dL (3.5-5.0) L 2.4 g/dL (3.5-5.0) L Serum Alcohol < 3 mg/dL (0-10) Whole Blood Glucose 113 MG/DL (70-110) H 171 MG/DL (70-110) #H Segmented Neutrophils % 67 % (40-70) Band Neutrophils % 5 % (0-2) H Lymphocytes % (Manual) 25 % (22-44) Eosinophils % (Manual) 1 % (1-6) Basophils % (Manual) 1 % (0-2) Differential Comment MANUAL DIFFERENTIAL Reactive Lymphocytes 1 % (0-0) H Platelet Morphology Comment DECREASED Red Blood Cell Morphology See comments Magnesium Level 2.20 mg/dL (1.80-2.40) Test 02/27/25 05:12 02/27/25 11:20 Whole Blood Glucose 108 MG/DL (70-110) 146 MG/DL (70-110) H Assessment/Plan: ASSESSMENT: Mechanical fall ground level POA Bilateral knee pain POA GLENYS POA Diabetes type with hyperglycemia History of systolic heart failure not in acute decompensation POA History of peripheral vascular disease with stenting to lower extremity POA History of AFib on anticoagulation POA Failure to thrive POA Immunosuppressant secondary to liver cancer on chemo POA right ankle sprain POA functional decline: secondary to weakness to lower ext: recurrent falls. POA Home Medications: Reported Medications Tramadol Hcl (Tramadol HCl) 50 Mg Tablet, 1 TAB PO Q6HPRN PRN for PAIN LEVEL 6 TO 10 02/27/25 Torsemide (Torsemide) 10 Mg Tablet, 1 TAB PO DAILY 02/27/25 Spironolactone (Spironolactone) 25 Mg Tablet, 1 TAB PO DAILY 02/27/25 Sacubitril/Valsartan (Entresto 49 mg-51 mg Tablet) 49 Mg-51 Mg Tablet, 1 TAB PO BID 02/27/25 Cyclosporine (Restasis) 0.05 % Droperette, 1 DROP OU BID 02/27/25 Levothyroxine Sodium (Levothyroxine Sodium) 25 Mcg Tablet, 1 TAB PO DAILY 02/27/25 Hum Insulin NPH/Reg Insulin Hm (Humulin 70/30) 100 Unit/Ml (70-30) Inj, 50 UNITS SQ PM, ML 02/27/25 Hum Insulin NPH/Reg Insulin Hm (Humulin 70/30) 100 Unit/Ml (70-30) Inj, 40 UNITS SQ AM 02/27/25 Gabapentin (Neurontin) 300 Mg Capsule, 1 CAP PO TID 02/27/25 Empagliflozin (Jardiance) 25 Mg Tablet, 1 TAB PO DAILY 02/27/25 Clopidogrel Bisulfate (Clopidogrel) 75 Mg Tablet, 1 TAB PO DAILY 02/27/25 Cilostazol (Cilostazol) 100 Mg Tablet, 1 TAB PO BID 02/27/25 Carvedilol (Carvedilol) 3.125 Mg Tablet, 1 TAB PO BID 02/27/25 Baclofen (Baclofen) 5 Mg Tablet, 1 TAB PO TIDP PRN for MUSCLE SPASMS 02/27/25 Aspirin (Aspirin) 81 Mg Tab.chew, 1 TAB PO DAILY for 30 Days, #30 TAB 0 Refills 02/27/25 Apixaban (Eliquis) 5 Mg Tablet, 1 TAB PO BID 02/27/25 Alprazolam (Alprazolam) 0.5 Mg Tablet, 1 TAB PO BID PRN for ANXIETY/AGITATION 02/27/25 Methylprednisolone (Methylprednisolone) 4 Mg Tab.ds.pk, 1 TAB PO AD 02/27/25 Azithromycin (Azithromycin) 250 Mg Tablet, 1 TAB PO AD for 2 Days, #6 TAB 0 Refills 2 the first day followed by 1 for days 2-5 02/27/25 Trazodone HCl (Trazodone HCl) 50 Mg Tablet, 1 TAB PO HS for 30 Days, #30 TAB 0 Refills 02/27/25 Time spent arranging discharge: 31-60 minutes SHANICE ZUNIGA MD February 27, 2025 13:09
[2025-02-27] MEDS: GENTAmicin 15 GM CREAM TP SCH (16:34)
[2025-02-27] MEDS: HONEY 1 APPL/ML TUBE TP SCH (16:34)
--- NOTE | 2025-02-27 16:40 | NUR ---
DISCHARGE PT PENDING RIDE BINDING CUTTER.
[2025-02-27] MEDS ORDERED: APIXaban 5 MG TABLET PO SCH (21:00)
[2025-02-28] MEDS ORDERED: ASPIRIN 81MG CHEW TAB PO SCH (09:00)
== END 2025-02-27 18:00 | disposition home or self-care (01) ==
LOC: EDH 00:09 → UNDOADMOB 07:58 → INTOOBSV 07:58 → EDHIP 07:58 → 3BH 17:31 → EDHIP 17:31 → 3BH 02-27 08:00
PROVIDERS: ADMIT Hospitalist; ATTEND Hospitalist
DX: M25.561 Pain in right knee (principal); M25.562 Pain in left knee; N17.0 Acute kidney failure with tubular necrosis; E11.65 Type 2 diabetes mellitus with hyperglycemia; I11.0 Hypertensive heart disease with heart failure; I50.22 Chronic systolic (congestive) heart failure; R62.7 Adult failure to thrive; E11.51 Type 2 diabetes mellitus with diabetic peripheral angiopathy without gangrene; S93.401A Sprain of unspecified ligament of right ankle, initial encounter; R26.2 Difficulty in walking, not elsewhere classified; G89.3 Neoplasm related pain (acute) (chronic); E78.5 Hyperlipidemia, unspecified; E66.01 Morbid (severe) obesity due to excess calories; G89.4 Chronic pain syndrome; K12.31 Oral mucositis (ulcerative) due to antineoplastic therapy; M51.360 Other intervertebral disc degeneration, lumbar region with discogenic back pain only; D01.5 Carcinoma in situ of liver, gallbladder and bile ducts; I48.91 Unspecified atrial fibrillation; Z68.35 Body mass index [BMI] 35.0-35.9, adult; Z85.05 Personal history of malignant neoplasm of liver; Z79.899 Other long term (current) drug therapy; W19.XXXA Unspecified fall, initial encounter; Y93.89 Activity, other specified; Y92.000 Kitchen of unspecified non-institutional (private) residence as the place of occurrence of the external cause; Y99.8 Other external cause status
CPT/HCPCS: 96376; 96361; 96375; 99284; 82550; 84484; 80053 ×2; 82140; 85025 ×2; 82948 ×4; 36415 ×2; 73610; 71045; 73551; 73562 ×2; 72170; 73030; 70450; 96374; 93005; 83735; 97161; 97116; J1171; J2270 ×2; J7030; J0360; G0378 ×4; 99285

== ENCOUNTER → 2025-03-05 | Outpatient (CLI) | payer BC, MEDICARE ==
[~2025-03-05] MED LIST changes: -AZIT250T9 PO; +CYCL30DR OU; -FLUC200T96 PO; -KETO10 PO; +LIDOCAINE HCL 4% LTA SOL 4 ML VIAL TP ONE; -METH4TAB15 PO; -PRED20TA3 PO; +TRAZ-185 PO
== END | disposition home or self-care (01) ==
LOC: WHH 07:59
PROVIDERS: ATTEND Family Medicine
DX: E11.621 Type 2 diabetes mellitus with foot ulcer (principal); L97.525 Non-pressure chronic ulcer of other part of left foot with muscle involvement without evidence of necrosis; L84 Corns and callosities; E11.51 Type 2 diabetes mellitus with diabetic peripheral angiopathy without gangrene; E11.40 Type 2 diabetes mellitus with diabetic neuropathy, unspecified; E11.22 Type 2 diabetes mellitus with diabetic chronic kidney disease; I13.0 Hypertensive heart and chronic kidney disease with heart failure and stage 1 through stage 4 chronic kidney disease, or unspecified chronic kidney disease; I50.22 Chronic systolic (congestive) heart failure; N18.9 Chronic kidney disease, unspecified; E03.9 Hypothyroidism, unspecified; I48.91 Unspecified atrial fibrillation; G47.30 Sleep apnea, unspecified; E78.5 Hyperlipidemia, unspecified; G89.4 Chronic pain syndrome; M19.90 Unspecified osteoarthritis, unspecified site; F41.9 Anxiety disorder, unspecified; Z79.899 Other long term (current) drug therapy; Z85.05 Personal history of malignant neoplasm of liver
CPT/HCPCS: 99214; A6250

== ENCOUNTER 2025-03-17 19:47 | Emergency (ER) | payer BC, MEDICARE ==
[~2025-03-17] VITALS: Ht 190.5 cm; Wt 117.9 kg
[~2025-03-17 19:47] MED LIST changes: -LIDOCAINE HCL 4% LTA SOL 4 ML VIAL TP ONE
--- NOTE | 2025-03-17 20:18 | EKG ---
[facility] Test Date: 2025-03-17 Test Time: 20:16:01 Pat Name: CHEMO WILHELM Department: ED Room: Gender: M [employer] Liaison: [id number] : 1965 Requested By: HERSON BURCH Order Number: [id number] Reading MD: Charles Flannery Measurements Intervals [place] Rate: 76 P: 0 [place]: 0 QRS: 244 QRSD: 110 T: 87 QT: 416 QTc: 467 Interpretive Statements Afib/flutter and ventricular-paced rhythm Compared to ECG 02/26/2025 02:56:37 No significant changes Electronically Signed On 03-18-2025 22:16:42 CDT by Charles Flannery Please click the below link to view image of tracing.
--- NOTE | 2025-03-17 20:18 | ERN ---
General Chief Complaint: Multiple Complaints Stated Complaint: BODYACHE, FATIGUE, FEVER, CHEST PAIN,COUGH, Time Seen by MD: 19:55 Source: patient History of Present Illness Initial Comments Patient is a 60-year-old male with liver cancer, he does not know the name of the cancer, who had chemotherapy 48 hours ago. Since then he has had worsening achiness jaw pain chest constriction abdominal pain and weakness. He also wonders if he has a new upper respiratory tract infection because he was at a school meeting where people were sick and he is on chemotherapy. Allergies: Coded Allergies: No Known Drug Allergies (Verified Allergy, Unknown, 03/28/24) Home Meds Reported Medications Tramadol Hcl (Tramadol HCl) 50 Mg Tablet, 1 TAB PO Q6HPRN PRN for PAIN LEVEL 6 TO 10 02/27/25 Torsemide (Torsemide) 10 Mg Tablet, 1 TAB PO DAILY 02/27/25 Spironolactone (Spironolactone) 25 Mg Tablet, 1 TAB PO DAILY 02/27/25 Sacubitril/Valsartan (Entresto 49 mg-51 mg Tablet) 49 Mg-51 Mg Tablet, 1 TAB PO BID 02/27/25 Cyclosporine (Restasis) 0.05 % Droperette, 1 DROP OU BID 02/27/25 Levothyroxine Sodium (Levothyroxine Sodium) 25 Mcg Tablet, 1 TAB PO DAILY 02/27/25 Hum Insulin NPH/Reg Insulin Hm (Humulin 70/30) 100 Unit/Ml (70-30) Inj, 50 UNITS SQ PM, ML 02/27/25 Hum Insulin NPH/Reg Insulin Hm (Humulin 70/30) 100 Unit/Ml (70-30) Inj, 40 UNITS SQ AM 02/27/25 Gabapentin (Neurontin) 300 Mg Capsule, 1 CAP PO TID 02/27/25 Empagliflozin (Jardiance) 25 Mg Tablet, 1 TAB PO DAILY 02/27/25 Clopidogrel Bisulfate (Clopidogrel) 75 Mg Tablet, 1 TAB PO DAILY 02/27/25 Cilostazol (Cilostazol) 100 Mg Tablet, 1 TAB PO BID 02/27/25 Carvedilol (Carvedilol) 3.125 Mg Tablet, 1 TAB PO BID 02/27/25 Baclofen (Baclofen) 5 Mg Tablet, 1 TAB PO TIDP PRN for MUSCLE SPASMS 02/27/25 Aspirin (Aspirin) 81 Mg Tab.chew, 1 TAB PO DAILY for 30 Days, #30 TAB 0 Refills 02/27/25 Apixaban (Eliquis) 5 Mg Tablet, 1 TAB PO BID 02/27/25 Alprazolam (Alprazolam) 0.5 Mg Tablet, 1 TAB PO BID PRN for ANXIETY/AGITATION 02/27/25 Trazodone HCl (Trazodone HCl) 50 Mg Tablet, 1 TAB PO HS for 30 Days, #30 TAB 0 Refills 02/27/25 Past Medical History Past Medical History: Diabetes-Type II, High Cholesterol, Hypertension, Other Medical History Other: LIVER CANCER Past Surgical History: Pacer/AICD, Other Surgical History Other: RT KNEE, Family History Family History: CAD, DM, HTN Social History Social History: Lives with family Constitutional: (-) chills, (-) diaphoresis, (-) fever, (-) malaise, (-) weakness, (-) other documentation EENTM: (-) eye pain, (-) blurred vision, (-) tearing, (-) double vision, (-) ear pain, (-) ear discharge, (-) nose pain, (-) nose congestion, (-) throat pain, (-) Throat swelling, (-) mouth pain, (-) tooth pain, (-) mouth swelling, (-) other documentation Respiratory: (+) cough, (+) short of breath Cardiovascular: (+) chest pain Gastrointestinal/Abdominal: (-) nausea, (-) vomiting, (-) diarrhea, (-) abdominal pain, (-) abdominal distention, (-) constipation, (-) rectal bleeding, (-) dark stool/melena, (-) other documentation Genitourinary: (-) penile discharge, (-) dysuria, (-) frequency, (-) hematuria, (-) pain, (-) other documentation Musculoskeletal: (+) Neck pain Skin: (-) laceration, (-) contusion, (-) abrasion, (-) abscess, (-) rash, (-) change in color, (-) change in hair, (-) change in nails, (-) diaphoresis, (-) dryness, (-) other documentation Neuro: (-) altered mental status, (-) headache, (-) syncope, (-) paralysis, (-) numbness, (-) seizure, (-) pre-existing deficit, (-) tremors, (-) weakness, (-) dizziness, (-) slurred speech, (-) vertigo, (-) other documentation Physical Exam Orientation: (+) alert, (+) oriented x 3 Head/Face Trauma: No Eye: bilateral eye normal inspection, bilateral eye PERRL, bilateral eye EOMI Ear, Nose, Throat: (+) hearing grossly normal, (+) normal ENT inspection, (+) moist mucous membraine Ear, Nose, Throat Comment Possible erythema in the pharynx. Neck: (+) normal inspection, (+) supple, (+) full range of motion Respiratory: (+) chest non-tender, (+) lungs clear, (+) well ventilated Respiratory Comment Patient's lung sounds clear no wheezing no rales no rhonchi no stridor. But I get a sense of decreased air movement despite strong efforts on the part of the patient. Heart: (+) regular, (+) no gallop Vascular: (+) no edema, (+) normal peripheral pulse Gastrointestinal: (+) soft, (+) non-tender, (+) bowel sound present Results Laboratory and Microbiology Lab and Micro Result Laboratory Tests Test 03/17/25 20:02 03/17/25 22:26 03/18/25 00:19 White Blood Count 5.8 K/uL (4.8-10.8) Red Blood Count 3.60 MIL/uL (4.50-6.20) L Hemoglobin 10.6 g/dL (14.0-18.0) L Hematocrit 31.5 % (42-54) L Mean Corpuscular Volume 87.5 fL (79-99) Mean Corpuscular Hemoglobin 29.4 pg (27.0-33.0) Mean Corpuscular Hemoglobin Concent 33.7 g/dL (32.0-36.0) Red Cell Distribution Width 18.1 % (11.0-15.5) H Platelet Count 167 K/uL (130-400) Mean Platelet Volume 10.8 fL (7.5-10.5) H Immature Granulocyte % (Auto) 0.3 % (0-1) Neutrophils (%) (Auto) 90.7 % (40.0-77.0) H Lymphocytes (%) (Auto) 6.1 % (21.0-51.0) L Monocytes (%) (Auto) 2.3 % (3.0-13.0) L Eosinophils (%) (Auto) 0.3 % (0.0-8.0) Basophils (%) (Auto) 0.3 % (0.0-5.0) Neutrophils # (Auto) 5.2 K/uL (1.8-7.7) Lymphocytes # (Auto) 0.4 K/uL (1.0-4.8) L Monocytes # (Auto) 0.1 K/uL (0.1-1.0) Eosinophils # (Auto) 0.02 K/uL (0.00-0.70) Basophils # (Auto) 0.02 K/uL (0.00-0.20) Absolute Immature Granulocyte (auto 0.02 K/uL (0-1) Nucleated Red Blood Cells 0.0 % (0.0-0.19) White Cell Morphology Comment See comments Red Blood Cell Morphology See comments Sodium Level 133 mmol/L (136-145) L Potassium Level 4.3 mmol/L (3.5-5.1) Chloride Level 99 mmol/L (101-111) L Carbon Dioxide Level 26 mmol/L (21-32) Blood Urea Nitrogen 24 mg/dL (7-18) H Creatinine 1.3 mg/dL (0.5-1.3) Glomerular Filtration Rate Calc 63 mL/min (>90) Random Glucose 222 mg/dL (70-105) H Total Calcium 7.8 mg/dL (8.5-10.1) L Total Bilirubin 1.5 mg/dL (0.2-1.0) H Direct Bilirubin 0.3 mg/dL (0.0-0.3) Aspartate Amino Transf (AST/SGOT) 31 U/L (10-37) Alanine Aminotransferase (ALT/SGPT) 23 U/L (12-78) Alkaline Phosphatase 67 U/L (50-136) Total Creatine Kinase 94 U/L (21-232) # Troponin I High Sensitivity 17 ng/L (4-75) B-Type Natriuretic Peptide 334 pg/mL (0-100) H Total Protein 6.4 g/dL (6.0-8.3) Albumin 3.0 g/dL (3.5-5.0) L Procalcitonin 0.37 ng/mL (0.05-0.5) Urine Color LIGHT-YELLOW (YELLOW) Urine Appearance CLEAR (CLEAR) Urine pH 5.5 (5.0-8.0) Urine Specific [place] 1.024 (1.001-1.031) Urine Protein 30 mg/dL (NEGATIVE) H Urine Glucose (UA) >=1000 mg/dL (NEGATIVE) H Urine Ketones NEGATIVE mg/dL (NEGATIVE) Urine Occult Blood SMALL (NEGATIVE) H Urine Nitrate NEGATIVE (NEGATIVE) Urine Bilirubin NEGATIVE mg/dL (NEGATIVE) Urine Urobilinogen 0.2 mg/dL (0.2-1.0) Urine Leukocyte Esterase 250 Criss/uL (NEGATIVE) H Urine RBC 6-10 /HPF (0-1) H Urine WBC 26-50 /HPF (0-1) H Urine Squamous Epithelial Cells RARE /HPF (0-2) Urine Bacteria None /HPF (None Seen) Whole Blood Glucose 222 MG/DL (70-110) H MDM Patient is afebrile and non tachycardic. I will try and figure out what chemotherapy the patient is on and what his liver cancer is. He also reports his urine as being donaldo colored. I will give him fluid order the standard labs including a UA and LFTs. In addition I will give him a L of fluid and I will do a chest x-ray. When I was discussing the lab results with the patient I asked him about his pain and he said he felt better except for left flank pain that radiates around down to his groin. Patient's CBC shows a normal white blood cell count. Patient's chemistry panel is normal. Patient's urine shows blood and esterase activity. Because of the pain pattern and blood in his urine I did a quick non-con CT scan and I think I see some stones in his bladder but no evidence of obstruction no evidence of pyelonephritis or hydronephrosis. Just to be safe I will send the patient home with some Ancef. The worst of the patient's symptoms seems to have resolved and he is happy to go home. ED Course Orders Procedure Category Date Status Time Vital Signs Per CPOE 03/17/25 Transmitted Routine 20:11 B-Type Natriuretic LAB 03/17/25 Complete Peptide 20:11 Chest 1vw RAD 03/17/25 Resulted 20:11 12 Lead Ekg Tracing- EKG 03/17/25 Complete Technical 20:11 Oxygen By Nc/Pulse Ox CPOE 03/17/25 Transmitted 20:11 Maintain Iv CPOE 03/17/25 Transmitted 20:11 Iv Insertion CPOE 03/17/25 Transmitted 20:11 Cardiac Monitoring CPOE 03/17/25 Transmitted 20:11 Pulse Oximetry With CPOE 03/17/25 Transmitted Vs And Prn 20:11 Cbc With Differential LAB 03/17/25 Complete 20:11 Activity: Br W/Brp CPOE 03/17/25 Transmitted With Assist 20:11 Creatine Kinase, Total LAB 03/17/25 Complete 20:11 Troponin I High LAB 03/17/25 Complete Sensitivity 20:11 Urinalysis Profile LAB 03/17/25 Complete 20:11 Basic Metabolic Panel LAB 03/17/25 Complete 20:11 Lactated Ringers PHA 03/17/25 Complete 1000ml (Lactated 20:19 Hepatic Function Panel LAB 03/17/25 Complete 20:19 Cyclobenzaprine Hcl PHA 03/17/25 Complete (Cyclobenzaprine Hcl 23:00 Ketorolac PHA 03/17/25 Complete Tromethamine 30mg/Ml 23:00 Culture Urine IMAN 03/17/25 In Process 22:42 Procalcitonin LAB 03/17/25 Complete 22:57 Ct Abdomen/Pelvis W/O CT 03/17/25 Resulted Contrast 22:59 Cefazolin Sodium 1 Gm PHA 03/17/25 Complete Vial (Ancef 1 Gm V 23:04 Current Medications Medications (Trade) Dose Ordered Sig/Efrem Route PRN Reason Start Time Stop Time Status Last Admin Dose Admin Cefazolin Sodium (ANCEF 1 gm vial) 1 gm ONCE STAT IVP 03/17/25 23:04 03/17/25 23:06 DC 03/17/25 23:16 Cyclobenzaprine HCl (Cyclobenzaprine HCl) 10 mg ONCE ONCE PO 03/17/25 23:00 03/17/25 23:01 DC 03/17/25 22:54 Ketorolac Tromethamine (toRADol) 30 mg ONCE ONCE IVP 03/17/25 23:00 03/17/25 23:01 DC 03/17/25 22:54 Lactated Ringer's (Lactated Ringers 1000ml) 1,000 ml BOLUS STAT IV 03/17/25 20:19 03/17/25 20:22 DC 03/17/25 20:43 Vital Signs Date Time Temp Pulse Resp B/P (MAP) Pulse Ox O2 Delivery O2 Flow Rate FiO2 03/17/25 23:22 99.9 70 18 137/62 96 Room Air* 0 21 03/17/25 22:15 99.0 74 20 131/63 96 Room Air* 0 21 03/17/25 21:15 99.1 74 20 130/68 96 Room Air* 0 21 03/17/25 20:10 100.0 74 20 135/58 96 Room Air* 0 21 03/17/25 19:48 100.2 76 20 136/74 97 Room Air DX & DISP Disposition: Discharge Departure Impression: Primary Impression: UTI (urinary tract infection) Condition: Stable Scripts Cephalexin Monohydrate (Keflex) 500 Mg Cap 500 MG PO QID for 7 Days, #28 CAP Prov: HERSON BURCH MD 03/18/25 Additional Instructions: Please return to the emergency room if your unable to keep solid food down or stay hydrated. Or if you get worsening abdominal pain with fevers and nausea vomiting diarrhea. You may have a urinary tract infection and I have given you some antibiotics here in the emergency room and I will send a prescription for more at your pharmacy. Referrals: LEONARDA SMILEY (PCP) HERSON BURCH MD Mar 17, 2025 20:18
[2025-03-17 20:20] LABS: BASOPHILS # (AUTO) 0.02 K/uL (0.00-0.20); BASOPHILS % (AUTO) 0.3 % (0.0-5.0); EOSINOPHILS # (AUTO) 0.02 K/uL (0.00-0.70); EOSINOPHILS % (AUTO) 0.3 % (0.0-8.0); HEMATOCRIT 31.5 % (42-54); IMMATURE GRANULOCYTE ABSOLUTE 0.02 K/uL (0-1); LYMPHOCYTES # (AUTO) 0.4 K/uL (1.0-4.8); LYMPHOCYTES % (AUTO) 6.1 % (21.0-51.0); MEAN CORPUSCULAR HEMOGLOBIN 29.4 pg (27.0-33.0); MEAN CORPUSCULAR HGB CONC 33.7 g/dL (32.0-36.0); MEAN CORPUSCULAR VOLUME 87.5 fL (79-99); MONOCYTES # (AUTO) 0.1 K/uL (0.1-1.0); MONOCYTES % (AUTO) 2.3 % (3.0-13.0); NEUTROPHILS # (AUTO) 5.2 K/uL (1.8-7.7); NEUTROPHILS % (AUTO) 90.7 % (40.0-77.0); PLATELET COUNT (AUTO) 167 K/uL (130-400); RED CELL DISTRIBUTION WIDTH 18.1 % (11.0-15.5); WHITE BLOOD COUNT (AUTO) 5.8 K/uL (4.8-10.8)
[2025-03-17 20:40] LABS: B-TYPE NATRIURETIC PEPTIDE 334 pg/mL (0-100)
[2025-03-17] MEDS: LACTATED RINGERS 1000ML IV STA (20:43)
[2025-03-17 20:51] LABS: CREATININE 1.3 mg/dL (0.5-1.3); POTASSIUM 4.3 mmol/L (3.5-5.1)
[2025-03-17 21:10] LABS: BILIRUBIN,DIRECT 0.3 mg/dL (0.0-0.3); BILIRUBIN,TOTAL 1.5 mg/dL (0.2-1.0); TOTAL PROTEIN, SERUM 6.4 g/dL (6.0-8.3)
--- NOTE | 2025-03-17 21:21 | HMCIMG ---
CHEST 1VW CLINICAL HISTORY: CHEST PAIN COMPARISON: 02/26/2025 TECHNIQUE: Single view of the chest was obtained. FINDINGS: Lungs are clear. Cardiac size unremarkable. The chest port pacemaker and bony structures are stable. IMPRESSION: No acute cardiopulmonary process identified.
[2025-03-17] MEDS ORDERED: TRAN650T5 PO (22:29)
[2025-03-17 22:41] LABS: APPEARANCE,URINE CLEAR (CLEAR); BILIRUBIN,URINE NEGATIVE (NEGATIVE); COLOR,URINE LIGHT-YELLOW (YELLOW); GLUCOSE, URINE (UA) >=1000 mg/dL (NEGATIVE); KETONES,URINE NEGATIVE (NEGATIVE); LEUKOCYTE ESTERASE ,URINE 250 Leu/uL (NEGATIVE); NITRATE,URINE NEGATIVE (NEGATIVE); OCCULT BLOOD,URINE SMALL (NEGATIVE); PH,URINE 5.5 (5.0-8.0); PROTEIN,URINE 30 mg/dL (NEGATIVE); UROBILINOGEN,URINE 0.2 mg/dL (0.2-1.0)
[2025-03-17 22:42] LABS: ADD UA MICROSCOPIC YES
[2025-03-17 22:49] LABS: SQUAMOUS EPITHELIAL CELL,UR RARE /HPF (0-2); WBC,URINE 26-50 /HPF (0-1)
[2025-03-17] MEDS: CYCLOBENZAPRINE HCL 10 MG TABLET PO ONE (22:54)
[2025-03-17] MEDS: ketOROlac 30MG VIAL (30MG/ML) IVP ONE (22:54)
[2025-03-17] MEDS: ceFAZolin SODIUM 1 GM VIAL IVP STA (23:16)
--- NOTE | 2025-03-18 00:21 | HMCIMG ---
CT ABDOMEN/PELVIS W/O CONTRAST HISTORY: Nephrolithiasis COMPARISON: 02/01/2025 TECHNIQUE: Multiple sequential axial images of the abdomen and pelvis were obtained from the dome of the diaphragm through symphysis pubis. Patient was not given contrast through intravenous route. Oral contrast was not given. FINDINGS: No pleural effusion is seen bilaterally. There is no evidence of parenchymal disease or pulmonary nodule of the visualized lower lungs. Degenerative changes of the thoracolumbar spine are present. The heart is not enlarged. Liver measures 15.4 cm. Gallstone is seen the gallbladder. There is liver parenchymal disease. Spleen is enlarged measuring 15 cm. Bilateral perinephric fat stranding is seen. There is definite suspicion left iliac stent is seen. The liver, spleen, adrenal glands and pancreas are unremarkable. There is no evidence of hydronephrosis bilaterally. No evidence of renal stone is seen. Fecal material is seen in the colon. There are normal size retroperitoneal and mesenteric lymph nodes. No ascites is seen. Atherosclerotic changes are present. No CT evidence of acute appendicitis Pelvic sidewalls are symmetric bilaterally. Bladder is moderately distended. IMPRESSION: 1. Gallstones in the gallbladder. Pleural-parenchymal disease possibly. Nonspecific bilateral perinephric fat stranding is seen. If there is clinical suspicion of pyelonephritis, urinalysis correlation may be helpful. CT was performed with one or more following dose reduction techniques: automated exposure control, adjustment of the mA and kv according to patient's size, or use of a iterative reconstruction technique.
[2025-03-18] MEDS ORDERED: CEPH500B PO (00:29)
[2025-03-18 00:42] VITALS: BP 133/61; PULSE 77; RESP 18; TEMP 99.2; O2SAT 98
== END 2025-03-18 00:56 | disposition home or self-care (01) ==
LOC: EDH 19:47
DX: N39.0 Urinary tract infection, site not specified (principal); E11.9 Type 2 diabetes mellitus without complications; E78.00 Pure hypercholesterolemia, unspecified; I10 Essential (primary) hypertension; Z79.01 Long term (current) use of anticoagulants; Z79.02 Long term (current) use of antithrombotics/antiplatelets; Z79.621 Long term (current) use of calcineurin inhibitor; Z79.82 Long term (current) use of aspirin; Z79.84 Long term (current) use of oral hypoglycemic drugs; Z79.890 Hormone replacement therapy; Z79.899 Other long term (current) drug therapy; Z95.810 Presence of automatic (implantable) cardiac defibrillator
CPT/HCPCS: 99284; 74176; 96374; 71045; 96361; 96375; 82550; 80076; 84484; 80048; 83880; 85025; 87086; 82948; 81001; 36415; 93005; 84145; J1885; J0690

== ENCOUNTER → 2025-04-08 | Outpatient (CLI) | payer BC, MEDICARE ==
[~2025-04-08] MED LIST changes: +CEPH500B PO; +HONEY 1 APPL/ML TUBE TP ONE
== END | disposition home or self-care (01) ==
LOC: WHH 08:08
PROVIDERS: ATTEND Family Medicine
DX: E11.621 Type 2 diabetes mellitus with foot ulcer (principal); L97.525 Non-pressure chronic ulcer of other part of left foot with muscle involvement without evidence of necrosis; L84 Corns and callosities; E11.51 Type 2 diabetes mellitus with diabetic peripheral angiopathy without gangrene; E11.40 Type 2 diabetes mellitus with diabetic neuropathy, unspecified; E11.22 Type 2 diabetes mellitus with diabetic chronic kidney disease; I13.0 Hypertensive heart and chronic kidney disease with heart failure and stage 1 through stage 4 chronic kidney disease, or unspecified chronic kidney disease; I50.22 Chronic systolic (congestive) heart failure; N18.9 Chronic kidney disease, unspecified; E03.9 Hypothyroidism, unspecified; I48.91 Unspecified atrial fibrillation; G47.30 Sleep apnea, unspecified; E78.5 Hyperlipidemia, unspecified; G89.4 Chronic pain syndrome; M19.90 Unspecified osteoarthritis, unspecified site; F41.9 Anxiety disorder, unspecified; Z79.899 Other long term (current) drug therapy; Z85.05 Personal history of malignant neoplasm of liver
CPT/HCPCS: 99214

== ENCOUNTER → 2025-05-09 | Outpatient (CLI) | payer BC, MEDICARE ==
[~2025-05-09] MED LIST changes: -HONEY 1 APPL/ML TUBE TP ONE
== END | disposition home or self-care (01) ==
LOC: WHH 08:38
PROVIDERS: ATTEND Family Medicine
DX: E11.621 Type 2 diabetes mellitus with foot ulcer (principal); L97.525 Non-pressure chronic ulcer of other part of left foot with muscle involvement without evidence of necrosis; L84 Corns and callosities; S81.801A Unspecified open wound, right lower leg, initial encounter; E11.51 Type 2 diabetes mellitus with diabetic peripheral angiopathy without gangrene; E11.40 Type 2 diabetes mellitus with diabetic neuropathy, unspecified; E11.22 Type 2 diabetes mellitus with diabetic chronic kidney disease; I13.0 Hypertensive heart and chronic kidney disease with heart failure and stage 1 through stage 4 chronic kidney disease, or unspecified chronic kidney disease; I50.22 Chronic systolic (congestive) heart failure; N18.9 Chronic kidney disease, unspecified; E03.9 Hypothyroidism, unspecified; I48.91 Unspecified atrial fibrillation; E78.5 Hyperlipidemia, unspecified; G47.30 Sleep apnea, unspecified; G89.4 Chronic pain syndrome; M19.90 Unspecified osteoarthritis, unspecified site; F41.9 Anxiety disorder, unspecified; Z79.899 Other long term (current) drug therapy; Z85.05 Personal history of malignant neoplasm of liver; X58.XXXA Exposure to other specified factors, initial encounter; Y93.89 Activity, other specified; Y92.89 Other specified places as the place of occurrence of the external cause; Y99.8 Other external cause status
CPT/HCPCS: 99214; A4450

== ENCOUNTER 2025-05-13 07:29 | Emergency (ER) | payer BC, MEDICARE ==
[~2025-05-13] VITALS: Ht 182.9 cm; Wt 120.2 kg
--- NOTE | 2025-05-13 07:43 | EKG ---
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
--- NOTE | 2025-05-13 07:47 | ERN ---
General Chief Complaint: Hypertension Stated Complaint: ELEVATED BP S/P CHEMO Time Seen by MD: 07:34 Source: patient History of Present Illness Initial Comments Patient is a 60-year-old male coming in complaining of elevated blood pressure. Per patient he recently has a chemotherapy to a mass in his liver. He states that he has been taking tramadol which was prescribed for back pain but does not take it regularly. States that he checked his blood pressure was high so decided come in for further evaluation. Allergies: Coded Allergies: No Known Drug Allergies (Verified Allergy, Unknown, 03/28/24) Home Meds Active Scripts Cephalexin Monohydrate (Keflex) 500 Mg Cap, 500 MG PO QID for 7 Days, #28 CAP Prov:HERSON BURCH MD 03/18/25 Reported Medications Tramadol Hcl (Tramadol HCl) 50 Mg Tablet, 1 TAB PO Q6HPRN PRN for PAIN LEVEL 6 TO 10 02/27/25 Torsemide (Torsemide) 10 Mg Tablet, 1 TAB PO DAILY 02/27/25 Spironolactone (Spironolactone) 25 Mg Tablet, 1 TAB PO DAILY 02/27/25 Sacubitril/Valsartan (Entresto 49 mg-51 mg Tablet) 49 Mg-51 Mg Tablet, 1 TAB PO BID 02/27/25 Cyclosporine (Restasis) 0.05 % Droperette, 1 DROP OU BID 02/27/25 Levothyroxine Sodium (Levothyroxine Sodium) 25 Mcg Tablet, 1 TAB PO DAILY 02/27/25 Hum Insulin NPH/Reg Insulin Hm (Humulin 70/30) 100 Unit/Ml (70-30) Inj, 50 UNITS SQ PM, ML 02/27/25 Hum Insulin NPH/Reg Insulin Hm (Humulin 70/30) 100 Unit/Ml (70-30) Inj, 40 UNITS SQ AM 02/27/25 Gabapentin (Neurontin) 300 Mg Capsule, 1 CAP PO TID 02/27/25 Empagliflozin (Jardiance) 25 Mg Tablet, 1 TAB PO DAILY 02/27/25 Clopidogrel Bisulfate (Clopidogrel) 75 Mg Tablet, 1 TAB PO DAILY 02/27/25 Cilostazol (Cilostazol) 100 Mg Tablet, 1 TAB PO BID 02/27/25 Carvedilol (Carvedilol) 3.125 Mg Tablet, 1 TAB PO BID 02/27/25 Baclofen (Baclofen) 5 Mg Tablet, 1 TAB PO TIDP PRN for MUSCLE SPASMS 02/27/25 Aspirin (Aspirin) 81 Mg Tab.chew, 1 TAB PO DAILY for 30 Days, #30 TAB 0 Refills 02/27/25 Apixaban (Eliquis) 5 Mg Tablet, 1 TAB PO BID 02/27/25 Alprazolam (Alprazolam) 0.5 Mg Tablet, 1 TAB PO BID PRN for ANXIETY/AGITATION 02/27/25 Trazodone HCl (Trazodone HCl) 50 Mg Tablet, 1 TAB PO HS for 30 Days, #30 TAB 0 Refills 02/27/25 Past Medical History Past Medical History: No Pertinent History, Cancer, Diabetes-Type II, High Cholesterol, Heart Disease, Hypertension, Other Medical History Other: LIVER CANCER Past Surgical History: Pacer/AICD, Other Surgical History Other: RT KNEE, Family History Family History: CAD, DM, HTN Social History Social History: Lives with family ROS Dictation CONSTITUTIONAL: No chills, no fever, no weakness, no diaphoresis, no malaise. HEAD/FACE: No signs of trauma. EENT: No eye pain, no blurred vision, no tearing, no double vision, no ear pa in, no ear discharge, no nose pain, no nasal congestion, no throat pain, no throat swelling, no mouth pain. RESPIRATORY: No cough, no orthopnea, no SOB, no stridor, no wheezing. CARDIOVASCULAR: No chest pain, no edema, no palpitations, no syncope. GASTROINTESTINAL/ABDOMINAL: No abdominal pain, no constipation, no diarrhea, no nausea, no vomiting. GENITOURINARY: No abnormal discharge, no dysuria, no frequent urination, no hematuria. No complaints of pain in the genitals. MUSCULOSKELETAL: No back pain, no gout, no joint pain, no joint swelling, no muscle pain, no muscle stiffness, no neck pain. INTEGUMENTARY: No change in color, no change in hair/nails, no dryness, no lesion, no lumps, no rash. NEUROLOGICAL/PSYCH: No anxiety, not depressed, no emotional problem, no headache, no numbness, no pre-existing deficit, no history of seizures, no tremors, no weakness. HEMATOLOGIC/LYMPHATIC: Not anemic, no history of blood clots, no apparent bleeding, no bruising, glands not swollen. All Systems Negative, Except as Noted. Physical Exam Physical Exam Dictation VITAL SIGNS: Reviewed. GENERAL APPEARANCE: Alert, oriented x3, no acute distress, obese. HEAD AND FACE: Non-traumatic. EYES: PERRL, pink conjunctivas, eyelid no trauma, anterior chamber clear. EARS: Pinnas intact and no signs of trauma or erythema. Ear canals clear and no discharge. TMs no erythema. NOSE: No discharge, no bleeding. OROPHARYNX: Mouth normal, teeth no caries, tongue pink. Pharynx clear, no erythema. Tonsils no exudates, no abscesses noted. Mucous membrane moist. NECK: Supple, non-tender, no thyromegaly, no masses, no JVD, no bruits. BREAST: Deferred. CHEST: No tenderness, no crepitus, no paradoxical movement, no retractions. LUNGS: Clear, well-ventilated, symmetric, no rales, no wheezing, no rhonchi, no stridor, good breath sounds bilaterally. HEART: Regular rate, regular rhythm, no murmur, no gallops. VASCULAR: No peripheral edema. ABDOMEN: Soft, positive bowel sounds, nondistended, no guarding, nontender, no rebound, no masses no hepatomegaly, no splenomegaly, no Brice's sign, no hernias. RECTAL: Deferred. GENITAL: Deferred. NEUROLOGICAL: Normal speech, gross motor function intact, gross sensory function intact. MUSCULOSKELETAL: Neck nontender, full range of motion, back nontender, full range of motion. EXTREMITIES: Nontender, full range of motion. SKIN: Color pink, dry, no turgor, no rash, no lacerations, no abrasions, no contusions. LYMPHATICS: Deferred. Results Laboratory and Microbiology Lab and Micro Result Laboratory Tests Test 05/13/25 07:49 05/13/25 08:18 White Blood Count 4.2 K/uL (4.8-10.8) L Red Blood Count 4.18 MIL/uL (4.50-6.20) L Hemoglobin 12.7 g/dL (14.0-18.0) L Hematocrit 37.4 % (42-54) L Mean Corpuscular Volume 89.5 fL (79-99) Mean Corpuscular Hemoglobin 30.4 pg (27.0-33.0) Mean Corpuscular Hemoglobin Concent 34.0 g/dL (32.0-36.0) Red Cell Distribution Width 13.4 % (11.0-15.5) Platelet Count 93 K/uL (130-400) L Mean Platelet Volume 11.5 fL (7.5-10.5) H Immature Granulocyte % (Auto) 0.2 % (0-1) Neutrophils (%) (Auto) 68.5 % (40.0-77.0) Lymphocytes (%) (Auto) 11.6 % (21.0-51.0) L Monocytes (%) (Auto) 13.3 % (3.0-13.0) H Eosinophils (%) (Auto) 5.2 % (0.0-8.0) Basophils (%) (Auto) 1.2 % (0.0-5.0) Neutrophils # (Auto) 2.9 K/uL (1.8-7.7) Lymphocytes # (Auto) 0.5 K/uL (1.0-4.8) L Monocytes # (Auto) 0.6 K/uL (0.1-1.0) Eosinophils # (Auto) 0.22 K/uL (0.00-0.70) Basophils # (Auto) 0.05 K/uL (0.00-0.20) Absolute Immature Granulocyte (auto 0.01 K/uL (0-1) Nucleated Red Blood Cells 0.0 % (0.0-0.19) Sodium Level 136 mmol/L (136-145) Potassium Level 4.0 mmol/L (3.5-5.1) Chloride Level 102 mmol/L (101-111) Carbon Dioxide Level 32 mmol/L (21-32) Blood Urea Nitrogen 20 mg/dL (7-18) H Creatinine 0.8 mg/dL (0.5-1.3) Glomerular Filtration Rate Calc 101 mL/min (>90) Random Glucose 236 mg/dL (70-105) H Total Calcium 8.1 mg/dL (8.5-10.1) L Magnesium Level 1.40 mg/dL (1.80-2.40) L Troponin I High Sensitivity 14 ng/L (4-75) Urine Color LIGHT-YELLOW (YELLOW) Urine Appearance CLEAR (CLEAR) Urine pH 6.0 (5.0-8.0) Urine Specific Isabella 1.018 (1.001-1.031) Urine Protein 200 mg/dL (NEGATIVE) H Urine Glucose (UA) 500 mg/dL (NEGATIVE) H Urine Ketones NEGATIVE mg/dL (NEGATIVE) Urine Occult Blood MODERATE (NEGATIVE) H Urine Nitrate NEGATIVE (NEGATIVE) Urine Bilirubin NEGATIVE mg/dL (NEGATIVE) Urine Urobilinogen 0.2 mg/dL (0.2-1.0) Urine Leukocyte Esterase 75 Criss/uL (NEGATIVE) H Urine RBC 2-5 /HPF (0-1) H Urine WBC 2-5 /HPF (0-1) H Urine Squamous Epithelial Cells FEW /HPF (0-2) Urine Bacteria None /HPF (None Seen) Labs Reviewed?: Yes EKG/XRAY/US/CT/MRI EKG Comment 05/13/2025 time 7:40 a.m. Ventricular rate [address] [place] [address] wave elevation or depression MDM MDM: Differential diagnosis: Rationale: Tests considered and ordered secondary to shared decision making include: Previous outside records reviewed: Old ER visits. Risk of complication and/or morbidity or mortality of patient management: None Medications-Per medication reconciliation Need for hospitalization: Patient does not meet criteria for hospitalization. Need for emergency major/minor surgery: No There are no social concerns with this patient. Prescription drug management Prescriptions will include symptomatic care Patient's prior external medical records from other ER visits were reviewed by me as indicated. Prior testing and results from previous visits were reviewed. Prior tests were taken into account with medical decision making and resource utilization, independent historian/historians were used to obtain complete medical history. I independently interpreted the test that were performed, results were reviewed by me and considered findings on radiology if ordered. Medical management and examination interpretation discussions were had by me with other qualified healthcare professionals as indicated for the patient's care. ED Course Orders Procedure Category Date Status Time Cbc With Differential LAB 05/13/25 Complete 07:36 Chest 1vw RAD 05/13/25 Resulted 07:36 12 Lead Ekg Tracing- EKG 05/13/25 Complete Technical 07:36 0.9%Nacl 1000ml (Ns PHA 05/13/25 Complete 1000ml) 08:00 Magnesium LAB 05/13/25 Complete 07:36 Troponin I High LAB 05/13/25 Complete Sensitivity 07:36 Urinalysis Profile LAB 05/13/25 Complete 07:36 Basic Metabolic Panel LAB 05/13/25 Complete 07:36 Culture Urine IMAN 05/13/25 Logged 08:38 Ceftriaxone 1g Vial PHA 05/13/25 Complete (Rocephine 1g Inj) 10:00 Ketorolac PHA 05/13/25 Transmitted Tromethamine 30mg/Ml 10:30 Current Medications Medications (Trade) Dose Ordered Sig/Efrem Route PRN Reason Start Time Stop Time Status Last Admin Dose Admin Ceftriaxone Sodium (ROCEphine 1G INJ) 1 gm ONCE ONCE IVPB 05/13/25 10:00 05/13/25 10:01 DC Sodium Chloride 1,000 ml @ 0 mls/hr ONCE ONCE IV 05/13/25 08:00 05/13/25 08:01 DC 05/13/25 08:18 Vital Signs Date Time Temp Pulse Resp B/P (MAP) Pulse Ox O2 Delivery O2 Flow Rate FiO2 05/13/25 08:46 98.1 69 18 131/67 98 Room Air* 0 21 05/13/25 07:31 98.1 67 16 170/100 100 Room Air 0 DX & DISP Disposition: Discharge Departure Impression: Primary Impression: Chronic pain syndrome Additional Impression: Essential hypertension Condition: Stable Additional Instructions: FOLLOW-UP WITH PRIMARY CARE PROVIDER IN 1 TO 2 DAYS. TAKE MEDICATIONS DIRECTED HERE IN THE EMERGENCY ROOM. OKAY TO CONTINUE HOME MEDICATIONS UNLESS OTHERWISE DISCUSSED DURING YOUR VISIT IN THE EMERGENCY ROOM TODAY. RETURN TO YOUR NEAREST EMERGENCY ROOM IF SYMPTOMS WORSEN OR IF THERE IS NO IMPROVEMENT. CALL 911 IF YOU NEED IMMEDIATE ASSISTANCE. TAKE TYLENOL [id number] NEEDED AND IF NO CONTRAINDICATIONS ARE PRESENT. INCREASE ORAL HYDRATION. A WOUND CULTURE OR URINE CULTURE WAS ORDERED HERE IN THE EMERGENCY ROOM DEPARTMENT PLEASE FOLLOW-UP WITH PRIMARY CARE PROVIDER AND ADVISE THEM TO GET REPORTS FROM OUR FACILITY. IF YOU HAD ANY CHERRY WRAP/SPLINTS THAT WERE APPLIED HERE, PLEASE DO NOT REMOVE THEM UNTIL YOU SEE YOUR PRIMARY CARE OR SPECIALTY. Referrals: Referrals: LEONARDA SMILEY (PCP) Time of Disposition: 10:14 MO CORDON MD May 13, 2025 07:47
[2025-05-13 07:58] LABS: IMMATURE GRANULOCYTE ABSOLUTE 0.01 K/uL (0-1); NUCLEATED RED BLOOD CELLS 0.0 % (0.0-0.19); PLATELET COUNT (AUTO) 93 K/uL (130-400); RED BLOOD CELL COUNT(AUTO) 4.18 MIL/uL (4.50-6.20); RED CELL DISTRIBUTION WIDTH 13.4 % (11.0-15.5); WHITE BLOOD COUNT (AUTO) 4.2 K/uL (4.8-10.8)
[2025-05-13 08:04] LABS: CREATININE 0.8 mg/dL (0.5-1.3); GLOMERULAR FILTR. RATE CALC 101.0 mL/min (>90); GLUCOSE,RANDOM 236.0 mg/dL (70-105); SODIUM SERUM 136.0 mmol/L (136-145); UREA NITROGEN, BLOOD 20.0 mg/dL (7-18)
[2025-05-13] MEDS: 0.9%NACL 1000ML 1,000 ML IV ONE (08:18)
[2025-05-13 08:28] LABS: APPEARANCE,URINE CLEAR (CLEAR); GLUCOSE, URINE (UA) 500 mg/dL (NEGATIVE); LEUKOCYTE ESTERASE ,URINE 75 Leu/uL (NEGATIVE); NITRATE,URINE NEGATIVE (NEGATIVE); OCCULT BLOOD,URINE MODERATE (NEGATIVE)
[2025-05-13 08:36] LABS: ADD UA MICROSCOPIC YES
[2025-05-13 08:43] LABS: SQUAMOUS EPITHELIAL CELL,UR FEW /HPF (0-2)
--- NOTE | 2025-05-13 10:04 | HMCIMG ---
EXAM: CR Chest, 1 View. CLINICAL HISTORY: cp COMPARISON: None provided. FINDINGS: Right Mediport catheter tip projects over the distal SVC. LUNGS: There is no mass, infiltrate, or acute pulmonary abnormality. PLEURAL SPACES: No evidence of pleural effusion or pneumothorax. MEDIASTINUM: Pacemaker leads overlie the right atrium and right ventricle. Cardiac size and mediastinal contours within normal limits. BONES: No aggressive appearing osseous lesion seen. IMPRESSION: 1. No acute cardiopulmonary findings. 2. Right mediport catheter tip appropriately positioned in distal SVC. /[employer]
[2025-05-13] MEDS: MAGNESIUM OXIDE 400 MG TABLET PO ONE (10:20)
[2025-05-13 11:20] VITALS: BP 157/98; PULSE 70; RESP 18; TEMP 98; O2SAT 98
== END 2025-05-13 11:31 | disposition home or self-care (01) ==
LOC: EDH 07:29
DX: G89.4 Chronic pain syndrome (principal); I10 Essential (primary) hypertension; Z79.01 Long term (current) use of anticoagulants; Z79.02 Long term (current) use of antithrombotics/antiplatelets; Z79.621 Long term (current) use of calcineurin inhibitor; Z79.82 Long term (current) use of aspirin; Z79.84 Long term (current) use of oral hypoglycemic drugs; Z79.890 Hormone replacement therapy; Z79.899 Other long term (current) drug therapy; Z92.21 Personal history of antineoplastic chemotherapy; Z95.810 Presence of automatic (implantable) cardiac defibrillator
CPT/HCPCS: 99284; 96374; 71045; 96361; 83735; 84484; 80048; 85025; 87086; 81001; 36415; 93005; 96372; J1885; J7030; J0696

== ENCOUNTER → 2025-05-20 | Outpatient (CLI) | payer BC, MEDICARE | END | disposition home or self-care (01) | LOC: WHH 07:54 | PROVIDERS: ATTEND Family Medicine | DX: E11.621 Type 2 diabetes mellitus with foot ulcer (principal); L97.525 Non-pressure chronic ulcer of other part of left foot with muscle involvement without evidence of necrosis; L84 Corns and callosities; S81.801D Unspecified open wound, right lower leg, subsequent encounter; E11.51 Type 2 diabetes mellitus with diabetic peripheral angiopathy without gangrene; E11.40 Type 2 diabetes mellitus with diabetic neuropathy, unspecified; E11.22 Type 2 diabetes mellitus with diabetic chronic kidney disease; I13.0 Hypertensive heart and chronic kidney disease with heart failure and stage 1 through stage 4 chronic kidney disease, or unspecified chronic kidney disease; I50.22 Chronic systolic (congestive) heart failure; N18.9 Chronic kidney disease, unspecified; E03.9 Hypothyroidism, unspecified; I48.91 Unspecified atrial fibrillation; E78.5 Hyperlipidemia, unspecified; G47.30 Sleep apnea, unspecified; G89.4 Chronic pain syndrome; M19.90 Unspecified osteoarthritis, unspecified site; F41.9 Anxiety disorder, unspecified; Z79.899 Other long term (current) drug therapy; Z85.05 Personal history of malignant neoplasm of liver; X58.XXXD Exposure to other specified factors, subsequent encounter | CPT/HCPCS: 99214; A4450 ==

== ENCOUNTER → 2025-06-11 | Outpatient (CLI) | payer BC, MEDICARE | END | disposition home or self-care (01) | LOC: WHH 07:36 | PROVIDERS: ATTEND Family Medicine | DX: E11.621 Type 2 diabetes mellitus with foot ulcer (principal); L97.525 Non-pressure chronic ulcer of other part of left foot with muscle involvement without evidence of necrosis; L84 Corns and callosities; S81.801D Unspecified open wound, right lower leg, subsequent encounter; E11.51 Type 2 diabetes mellitus with diabetic peripheral angiopathy without gangrene; E11.40 Type 2 diabetes mellitus with diabetic neuropathy, unspecified; E11.22 Type 2 diabetes mellitus with diabetic chronic kidney disease; I13.0 Hypertensive heart and chronic kidney disease with heart failure and stage 1 through stage 4 chronic kidney disease, or unspecified chronic kidney disease; I50.22 Chronic systolic (congestive) heart failure; N18.9 Chronic kidney disease, unspecified; E03.9 Hypothyroidism, unspecified; I48.91 Unspecified atrial fibrillation; E78.5 Hyperlipidemia, unspecified; G47.30 Sleep apnea, unspecified; G89.4 Chronic pain syndrome; M19.90 Unspecified osteoarthritis, unspecified site; F41.9 Anxiety disorder, unspecified; Z79.899 Other long term (current) drug therapy; Z85.05 Personal history of malignant neoplasm of liver; X58.XXXD Exposure to other specified factors, subsequent encounter | CPT/HCPCS: 99214 ==

== ENCOUNTER → 2025-07-02 | Outpatient (CLI) | payer BC, MEDICARE | END | disposition home or self-care (01) | LOC: WHH 08:01 | PROVIDERS: ATTEND Family Medicine | DX: E11.621 Type 2 diabetes mellitus with foot ulcer (principal); L97.525 Non-pressure chronic ulcer of other part of left foot with muscle involvement without evidence of necrosis; L84 Corns and callosities; S81.801D Unspecified open wound, right lower leg, subsequent encounter; E11.51 Type 2 diabetes mellitus with diabetic peripheral angiopathy without gangrene; E11.40 Type 2 diabetes mellitus with diabetic neuropathy, unspecified; E11.22 Type 2 diabetes mellitus with diabetic chronic kidney disease; I13.0 Hypertensive heart and chronic kidney disease with heart failure and stage 1 through stage 4 chronic kidney disease, or unspecified chronic kidney disease; I50.22 Chronic systolic (congestive) heart failure; N18.9 Chronic kidney disease, unspecified; E03.9 Hypothyroidism, unspecified; I48.91 Unspecified atrial fibrillation; E78.5 Hyperlipidemia, unspecified; G47.30 Sleep apnea, unspecified; G89.4 Chronic pain syndrome; M19.90 Unspecified osteoarthritis, unspecified site; F41.9 Anxiety disorder, unspecified; Z79.899 Other long term (current) drug therapy; Z85.05 Personal history of malignant neoplasm of liver; X58.XXXD Exposure to other specified factors, subsequent encounter | CPT/HCPCS: 99214 ==

== ENCOUNTER → 2025-07-25 | Outpatient (CLI) | payer BC, MEDICARE | END | disposition home or self-care (01) | LOC: WHH 08:23 | PROVIDERS: ATTEND Family Medicine | DX: S81.801D Unspecified open wound, right lower leg, subsequent encounter (principal); L84 Corns and callosities; E11.51 Type 2 diabetes mellitus with diabetic peripheral angiopathy without gangrene; E11.40 Type 2 diabetes mellitus with diabetic neuropathy, unspecified; E11.22 Type 2 diabetes mellitus with diabetic chronic kidney disease; I13.0 Hypertensive heart and chronic kidney disease with heart failure and stage 1 through stage 4 chronic kidney disease, or unspecified chronic kidney disease; I50.22 Chronic systolic (congestive) heart failure; N18.9 Chronic kidney disease, unspecified; E03.9 Hypothyroidism, unspecified; I48.91 Unspecified atrial fibrillation; E78.5 Hyperlipidemia, unspecified; G47.30 Sleep apnea, unspecified; G89.4 Chronic pain syndrome; M19.90 Unspecified osteoarthritis, unspecified site; F41.9 Anxiety disorder, unspecified; Z79.899 Other long term (current) drug therapy; Z85.05 Personal history of malignant neoplasm of liver; X58.XXXD Exposure to other specified factors, subsequent encounter | CPT/HCPCS: 99215 ==

== ENCOUNTER 2025-08-01 17:16 | Emergency (ER) | payer BC, MEDICARE ==
[~2025-08-01] VITALS: Ht 182.9 cm; Wt 127.5 kg
--- NOTE | 2025-08-01 17:24 | ERN ---
ED Note History of Present Illness Stated Complaint: CHEST PRESSURE Chief Complaint: Chest Pain Time Seen by MD: 17:19 Dictation: PATIENT IS A 60-YEAR-OLD MALE COMING IN TODAY WITH CHEST PAIN PRESSURE HE HAS HAD FOR SEVERAL DAYS WITH SHORTNESS A BREATH. HE STATES HE HAD JUST VERY TIRED NO FEVER NO CHILLS NO RADIATION OF PAIN. STATES HE HAS A HISTORY OF LIVER CA AND HAS BEEN TREATED IN [place] AT [facility]. HISTORY OF PACEMAKER, CAD CHF DIABETES HYPERTENSION. Allergies: Coded Allergies: No Known Drug Allergies (Verified Allergy, Unknown, 03/28/24) Home Meds Active Scripts Cephalexin Monohydrate (Keflex) 500 Mg Cap, 500 MG PO QID for 7 Days, #28 CAP Prov:HERSON BURCH MD 03/18/25 Reported Medications Tramadol Hcl (Tramadol HCl) 50 Mg Tablet, 1 TAB PO Q6HPRN PRN for PAIN LEVEL 6 TO 10 02/27/25 Torsemide (Torsemide) 10 Mg Tablet, 1 TAB PO DAILY 02/27/25 Spironolactone (Spironolactone) 25 Mg Tablet, 1 TAB PO DAILY 02/27/25 Sacubitril/Valsartan (Entresto 49 mg-51 mg Tablet) 49 Mg-51 Mg Tablet, 1 TAB PO BID 02/27/25 Cyclosporine (Restasis) 0.05 % Droperette, 1 DROP OU BID 02/27/25 Levothyroxine Sodium (Levothyroxine Sodium) 25 Mcg Tablet, 1 TAB PO DAILY 02/27/25 Hum Insulin NPH/Reg Insulin Hm (Humulin 70/30) 100 Unit/Ml (70-30) Inj, 50 UNITS SQ PM, ML 02/27/25 Hum Insulin NPH/Reg Insulin Hm (Humulin 70/30) 100 Unit/Ml (70-30) Inj, 40 UNITS SQ AM 02/27/25 Gabapentin (Neurontin) 300 Mg Capsule, 1 CAP PO TID 02/27/25 Empagliflozin (Jardiance) 25 Mg Tablet, 1 TAB PO DAILY 02/27/25 Clopidogrel Bisulfate (Clopidogrel) 75 Mg Tablet, 1 TAB PO DAILY 02/27/25 Cilostazol (Cilostazol) 100 Mg Tablet, 1 TAB PO BID 02/27/25 Carvedilol (Carvedilol) 3.125 Mg Tablet, 1 TAB PO BID 02/27/25 Baclofen (Baclofen) 5 Mg Tablet, 1 TAB PO TIDP PRN for MUSCLE SPASMS 02/27/25 Aspirin (Aspirin) 81 Mg Tab.chew, 1 TAB PO DAILY for 30 Days, #30 TAB 0 Refills 02/27/25 Apixaban (Eliquis) 5 Mg Tablet, 1 TAB PO BID 02/27/25 Alprazolam (Alprazolam) 0.5 Mg Tablet, 1 TAB PO BID PRN for ANXIETY/AGITATION 02/27/25 Trazodone HCl (Trazodone HCl) 50 Mg Tablet, 1 TAB PO HS for 30 Days, #30 TAB 0 Refills 02/27/25 Past Medical History Past Medical History: No Pertinent History, Cancer, Diabetes-Type II, High Cholesterol, Heart Disease, Hypertension, Other Additional Past Medical Hx: LIVER CANCER Surgical History: Pacer/AICD, Other Surgical History Other: RT KNEE, Family History: CAD, DM, HTN Social History: Lives with family RN Note Reviewed/Agreed w/PFSH: Yes Review of System Dictation CONSTITUTIONAL: NEGATIVE EXCEPT FOR HPI HEAD/FACE: NEGATIVE EXCEPT FOR HPI EENT: NEGATIVE EXCEPT FOR HPI RESPIRATORY: NEGATIVE EXCEPT FOR HPI SHORTNESS A BREATH/FRESH PRESSURE GASTROINTESTINAL/ABDOMINAL: NEGATIVE EXCEPT FOR HPI GENITOURINARY: NEGATIVE EXCEPT FOR HPI MUSCULOSKELETAL: NEGATIVE EXCEPT FOR HPI INTEGUMENTARY: NEGATIVE EXCEPT FOR HPI NEUROLOGICAL/PSYCH: NEGATIVE EXCEPT FOR HPI HEMATOLOGIC/LYMPHATIC: NEGATIVE EXCEPT FOR HPI ALL SYSTEMS NEGATIVE, EXCEPT NOTED ABOVE. 13 POINT REVIEW OF SYSTEMS ASSESSED AND ALL NEGATIVE EXCEPT FOR ABOVE. Initial Vital Sign VS Vital Signs Date Time Temp Pulse Resp B/P (MAP) Pulse Ox O2 Delivery O2 Flow Rate FiO2 08/01/25 17:20 97.3 68 22 146/77 100 Room Air 0 08/01/25 17:23 21 Physical Exam Dictation VITAL SIGNS REVIEWED GENERAL APPEARANCE: ALERT, ORIENTED X 3, N MILD ACUTE DISTRESS, WELL DEVELOPED, NOURISHED. MORBID OBESITY HEAD AND FACE: NON-TRAUMATIC. EYES: PERRL, PINK CONJUNCTIVAS, EYELID NO TRAUMA, ANTERIOR CHAMBER WITH ARCUS SENILIS. EARS: PINNAS INTACT AND NO SIGNS OF TRAUMA OR ERYTHEMA EAR CANALS CLEAR AND NO DISCHARGE TM NO ERYTHEMA NOSE: NO DISCHARGE, NO BLEEDING. OROPHARYNX: MOUTH NORMAL, TONGUE PINK, PHARYNX CLEAR,NO ERYTHEMA, TONSILS NO EXUDATES, NO ABSCESSES NOTED, MUCOUS M EMBRANE MOIST NECK: SUPPLE, NON-TENDER, NO THYROMEGALY, NO MASSES, NO JVD, NO BRUITS BREAST:DEFERRED CHEST:NO TENDERNESS, NO CREPITUS, NO PARADOXICAL MOVEMENT, NO RETRACTIONS LUNGS:CLEAR, WELL-VENTILATED, SYMMETRIC, NO RALES, NO WHEEZING, NO RHONCHI, NO STRIDOR, GOOD BREATH SOUNDS BILATERALLY HEART: REGULAR RATE, REGULAR RHYTHM, NO MURMUR, NO GALLOPS VASCULAR: 2+ PERIPHERAL EDEMA, ABDOMEN: SOFT, POSITIVE BOWEL SOUNDS, NONDISTENDED, NO GUARDING, NONTENDER, NO REBOUND, NO MASSES NO HEPATOMEGALY, NO SPLENOMEGALY, NO REDDY'S SIGN, NO HERNIAS. RECTAL: DEFERRED GENITAL: DEFERRED NEUROLOGICAL: NORMAL SPEECH, MOTOR FUNCTION INTACT, SENSORY FUNCTION INTACT MUSCULOSKELETAL: NECK NONTENDER, FULL RANGE OF MOTION, BACK NONTENDER, FULL RA NGE OF MOTION, EXTREMITIES: NONTENDER, FULL RANGE OF MOTION SKIN: COLOR PINK, DRY, NO TURGOR, NO RASH, NO LACERATIONS, NO ABRASIONS, NO CONTUSIONS. LYMPHATIC: DEFERRED Results (Laboratory/Radiology) Laboratory/Radiology Laboratory Tests Test 08/01/25 17:24 08/01/25 17:50 08/01/25 18:35 SARS-CoV-2 Antigen (Rapid) PRESUMPTIVE NEGATIVE White Blood Count 12.1 K/uL (4.8-10.8) H Red Blood Count 2.88 MIL/uL (4.50-6.20) L Hemoglobin 9.3 g/dL (14.0-18.0) L Hematocrit 28.2 % (42-54) L Mean Corpuscular Volume 97.9 fL (79-99) Mean Corpuscular Hemoglobin 32.3 pg (27.0-33.0) Mean Corpuscular Hemoglobin Concent 33.0 g/dL (32.0-36.0) Red Cell Distribution Width 17.8 % (11.0-15.5) H Platelet Count 81 K/uL (130-400) L Mean Platelet Volume 10.4 fL (7.5-10.5) Immature Granulocyte % (Auto) 0.7 % (0-1) Neutrophils (%) (Auto) 84.8 % (40.0-77.0) H Lymphocytes (%) (Auto) 5.5 % (21.0-51.0) L Monocytes (%) (Auto) 7.6 % (3.0-13.0) Eosinophils (%) (Auto) 0.7 % (0.0-8.0) Basophils (%) (Auto) 0.7 % (0.0-5.0) Neutrophils # (Auto) 10.3 K/uL (1.8-7.7) H Lymphocytes # (Auto) 0.7 K/uL (1.0-4.8) L Monocytes # (Auto) 0.9 K/uL (0.1-1.0) Eosinophils # (Auto) 0.08 K/uL (0.00-0.70) Basophils # (Auto) 0.08 K/uL (0.00-0.20) Absolute Immature Granulocyte (auto 0.08 K/uL (0-1) Nucleated Red Blood Cells 0.3 % (0.0-0.19) H White Cell Morphology Comment See comments Sodium Level 141 mmol/L (136-145) Potassium Level 3.6 mmol/L (3.5-5.1) Chloride Level 102 mmol/L (101-111) Carbon Dioxide Level 28 mmol/L (21-32) Blood Urea Nitrogen 24 mg/dL (7-18) H Creatinine 1.2 mg/dL (0.5-1.3) Glomerular Filtration Rate Calc 69 mL/min (>90) Random Glucose 183 mg/dL (70-105) H Total Calcium 7.6 mg/dL (8.5-10.1) L Magnesium Level 1.70 mg/dL (1.80-2.40) L Total Bilirubin 0.6 mg/dL (0.2-1.0) Aspartate Amino Transf (AST/SGOT) 40 U/L (10-37) H Alanine Aminotransferase (ALT/SGPT) 25 U/L (12-78) Alkaline Phosphatase 100 U/L (50-136) Troponin I High Sensitivity 12 ng/L (4-75) B-Type Natriuretic Peptide 255 pg/mL (0-100) H Total Protein 6.2 g/dL (6.0-8.3) Albumin 2.7 g/dL (3.5-5.0) L Lactic Acid Level 1.4 mmol/L (0.8-2.5) 1835/CHEST X-RAY DEMONSTRATES PACEMAKER IN PLACE NO ACUTE DISEASE. Labs Reviewed?: Yes EKG Comment: 1730/EKG AV PACED RHYTHM/VENTRICULAR RATE 71/NO ECTOPY ED Course ED Course Orders Procedure Category Date Status Time B-Type Natriuretic LAB 08/01/25 Complete Peptide 17:21 Covid19 (Sars Antigen LAB 08/01/25 Complete Rapid) 17:21 Cbc With Differential LAB 08/01/25 Complete 17:21 Chest 1vw RAD 08/01/25 Resulted 17:21 12 Lead Ekg Tracing- EKG 08/01/25 Logged Technical 17:21 Troponin I High LAB 08/01/25 Complete Sensitivity 17:21 Comprehensive LAB 08/01/25 Complete Metabolic Panel 17:25 Magnesium LAB 08/01/25 Complete 17:25 Blood Cult IMAN 08/01/25 In Process 18:15 Lactic Acid LAB 08/01/25 Complete 18:15 Methylprednisolone PHA 08/01/25 In Process Succ 125mg (Solu-Medr 19:00 Albuterol 0.083% PHA 08/01/25 In Process 2.5mg/3ml (Proventil 19:00 Current Medications Medications (Trade) Dose Ordered Sig/Efrem Route PRN Reason Start Time Stop Time Status Last Admin Dose Admin Albuterol Sulfate (Proventil 0.083% 2.5mg/3ml) 5 mg ONCE IH 08/01/25 19:00 08/01/25 23:00 08/01/25 19:55 Methylprednisolone Sodium Succinate (Solu-medROL 125MG) 125 mg ONCE IVP 08/01/25 19:00 08/01/25 23:00 08/01/25 19:37 Vital Signs Date Time Temp Pulse Resp B/P (MAP) Pulse Ox O2 Delivery O2 Flow Rate FiO2 08/01/25 19:55 69 18 08/01/25 18:28 97.3 80 22 134/78 100 Room Air* 0 21 08/01/25 17:23 97.3 68 22 146/77 100 Room Air* 0 08/01/25 17:20 97.3 68 22 146/77 100 Room Air 0 2009/PATIENT WAS GIVEN ALBUTEROL 5 MG AND 125 SOLU-MEDROL. STATES HE FEELS MARKEDLY IMPROVED AND REALIZES THAT THE MAJORITY OF THE WORKUP WAS NEGATIVE WISHES TO GO HOME HEART Score Response (Comments) Value EKG: Repolarization changes 1 Age: 45-65yrs (+1) 1 Risk Factors: 3+ risk factors (+2) 2 Initial Troponin: Normal limit (0) 0 Total 4 Medical Decision Making MDM MDM: DIFFERENTIAL DIAGNOSIS: CHF/ACS/AMI/ELECTROLYTE IMBALANCE/DEHYDRATION/PNEUMONIA/BRONCHITIS/FLUID OVERLOAD RATIONALE: TESTS CONSIDERED AND ORDERED SECONDARY TO SHARED DECISION MAKING INCLUDE: EKG/LABS/RADIOLOGY PREVIOUS OUTSIDE RECORDS REVIEWED: OLD ER VISITS. RISK OF COMPLICATION AND/OR MORBIDITY OR MORTALITY OF PATIENT MANAGEMENT: NONE MEDICATIONS-PER MEDICATION RECONCILIATION NEED FOR HOSPITALIZATION: PATIENT DOES NOT MEET CRITERIA FOR HOSPITALIZATION. NO NEED FOR EMERGENCY MAJOR/MINOR SURGERY: NO THERE ARE NO SOCIAL CONCERNS WITH THIS PATIENT. PRESCRIPTION DRUG MANAGEMENT ALBUTEROL/MEDROL DOSEPAK PRESCRIPTIONS WILL INCLUDE SYMPTOMATIC CARE PATIENT'S PRIOR EXTERNAL MEDICAL RECORDS FROM OTHER ER VISITS WERE REVIEWED BY ME INDICATED. PRIOR TESTING AND RESULTS FROM PREVIOUS VISITS WERE REVIEWED. PRIOR TESTS WERE TAKEN INTO ACCOUNT WITH MEDICAL DECISION MAKING AND RESOURCE UTILIZATION, INDEPENDENT HISTORIAN/HISTORIANS WERE USED TO OBTAIN COMPLETE MEDICAL HISTORY. I INDEPENDENTLY INTERPRETED THE TEST THAT WERE PERFORMED, RESULTS WERE REVIEWED BY ME AND CONSIDERED FINDINGS ON RADIOLOGY IF ORDERED. MEDICAL MANAGEMENT AND EXAMINATION INTERPRETATION DISCUSSIONS WERE HAD BY ME WITH OTHER QUALIFIED HEALTHCARE PROFESSIONALS INDICATED FOR THE PATIENT'S CARE. DX & DISP Disposition: Discharge Departure Impression: Primary Impression: Asthma exacerbation Additional Impressions: Dehydration, Hypomagnesemia, Diabetes mellitus with hyperglycemia, Pacemaker Condition: Stable Scripts Methylprednisolone (Medrol) 4 Mg Tab.ds.pk 1 TAB PO AD for 6 Days, #21 TAB 0 Refills 6 on day 1 then reduce by one tablet daily until gone Prov: VIGNESH LEAHY [employer] INSTRUCTOR 08/01/25 Albuterol Sulfate (Albuterol Sulfate) 2.5 Mg/0.5 Ml Vial.neb 2.5 MG IH Q6H for wheezing/sob, #20 INH 0 Refills Prov: VIGNESH LEAHY [employer] INSTRUCTOR 08/01/25 Additional Instructions: FOLLOW-UP WITH PRIMARY CARE PROVIDER IN 1 TO 2 DAYS. TAKE MEDICATIONS DIRECTED HERE IN THE EMERGENCY ROOM. OKAY TO CONTINUE HOME MEDICATIONS UNLESS OTHERWISE DISCUSSED DURING YOUR VISIT IN THE EMERGENCY ROOM TODAY. RETURN TO YOUR NEAREST EMERGENCY ROOM IF SYMPTOMS WORSEN OR IF THERE IS NO IMPROVEMENT. CALL 911 IF YOU NEED IMMEDIATE ASSISTANCE. TAKE TYLENOL OR MOTRIN [id number] NEEDED AND IF NO CONTRAINDICATIONS ARE PRESENT. INCREASE ORAL HYDRATION. A WOUND CULTURE OR URINE CULTURE WAS ORDERED HERE IN THE EMERGENCY ROOM DEPARTMENT PLEASE FOLLOW-UP WITH PRIMARY CARE PROVIDER AND ADVISE THEM TO GET REPEAT PORTS FROM OUR FACILITY. IF YOU HAD ANY CHERRY WRAP/SPLINTS THAT WERE APPLIED HERE, PLEASE DO NOT REMOVE THEM UNTIL YOU SEE YOUR PRIMARY CARE OR SPECIALTY. USE ALBUTEROL NEBULIZER EVERY 6 HOURS FOR THE NEXT TWO DAYS. TAKE MEDROL DOSEPAK DIRECTED UNTIL GONE. FOLLOW UP WITH YOUR PRIMARY CARE DOCTOR NEXT ONE TWO DAYS. Referrals: LEONARDA SMILEY (PCP) Time of Disposition: 20:13 I have reviewed the case, and I agree with, Diagnosis and Plan VIGNESH LEAHY [employer] IN[employer] Aug 01, 2025 17:24
[2025-08-01 18:01] LABS: IMMATURE GRANULOCYTE ABSOLUTE 0.08 K/uL (0-1); NUCLEATED RED BLOOD CELLS 0.3 % (0.0-0.19); PLATELET COUNT (AUTO) 81 K/uL (130-400); RED BLOOD CELL COUNT(AUTO) 2.88 MIL/uL (4.50-6.20); RED CELL DISTRIBUTION WIDTH 17.8 % (11.0-15.5); WHITE BLOOD COUNT (AUTO) 12.1 K/uL (4.8-10.8)
[2025-08-01 18:33] LABS: CREATININE 1.2 mg/dL (0.5-1.3); GLOMERULAR FILTR. RATE CALC 69.0 mL/min (>90); GLUCOSE,RANDOM 183.0 mg/dL (70-105); SODIUM SERUM 141.0 mmol/L (136-145); UREA NITROGEN, BLOOD 24.0 mg/dL (7-18)
[2025-08-01 18:39] LABS: ASPARTATE AMINOTRANSFERASE 40.0 U/L (10-37); TOTAL PROTEIN, SERUM 6.2 g/dL (6.0-8.3)
--- NOTE | 2025-08-01 18:59 | HMCIMG ---
EXAM: CHEST RADIOGRAPH, SINGLE FRONTAL VIEW Technique: Single frontal projection of the chest was obtained. Comparison is made with chest radiograph dated May 13 at 8:31 EDT. Single-view technique modestly limits evaluation for small pleural effusions, subtle pneumothorax, and mild parenchymal abnormalities. Clinical Information: Shortness of breath. Findings: Right-sided subcutaneous venous access device (MediPort) catheter tip projects over the distal superior vena cava, unchanged. Cardiac pacemaker leads project over the right atrium and right ventricle. Lungs demonstrate no focal air-space consolidation, no acute infiltrate, and no pulmonary edema. No pleural effusion is identified. No pneumothorax is identified. Cardiac size and mediastinal contours are within normal limits. No aggressive-appearing osseous abnormality is identified. Overall appearance is unchanged compared with the prior study.IMPRESSION: 1. No acute cardiopulmonary findings, including no focal air-space consolidation, acute infiltrate, pulmonary edema, pleural effusion, or pneumothorax. 2. Unchanged right-sided subcutaneous venous access device (MediPort) catheter tip projecting over the distal superior vena cava. 3. Cardiac pacemaker leads projecting over the right atrium and right ventricle. 4. Cardiac size and mediastinal contours within normal limits. 5. No aggressive-appearing osseous abnormality identified. 6. Overall appearance unchanged compared with prior study from May 13. /[place]
[2025-08-01] MEDS ORDERED: BUME1TAB6 PO (19:06)
[2025-08-01] MEDS ORDERED: GLIP10TA16 PO (19:07)
[2025-08-01] MEDS ORDERED: ICOS1CAP PO (19:08)
[2025-08-01 19:55] VITALS: PULSE 69; RESP 18
[2025-08-01] MEDS: ALBUTEROL 0.083% 2.5 MG/3 ML INH IH SCH (19:55)
[2025-08-01] MEDS ORDERED: AUD IH (20:14)
[2025-08-01] MEDS ORDERED: METH4TAB3 PO (20:14)
[2025-08-01 20:16] VITALS: BP 123/76; PULSE 71; RESP 22; TEMP 97.4; O2SAT 100
--- NOTE | 2025-08-02 01:42 | EKG ---
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
== END 2025-08-01 20:27 | disposition home or self-care (01) ==
LOC: EDH 17:16
DX: J45.901 Unspecified asthma with (acute) exacerbation (principal); E86.0 Dehydration; E83.42 Hypomagnesemia; E11.65 Type 2 diabetes mellitus with hyperglycemia; E78.00 Pure hypercholesterolemia, unspecified; Z95.5 Presence of coronary angioplasty implant and graft; Z79.01 Long term (current) use of anticoagulants; Z79.02 Long term (current) use of antithrombotics/antiplatelets; Z79.621 Long term (current) use of calcineurin inhibitor; Z79.82 Long term (current) use of aspirin; Z79.84 Long term (current) use of oral hypoglycemic drugs; Z79.899 Other long term (current) drug therapy; Z85.05 Personal history of malignant neoplasm of liver; Z20.822 Contact with and (suspected) exposure to COVID-19
CPT/HCPCS: 99284; 96374; 71045; 87426; 83735; 84484; 80053; 83880; 85025; 87040 ×2; 83605; 36415; 93005; 94640; J2919